=== PATIENT | male | born 1980 | race African-American/Black ===

== ENCOUNTER 2019-10-22 00:57 | Emergency (ER) | payer MEDICAID, OTHER ==
[~2019-10-22] VITALS: Ht 185.4 cm; Wt 77.1 kg
[2019-10-22 01:30] VITALS: BP 135/78
== END 2019-10-22 02:05 | disposition home or self-care (01) ==
LOC: ER 00:57
DX: A63.0 Anogenital (venereal) warts (principal); B08.1 Molluscum contagiosum

== ENCOUNTER 2019-11-13 08:41 | Emergency (ER) | payer MEDICAID ==
[~2019-11-13] VITALS: Ht 185.4 cm; Wt 74.8 kg
[2019-11-13 09:03] VITALS: BP 162/78
== END 2019-11-13 09:43 | disposition home or self-care (01) ==
LOC: ER 08:41
DX: L03.317 Cellulitis of buttock (principal); L02.31 Cutaneous abscess of buttock

== ENCOUNTER 2019-11-14 07:21 | Emergency (ER) | payer MEDICAID ==
[~2019-11-14] VITALS: Ht 188 cm; Wt 79.4 kg
[2019-11-14 07:33] VITALS: BP 122/81
== END 2019-11-14 08:29 | disposition home or self-care (01) ==
LOC: ER 07:21
DX: L03.317 Cellulitis of buttock (principal)

== ENCOUNTER 2019-11-16 04:25 | Emergency (ER) | payer MEDICAID ==
[~2019-11-16] VITALS: Ht 185.4 cm; Wt 79.4 kg
[2019-11-16 04:37] VITALS: BP 114/71
== END 2019-11-16 07:45 | disposition home or self-care (01) ==
LOC: ER 04:25
DX: J20.9 Acute bronchitis, unspecified (principal)

== ENCOUNTER 2019-11-17 21:53 | Emergency (ER) | payer MEDICAID ==
[~2019-11-17] VITALS: Ht 185.4 cm; Wt 77.8 kg
[2019-11-18 01:45] VITALS: BP 115/72
== END 2019-11-18 02:22 | disposition home or self-care (01) ==
LOC: ER 21:55
DX: R21 Rash and other nonspecific skin eruption (principal)

== ENCOUNTER 2019-11-20 19:03 | Emergency (ER) | payer MEDICAID ==
[~2019-11-20] VITALS: Ht 154.9 cm; Wt 79.4 kg
[2019-11-20 22:17] VITALS: BP 115/80
[2019-11-20] MEDS ORDERED: IBUPROFEN 800 MG TAB PO ONE (22:30)
== END 2019-11-20 23:10 | disposition home or self-care (01) ==
LOC: ER 19:08
DX: S93.602A Unspecified sprain of left foot, initial encounter (principal); W10.8XXA Fall (on) (from) other stairs and steps, initial encounter; Y93.A3 Activity, aerobic and step exercise; Y92.89 Other specified places as the place of occurrence of the external cause; Y99.8 Other external cause status
CPT/HCPCS: 73610; 73630

== ENCOUNTER 2019-11-22 02:51 | Emergency (ER) | payer MEDICAID ==
[~2019-11-22] VITALS: Ht 185.4 cm; Wt 79.4 kg
[2019-11-22 04:31] VITALS: BP 126/82
== END 2019-11-22 04:47 | disposition home or self-care (01) ==
LOC: ER 02:51
DX: S93.402A Sprain of unspecified ligament of left ankle, initial encounter (principal); S93.602A Unspecified sprain of left foot, initial encounter; X58.XXXA Exposure to other specified factors, initial encounter; Y93.89 Activity, other specified; Y92.89 Other specified places as the place of occurrence of the external cause; Y99.8 Other external cause status
CPT/HCPCS: 73610; 73630

== ENCOUNTER 2019-11-27 01:42 | Emergency (ER) | payer MEDICAID | END 2019-11-27 02:22 | disposition left against medical advice (07) | LOC: ER 01:42 | DX: M79.89 Other specified soft tissue disorders (principal); Z53.21 Procedure and treatment not carried out due to patient leaving prior to being seen by health care provider ==

== ENCOUNTER 2020-08-20 00:35 | Emergency (ER) | payer MEDICAID, OTHER | END 2020-08-20 00:49 | disposition left against medical advice (07) | LOC: ER 00:35 | DX: R07.89 Other chest pain (principal); Z53.21 Procedure and treatment not carried out due to patient leaving prior to being seen by health care provider ==

== ENCOUNTER 2022-01-08 23:58 | Emergency (ER) | payer MEDICAID, OTHER ==
[~2022-01-08] VITALS: Ht 188 cm; Wt 70.3 kg
[2022-01-09 00:44] VITALS: BP 130/86
== END 2022-01-09 01:44 | disposition home or self-care (01) ==
LOC: ER 01-09 00:02
DX: S39.012A Strain of muscle, fascia and tendon of lower back, initial encounter (principal); M79.10 Myalgia, unspecified site; X58.XXXA Exposure to other specified factors, initial encounter; Y93.89 Activity, other specified; Y92.89 Other specified places as the place of occurrence of the external cause; Y99.8 Other external cause status

== ENCOUNTER → 2022-08-21 | Emergency (ER) | payer MEDICAID ==
[~2022-08-21] VITALS: Ht 185.4 cm; Wt 75.0 kg
[2022-08-21 04:54] VITALS: BP 130/82
== END | disposition left against medical advice (07) ==
LOC: EDUNIT# 03:44 → EDBD 03:49 → ER 04:00
DX: R05.9 Cough, unspecified (principal); R09.81 Nasal congestion; Z53.21 Procedure and treatment not carried out due to patient leaving prior to being seen by health care provider

== ENCOUNTER 2022-09-27 05:20 | Emergency (ER) | payer MEDICAID ==
[~2022-09-27] VITALS: Ht 188 cm; Wt 70.4 kg
[2022-09-27 06:05] VITALS: BP 129/92
[2022-09-28] MEDS ORDERED: ACET-1158 PO (03:50)
== END 2022-09-27 07:38 | disposition left against medical advice (07) ==
LOC: EDBD 05:20 → ER 05:23
DX: M79.10 Myalgia, unspecified site (principal); R51.9 Headache, unspecified; R20.2 Paresthesia of skin; Z53.21 Procedure and treatment not carried out due to patient leaving prior to being seen by health care provider

== ENCOUNTER 2022-09-27 19:35 | Emergency (ER) | payer MEDICAID ==
[~2022-09-27] VITALS: Ht 188 cm; Wt 70.4 kg
[2022-09-28 03:35] VITALS: BP 125/75
[2022-09-28] MEDS ORDERED: ACET-1158 PO (03:50)
== END 2022-09-28 04:16 | disposition home or self-care (01) ==
LOC: ER 19:38
DX: M62.831 Muscle spasm of calf (principal); F12.10 Cannabis abuse, uncomplicated; Z59.00 Homelessness unspecified

== ENCOUNTER 2022-10-20 02:34 | Emergency (ER) | payer MEDICAID ==
[~2022-10-20] VITALS: Ht 188 cm; Wt 70.5 kg
[~2022-10-20 02:34] MED LIST: ACET-1158 PO
[2022-10-20 02:53] VITALS: BP 139/81
[2022-10-20] MEDS ORDERED: AMOX-277 PO (02:58)
[2022-10-20] MEDS ORDERED: ACET-1158 PO (02:58)
== END 2022-10-20 03:03 | disposition home or self-care (01) ==
LOC: ER 02:34
DX: J02.9 Acute pharyngitis, unspecified (principal)

== ENCOUNTER 2022-10-22 20:00 | Inpatient (IN) | payer MEDICAID ==
[~2022-10-22] VITALS: Ht 188 cm; Wt 70.5 kg
[~2022-10-22 20:00] MED LIST changes: +AMOX-277 PO
[2022-10-22] MEDS ORDERED: MORPHINE SULFATE 4 MG/ML SYR/VIAL IV ONE (20:15)
[2022-10-22] MEDS ORDERED: SODIUM CHLORIDE 0.9% 1,000 ML IV ONE (20:15)
[2022-10-22] MEDS ORDERED: ONDANSETRON HCL 4 MG/2 ML VIAL IV ONE (20:15)
[2022-10-22 21:31] LABS: Albumin 2.1 g/dL (3.4-5.0); Calcium 8.4 mg/dL (8.5-10.1); Potassium 3.7 mmol/L (3.5-5.1)
[2022-10-22 21:34] LABS: Bilirubin, Total 0.3 mg/dL (0.2-1.0); Total Protein 10.4 g/dL (6.4-8.2)
[2022-10-22 21:41] LABS: Basophils # (auto) 0.1 10 ^3/uL (0-0.2); Eosinophils # (auto) 0 10 ^3/uL (0-0.8); Lymphocytes # (auto) 1.5 10 ^3/uL (0.4-5.4); Monocytes # (auto) 1.1 10 ^3/uL (0-1.3); Monocytes % (auto) 7.5 % (0.0-12.0)
[2022-10-22 21:42] LABS: Lactic Acid w/Reflex 2.4 mmol/L (0.4-2.0)
[2022-10-22 21:43] LABS: Basophils % (auto) 0.4 % (0.0-2.0); Eosinophils % (auto) 0.3 % (0.0-7.0); Hematocrit 32.6 % (41.0-53.0); Hemoglobin 10.9 g/dL (13.5-17.5); Lymphocytes % (auto) 10.2 % (10.0-50.0); Mean Corpuscular Hemoglobin 26.9 pg (28.0-32.0); Mean Corpuscular Hgb Conc. 33.5 g/dL (32.0-36.0); Mean Corpuscular Volume 80.4 fL (80.0-100.0); Neutrophils # (auto) 12.2 10 ^3/uL (1.6-8.6); Neutrophils % (auto) 81.6 % (37.0-80.0); Red Blood Cells 4.05 10^6/uL (4.5-5.90); White Blood Cell 14.9 10^3/uL (4.4-10.8)
[2022-10-22 21:48] LABS: Red Cell Distribution Width 20.3 % (11.8-14.3)
[2022-10-22 21:49] LABS: CRP High Sensitivity 12.1 mg/dL (< 0.3)
[2022-10-22] MEDS ORDERED: HYDROcodone-ACET 5/325MG TAB PO PRN (23:30)
[2022-10-22] MEDS ORDERED: DOCUSATE SOD 100 MG CAP PO PRN (23:30)
[2022-10-22] MEDS ORDERED: SODIUM CHLORIDE 0.9% 1,000 ML IV SCH (23:30)
[2022-10-22] MEDS ORDERED: HYDROcodone-ACET 10/325MG TAB PO ONE (23:30)
[2022-10-22] MEDS ORDERED: ACETAMINOPHEN 500 MG TAB PO PRN (23:30)
[2022-10-22] MEDS ORDERED: ONDANSETRON HCL 4 MG/2 ML VIAL IV PRN (23:30)
[2022-10-22] MEDS ORDERED: ALBUTEROL SULF HFA 90MCG INH 200DOSE IN PRN (23:30)
[2022-10-23 01:08] VITALS: BP 122/73
[2022-10-23] MEDS ORDERED: MORPHINE SULFATE INJ 2 MG/ml SYRG IV PRN (01:30)
[2022-10-23] MEDS ORDERED: NITROGLYCERIN 0.4 MG SL TAB SL PRN (01:30)
[2022-10-23] MEDS ORDERED: ALBUMIN 5% 250 ML IV ONE (04:00)
[2022-10-23 04:56] LABS: Basophils # (auto) 0 10 ^3/uL (0-0.2); Basophils % (auto) 0.3 % (0.0-2.0); Eosinophils # (auto) 0.1 10 ^3/uL (0-0.8); Neutrophils % (auto) 79.2 % (37.0-80.0)
[2022-10-23 04:58] LABS: Eosinophils % (auto) 0.6 % (0.0-7.0); Hematocrit 30.3 % (41.0-53.0); Hemoglobin 9.7 g/dL (13.5-17.5); Lymphocytes # (auto) 1.4 10 ^3/uL (0.4-5.4); Lymphocytes % (auto) 11.9 % (10.0-50.0); Mean Corpuscular Hemoglobin 25.8 pg (28.0-32.0); Mean Corpuscular Hgb Conc. 32.1 g/dL (32.0-36.0); Mean Corpuscular Volume 80.4 fL (80.0-100.0); Monocytes # (auto) 0.9 10 ^3/uL (0-1.3); Neutrophils # (auto) 9.1 10 ^3/uL (1.6-8.6); Red Blood Cells 3.77 10^6/uL (4.5-5.90); White Blood Cell 11.5 10^3/uL (4.4-10.8)
[2022-10-23 05:12] LABS: Calcium 8.5 mg/dL (8.5-10.1); Potassium 3.8 mmol/L (3.5-5.1)
[2022-10-23 05:14] LABS: Red Cell Distribution Width 20.2 % (11.8-14.3)
[2022-10-23 05:15] LABS: Albumin 1.9 g/dL (3.4-5.0); BUN/Creatinine Ratio 16.3
[2022-10-23 05:17] LABS: Bilirubin, Total 0.3 mg/dL (0.2-1.0); Total Protein 9.3 g/dL (6.4-8.2)
[2022-10-23] MEDS ORDERED: ASCORBIC ACID 1,000 MG TAB PO SCH (10:00)
[2022-10-23] MEDS ORDERED: DexAMETHasone SOD PHOS 10MG/1ML VIAL INJ IV SCH (10:00)
[2022-10-23] MEDS ORDERED: FAMOTIDINE (10MG/ML) 2ML VL IV SCH (10:00)
[2022-10-23] MEDS ORDERED: BUDESONIDE (INHALATION) 180 MCG IH IN SCH (10:00)
[2022-10-23] MEDS ORDERED: CHOLECALCIFEROL (VITD3) 2,000 UNIT CAP/TAB PO SCH (10:00)
[2022-10-23] MEDS ORDERED: ZINC SULFATE 220mg CAP or TAB PO SCH (10:00)
[2022-10-23] MEDS ORDERED: AZITHROMYCIN 500MG/ 250ML 250 ML IV SCH (10:00)
[2022-10-23] MEDS ORDERED: MULTIPLE VITAMIN TAB PO SCH (10:00)
[2022-10-23] MEDS ORDERED: ENOXAPARIN SOD 40 MG/0.4 ML SYRINGE SC SCH (10:00)
== END 2022-10-23 07:47 | disposition left against medical advice (07) | DRG 137 ==
LOC: ER 20:00 → OVERFLOW 10-23 01:25
PROVIDERS: ADMIT Nurse Practitioner Family; ATTEND Internal Medicine
DX: U07.1 COVID-19 (principal); J12.82 Pneumonia due to coronavirus disease 2019; E87.20 Acidosis, unspecified; E87.1 Hypo-osmolality and hyponatremia; E88.09 Other disorders of plasma-protein metabolism, not elsewhere classified; D64.9 Anemia, unspecified; D75.839 Thrombocytosis, unspecified; S31.819A Unspecified open wound of right buttock, initial encounter; F17.200 Nicotine dependence, unspecified, uncomplicated; R79.89 Other specified abnormal findings of blood chemistry; L03.90 Cellulitis, unspecified; Z53.29 Procedure and treatment not carried out because of patient's decision for other reasons; S31.829A Unspecified open wound of left buttock, initial encounter; Z59.00 Homelessness unspecified
CPT/HCPCS: 36415; 80053; 83605; 83735; 85025; 85379; 86141; 87426; 93005; 96361; 96374; G0378; J2405

== ENCOUNTER 2022-11-01 23:23 | Emergency (ER) | payer MEDICAID ==
[~2022-11-01] VITALS: Ht 188 cm; Wt 70.4 kg
[2022-11-02 02:52] VITALS: BP 132/82
== END 2022-11-02 03:06 | disposition home or self-care (01) ==
LOC: ER 23:23
DX: M76.62 Achilles tendinitis, left leg (principal); M76.61 Achilles tendinitis, right leg; F12.10 Cannabis abuse, uncomplicated; Z59.00 Homelessness unspecified

== ENCOUNTER 2022-11-14 18:01 | Inpatient (IN) | payer MEDICAID, OTHER ==
[~2022-11-14] VITALS: Ht 188 cm; Wt 84.0 kg
[2022-11-14 18:39] LABS: Basophils # (auto) 0 10 ^3/uL (0-0.2); Eosinophils # (auto) 0.5 10 ^3/uL (0-0.8); Hemoglobin 9.7 g/dL (13.5-17.5); White Blood Cell 14.8 10^3/uL (4.4-10.8)
[2022-11-14 18:41] LABS: Basophils % (auto) 0.3 % (0.0-2.0); Eosinophils % (auto) 3.4 % (0.0-7.0); Hematocrit 30.3 % (41.0-53.0); Lymphocytes # (auto) 1.3 10 ^3/uL (0.4-5.4); Lymphocytes % (auto) 8.6 % (10.0-50.0); Mean Corpuscular Hemoglobin 25.9 pg (28.0-32.0); Mean Corpuscular Hgb Conc. 31.9 g/dL (32.0-36.0); Mean Corpuscular Volume 81.2 fL (80.0-100.0); Neutrophils # (auto) 11.9 10 ^3/uL (1.6-8.6); Neutrophils % (auto) 80.7 % (37.0-80.0); Red Blood Cells 3.73 10^6/uL (4.5-5.90)
[2022-11-14 18:44] LABS: Red Cell Distribution Width 21.3 % (11.8-14.3)
[2022-11-14 19:04] LABS: Albumin 2.2 g/dL (3.4-5.0); BUN/Creatinine Ratio 11.3; Calcium 8.4 mg/dL (8.5-10.1); Potassium 3.7 mmol/L (3.5-5.1)
[2022-11-14 19:07] LABS: Bilirubin, Total 0.3 mg/dL (0.2-1.0); Total Protein 9.8 g/dL (6.4-8.2)
[2022-11-14] MEDS ORDERED: CEFEPIME 1GM/ 50ML 50 ML IV ONE (20:30)
[2022-11-14] MEDS ORDERED: MORPHINE SULFATE 4 MG/ML SYR/VIAL IV ONE (20:30)
[2022-11-14] MEDS ORDERED: SODIUM CHLORIDE 0.9% 1,000 ML IV ONE (20:45)
[2022-11-14] MEDS ORDERED: DOCUSATE SOD 100 MG CAP PO PRN (23:15)
[2022-11-14] MEDS ORDERED: ONDANSETRON HCL 4 MG/2 ML VIAL IV PRN (23:15)
[2022-11-14] MEDS ORDERED: MORPHINE SULFATE INJ 2 MG/ml SYRG IV PRN (23:15)
[2022-11-14] MEDS ORDERED: ACETAMINOPHEN 325 MG TAB PO PRN (23:15)
[2022-11-14] MEDS ORDERED: HYDROcodone-ACET 5/325MG TAB PO PRN (23:15)
[2022-11-14] MEDS ORDERED: NITROGLYCERIN 0.4 MG SL TAB SL PRN (23:15)
[2022-11-14] MEDS ORDERED: ALBUMIN 25% 50 ML IV ONE (23:30)
[2022-11-14] MEDS ORDERED: IOHEXOL 300 MG/ML 100ML BOTTLE IJ ONE (23:58)
[2022-11-15] MEDS: MORPHINE SULFATE INJ 2 MG/ml SYRG IV PRN ×3 (01:05→21:35)
[2022-11-15] MEDS: SODIUM CHLOR 0.9% PF (SALINE LOCK) 10ML VIAL/SYR IV SCH ×3 (05:32→21:35)
[2022-11-15 05:37] LABS: Hemoglobin 9.4 g/dL (13.5-17.5); White Blood Cell 12.1 10^3/uL (4.4-10.8)
[2022-11-15 05:40] LABS: Basophils # (auto) 0.1 10 ^3/uL (0-0.2); Basophils % (auto) 0.4 % (0.0-2.0); Eosinophils # (auto) 0.6 10 ^3/uL (0-0.8); Eosinophils % (auto) 4.6 % (0.0-7.0); Hematocrit 29.5 % (41.0-53.0); Lymphocytes # (auto) 1.3 10 ^3/uL (0.4-5.4); Lymphocytes % (auto) 10.5 % (10.0-50.0); Mean Corpuscular Volume 81.4 fL (80.0-100.0); Monocytes % (auto) 8.2 % (0.0-12.0); Neutrophils # (auto) 9.2 10 ^3/uL (1.6-8.6); Neutrophils % (auto) 76.3 % (37.0-80.0); Nucleated Red Blood Cells % 0.1 %; Red Blood Cells 3.62 10^6/uL (4.5-5.90)
[2022-11-15 05:45] LABS: Red Cell Distribution Width 21.1 % (11.8-14.3)
[2022-11-15 05:54] LABS: Calcium 7.8 mg/dL (8.5-10.1); Potassium 3.4 mmol/L (3.5-5.1)
[2022-11-15 06:00] LABS: Albumin 2.1 g/dL (3.4-5.0); BUN/Creatinine Ratio 9.4; Bilirubin, Total 0.4 mg/dL (0.2-1.0); Total Protein 8.3 g/dL (6.4-8.2)
[2022-11-15] MEDS ORDERED: CEFEPIME 1GM/ 50ML 50 ML IV SCH (10:00)
[2022-11-15] MEDS: ZINC SULFATE 220mg CAP or TAB PO SCH (10:55)
[2022-11-15] MEDS: ENOXAPARIN SOD 40 MG/0.4 ML SYRINGE SC SCH (10:55)
[2022-11-15] MEDS: ASCORBIC ACID 500 MG TAB PO SCH ×2 (10:56→21:32)
[2022-11-15] MEDS: MULTIPLE VITAMIN TAB PO SCH (10:56)
[2022-11-15] MEDS: CLINDAMYCIN HCL 150 MG CAP PO SCH (21:32)
[2022-11-15] MEDS: rifAMPin 300 MG CAP PO SCH (22:25)
[2022-11-15 22:46] VITALS: BP 115/79
[2022-11-16 04:59] VITALS: BP 112/73
[2022-11-16] MEDS: SODIUM CHLOR 0.9% PF (SALINE LOCK) 10ML VIAL/SYR IV SCH ×3 (05:28→21:19)
[2022-11-16 06:50] LABS: % Iron Saturation 8.9 % (20-55)
[2022-11-16 08:30] VITALS: BP 127/87
[2022-11-16 09:00] VITALS: BP 120/64
[2022-11-16] MEDS: ENOXAPARIN SOD 40 MG/0.4 ML SYRINGE SC SCH (10:00)
[2022-11-16] MEDS: ASCORBIC ACID 500 MG TAB PO SCH ×2 (10:33→21:15)
[2022-11-16] MEDS: CLINDAMYCIN HCL 150 MG CAP PO SCH ×2 (10:33→21:15)
[2022-11-16] MEDS: MULTIPLE VITAMIN TAB PO SCH (10:33)
[2022-11-16] MEDS: ZINC SULFATE 220mg CAP or TAB PO SCH (10:33)
[2022-11-16] MEDS: MORPHINE SULFATE INJ 2 MG/ml SYRG IV PRN ×2 (11:00→21:18)
[2022-11-16] MEDS: rifAMPin 300 MG CAP PO SCH ×2 (11:40→21:19)
[2022-11-16 13:00] VITALS: BP 127/87
[2022-11-16 17:00] VITALS: BP 119/74
[2022-11-16 22:00] VITALS: BP 128/73
[2022-11-17] MEDS: MORPHINE SULFATE INJ 2 MG/ml SYRG IV PRN ×2 (04:28→10:43)
[2022-11-17 05:00] VITALS: BP 128/70
[2022-11-17] MEDS: SODIUM CHLOR 0.9% PF (SALINE LOCK) 10ML VIAL/SYR IV SCH ×3 (05:00→21:07)
[2022-11-17 09:00] VITALS: BP 108/74
[2022-11-17] MEDS: ENOXAPARIN SOD 40 MG/0.4 ML SYRINGE SC SCH (10:00)
[2022-11-17] MEDS ORDERED: FERROUS SULFATE 325mg EC TAB PO SCH (10:00)
[2022-11-17] MEDS: CLINDAMYCIN HCL 150 MG CAP PO SCH ×2 (10:39→21:05)
[2022-11-17] MEDS: ZINC SULFATE 220mg CAP or TAB PO SCH (10:40)
[2022-11-17] MEDS: ASCORBIC ACID 500 MG TAB PO SCH ×2 (10:40→21:06)
[2022-11-17] MEDS: MULTIPLE VITAMIN TAB PO SCH (10:40)
[2022-11-17] MEDS: rifAMPin 300 MG CAP PO SCH ×2 (10:53→21:07)
[2022-11-17] MEDS ORDERED: predniSONE 20 MG TAB PO SCH (11:00)
[2022-11-17 13:00] VITALS: BP_SYST 109; BP_SYST 161; BP_DIAS 70; BP_DIAS 71
[2022-11-17] MEDS ORDERED: HYDROmorphone HCL 2 MG TAB PO PRN (13:45)
[2022-11-17] MEDS ORDERED: SENNA 8.6 MG TAB PO PRN (14:00)
[2022-11-17] MEDS ORDERED: POLYETHYLENE GLYCOL 17 GM PWDR PO PRN (14:00)
[2022-11-17] MEDS: ACETAMINOPHEN 500 MG TAB PO SCH ×2 (16:57→21:06)
[2022-11-17 17:00] VITALS: BP 110/70
[2022-11-17 21:30] VITALS: BP 136/81
[2022-11-17] MEDS ORDERED: SENNA 8.6 MG TAB PO SCH (22:00)
[2022-11-18 05:00] VITALS: BP 122/68
[2022-11-18] MEDS: ACETAMINOPHEN 500 MG TAB PO SCH (05:05)
[2022-11-18] MEDS: SODIUM CHLOR 0.9% PF (SALINE LOCK) 10ML VIAL/SYR IV SCH (05:05)
[2022-11-18 08:00] VITALS: BP 127/76
== END 2022-11-18 10:30 | disposition left against medical advice (07) | DRG 385 ==
LOC: ER 18:05 → OVERFLOW 23:15 → WEST WING 11-15 21:05
PROVIDERS: ADMIT Nurse Practitioner Family; ATTEND Student in an Organized Health Care Education/Training Program
DX: L73.2 Hidradenitis suppurativa (principal); R65.10 Systemic inflammatory response syndrome (SIRS) of non-infectious origin without acute organ dysfunction; E87.1 Hypo-osmolality and hyponatremia; E88.09 Other disorders of plasma-protein metabolism, not elsewhere classified; L03.317 Cellulitis of buttock; D64.9 Anemia, unspecified; D75.839 Thrombocytosis, unspecified; F17.200 Nicotine dependence, unspecified, uncomplicated; Z53.29 Procedure and treatment not carried out because of patient's decision for other reasons; R00.0 Tachycardia, unspecified; Z20.822 Contact with and (suspected) exposure to COVID-19; D72.829 Elevated white blood cell count, unspecified; Z59.00 Homelessness unspecified
CPT/HCPCS: 36415; 74177; 80053; 82607; 82728; 83036; 83540; 83550; 85025; 87081; 87205; 87426; G0378

== ENCOUNTER 2022-11-19 23:17 | Inpatient (IN) | payer MEDICAID, OTHER ==
[~2022-11-19] VITALS: Ht 188 cm; Wt 65.2 kg
[2022-11-20] MEDS ORDERED: KETOROLAC TROMETH 30 MG/ML 1ML VIAL IV ONE
[2022-11-20 00:14] VITALS: BP 125/82
[2022-11-20 00:34] LABS: Basophils # (auto) 0.1 10 ^3/uL (0-0.2); Basophils % (auto) 0.4 % (0.0-2.0); Eosinophils # (auto) 0.4 10 ^3/uL (0-0.8); Eosinophils % (auto) 2.5 % (0.0-7.0); Hematocrit 30.1 % (41.0-53.0); Hemoglobin 9.8 g/dL (13.5-17.5); Lymphocytes # (auto) 1.4 10 ^3/uL (0.4-5.4); Lymphocytes % (auto) 9.1 % (10.0-50.0); Mean Corpuscular Hemoglobin 26.1 pg (28.0-32.0); Mean Corpuscular Hgb Conc. 32.5 g/dL (32.0-36.0); Mean Corpuscular Volume 80.4 fL (80.0-100.0); Monocytes # (auto) 1.1 10 ^3/uL (0-1.3); Monocytes % (auto) 6.8 % (0.0-12.0); Neutrophils # (auto) 12.8 10 ^3/uL (1.6-8.6); Neutrophils % (auto) 81.2 % (37.0-80.0); Red Blood Cells 3.74 10^6/uL (4.5-5.90); White Blood Cell 15.8 10^3/uL (4.4-10.8)
[2022-11-20 00:52] LABS: Albumin 2.2 g/dL (3.4-5.0); BUN/Creatinine Ratio 16.7; Calcium 8.4 mg/dL (8.5-10.1); Magnesium 2.2 mg/dL (1.6-2.6); Potassium 3.5 mmol/L (3.5-5.1)
[2022-11-20 00:55] LABS: Bilirubin, Total 0.2 mg/dL (0.2-1.0); Total Protein 10.4 g/dL (6.4-8.2)
[2022-11-20] MEDS ORDERED: ALBUMIN 25% 100 ML IV ONE (02:15)
[2022-11-20] MEDS ORDERED: ONDANSETRON HCL 4 MG/2 ML VIAL IV PRN (02:15)
[2022-11-20] MEDS ORDERED: SODIUM CHLORIDE 0.9% 1,000 ML IV SCH (02:15)
[2022-11-20] MEDS ORDERED: DOCUSATE SOD 100 MG CAP PO PRN (02:15)
[2022-11-20] MEDS ORDERED: HYDROcodone-ACET 5/325MG TAB PO PRN (02:15)
[2022-11-20] MEDS ORDERED: ACETAMINOPHEN 325 MG TAB PO PRN (02:15)
[2022-11-20] MEDS ORDERED: MORPHINE SULFATE INJ 2 MG/ml SYRG IV PRN ×2 (02:15→04:15)
[2022-11-20] MEDS ORDERED: NITROGLYCERIN 0.4 MG SL TAB SL PRN (04:15)
[2022-11-20 04:52] LABS: Basophils # (auto) 0.1 10 ^3/uL (0-0.2); Basophils % (auto) 0.5 % (0.0-2.0); Eosinophils # (auto) 0.4 10 ^3/uL (0-0.8); Hemoglobin 9.7 g/dL (13.5-17.5); White Blood Cell 15.3 10^3/uL (4.4-10.8)
[2022-11-20 04:54] LABS: Eosinophils % (auto) 2.7 % (0.0-7.0); Hematocrit 30.3 % (41.0-53.0); Lymphocytes # (auto) 1.9 10 ^3/uL (0.4-5.4); Lymphocytes % (auto) 12.7 % (10.0-50.0); Mean Corpuscular Hemoglobin 25.7 pg (28.0-32.0); Mean Corpuscular Volume 80.4 fL (80.0-100.0); Monocytes # (auto) 1.3 10 ^3/uL (0-1.3); Monocytes % (auto) 8.7 % (0.0-12.0); Neutrophils # (auto) 11.6 10 ^3/uL (1.6-8.6); Neutrophils % (auto) 75.4 % (37.0-80.0); Nucleated Red Blood Cells % 0.1 %; Red Blood Cells 3.76 10^6/uL (4.5-5.90)
[2022-11-20 04:57] LABS: Red Cell Distribution Width 20.8 % (11.8-14.3)
[2022-11-20 05:13] LABS: Albumin 2.3 g/dL (3.4-5.0); Calcium 8.4 mg/dL (8.5-10.1)
[2022-11-20 05:16] LABS: BUN/Creatinine Ratio 17.4; Bilirubin, Total 0.2 mg/dL (0.2-1.0); Total Protein 10.5 g/dL (6.4-8.2)
[2022-11-20] MEDS ORDERED: PIPERACILLIN-TAZOB 3.375GM 100 ML IV SCH (06:00)
[2022-11-20] MEDS ORDERED: FAMOTIDINE (10MG/ML) 2ML VL IV SCH (10:00)
[2022-11-20] MEDS ORDERED: ASCORBIC ACID 500 MG TAB PO SCH (10:00)
[2022-11-20] MEDS ORDERED: ZINC SULFATE 220mg CAP or TAB PO SCH (10:00)
[2022-11-20] MEDS ORDERED: ENOXAPARIN SOD 40 MG/0.4 ML SYRINGE SC SCH (10:00)
[2022-11-20] MEDS ORDERED: MULTIPLE VITAMIN TAB PO SCH (10:00)
== END 2022-11-20 06:10 | disposition left against medical advice (07) | DRG 383 ==
LOC: ER 23:17 → OVERFLOW 11-20 04:22
PROVIDERS: ADMIT Nurse Practitioner Family; ATTEND Internal Medicine Geriatric Medicine
DX: L03.315 Cellulitis of perineum (principal); D64.9 Anemia, unspecified; L03.314 Cellulitis of groin; Z53.29 Procedure and treatment not carried out because of patient's decision for other reasons; F17.200 Nicotine dependence, unspecified, uncomplicated; D75.839 Thrombocytosis, unspecified; Z59.00 Homelessness unspecified
CPT/HCPCS: 36415; 80053; 83605; 83735; 85025; 86850; 86900; 86901; G0378

== ENCOUNTER 2022-12-16 22:19 | Inpatient (IN) | payer MEDICAID ==
[~2022-12-16] VITALS: Ht 193 cm; Wt 70.0 kg
[2022-12-16 23:11] LABS: Basophils # (auto) 0 10 ^3/uL (0-0.2); Basophils % (auto) 0.1 % (0.0-2.0); Eosinophils # (auto) 0.5 10 ^3/uL (0-0.8); Neutrophils % (auto) 83.8 % (37.0-80.0)
[2022-12-16 23:13] LABS: Hemoglobin 8.9 g/dL (13.5-17.5); Lymphocytes # (auto) 1.1 10 ^3/uL (0.4-5.4); Lymphocytes % (auto) 6.8 % (10.0-50.0); Mean Corpuscular Hemoglobin 26.5 pg (28.0-32.0); Mean Corpuscular Hgb Conc. 33.1 g/dL (32.0-36.0); Monocytes % (auto) 6.3 % (0.0-12.0); Neutrophils # (auto) 13.9 10 ^3/uL (1.6-8.6); Nucleated Red Blood Cells % 0.1 %; Red Blood Cells 3.38 10^6/uL (4.5-5.90); Red Cell Distribution Width 19.3 % (11.8-14.3); White Blood Cell 16.6 10^3/uL (4.4-10.8)
[2022-12-16 23:30] LABS: Albumin 1.9 g/dL (3.4-5.0); BUN/Creatinine Ratio 11.7; Calcium 8.3 mg/dL (8.5-10.1); Potassium 3.7 mmol/L (3.5-5.1)
[2022-12-16 23:33] LABS: Bilirubin, Total 0.2 mg/dL (0.2-1.0); Total Protein 9.7 g/dL (6.4-8.2)
[2022-12-17] MEDS ORDERED: cefTRIAXone 1GM/50ML D5W 50 ML IV ONE (05:15)
[2022-12-17] MEDS ORDERED: KETOROLAC TROMETH 30 MG/ML 1ML VIAL IV ONE (08:30)
[2022-12-17] MEDS ORDERED: KETOROLAC TROMETH 30 MG/ML 1ML VIAL IV PRN (08:45)
[2022-12-17] MEDS ORDERED: methylPREDNISolone SOD SUCC 125 MG/2 ML VL IV ONE (08:45)
[2022-12-17] MEDS ORDERED: DOXYCYCLINE 100MG/250ML 250 ML IV ONE (08:45)
[2022-12-17] MEDS ORDERED: CHLORHEXIDINE 4% TOPICAL soln 118ml TOP ONE (08:45)
[2022-12-17] MEDS ORDERED: ACETAMINOPHEN 325 MG TAB PO PRN (08:45)
[2022-12-17] MEDS: ZINC SULFATE 220mg CAP or TAB PO SCH (09:27)
[2022-12-17] MEDS: HYDROcodone-ACET 5/325MG TAB PO PRN ×2 (09:27→18:03)
[2022-12-17] MEDS: SODIUM CHLORIDE 0.9% 1,000 ML IV SCH ×2 (09:28→15:12)
[2022-12-17] MEDS: MULTIPLE VITAMIN TAB PO SCH (09:29)
[2022-12-17] MEDS: ASCORBIC ACID 500 MG TAB PO SCH ×2 (09:30→22:27)
[2022-12-17] MEDS ORDERED: IOHEXOL 300 MG/ML 100ML BOTTLE IJ ONE (09:43)
[2022-12-17] MEDS ORDERED: BETAMETHASONE DIPROP0.05% TOPICAL CREAM 15GM TOP ONE (09:45)
[2022-12-17] MEDS ORDERED: ENOXAPARIN SOD 40 MG/0.4 ML SYRINGE SC SCH (10:00)
[2022-12-17] MEDS: MORPHINE SULFATE INJ 2 MG/ml SYRG IV PRN ×2 (13:05→20:32)
[2022-12-17 13:25] VITALS: BP 110/64
[2022-12-17] MEDS: CLINDAMYCIN 600MG IV 50 ML IV SCH ×2 (15:08→22:29)
[2022-12-17] MEDS: CHLORHEXIDINE 4% TOPICAL soln 118ml TOP SCH ×2 (16:19→22:00)
[2022-12-17] MEDS: BETAMETHASONE DIPROP0.05% TOPICAL CREAM 15GM TOP SCH ×2 (16:19→22:00)
[2022-12-17] MEDS ORDERED: DOXYCYCLINE 100MG/250ML 250 ML IV SCH (21:00)
[2022-12-17 22:00] VITALS: BP 136/83
[2022-12-17] MEDS ORDERED: methylPREDNISolone SOD SUCC 125 MG/2 ML VL IV SCH (22:00)
[2022-12-18] MEDS: SODIUM CHLORIDE 0.9% 1,000 ML IV SCH ×3 (05:05→07:03)
[2022-12-18 05:13] VITALS: BP 124/70
[2022-12-18] MEDS: CLINDAMYCIN 600MG IV 50 ML IV SCH (05:19)
[2022-12-18] MEDS: MORPHINE SULFATE INJ 2 MG/ml SYRG IV PRN ×2 (05:31→11:56)
[2022-12-18 06:16] LABS: Eosinophils # (auto) 0 10 ^3/uL (0-0.8); Hemoglobin 8.1 g/dL (13.5-17.5); Red Blood Cells 3.18 10^6/uL (4.5-5.90)
[2022-12-18 06:19] LABS: Basophils # (auto) 0.1 10 ^3/uL (0-0.2); Basophils % (auto) 0.6 % (0.0-2.0); Hematocrit 25.7 % (41.0-53.0); Lymphocytes # (auto) 1.4 10 ^3/uL (0.4-5.4); Lymphocytes % (auto) 6.8 % (10.0-50.0); Mean Corpuscular Hemoglobin 25.6 pg (28.0-32.0); Mean Corpuscular Hgb Conc. 31.7 g/dL (32.0-36.0); Mean Corpuscular Volume 80.9 fL (80.0-100.0); Monocytes # (auto) 1.2 10 ^3/uL (0-1.3); Monocytes % (auto) 5.9 % (0.0-12.0); Neutrophils # (auto) 18.2 10 ^3/uL (1.6-8.6); Neutrophils % (auto) 86.7 % (37.0-80.0); Red Cell Distribution Width 19.1 % (11.8-14.3)
[2022-12-18 06:35] LABS: Albumin 1.4 g/dL (3.4-5.0); Calcium 8.1 mg/dL (8.5-10.1)
[2022-12-18 06:37] LABS: BUN/Creatinine Ratio 12.5
[2022-12-18 06:40] LABS: Bilirubin, Total 0.1 mg/dL (0.2-1.0); Total Protein 8.1 g/dL (6.4-8.2)
[2022-12-18 07:01] LABS: Urine Bacteria FEW /hpf (None Seen); Urine Blood Negative /uL (Negative); Urine Specific Gravity 1.011 (1.001-1.035); Urine WBC <1 /hpf (0 - 3)
[2022-12-18 09:00] VITALS: BP 117/57
[2022-12-18] MEDS ORDERED: cefTRIAXone 1GM/50ML D5W 50 ML IV SCH (09:00)
[2022-12-18] MEDS: ZINC SULFATE 220mg CAP or TAB PO SCH (09:51)
[2022-12-18] MEDS: ASCORBIC ACID 500 MG TAB PO SCH (09:51)
[2022-12-18] MEDS: HYDROcodone-ACET 5/325MG TAB PO PRN (09:51)
[2022-12-18] MEDS: MULTIPLE VITAMIN TAB PO SCH (09:51)
[2022-12-18] MEDS: CHLORHEXIDINE 4% TOPICAL soln 118ml TOP SCH (09:52)
[2022-12-18] MEDS: BETAMETHASONE DIPROP0.05% TOPICAL CREAM 15GM TOP SCH (09:52)
[2022-12-18 13:00] VITALS: BP 123/69
[2022-12-18 13:27] VITALS: BP 123/69
[2022-12-18] MEDS ORDERED: VANCOMYCIN PER PHARMACY 0 MG IV SCH (14:30)
[2022-12-18] MEDS ORDERED: VANCOMYCIN 1GM/250ML 250 ML IV ONE (14:30)
== END 2022-12-18 14:40 | disposition left against medical advice (07) | DRG 383 ==
LOC: ER 22:19 → OVERFLOW 12-17 08:44 → TELE-E-ADS 12-17 12:20 → EAST 12-17 13:07 → CENTRAL 12-17 17:20
PROVIDERS: ADMIT Nurse Practitioner Family; ATTEND Internal Medicine
DX: L03.115 Cellulitis of right lower limb (principal); E83.51 Hypocalcemia; D64.9 Anemia, unspecified; D72.829 Elevated white blood cell count, unspecified; L73.2 Hidradenitis suppurativa; Z53.29 Procedure and treatment not carried out because of patient's decision for other reasons; Z20.822 Contact with and (suspected) exposure to COVID-19; Z72.0 Tobacco use; Z59.00 Homelessness unspecified
CPT/HCPCS: 36415; 74177; 80053; 81001; 83880; 85025; 85379; 85652; 86141; 87040; 87205; 87426; 93970; 96365; 96367; 96375; G0378; J0696; J1885; J3490

== ENCOUNTER 2023-01-09 03:40 | Emergency (ER) | payer MEDICAID ==
[2023-01-10] MEDS ORDERED: INDO50CA82 PO (11:14)
== END 2023-01-09 05:26 | disposition left against medical advice (07) ==
LOC: ER 03:40
DX: R21 Rash and other nonspecific skin eruption (principal); Z53.21 Procedure and treatment not carried out due to patient leaving prior to being seen by health care provider

== ENCOUNTER 2023-01-09 22:26 | Emergency (ER) | payer MEDICAID, OTHER ==
[~2023-01-09] VITALS: Ht 185.4 cm; Wt 73.0 kg
[2023-01-10 10:30] VITALS: BP 106/78
[2023-01-10] MEDS ORDERED: INDO50CA82 PO (11:14)
[2023-01-10] MEDS ORDERED: KETOROLAC TROMETH 60MG/2ML VIAL IM ONE (11:15)
== END 2023-01-10 11:35 | disposition home or self-care (01) ==
LOC: EDBD 22:26 → ER 22:26
DX: S86.912A Strain of unspecified muscle(s) and tendon(s) at lower leg level, left leg, initial encounter (principal); S93.402A Sprain of unspecified ligament of left ankle, initial encounter; F17.210 Nicotine dependence, cigarettes, uncomplicated; Z59.00 Homelessness unspecified; Z79.2 Long term (current) use of antibiotics; Z79.899 Other long term (current) drug therapy; X58.XXXA Exposure to other specified factors, initial encounter; Y93.89 Activity, other specified; Y92.89 Other specified places as the place of occurrence of the external cause; Y99.8 Other external cause status
CPT/HCPCS: 93971; 96372; 99285; J1885

== ENCOUNTER 2023-07-13 19:58 | Emergency (ER) | payer MEDICAID ==
[~2023-07-13] VITALS: Ht 190.5 cm; Wt 70.0 kg
[~2023-07-13 19:58] MED LIST changes: -ACET-1158 PO; +ACET500T58 PO; -AMOX-277 PO; +AMOX875T4 PO; +INDO50CA82 PO
[2023-07-13 20:27] VITALS: BP 128/85; PULSE 118; RESP 16; TEMP 98.5
[2023-07-13 22:23] VITALS: O2SAT 98
[2023-07-13] MEDS ORDERED: IBUP-1456 PO (22:28)
[2023-07-13] MEDS ORDERED: KETOROLAC TROMETH 60MG/2ML VIAL IM ONE (22:30)
[2023-07-13] MEDS ORDERED: ACETAMINOPHEN 325 MG TAB PO ONE (23:00)
== END 2023-07-13 23:29 | disposition home or self-care (01) ==
LOC: ER 20:00
DX: S50.02XA Contusion of left elbow, initial encounter (principal); Z88.6 Allergy status to analgesic agent; W22.8XXA Striking against or struck by other objects, initial encounter; Y93.89 Activity, other specified; Y92.89 Other specified places as the place of occurrence of the external cause; Y99.8 Other external cause status
CPT/HCPCS: 73080; J1885

== ENCOUNTER 2023-07-15 03:52 | Emergency (ER) | payer MEDICAID ==
[~2023-07-15] VITALS: Ht 172.7 cm; Wt 70.0 kg
[~2023-07-15 03:52] MED LIST changes: +IBUP-1456 PO
[2023-07-15 04:00] VITALS: BP 153/97; PULSE 90; RESP 18; O2SAT 98
== END 2023-07-15 06:21 | disposition home or self-care (01) ==
LOC: EDBD 03:52 → ER 03:52
DX: M79.605 Pain in left leg (principal); M79.604 Pain in right leg; M79.642 Pain in left hand; M79.641 Pain in right hand; Z59.00 Homelessness unspecified

== ENCOUNTER 2023-08-14 16:49 | Inpatient (IN) | payer MEDICAID ==
[~2023-08-14] VITALS: Ht 188 cm; Wt 69.2 kg
[~2023-08-14 16:49] MED LIST changes: +CLIN300C70 PO; +CLOT1CRE7 EX; +DOXY-447 PO; +HYDR-4902 PO; +IBUP-1454 PO; +MUPI2OIN2 EX; +SULF400T11 PO
[2023-08-14 18:00] LABS: Basophils # (auto) 0.2 10 ^3/uL (0-0.2); Eosinophils # (auto) 0.3 10 ^3/uL (0-0.8); Eosinophils % (auto) 1.5 % (0.0-7.0); Hematocrit 32.8 % (41.0-53.0); Hemoglobin 10.1 g/dL (13.5-17.5); Lymphocytes % (auto) 16.6 % (10.0-50.0); Mean Corpuscular Hemoglobin 23.2 pg (28.0-32.0); Mean Corpuscular Hgb Conc. 30.8 g/dL (32.0-36.0); Mean Corpuscular Volume 75.2 fL (80.0-100.0); Monocytes # (auto) 1.3 10 ^3/uL (0-1.3); Monocytes % (auto) 7.4 % (0.0-12.0); Neutrophils # (auto) 13.1 10 ^3/uL (1.6-8.6); Neutrophils % (auto) 73.5 % (37.0-80.0); Nucleated Red Blood Cells % 0.1 %; Red Blood Cells 4.36 10^6/uL (4.5-5.90); White Blood Cell 17.9 10^3/uL (4.4-10.8)
[2023-08-14 18:01] LABS: Red Cell Distribution Width 21.7 % (11.8-14.3)
[2023-08-14 18:16] LABS: Alanine Aminotransferase 61 U/L (7-40); Albumin 3.8 g/dL (3.2-4.8); Alkaline Phosphatase 118 U/L (46-116); Anion Gap 10 (5-15); Aspartate Aminotransferase 37 U/L (13-40); BUN/Creatinine Ratio 12.2 (10.0-20.0); Blood Urea Nitrogen 9 mg/dL (9-23); Calcium 9.1 mg/dL (8.7-10.4); Carbon Dioxide 23 mmol/L (20-30); Chloride 103 mmol/L (98-107); Glucose 79 mg/dL (74-106); Potassium 3.8 mmol/L (3.5-5.1); Sodium 136 mmol/L (136-145)
[2023-08-14 18:17] LABS: Bilirubin, Total 0.3 mg/dL (0.2-1.0); Total Protein 9.2 g/dL (5.7-8.2)
[2023-08-14 18:37] VITALS: PULSE 100; RESP 13; O2SAT 96
[2023-08-14 20:00] VITALS: PULSE 101; RESP 18; O2SAT 97
[2023-08-14] MEDS ORDERED: fentaNYL CITRATE 100 MCG/2 ML VL IV ONE (21:15)
[2023-08-15 01:10] LABS: Urine Bacteria NONE SEEN /hpf (None Seen); Urine Blood Negative /uL (Negative); Urine Clarity Clear (Clear); Urine Color Yellow (Yellow); Urine Protein, UAD Negative (Negative); Urine Specific Gravity 1.016 (1.001-1.035); Urine Urobilinogen Normal (Negative); Urine WBC 8 /hpf (0 - 3)
[2023-08-15] MEDS ORDERED: ONDANSETRON HCL 4 MG/2 ML VIAL IV ONE (01:15)
[2023-08-15] MEDS ORDERED: MORPHINE SULFATE 4 MG/ML SYR/VIAL IV ONE (01:15)
[2023-08-15] MEDS ORDERED: metroNIDAZOLE 500MG/100ML 100 ML IV ONE (01:30)
[2023-08-15] MEDS ORDERED: PIPERACILLIN-TAZOB 3.375GM 100 ML IV ONE (01:30)
[2023-08-15] MEDS ORDERED: LACTATED RINGER'S 1,000 ML IV ONE (01:30)
[2023-08-15] MEDS ORDERED: ONDANSETRON HCL 4 MG/2 ML VIAL IV PRN (02:15)
[2023-08-15] MEDS ORDERED: IBUPROFEN 600 MG TAB PO PRN (02:15)
[2023-08-15] MEDS ORDERED: DOCUSATE SOD 100 MG CAP PO PRN (02:15)
[2023-08-15] MEDS ORDERED: HYDROcodone-ACET 5/325MG TAB PO PRN (02:15)
[2023-08-15 02:26] LABS: Hemoglobin 9.2 g/dL (13.5-17.5); Lymphocytes # (auto) 1.5 10 ^3/uL (0.4-5.4); Neutrophils % (auto) 78.4 % (37.0-80.0)
[2023-08-15 02:28] LABS: Basophils # (auto) 0.1 10 ^3/uL (0-0.2); Basophils % (auto) 0.6 % (0.0-2.0); Eosinophils # (auto) 0.3 10 ^3/uL (0-0.8); Eosinophils % (auto) 2.4 % (0.0-7.0); Hematocrit 29.8 % (41.0-53.0); Lymphocytes % (auto) 11.3 % (10.0-50.0); Mean Corpuscular Hemoglobin 23.4 pg (28.0-32.0); Mean Corpuscular Volume 75.4 fL (80.0-100.0); Monocytes % (auto) 7.3 % (0.0-12.0); Neutrophils # (auto) 10.6 10 ^3/uL (1.6-8.6); Red Blood Cells 3.95 10^6/uL (4.5-5.90); White Blood Cell 13.5 10^3/uL (4.4-10.8)
[2023-08-15 02:39] LABS: Alanine Aminotransferase 48 U/L (7-40); Albumin 3.4 g/dL (3.2-4.8); Alkaline Phosphatase 108 U/L (46-116); Anion Gap 7 (5-15); Aspartate Aminotransferase 25 U/L (13-40); BUN/Creatinine Ratio 9.6 (10.0-20.0); Bilirubin, Total 0.3 mg/dL (0.2-1.0); Blood Urea Nitrogen 7 mg/dL (9-23); Calcium 8.6 mg/dL (8.7-10.4); Carbon Dioxide 26 mmol/L (20-30); Chloride 103 mmol/L (98-107); Glucose 128 mg/dL (74-106); Potassium 3.5 mmol/L (3.5-5.1); Sodium 136 mmol/L (136-145); Total Protein 8.3 g/dL (5.7-8.2)
[2023-08-15 02:41] LABS: Red Cell Distribution Width 21.8 % (11.8-14.3)
[2023-08-15] MEDS: SODIUM CHLORIDE 0.9% 1,000 ML IV SCH ×2 (03:35→18:54)
[2023-08-15] MEDS: MORPHINE SULFATE INJ 2 MG/ml SYRG IV PRN ×3 (05:56→21:14)
[2023-08-15] MEDS ORDERED: MORPHINE SULFATE INJ 2 MG/ml SYRG IV PRN (06:00)
[2023-08-15] MEDS ORDERED: NITROGLYCERIN 0.4 MG SL TAB SL PRN (06:00)
[2023-08-15] MEDS: metroNIDAZOLE 500MG/100ML 100 ML IV SCH ×3 (06:09→21:14)
[2023-08-15] MEDS ORDERED: FLEET ENEMA(ADULT) 135 ML PR ONE (07:00)
[2023-08-15] MEDS: ENOXAPARIN SOD 40 MG/0.4 ML SYRINGE SC SCH ×2 (10:00→10:26)
[2023-08-15] MEDS: DOCUSATE SOD 100 MG CAP PO SCH ×2 (10:26→21:14)
[2023-08-15] MEDS: cefTRIAXone 1GM/50ML D5W 50 ML IV SCH (10:26)
[2023-08-15 17:42] VITALS: BP 94/57; PULSE 92; RESP 20; TEMP 98; O2SAT 98
[2023-08-15 20:00] VITALS: PULSE 93
[2023-08-15 22:00] VITALS: BP 96/57; PULSE 80; RESP 18; TEMP 98.2; O2SAT 96
[2023-08-16] VITALS (8 sets, daily range): BP systolic 94–106; BP diastolic 59–63; PULSE 81–93; RESP 14–19; TEMP 97.9–98.3; O2SAT 96–100
[2023-08-16] MEDS: MORPHINE SULFATE INJ 2 MG/ml SYRG IV PRN ×5 (01:06→19:34)
[2023-08-16] MEDS: metroNIDAZOLE 500MG/100ML 100 ML IV SCH (05:46)
[2023-08-16 06:47] LABS: Basophils # (auto) 0.1 10 ^3/uL (0-0.2); Basophils % (auto) 0.5 % (0.0-2.0); Lymphocytes # (auto) 1.4 10 ^3/uL (0.4-5.4); Monocytes # (auto) 0.9 10 ^3/uL (0-1.3); Nucleated Red Blood Cells % 0.1 %
[2023-08-16 06:50] LABS: Eosinophils # (auto) 0.6 10 ^3/uL (0-0.8); Eosinophils % (auto) 4.5 % (0.0-7.0); Hematocrit 30.4 % (41.0-53.0); Hemoglobin 9.5 g/dL (13.5-17.5); Lymphocytes % (auto) 10.8 % (10.0-50.0); Mean Corpuscular Hemoglobin 23.6 pg (28.0-32.0); Mean Corpuscular Hgb Conc. 31.4 g/dL (32.0-36.0); Mean Corpuscular Volume 75.2 fL (80.0-100.0); Monocytes % (auto) 7.3 % (0.0-12.0); Neutrophils % (auto) 76.9 % (37.0-80.0); Red Blood Cells 4.04 10^6/uL (4.5-5.90)
[2023-08-16 06:59] LABS: Red Cell Distribution Width 21.3 % (11.8-14.3)
[2023-08-16 07:09] LABS: Alanine Aminotransferase 38 U/L (7-40); Albumin 3.5 g/dL (3.2-4.8); Alkaline Phosphatase 112 U/L (46-116); Anion Gap 6 (5-15); Aspartate Aminotransferase 22 U/L (13-40); BUN/Creatinine Ratio 11.3 (10.0-20.0); Blood Urea Nitrogen 8 mg/dL (9-23); Calcium 8.8 mg/dL (8.7-10.4); Carbon Dioxide 25 mmol/L (20-30); Chloride 102 mmol/L (98-107); Glucose 85 mg/dL (74-106); Potassium 4.4 mmol/L (3.5-5.1); Sodium 133 mmol/L (136-145); Total Protein 8.6 g/dL (5.7-8.2)
[2023-08-16 07:23] LABS: Bilirubin, Total 0.2 mg/dL (0.2-1.0)
[2023-08-16] MEDS: ENOXAPARIN SOD 40 MG/0.4 ML SYRINGE SC SCH ×2 (08:52→08:59)
[2023-08-16] MEDS: cefTRIAXone 1GM/50ML D5W 50 ML IV SCH (08:52)
[2023-08-16] MEDS: DOCUSATE SOD 100 MG CAP PO SCH ×2 (08:52→21:41)
[2023-08-16] MEDS: SODIUM CHLORIDE 0.9% 1,000 ML IV SCH (08:53)
[2023-08-16] MEDS ORDERED: VANCOMYCIN PER PHARMACY 0 MG IV SCH (14:30)
[2023-08-16] MEDS ORDERED: PIPERACILLIN-TAZOB 3.375GM 100 ML IV ONE (15:00)
[2023-08-16] MEDS ORDERED: VANCOMYCIN 1GM/250ML 250 ML IV ONE (16:00)
[2023-08-16] MEDS: PIPERACILLIN-TAZOB 3.375GM 100 ML IV SCH (21:00)
[2023-08-17] MEDS: VANCOMYCIN 1GM/250ML 250 ML IV SCH ×3 (01:00→16:42)
[2023-08-17] MEDS: PIPERACILLIN-TAZOB 3.375GM 100 ML IV SCH ×3 (03:00→21:08)
[2023-08-17] MEDS: SODIUM CHLORIDE 0.9% 1,000 ML IV SCH ×2 (04:15→17:45)
[2023-08-17] MEDS: MORPHINE SULFATE INJ 2 MG/ml SYRG IV PRN ×3 (04:31→16:43)
[2023-08-17 05:21] VITALS: BP 100/61; PULSE 91; RESP 18; TEMP 98.7; O2SAT 95
[2023-08-17 08:00] VITALS: PULSE 96; PULSE 98; RESP 18; O2SAT 98
[2023-08-17 08:30] VITALS: BP 96/66; PULSE 86; RESP 19; TEMP 98.3; O2SAT 93
[2023-08-17] MEDS: DOCUSATE SOD 100 MG CAP PO SCH ×2 (09:40→21:09)
[2023-08-17] MEDS: ENOXAPARIN SOD 40 MG/0.4 ML SYRINGE SC SCH (09:40)
[2023-08-17 17:00] VITALS: BP 117/72; PULSE 86; RESP 19; TEMP 97.8; O2SAT 97
[2023-08-17] MEDS: LACTULOSE 20Gm/30ML SOLN PO SCH ×2 (18:00→21:12)
[2023-08-17 20:00] VITALS: RESP 17; O2SAT 97
[2023-08-17] MEDS: METOCLOPRAMIDE HCL 5MG/ml INJ 2ml VIAL IV SCH (21:08)
[2023-08-17] MEDS: CLINDAMYCIN 300MG IV 50 ML IV SCH (21:08)
[2023-08-17 22:00] VITALS: BP 142/75; PULSE 84; RESP 16; TEMP 98.2; O2SAT 95
[2023-08-18] MEDS: LACTULOSE 20Gm/30ML SOLN PO SCH ×4 (02:39→22:00)
[2023-08-18] MEDS ORDERED: VANCOMYCIN 1GM/250ML 250 ML IV SCH (03:00)
[2023-08-18] MEDS: SODIUM CHLORIDE 0.9% 1,000 ML IV SCH ×3 (03:17→23:45)
[2023-08-18 05:00] VITALS: BP 115/53; PULSE 74; RESP 16; TEMP 98; O2SAT 94
[2023-08-18] MEDS: PIPERACILLIN-TAZOB 3.375GM 100 ML IV SCH ×3 (05:00→22:11)
[2023-08-18] MEDS: CLINDAMYCIN 300MG IV 50 ML IV SCH ×3 (05:30→20:47)
[2023-08-18] MEDS: METOCLOPRAMIDE HCL 5MG/ml INJ 2ml VIAL IV SCH ×3 (05:30→22:00)
[2023-08-18 07:19] LABS: Basophils # (auto) 0.1 10 ^3/uL (0-0.2); Eosinophils # (auto) 0.5 10 ^3/uL (0-0.8); Eosinophils % (auto) 3.4 % (0.0-7.0); Monocytes # (auto) 1.2 10 ^3/uL (0-1.3); Nucleated Red Blood Cells % 0.1 %
[2023-08-18 07:21] LABS: Basophils % (auto) 0.5 % (0.0-2.0); Hematocrit 32.4 % (41.0-53.0); Lymphocytes # (auto) 1.8 10 ^3/uL (0.4-5.4); Lymphocytes % (auto) 11.7 % (10.0-50.0); Mean Corpuscular Hemoglobin 23.3 pg (28.0-32.0); Mean Corpuscular Hgb Conc. 30.9 g/dL (32.0-36.0); Mean Corpuscular Volume 75.2 fL (80.0-100.0); Neutrophils # (auto) 11.8 10 ^3/uL (1.6-8.6); Neutrophils % (auto) 76.4 % (37.0-80.0); Red Blood Cells 4.31 10^6/uL (4.5-5.90); White Blood Cell 15.5 10^3/uL (4.4-10.8)
[2023-08-18 07:24] LABS: Anion Gap 6 (5-15); Carbon Dioxide 24 mmol/L (20-30); Chloride 103 mmol/L (98-107); Potassium 4.3 mmol/L (3.5-5.1); Sodium 133 mmol/L (136-145)
[2023-08-18 07:25] LABS: Calcium 8.9 mg/dL (8.5-10.1)
[2023-08-18 07:30] LABS: BUN/Creatinine Ratio 12.5 (10.0-20.0); Blood Urea Nitrogen 9 mg/dL (9-23); Glucose 91 mg/dL (74-106)
[2023-08-18 07:41] LABS: Red Cell Distribution Width 21.5 % (11.8-14.3)
[2023-08-18 08:00] VITALS: RESP 17; O2SAT 94
[2023-08-18 09:00] VITALS: BP 101/66; PULSE 87; RESP 18; TEMP 98.3; O2SAT 98
[2023-08-18] MEDS: ENOXAPARIN SOD 40 MG/0.4 ML SYRINGE SC SCH (10:00)
[2023-08-18] MEDS: DOCUSATE SOD 100 MG CAP PO SCH ×2 (10:39→17:45)
[2023-08-18 12:35] VITALS: BP 106/68; PULSE 87; RESP 19; TEMP 97.4; O2SAT 99
[2023-08-18] MEDS ORDERED: FLEET ENEMA(ADULT) 135 ML PR ONE (16:30)
[2023-08-18] MEDS ORDERED: BISACODYL 10 MG RECT SUPP PR ONE (16:30)
[2023-08-18] MEDS ORDERED: BISACODYL 10 MG RECT SUPP PR PRN (16:30)
[2023-08-18 16:44] VITALS: BP 112/71; PULSE 111; RESP 19; TEMP 97.2; O2SAT 97
[2023-08-18] MEDS: MORPHINE SULFATE INJ 2 MG/ml SYRG IV PRN (17:38)
[2023-08-18 21:54] VITALS: BP 107/67; PULSE 96; RESP 21; TEMP 97.9; O2SAT 100
[2023-08-19] MEDS: LACTULOSE 20Gm/30ML SOLN PO SCH ×4 (01:49→14:00)
[2023-08-19] MEDS: MORPHINE SULFATE INJ 2 MG/ml SYRG IV PRN ×2 (01:53→08:31)
[2023-08-19] MEDS: CLINDAMYCIN 300MG IV 50 ML IV SCH ×2 (04:26→13:00)
[2023-08-19 05:00] VITALS: BP 118/79; PULSE 87; RESP 19; TEMP 98.2; O2SAT 100
[2023-08-19] MEDS: METOCLOPRAMIDE HCL 5MG/ml INJ 2ml VIAL IV SCH ×2 (05:05→14:00)
[2023-08-19] MEDS: PIPERACILLIN-TAZOB 3.375GM 100 ML IV SCH ×2 (06:21→14:00)
[2023-08-19 07:45] LABS: Anion Gap 5 (5-15); Calcium 8.7 mg/dL (8.5-10.1); Carbon Dioxide 23 mmol/L (20-30); Chloride 105 mmol/L (98-107); Potassium 4.3 mmol/L (3.5-5.1); Sodium 133 mmol/L (136-145)
[2023-08-19 07:50] LABS: BUN/Creatinine Ratio 14.5 (10.0-20.0); Blood Urea Nitrogen 10 mg/dL (9-23); Glucose 81 mg/dL (74-106)
[2023-08-19 07:52] LABS: Basophils # (auto) 0.1 10 ^3/uL (0-0.2); Basophils % (auto) 0.8 % (0.0-2.0)
[2023-08-19 07:55] LABS: Eosinophils # (auto) 0.5 10 ^3/uL (0-0.8); Eosinophils % (auto) 3.2 % (0.0-7.0); Hematocrit 32.4 % (41.0-53.0); Hemoglobin 9.9 g/dL (13.5-17.5); Lymphocytes # (auto) 1.6 10 ^3/uL (0.4-5.4); Lymphocytes % (auto) 10.8 % (10.0-50.0); Mean Corpuscular Hemoglobin 23.6 pg (28.0-32.0); Mean Corpuscular Hgb Conc. 30.6 g/dL (32.0-36.0); Mean Corpuscular Volume 77.1 fL (80.0-100.0); Monocytes # (auto) 1.2 10 ^3/uL (0-1.3); Monocytes % (auto) 8.4 % (0.0-12.0); Neutrophils # (auto) 11.1 10 ^3/uL (1.6-8.6); Neutrophils % (auto) 76.8 % (37.0-80.0); Nucleated Red Blood Cells % 0.1 %; White Blood Cell 14.5 10^3/uL (4.4-10.8)
[2023-08-19 08:01] LABS: Red Cell Distribution Width 21.2 % (11.8-14.3)
[2023-08-19] MEDS: ENOXAPARIN SOD 40 MG/0.4 ML SYRINGE SC SCH (08:31)
[2023-08-19] MEDS: DOCUSATE SOD 100 MG CAP PO SCH (08:32)
[2023-08-19 09:00] VITALS: BP 100/65; PULSE 80; RESP 18; TEMP 98.4; O2SAT 98
[2023-08-19] MEDS: SODIUM CHLORIDE 0.9% 1,000 ML IV SCH (09:45)
[2023-08-19] MEDS ORDERED: METR-344 PO (12:40)
[2023-08-19] MEDS ORDERED: HYDR-4902 PO (12:40)
[2023-08-19] MEDS ORDERED: CLIN1LOT TOP (12:40)
[2023-08-19 13:00] VITALS: BP 104/67; PULSE 84; RESP 20; TEMP 98.8; O2SAT 96
== END 2023-08-19 15:20 | disposition home or self-care (01) | DRG 245 ==
LOC: EDBD 16:49 → ER 16:49 → TELE 08-15 06:02 → TELE-WESTW 08-15 15:20
PROVIDERS: ADMIT Nurse Practitioner Family; ATTEND Nurse Practitioner Acute Care
DX: K51.30 Ulcerative (chronic) rectosigmoiditis without complications (principal); D72.829 Elevated white blood cell count, unspecified; D75.839 Thrombocytosis, unspecified; L03.90 Cellulitis, unspecified; L73.2 Hidradenitis suppurativa; F11.20 Opioid dependence, uncomplicated; F17.210 Nicotine dependence, cigarettes, uncomplicated; K59.00 Constipation, unspecified; Z59.00 Homelessness unspecified; Z76.5 Malingerer [conscious simulation]
CPT/HCPCS: 36415; 74176; 80048; 80053; 80202; 81001; 82565; 83605; 85025; 86850; 86900; 86901; 87040; 87081; 96365; 96375; G0378; J0696; J2405; J2543; J3490

== ENCOUNTER 2023-08-21 19:32 | Emergency (ER) | payer MEDICAID ==
[~2023-08-21] VITALS: Ht 188 cm; Wt 70.5 kg
[~2023-08-21 19:32] MED LIST changes: +CLIN1LOT TOP; +METR-344 PO
[2023-08-21 20:05] VITALS: BP 143/96; PULSE 115; RESP 18; O2SAT 96
[2023-08-21] MEDS ORDERED: CLOT1CRE7 EX (22:46)
== END 2023-08-22 00:55 | disposition home or self-care (01) ==
LOC: ER 19:32
DX: B35.1 Tinea unguium (principal); F17.210 Nicotine dependence, cigarettes, uncomplicated; F12.10 Cannabis abuse, uncomplicated; Z59.00 Homelessness unspecified

== ENCOUNTER 2023-09-03 21:06 | Emergency (ER) | payer MEDICAID ==
[~2023-09-03] VITALS: Ht 188 cm; Wt 68.0 kg
[2023-09-04 00:11] VITALS: BP 124/90; PULSE 110; RESP 18; TEMP 97.7; O2SAT 98
[2023-09-04] MEDS ORDERED: CLIN1LOT TOP (01:09)
== END 2023-09-04 01:19 | disposition home or self-care (01) ==
LOC: ER 21:06
DX: L73.2 Hidradenitis suppurativa (principal); F17.210 Nicotine dependence, cigarettes, uncomplicated; F15.90 Other stimulant use, unspecified, uncomplicated; Z88.8 Allergy status to other drugs, medicaments and biological substances; Z79.899 Other long term (current) drug therapy
CPT/HCPCS: 93005

== ENCOUNTER 2023-09-10 16:59 | Emergency (ER) | payer MEDICAID ==
[~2023-09-10] VITALS: Ht 190.5 cm; Wt 70.4 kg
[2023-09-10 17:09] VITALS: BP 125/84; PULSE 106; RESP 16; O2SAT 94
[2023-09-10] MEDS ORDERED: PROCHLORPERAZINE EDISYLATE 5 MG/ML 2ML VIAL IV ONE (17:45)
[2023-09-10] MEDS ORDERED: SODIUM CHLORIDE 0.9% 1,000 ML IVB ONE (17:45)
[2023-09-10] MEDS ORDERED: PANTOPRAZOLE 40 MG/10 ML VIAL INJ IV ONE (17:45)
[2023-09-10 18:12] LABS: Alanine Aminotransferase 43 U/L (7-40); Alkaline Phosphatase 107 U/L (46-116); Anion Gap 8 (5-15); Aspartate Aminotransferase 33 U/L (13-40); BUN/Creatinine Ratio 10.8 (10.0-20.0); Blood Urea Nitrogen 8 mg/dL (9-23); Calcium 8.5 mg/dL (8.7-10.4); Carbon Dioxide 21 mmol/L (20-30); Chloride 108 mmol/L (98-107); Glucose 93 mg/dL (74-106); Potassium 3.5 mmol/L (3.5-5.1); Sodium 137 mmol/L (136-145)
[2023-09-10 18:13] LABS: Albumin 3.7 g/dL (3.2-4.8); Bilirubin, Total 0.2 mg/dL (0.2-1.0); Total Protein 8.9 g/dL (5.7-8.2)
[2023-09-10 18:17] LABS: Basophils # (auto) 0.1 10 ^3/uL (0-0.2); Eosinophils # (auto) 0.1 10 ^3/uL (0-0.8); Hemoglobin 9.7 g/dL (13.5-17.5); Monocytes # (auto) 1.2 10 ^3/uL (0-1.3); Red Cell Distribution Width 19.8 % (11.8-14.3)
[2023-09-10 18:18] LABS: Basophils % (auto) 0.8 % (0.0-2.0); Eosinophils % (auto) 0.4 % (0.0-7.0); Hematocrit 31.4 % (41.0-53.0); Lymphocytes # (auto) 1.3 10 ^3/uL (0.4-5.4); Lymphocytes % (auto) 7.2 % (10.0-50.0); Mean Corpuscular Hemoglobin 23.5 pg (28.0-32.0); Mean Corpuscular Hgb Conc. 30.8 g/dL (32.0-36.0); Mean Corpuscular Volume 76.1 fL (80.0-100.0); Monocytes % (auto) 6.3 % (0.0-12.0); Neutrophils # (auto) 15.6 10 ^3/uL (1.6-8.6); Neutrophils % (auto) 85.3 % (37.0-80.0); Red Blood Cells 4.12 10^6/uL (4.5-5.90); White Blood Cell 18.2 10^3/uL (4.4-10.8)
[2023-09-10] MEDS ORDERED: VANCOMYCIN 1GM/250ML 250 ML IV ONE (19:30)
[2023-09-10] MEDS ORDERED: ONDANSETRON HCL 4 MG/2 ML VIAL IV PRN (22:15)
[2023-09-10] MEDS ORDERED: ACETAMINOPHEN 500 MG TAB PO PRN (22:15)
[2023-09-10] MEDS ORDERED: VANCOMYCIN PER PHARMACY 0 MG IV SCH (22:15)
[2023-09-10] MEDS ORDERED: HYDROcodone-ACET 5/325MG TAB PO PRN (22:15)
[2023-09-10] MEDS ORDERED: SODIUM CHLORIDE 0.9% 1,000 ML IV SCH (22:15)
[2023-09-10] MEDS ORDERED: VANCOMYCIN 1GM/250ML 250 ML IV NR (22:45)
[2023-09-11] MEDS ORDERED: PANTOPRAZOLE 40 MG/10 ML VIAL INJ IV SCH (10:00)
[2023-09-11] MEDS ORDERED: VANCOMYCIN 1GM/250ML 250 ML IV ONE (11:00)
== END 2023-09-10 22:27 | disposition left against medical advice (07) ==
LOC: ER 16:59 → EDBD 16:59 → ER 22:27
DX: L03.317 Cellulitis of buttock (principal); R10.84 Generalized abdominal pain; R11.2 Nausea with vomiting, unspecified; F12.10 Cannabis abuse, uncomplicated; F17.210 Nicotine dependence, cigarettes, uncomplicated; Z59.00 Homelessness unspecified
CPT/HCPCS: 36415; 74176; 80053; 83690; 85025

== ENCOUNTER 2023-09-18 19:34 | Emergency (ER) | payer MEDICAID ==
[~2023-09-18] VITALS: Ht 188 cm; Wt 65.5 kg
[~2023-09-18 19:34] MED LIST changes: -AMOX875T4 PO; -CLIN300C70 PO; +DOXY-346 PO; -DOXY-447 PO; -IBUP-1454 PO; -MUPI2OIN2 EX; -SULF400T11 PO; +TRAM50TA2 PO
[2023-09-18] MEDS ORDERED: DAKI0.25 EX (20:23)
[2023-09-18] MEDS ORDERED: TRAM50TA2 PO (20:23)
[2023-09-18] MEDS ORDERED: CLIN300C70 PO (20:23)
[2023-09-18 20:45] VITALS: BP 143/91; PULSE 110; RESP 14; TEMP 98.2; O2SAT 96
== END 2023-09-18 21:04 | disposition home or self-care (01) ==
LOC: ER 19:34
DX: L73.2 Hidradenitis suppurativa (principal); F17.210 Nicotine dependence, cigarettes, uncomplicated; F12.10 Cannabis abuse, uncomplicated; Z59.00 Homelessness unspecified

== ENCOUNTER 2023-11-01 02:32 | Emergency (ER) | payer MEDICAID ==
[~2023-11-01] VITALS: Ht 188 cm; Wt 70.3 kg
[~2023-11-01 02:32] MED LIST changes: +CLIN300C70 PO; +DAKI0.25 EX
[2023-11-01 02:36] VITALS: BP 125/78; PULSE 100; RESP 16; TEMP 97.6
[2023-11-01 03:48] LABS: Basophils # (auto) 0.1 10 ^3/uL (0-0.2); Monocytes # (auto) 1.1 10 ^3/uL (0-1.3); Neutrophils # (auto) 7.9 10 ^3/uL (1.6-8.6); Neutrophils % (auto) 73.2 % (37.0-80.0); White Blood Cell 10.8 10^3/uL (4.4-10.8)
[2023-11-01 03:53] LABS: Basophils % (auto) 0.5 % (0.0-2.0); Eosinophils # (auto) 0.4 10 ^3/uL (0-0.8); Eosinophils % (auto) 4.2 % (0.0-7.0); Hematocrit 28.4 % (41.0-53.0); Hemoglobin 9.1 g/dL (13.5-17.5); Lymphocytes # (auto) 1.2 10 ^3/uL (0.4-5.4); Lymphocytes % (auto) 11.4 % (10.0-50.0); Mean Corpuscular Hemoglobin 23.8 pg (28.0-32.0); Mean Corpuscular Hgb Conc. 32.1 g/dL (32.0-36.0); Mean Corpuscular Volume 74.2 fL (80.0-100.0); Monocytes % (auto) 10.7 % (0.0-12.0); Red Blood Cells 3.83 10^6/uL (4.5-5.90); Red Cell Distribution Width 19.9 % (11.8-14.3)
[2023-11-01 04:00] VITALS: O2SAT 100
[2023-11-01 04:02] LABS: Alanine Aminotransferase 20 U/L (7-40); Albumin 3.5 g/dL (3.2-4.8); Alkaline Phosphatase 105 U/L (46-116); Anion Gap 8 (5-15); Aspartate Aminotransferase 21 U/L (13-40); BUN/Creatinine Ratio 10.1 (10.0-20.0); Bilirubin, Total 0.3 mg/dL (0.2-1.0); Blood Urea Nitrogen 7 mg/dL (9-23); Calcium 8.3 mg/dL (8.7-10.4); Carbon Dioxide 20 mmol/L (20-30); Chloride 104 mmol/L (98-107); Glucose 94 mg/dL (74-106); Potassium 3.3 mmol/L (3.5-5.1); Sodium 132 mmol/L (136-145)
[2023-11-01] MEDS ORDERED: SODIUM CHLORIDE 0.9% 1,000 ML IV ONE (04:15)
[2023-11-01] MEDS ORDERED: PIPERACILLIN-TAZO 4.5GM 100 ML IV ONE (04:15)
== END 2023-11-01 04:24 | disposition left against medical advice (07) ==
LOC: EDBD 02:32 → ER 02:32
DX: L73.2 Hidradenitis suppurativa (principal); L03.315 Cellulitis of perineum; N49.2 Inflammatory disorders of scrotum; F17.210 Nicotine dependence, cigarettes, uncomplicated; F12.10 Cannabis abuse, uncomplicated; Z59.00 Homelessness unspecified
CPT/HCPCS: 36415; 80053; 85025

== ENCOUNTER 2023-11-06 17:48 | Inpatient (IN) | payer MEDICAID ==
[~2023-11-06] VITALS: Ht 188 cm; Wt 71.2 kg
[2023-11-06] MEDS ORDERED: CLINDAMYCIN 600MG IV 50 ML IV ONE (19:15)
[2023-11-06] MEDS ORDERED: cefTRIAXone 1GM/50ML D5W 50 ML IV ONE (19:15)
[2023-11-06] MEDS ORDERED: SODIUM CHLORIDE 0.9% 1,000 ML IV ONE ×2 (19:15)
[2023-11-06 19:49] LABS: Basophils # (auto) 0.1 10 ^3/uL (0-0.2); Mean Corpuscular Hemoglobin 23.2 pg (28.0-32.0); Mean Corpuscular Volume 72.8 fL (80.0-100.0); Red Cell Distribution Width 19.8 % (11.8-14.3)
[2023-11-06 19:51] LABS: Basophils % (auto) 0.3 % (0.0-2.0); Eosinophils # (auto) 0.3 10 ^3/uL (0-0.8); Eosinophils % (auto) 2.2 % (0.0-7.0); Hemoglobin 9.6 g/dL (13.5-17.5); Lymphocytes # (auto) 0.8 10 ^3/uL (0.4-5.4); Lymphocytes % (auto) 5.1 % (10.0-50.0); Mean Corpuscular Hgb Conc. 31.8 g/dL (32.0-36.0); Monocytes % (auto) 6.4 % (0.0-12.0); Neutrophils # (auto) 13.5 10 ^3/uL (1.6-8.6); Red Blood Cells 4.13 10^6/uL (4.5-5.90); White Blood Cell 15.7 10^3/uL (4.4-10.8)
[2023-11-06 20:16] LABS: Alanine Aminotransferase 11 U/L (7-40); Albumin 3.2 g/dL (3.2-4.8); Alkaline Phosphatase 103 U/L (46-116); Anion Gap 5 (5-15); Aspartate Aminotransferase 16 U/L (13-40); BUN/Creatinine Ratio 6.7 (10.0-20.0); Bilirubin, Total 0.6 mg/dL (0.2-1.0); Blood Urea Nitrogen 5 mg/dL (9-23); Calcium 8.2 mg/dL (8.7-10.4); Carbon Dioxide 23 mmol/L (20-30); Chloride 105 mmol/L (98-107); Glucose 126 mg/dL (74-106); Potassium 3.2 mmol/L (3.5-5.1); Sodium 133 mmol/L (136-145); Total Protein 8.5 g/dL (5.7-8.2)
[2023-11-06] MEDS ORDERED: ONDANSETRON HCL 4 MG/2 ML VIAL IV PRN (22:45)
[2023-11-06] MEDS: SODIUM CHLORIDE 0.9% 1,000 ML IV SCH (22:45)
[2023-11-06] MEDS ORDERED: POTASSIUM CHL 20 Meq TABLET PO ONE (22:45)
[2023-11-06] MEDS ORDERED: DOCUSATE SOD 100 MG CAP PO PRN (22:45)
[2023-11-06] MEDS ORDERED: ACETAMINOPHEN 325 MG TAB PO PRN (22:45)
[2023-11-06] MEDS ORDERED: HYDROcodone-ACET 10/325MG TAB PO ONE (23:00)
[2023-11-06] MEDS ORDERED: NITROGLYCERIN 0.4 MG SL TAB SL PRN (23:45)
[2023-11-06] MEDS ORDERED: MORPHINE SULFATE INJ 2 MG/ml SYRG IV PRN (23:45)
[2023-11-07 04:25] VITALS: PULSE 87; RESP 20; O2SAT 96
[2023-11-07 05:10] LABS: Basophils # (auto) 0 10 ^3/uL (0-0.2); Basophils % (auto) 0.2 % (0.0-2.0); Eosinophils # (auto) 0.4 10 ^3/uL (0-0.8); Monocytes % (auto) 8.4 % (0.0-12.0); Neutrophils # (auto) 8.9 10 ^3/uL (1.6-8.6)
[2023-11-07 05:12] LABS: Eosinophils % (auto) 3.3 % (0.0-7.0); Hematocrit 25.6 % (41.0-53.0); Mean Corpuscular Hemoglobin 22.9 pg (28.0-32.0); Mean Corpuscular Hgb Conc. 31.3 g/dL (32.0-36.0); Monocytes # (auto) 0.9 10 ^3/uL (0-1.3); Neutrophils % (auto) 79.1 % (37.0-80.0); Red Cell Distribution Width 20.3 % (11.8-14.3); White Blood Cell 11.3 10^3/uL (4.4-10.8)
[2023-11-07 05:22] LABS: Alanine Aminotransferase 10 U/L (7-40); Albumin 2.7 g/dL (3.2-4.8); Alkaline Phosphatase 85 U/L (46-116); Anion Gap 5 (5-15); Aspartate Aminotransferase 14 U/L (13-40); BUN/Creatinine Ratio 10.3 (10.0-20.0); Blood Urea Nitrogen 8 mg/dL (9-23); Calcium 7.5 mg/dL (8.7-10.4); Carbon Dioxide 23 mmol/L (20-30); Chloride 109 mmol/L (98-107); Glucose 116 mg/dL (74-106); Potassium 3.3 mmol/L (3.5-5.1); Sodium 137 mmol/L (136-145)
[2023-11-07 05:23] LABS: Bilirubin, Total 0.3 mg/dL (0.2-1.0); Total Protein 7.2 g/dL (5.7-8.2)
[2023-11-07] MEDS: CLINDAMYCIN 600MG IV 50 ML IV SCH ×3 (06:26→23:21)
[2023-11-07] MEDS: ZINC SULFATE 220mg CAP or TAB PO SCH (12:58)
[2023-11-07] MEDS: ASCORBIC ACID 500 MG TAB PO SCH ×2 (12:58→23:21)
[2023-11-07] MEDS: ENOXAPARIN SOD 40 MG/0.4 ML SYRINGE SC SCH (12:59)
[2023-11-07] MEDS: SODIUM CHLORIDE 0.9% 1,000 ML IV SCH (15:25)
[2023-11-07] MEDS: MORPHINE SULFATE INJ 2 MG/ml SYRG IV PRN ×2 (17:10→23:36)
[2023-11-07] MEDS ORDERED: POTASSIUM CHL 20 Meq TABLET PO ONE (18:45)
[2023-11-07] MEDS: HYDROcodone-ACET 5/325MG TAB PO PRN (21:01)
[2023-11-07] MEDS: cefTRIAXone 1GM/50ML D5W 50 ML IV SCH (21:01)
[2023-11-08 00:43] VITALS: BP 124/75; PULSE 103; RESP 19; TEMP 97.5; O2SAT 97
[2023-11-08] MEDS: CLINDAMYCIN 600MG IV 50 ML IV SCH ×3 (05:20→21:34)
[2023-11-08 08:05] VITALS: BP 106/63; PULSE 92; RESP 17; TEMP 98.5; O2SAT 99
[2023-11-08] MEDS: ZINC SULFATE 220mg CAP or TAB PO SCH (10:59)
[2023-11-08] MEDS: ENOXAPARIN SOD 40 MG/0.4 ML SYRINGE SC SCH ×2 (10:59→11:03)
[2023-11-08] MEDS: ASCORBIC ACID 500 MG TAB PO SCH ×2 (10:59→21:34)
[2023-11-08] MEDS: MORPHINE SULFATE INJ 2 MG/ml SYRG IV PRN ×3 (11:17→22:33)
[2023-11-08] MEDS: SODIUM CHLORIDE 0.9% 1,000 ML IV SCH (11:20)
[2023-11-08 12:15] VITALS: BP 119/68; PULSE 61; RESP 19; TEMP 97.6; O2SAT 95
[2023-11-08 16:50] VITALS: BP 101/61; PULSE 89; RESP 18; TEMP 98.5; O2SAT 98
[2023-11-08 20:00] VITALS: PULSE 93; RESP 18; O2SAT 96
[2023-11-08] MEDS: cefTRIAXone 1GM/50ML D5W 50 ML IV SCH (21:24)
[2023-11-08 22:00] VITALS: BP 101/59; PULSE 93; RESP 18; TEMP 98.6; O2SAT 96
[2023-11-09] VITALS (7 sets, daily range): BP systolic 99–112; BP diastolic 52–77; PULSE 88–98; RESP 16–20; TEMP 97.6–98.1; O2SAT 94–97
[2023-11-09] MEDS: MORPHINE SULFATE INJ 2 MG/ml SYRG IV PRN ×4 (03:40→23:48)
[2023-11-09] MEDS: SODIUM CHLORIDE 0.9% 1,000 ML IV SCH (05:02)
[2023-11-09] MEDS: CLINDAMYCIN 600MG IV 50 ML IV SCH ×3 (05:40→22:34)
[2023-11-09 06:17] LABS: Basophils # (auto) 0.1 10 ^3/uL (0-0.2); Basophils % (auto) 0.8 % (0.0-2.0); Hematocrit 28.3 % (41.0-53.0); Hemoglobin 8.7 g/dL (13.5-17.5); Lymphocytes # (auto) 1.4 10 ^3/uL (0.4-5.4); Nucleated Red Blood Cells % 0.1 %; White Blood Cell 12.3 10^3/uL (4.4-10.8)
[2023-11-09 06:21] LABS: Eosinophils # (auto) 0.5 10 ^3/uL (0-0.8); Eosinophils % (auto) 4.3 % (0.0-7.0); Lymphocytes % (auto) 11.4 % (10.0-50.0); Mean Corpuscular Hgb Conc. 30.7 g/dL (32.0-36.0); Mean Corpuscular Volume 74.9 fL (80.0-100.0); Monocytes % (auto) 8.1 % (0.0-12.0); Neutrophils # (auto) 9.3 10 ^3/uL (1.6-8.6); Neutrophils % (auto) 75.4 % (37.0-80.0); Red Blood Cells 3.78 10^6/uL (4.5-5.90); Red Cell Distribution Width 19.8 % (11.8-14.3)
[2023-11-09 06:32] LABS: Anion Gap 7 (5-15); Carbon Dioxide 23 mmol/L (20-30); Chloride 107 mmol/L (98-107); Potassium 3.2 mmol/L (3.5-5.1); Sodium 137 mmol/L (136-145)
[2023-11-09 06:33] LABS: Calcium 8.4 mg/dL (8.5-10.1)
[2023-11-09 06:38] LABS: BUN/Creatinine Ratio 9.3 (10.0-20.0); Blood Urea Nitrogen 7 mg/dL (9-23); Glucose 120 mg/dL (74-106)
[2023-11-09] MEDS: ZINC SULFATE 220mg CAP or TAB PO SCH (09:56)
[2023-11-09] MEDS: ASCORBIC ACID 500 MG TAB PO SCH ×2 (09:56→22:35)
[2023-11-09] MEDS: ENOXAPARIN SOD 40 MG/0.4 ML SYRINGE SC SCH (09:59)
[2023-11-09] MEDS: POTASSIUM CHLORIDE 40 MEQ in SOD CHL 0.45% 1,000 ML IV SCH (12:43)
[2023-11-09] MEDS: cefTRIAXone 1GM/50ML D5W 50 ML IV SCH (21:17)
[2023-11-09] MEDS: LACTULOSE 20Gm/30ML SOLN PO SCH (22:35)
[2023-11-10 05:25] LABS: Basophils # (auto) 0 10 ^3/uL (0-0.2); Eosinophils # (auto) 0.6 10 ^3/uL (0-0.8); Hematocrit 28.4 % (41.0-53.0); Hemoglobin 8.9 g/dL (13.5-17.5); Lymphocytes # (auto) 1.3 10 ^3/uL (0.4-5.4); Monocytes # (auto) 1.2 10 ^3/uL (0-1.3)
[2023-11-10 05:28] LABS: Basophils % (auto) 0.3 % (0.0-2.0); Eosinophils % (auto) 4.5 % (0.0-7.0); Lymphocytes % (auto) 10.5 % (10.0-50.0); Mean Corpuscular Hemoglobin 23.2 pg (28.0-32.0); Mean Corpuscular Hgb Conc. 31.4 g/dL (32.0-36.0); Mean Corpuscular Volume 73.8 fL (80.0-100.0); Monocytes % (auto) 9.4 % (0.0-12.0); Neutrophils # (auto) 9.7 10 ^3/uL (1.6-8.6); Neutrophils % (auto) 75.3 % (37.0-80.0); Red Blood Cells 3.84 10^6/uL (4.5-5.90); White Blood Cell 12.9 10^3/uL (4.4-10.8)
[2023-11-10 05:32] LABS: Red Cell Distribution Width 20.1 % (11.8-14.3)
[2023-11-10 05:35] LABS: Anion Gap 5 (5-15); Carbon Dioxide 22 mmol/L (20-30); Chloride 108 mmol/L (98-107); Potassium 3.8 mmol/L (3.5-5.1); Sodium 135 mmol/L (136-145)
[2023-11-10 05:37] LABS: Calcium 8.5 mg/dL (8.5-10.1)
[2023-11-10 05:41] LABS: Glucose 105 mg/dL (74-106)
[2023-11-10 05:42] LABS: BUN/Creatinine Ratio 10.3 (10.0-20.0); Blood Urea Nitrogen 7 mg/dL (9-23)
[2023-11-10] MEDS: CLINDAMYCIN 600MG IV 50 ML IV SCH (05:48)
[2023-11-10] MEDS: POTASSIUM CHLORIDE 40 MEQ in SOD CHL 0.45% 1,000 ML IV SCH ×2 (05:51→16:19)
[2023-11-10 05:52] VITALS: BP 94/60; PULSE 94; RESP 18; TEMP 97.8; O2SAT 98
[2023-11-10 09:00] VITALS: BP 99/66; PULSE 93; RESP 19; TEMP 98.4; O2SAT 96
[2023-11-10] MEDS ORDERED: VANCOMYCIN PER PHARMACY 0 MG IV SCH (09:00)
[2023-11-10] MEDS: ZINC SULFATE 220mg CAP or TAB PO SCH (09:59)
[2023-11-10] MEDS: ASCORBIC ACID 500 MG TAB PO SCH ×2 (09:59→22:22)
[2023-11-10] MEDS: ENOXAPARIN SOD 40 MG/0.4 ML SYRINGE SC SCH (10:00)
[2023-11-10] MEDS: LACTULOSE 20Gm/30ML SOLN PO SCH ×3 (10:00→22:22)
[2023-11-10] MEDS: MORPHINE SULFATE INJ 2 MG/ml SYRG IV PRN ×3 (10:01→23:04)
[2023-11-10] MEDS: VANCOMYCIN 1GM/200ML 200 ML IV SCH ×2 (10:11→18:42)
[2023-11-10 16:45] VITALS: BP 105/67; PULSE 89; RESP 19; TEMP 98.4; O2SAT 95
[2023-11-10] MEDS: cefTRIAXone 1GM/50ML D5W 50 ML IV SCH (21:00)
[2023-11-10 22:00] VITALS: BP 106/65; PULSE 107; RESP 20; TEMP 97.9; O2SAT 100
[2023-11-10] MEDS: HYDROcodone-ACET 5/325MG TAB PO PRN (22:27)
[2023-11-11] MEDS: VANCOMYCIN 1GM/200ML 200 ML IV SCH ×4 (02:00→20:39)
[2023-11-11] MEDS: POTASSIUM CHLORIDE 40 MEQ in SOD CHL 0.45% 1,000 ML IV SCH (04:48)
[2023-11-11 05:00] VITALS: BP 144/74; PULSE 97; RESP 20; TEMP 98; O2SAT 96
[2023-11-11 06:23] LABS: Basophils # (auto) 0.1 10 ^3/uL (0-0.2); Hemoglobin 9.2 g/dL (13.5-17.5); Monocytes # (auto) 1.4 10 ^3/uL (0-1.3)
[2023-11-11 06:26] LABS: Basophils % (auto) 0.6 % (0.0-2.0); Eosinophils # (auto) 0.5 10 ^3/uL (0-0.8); Eosinophils % (auto) 3.5 % (0.0-7.0); Hematocrit 29.6 % (41.0-53.0); Lymphocytes # (auto) 1.4 10 ^3/uL (0.4-5.4); Lymphocytes % (auto) 9.8 % (10.0-50.0); Mean Corpuscular Hemoglobin 23.1 pg (28.0-32.0); Mean Corpuscular Hgb Conc. 31.1 g/dL (32.0-36.0); Mean Corpuscular Volume 74.4 fL (80.0-100.0); Monocytes % (auto) 9.8 % (0.0-12.0); Neutrophils # (auto) 11.2 10 ^3/uL (1.6-8.6); Neutrophils % (auto) 76.3 % (37.0-80.0); Nucleated Red Blood Cells % 0.1 %; Red Blood Cells 3.98 10^6/uL (4.5-5.90); White Blood Cell 14.7 10^3/uL (4.4-10.8)
[2023-11-11 06:34] LABS: Red Cell Distribution Width 20.4 % (11.8-14.3)
[2023-11-11 06:36] LABS: Anion Gap 7 (5-15); Carbon Dioxide 22 mmol/L (20-30); Chloride 105 mmol/L (98-107); Potassium 3.9 mmol/L (3.5-5.1); Sodium 134 mmol/L (136-145)
[2023-11-11 06:37] LABS: Calcium 8.8 mg/dL (8.5-10.1)
[2023-11-11 06:41] LABS: Glucose 80 mg/dL (74-106)
[2023-11-11 06:42] LABS: BUN/Creatinine Ratio 11.1 (10.0-20.0); Blood Urea Nitrogen 7 mg/dL (9-23)
[2023-11-11 08:00] VITALS: BP 95/63; PULSE 18; PULSE 71; RESP 18; RESP 71; TEMP 97.1; O2SAT 96
[2023-11-11 09:00] VITALS: BP 95/63; PULSE 71; RESP 18; TEMP 97.1; O2SAT 96
[2023-11-11] MEDS: ASCORBIC ACID 500 MG TAB PO SCH ×2 (09:28→21:57)
[2023-11-11] MEDS: ZINC SULFATE 220mg CAP or TAB PO SCH (09:28)
[2023-11-11] MEDS: LACTULOSE 20Gm/30ML SOLN PO SCH ×2 (09:29→21:57)
[2023-11-11] MEDS: MORPHINE SULFATE INJ 2 MG/ml SYRG IV PRN (09:29)
[2023-11-11] MEDS: ENOXAPARIN SOD 40 MG/0.4 ML SYRINGE SC SCH (09:29)
[2023-11-11 13:34] VITALS: BP 114/61; PULSE 99; RESP 18; TEMP 97.7; O2SAT 97
[2023-11-11] MEDS ORDERED: METOCLOPRAMIDE HCL 5MG/ml INJ 2ml VIAL IV ONE (16:00)
[2023-11-11 20:00] VITALS: BP 115/75; PULSE 109; RESP 18; TEMP 97.7; O2SAT 99
[2023-11-11] MEDS: cefTRIAXone 1GM/50ML D5W 50 ML IV SCH (21:57)
[2023-11-12 04:00] VITALS: BP 103/78; PULSE 107; RESP 20; TEMP 97.8; O2SAT 97
[2023-11-12] MEDS: VANCOMYCIN 1GM/200ML 200 ML IV SCH (04:21)
[2023-11-12 08:00] VITALS: BP 115/77; PULSE 98; RESP 18; TEMP 98.3; O2SAT 95
== END 2023-11-12 10:24 | disposition left against medical advice (07) | DRG 720 ==
LOC: EDBD 17:48 → EDUNIT# 17:48 → ER 17:48 → WEST WING 23:43 → OVERFLOW 23:43 → WEST WING 11-07 21:35
PROVIDERS: ADMIT Nurse Practitioner Family; ATTEND Nurse Practitioner Acute Care
DX: A41.9 Sepsis, unspecified organism (principal); K61.0 Anal abscess; D64.9 Anemia, unspecified; F17.210 Nicotine dependence, cigarettes, uncomplicated; D50.9 Iron deficiency anemia, unspecified; D75.839 Thrombocytosis, unspecified; L73.2 Hidradenitis suppurativa; K62.89 Other specified diseases of anus and rectum; K59.00 Constipation, unspecified; Z59.00 Homelessness unspecified; Z88.8 Allergy status to other drugs, medicaments and biological substances; Z79.899 Other long term (current) drug therapy; Z79.1 Long term (current) use of non-steroidal anti-inflammatories (NSAID); Z79.2 Long term (current) use of antibiotics; Z79.891 Long term (current) use of opiate analgesic
CPT/HCPCS: 36415; 71045; 74176; 80048; 80053; 80202; 83605; 85025; 87040; 99291; G0378; J3490

== ENCOUNTER 2023-11-13 23:18 | Emergency (ER) | payer MEDICAID ==
[~2023-11-13] VITALS: Ht 188 cm; Wt 67.0 kg
[2023-11-13 23:45] VITALS: BP 142/78; PULSE 117; RESP 18; TEMP 98.7; O2SAT 98
[2023-11-14] MEDS ORDERED: ACETAMINOPHEN 500 MG TAB PO ONE (01:15)
[2023-11-14] MEDS ORDERED: TERB250T86 PO (01:20)
== END 2023-11-14 01:47 | disposition home or self-care (01) ==
LOC: ER 23:18
DX: B35.1 Tinea unguium (principal); M79.675 Pain in left toe(s); F17.210 Nicotine dependence, cigarettes, uncomplicated; F12.10 Cannabis abuse, uncomplicated; Z59.00 Homelessness unspecified; Z88.6 Allergy status to analgesic agent

== ENCOUNTER 2023-12-01 17:32 | Emergency (ER) | payer MEDICAID ==
[~2023-12-01] VITALS: Ht 188 cm; Wt 70.5 kg
[~2023-12-01 17:32] MED LIST changes: -ACET500T58 PO; -CLIN1LOT TOP; -CLIN300C70 PO; -CLOT1CRE7 EX; -DAKI0.25 EX; -DOXY-346 PO; -HYDR-4902 PO; -IBUP-1456 PO; -INDO50CA82 PO; -METR-344 PO; +TERB250T86 PO; -TRAM50TA2 PO
[2023-12-01] MEDS: KETOROLAC TROMETH 60MG/2ML VIAL IM ONE (20:41)
[2023-12-01] MEDS: ACETAMINOPHEN 325 MG TAB PO ONE (20:59)
[2023-12-01 21:42] LABS: Basophils # (auto) 0.1 10 ^3/uL (0-0.2); Basophils % (auto) 0.5 % (0.0-2.0); Eosinophils # (auto) 0.6 10 ^3/uL (0-0.8); Hematocrit 25.9 % (41.0-53.0); Hemoglobin 7.9 g/dL (13.5-17.5); Lymphocytes # (auto) 1.4 10 ^3/uL (0.4-5.4); Lymphocytes % (auto) 9.8 % (10.0-50.0); Mean Corpuscular Hemoglobin 22.7 pg (28.0-32.0); Mean Corpuscular Hgb Conc. 30.6 g/dL (32.0-36.0); Mean Corpuscular Volume 74.1 fL (80.0-100.0); Monocytes % (auto) 7.5 % (0.0-12.0); Neutrophils # (auto) 10.9 10 ^3/uL (1.6-8.6); Neutrophils % (auto) 78.2 % (37.0-80.0); Red Blood Cells 3.49 10^6/uL (4.5-5.90)
[2023-12-01 21:43] LABS: Red Cell Distribution Width 20.6 % (11.8-14.3)
[2023-12-01 21:46] LABS: Chloride 106 mmol/L (98-107); Potassium 3.2 mmol/L (3.5-5.1); Sodium 137 mmol/L (136-145)
[2023-12-01 21:47] LABS: Anion Gap 8 (5-15); Carbon Dioxide 23 mmol/L (20-30)
[2023-12-01 21:52] LABS: BUN/Creatinine Ratio 12.3 (10.0-20.0); Blood Urea Nitrogen 8 mg/dL (9-23); Glucose 110 mg/dL (74-106)
[2023-12-02] MEDS ORDERED: CLIN1AER EX (00:54)
[2023-12-02] MEDS ORDERED: CEPH500C PO (00:54)
[2023-12-02] MEDS ORDERED: IBUP-1455 PO (00:54)
[2023-12-02] MEDS: POTASSIUM CHL 20 Meq TABLET PO ONE (01:00)
[2023-12-02] MEDS ORDERED: FERR-7 PO (01:01)
[2023-12-02] MEDS: cefTRIAXone SOD 1,000 MG VL IM ONE (01:38)
[2023-12-02 01:55] VITALS: BP 98/57; PULSE 82; RESP 16; TEMP 98.2; O2SAT 97
== END 2023-12-02 02:51 | disposition home or self-care (01) ==
LOC: EDBD 17:32 → ER 17:32
DX: L73.2 Hidradenitis suppurativa (principal); L03.315 Cellulitis of perineum; F17.210 Nicotine dependence, cigarettes, uncomplicated; F12.10 Cannabis abuse, uncomplicated; Z59.00 Homelessness unspecified; Z88.0 Allergy status to penicillin
CPT/HCPCS: 36415; 80048; 83605; 85025; 96372; 99283; J0696; J1885

== ENCOUNTER 2023-12-09 05:00 | Emergency (ER) | payer MEDICAID ==
[~2023-12-09] VITALS: Ht 188 cm; Wt 67.7 kg
[~2023-12-09 05:00] MED LIST changes: +CEPH500C PO; +CLIN1AER EX; +FERR-7 PO; +IBUP-1455 PO
[2023-12-09 05:36] VITALS: BP 126/75; PULSE 116; RESP 18; TEMP 97.9
[2023-12-09] MEDS ORDERED: CEPH500C PO (06:31)
[2023-12-09 06:34] VITALS: O2SAT 100
== END 2023-12-09 06:45 | disposition home or self-care (01) ==
LOC: ER 05:00
DX: B35.1 Tinea unguium (principal); F17.210 Nicotine dependence, cigarettes, uncomplicated; F12.10 Cannabis abuse, uncomplicated; Z59.00 Homelessness unspecified; Z88.0 Allergy status to penicillin; Z88.6 Allergy status to analgesic agent

== ENCOUNTER 2023-12-14 12:52 | Emergency (ER) | payer MEDICAID ==
[~2023-12-14] VITALS: Ht 188 cm; Wt 70.5 kg
[2023-12-14 14:10] LABS: Basophils # (auto) 0.1 10 ^3/uL (0-0.2); Eosinophils # (auto) 0.3 10 ^3/uL (0-0.8); Eosinophils % (auto) 2.1 % (0.0-7.0); Hemoglobin 9.9 g/dL (13.5-17.5); Monocytes # (auto) 0.8 10 ^3/uL (0-1.3); Monocytes % (auto) 6.4 % (0.0-12.0)
[2023-12-14 14:11] LABS: Basophils % (auto) 0.5 % (0.0-2.0); Hematocrit 32.6 % (41.0-53.0); Lymphocytes % (auto) 8.2 % (10.0-50.0); Mean Corpuscular Hemoglobin 22.6 pg (28.0-32.0); Mean Corpuscular Hgb Conc. 30.4 g/dL (32.0-36.0); Mean Corpuscular Volume 74.5 fL (80.0-100.0); Neutrophils # (auto) 10.5 10 ^3/uL (1.6-8.6); Neutrophils % (auto) 82.8 % (37.0-80.0); Red Blood Cells 4.37 10^6/uL (4.5-5.90); White Blood Cell 12.6 10^3/uL (4.4-10.8)
[2023-12-14 14:17] LABS: Alanine Aminotransferase 12 U/L (7-40); Albumin 3.3 g/dL (3.2-4.8); Alkaline Phosphatase 119 U/L (46-116); Anion Gap 5 (5-15); Aspartate Aminotransferase 15 U/L (13-40); BUN/Creatinine Ratio 11.4 (10.0-20.0); Blood Urea Nitrogen 8 mg/dL (9-23); Calcium 8.8 mg/dL (8.7-10.4); Carbon Dioxide 23 mmol/L (20-30); Chloride 108 mmol/L (98-107); Glucose 93 mg/dL (74-106); Magnesium 1.8 mg/dL (1.6-2.6); Potassium 4.1 mmol/L (3.5-5.1); Sodium 136 mmol/L (136-145)
[2023-12-14 14:18] LABS: Bilirubin, Total 0.3 mg/dL (0.2-1.0); Total Protein 8.9 g/dL (5.7-8.2)
[2023-12-14] MEDS: SODIUM CHLORIDE 0.9% 1,000 ML IV ONE (17:54)
[2023-12-14 23:56] VITALS: BP 151/94; PULSE 110; RESP 18; TEMP 97.7; O2SAT 100
[2023-12-15] MEDS: CLINDAMYCIN 900MG IV 50 ML IV ONE (00:01)
== END 2023-12-14 23:38 | disposition home or self-care (01) ==
LOC: ER 12:52 → EDBD 12:52 → ER 23:38
DX: R53.1 Weakness (principal); R42 Dizziness and giddiness; F17.210 Nicotine dependence, cigarettes, uncomplicated; R07.89 Other chest pain; Z87.2 Personal history of diseases of the skin and subcutaneous tissue; Z59.00 Homelessness unspecified; Z79.2 Long term (current) use of antibiotics; Z79.1 Long term (current) use of non-steroidal anti-inflammatories (NSAID); Z79.899 Other long term (current) drug therapy; Z88.0 Allergy status to penicillin; Z88.8 Allergy status to other drugs, medicaments and biological substances
CPT/HCPCS: 36415; 71045; 80053; 82962; 83605; 83735; 84484; 85025; 87040; 93005; 96360; 99285; J7030

== ENCOUNTER 2023-12-19 03:27 | Emergency (ER) | payer MEDICAID ==
[~2023-12-19] VITALS: Ht 182.9 cm; Wt 70.0 kg
[2023-12-19 05:24] VITALS: TEMP 98; O2SAT 100
[2023-12-19 05:40] VITALS: BP 115/68; PULSE 94; RESP 20
[2023-12-19] MEDS: MORPHINE SULFATE 4 MG/ML SYR/VIAL IM ONE (05:40)
== END 2023-12-19 05:49 | disposition home or self-care (01) ==
LOC: ER 03:27 → EDBD 03:27 → ER 05:49
DX: L73.2 Hidradenitis suppurativa (principal); R53.1 Weakness; F17.210 Nicotine dependence, cigarettes, uncomplicated; F15.90 Other stimulant use, unspecified, uncomplicated; Z88.8 Allergy status to other drugs, medicaments and biological substances; Z88.0 Allergy status to penicillin; Z79.899 Other long term (current) drug therapy
CPT/HCPCS: 96372; 99283; J2270

== ENCOUNTER 2023-12-21 21:34 | Emergency (ER) | payer MEDICAID ==
[~2023-12-21] VITALS: Ht 188 cm; Wt 69.2 kg
[2023-12-22 00:50] LABS: Basophils # (auto) 0.1 10 ^3/uL (0-0.2); Basophils % (auto) 0.6 % (0.0-2.0); Lymphocytes # (auto) 1.4 10 ^3/uL (0.4-5.4); Monocytes # (auto) 0.9 10 ^3/uL (0-1.3)
[2023-12-22 00:52] LABS: Eosinophils # (auto) 0.7 10 ^3/uL (0-0.8); Eosinophils % (auto) 4.7 % (0.0-7.0); Hematocrit 30.4 % (41.0-53.0); Hemoglobin 9.4 g/dL (13.5-17.5); Lymphocytes % (auto) 10.3 % (10.0-50.0); Mean Corpuscular Hemoglobin 22.8 pg (28.0-32.0); Mean Corpuscular Hgb Conc. 30.9 g/dL (32.0-36.0); Mean Corpuscular Volume 73.8 fL (80.0-100.0); Monocytes % (auto) 6.2 % (0.0-12.0); Neutrophils % (auto) 78.2 % (37.0-80.0); Red Blood Cells 4.12 10^6/uL (4.5-5.90); Red Cell Distribution Width 21.7 % (11.8-14.3); White Blood Cell 14.1 10^3/uL (4.4-10.8)
[2023-12-22 01:06] LABS: INR 1.14 (0.9-1.15); Prothrombin Time 11.9 sec (9.3-11.8)
[2023-12-22 01:08] LABS: Alanine Aminotransferase < 9 U/L (7-40); Albumin 3.4 g/dL (3.2-4.8); Alkaline Phosphatase 105 U/L (46-116); Anion Gap 6 (5-15); Aspartate Aminotransferase 18 U/L (13-40); BUN/Creatinine Ratio 7.4 (10.0-20.0); Bilirubin, Total 0.2 mg/dL (0.2-1.0); Blood Urea Nitrogen 5 mg/dL (9-23); Calcium 8.7 mg/dL (8.7-10.4); Carbon Dioxide 25 mmol/L (20-30); Chloride 105 mmol/L (98-107); Glucose 83 mg/dL (74-106); Lipase 29 U/L (12-53); Potassium 3.6 mmol/L (3.5-5.1); Sodium 136 mmol/L (136-145)
[2023-12-22] MEDS ORDERED: DOCU-94 PO (03:58)
[2023-12-22] MEDS ORDERED: PHENSUP38 PR (03:58)
[2023-12-22] MEDS ORDERED: DOXY100C4 PO (03:58)
[2023-12-22] MEDS ORDERED: LACT10SO3 PO (04:17)
[2023-12-22] MEDS ORDERED: DOXY-286 PO (04:17)
[2023-12-22 04:31] VITALS: BP 138/91; PULSE 113; RESP 14; TEMP 97.2; O2SAT 99
[2023-12-22] MEDS: ACETAMINOPHEN 500 MG TAB PO ONE (04:32)
[2023-12-22] MEDS ORDERED: IOHEXOL 350 MG/ML 100ML IJ ONE (04:49)
== END 2023-12-22 04:34 | disposition home or self-care (01) ==
LOC: ER 21:34
DX: K59.00 Constipation, unspecified (principal); F17.210 Nicotine dependence, cigarettes, uncomplicated; Z59.00 Homelessness unspecified; Z79.2 Long term (current) use of antibiotics; Z79.899 Other long term (current) drug therapy; Z88.0 Allergy status to penicillin; Z88.8 Allergy status to other drugs, medicaments and biological substances
CPT/HCPCS: 36415; 74177; 80053; 83690; 84484; 85025; 85610; 85730; 99285; Q9967

== ENCOUNTER 2024-03-23 17:06 | Inpatient (IN) | payer MEDICAID, OTHER ==
[~2024-03-23] VITALS: Ht 188 cm; Wt 69.2 kg
[~2024-03-23 17:06] MED LIST changes: +DOCU-94 PO; +DOXY-286 PO; +DOXY100C4 PO; +LACT10SO3 PO; +PHENSUP38 PR
[2024-03-23 20:10] LABS: Basophils # (auto) 0.1 10 ^3/uL (0-0.2); Basophils % (auto) 0.9 % (0.0-2.0); Eosinophils # (auto) 0.5 10 ^3/uL (0-0.8); Eosinophils % (auto) 5.8 % (0.0-7.0); Hematocrit 27.8 % (41.0-53.0); Lymphocytes # (auto) 1.5 10 ^3/uL (0.4-5.4); Lymphocytes % (auto) 17.4 % (10.0-50.0); Mean Corpuscular Hemoglobin 25.6 pg (28.0-32.0); Mean Corpuscular Hgb Conc. 32.4 g/dL (32.0-36.0); Mean Corpuscular Volume 78.9 fL (80.0-100.0); Monocytes # (auto) 0.8 10 ^3/uL (0-1.3); Neutrophils # (auto) 5.7 10 ^3/uL (1.6-8.6); Neutrophils % (auto) 66.9 % (37.0-80.0); Red Blood Cells 3.52 10^6/uL (4.5-5.90); White Blood Cell 8.6 10^3/uL (4.4-10.8)
[2024-03-23 20:27] LABS: Alanine Aminotransferase 37 U/L (7-40); Albumin 3.4 g/dL (3.2-4.8); Alkaline Phosphatase 135 U/L (46-116); Anion Gap 6 (5-15); Aspartate Aminotransferase 27 U/L (13-40); BUN/Creatinine Ratio 14.5 (10.0-20.0); Bilirubin, Total 0.4 mg/dL (0.2-1.0); Blood Urea Nitrogen 9 mg/dL (9-23); Calcium 8.7 mg/dL (8.5-10.1); Carbon Dioxide 23 mmol/L (20-30); Chloride 108 mmol/L (98-107); Glucose 72 mg/dL (74-106); Potassium 3.5 mmol/L (3.5-5.1); Sodium 137 mmol/L (136-145); Total Protein 8.4 g/dL (5.7-8.2)
[2024-03-23] MEDS ORDERED: DOCUSATE SOD 100 MG CAP PO PRN (21:30)
[2024-03-23] MEDS ORDERED: ONDANSETRON HCL 4 MG/2 ML VIAL IV PRN (21:30)
[2024-03-23] MEDS ORDERED: IBUPROFEN 600 MG TAB PO PRN (21:30)
[2024-03-23] MEDS: SODIUM CHLOR 0.9% PF (SALINE LOCK) 10ML VIAL/SYR IV SCH (22:00)
[2024-03-23] MEDS: ASCORBIC ACID 500 MG TAB PO SCH (22:11)
[2024-03-23] MEDS: HYDROcodone-ACET 5/325MG TAB PO PRN (22:17)
[2024-03-23] MEDS ORDERED: MORPHINE SULFATE INJ 2 MG/ml SYRG IV PRN (23:45)
[2024-03-23] MEDS ORDERED: VANCOMYCIN PER PHARMACY 0 MG IV SCH (23:45)
[2024-03-23] MEDS ORDERED: NITROGLYCERIN 0.4 MG SL TAB SL PRN (23:45)
[2024-03-24] MEDS: VANCOMYCIN 1GM/200ML 200 ML IV ONE (00:11)
[2024-03-24] MEDS: MORPHINE SULFATE INJ 2 MG/ml SYRG IV PRN (02:18)
[2024-03-24 05:06] LABS: Basophils # (auto) 0.1 10 ^3/uL (0-0.2); Lymphocytes # (auto) 1.6 10 ^3/uL (0.4-5.4); Monocytes # (auto) 0.7 10 ^3/uL (0-1.3)
[2024-03-24 05:07] LABS: Eosinophils # (auto) 0.8 10 ^3/uL (0-0.8); Eosinophils % (auto) 8.5 % (0.0-7.0); Hematocrit 29.5 % (41.0-53.0); Hemoglobin 9.4 g/dL (13.5-17.5); Lymphocytes % (auto) 17.6 % (10.0-50.0); Mean Corpuscular Hemoglobin 25.6 pg (28.0-32.0); Mean Corpuscular Volume 80.1 fL (80.0-100.0); Monocytes % (auto) 7.6 % (0.0-12.0); Neutrophils % (auto) 65.3 % (37.0-80.0); Red Blood Cells 3.68 10^6/uL (4.5-5.90); White Blood Cell 9.1 10^3/uL (4.4-10.8)
[2024-03-24 05:09] LABS: Red Cell Distribution Width 20.8 % (11.8-14.3)
[2024-03-24 05:20] LABS: Alanine Aminotransferase 37 U/L (7-40); Albumin 3.3 g/dL (3.2-4.8); Alkaline Phosphatase 135 U/L (46-116); Anion Gap 6 (5-15); Aspartate Aminotransferase 27 U/L (13-40); BUN/Creatinine Ratio 10.4 (10.0-20.0); Blood Urea Nitrogen 7 mg/dL (9-23); Calcium 8.7 mg/dL (8.5-10.1); Carbon Dioxide 22 mmol/L (20-30); Chloride 108 mmol/L (98-107); Glucose 106 mg/dL (74-106); Potassium 3.5 mmol/L (3.5-5.1); Sodium 136 mmol/L (136-145)
[2024-03-24 05:21] LABS: Bilirubin, Total 0.3 mg/dL (0.2-1.0); Total Protein 8.3 g/dL (5.7-8.2)
[2024-03-24 08:20] VITALS: TEMP 98.1
[2024-03-24 09:00] VITALS: BP 118/74; PULSE 70; RESP 16; TEMP 97.5; O2SAT 100
[2024-03-24] MEDS: VANCOMYCIN 1GM/200ML 200 ML IV SCH (09:31)
[2024-03-24] MEDS: ZINC SULFATE 220mg CAP or TAB PO SCH (10:37)
[2024-03-24] MEDS: MULTIPLE VITAMIN TAB PO SCH (10:38)
[2024-03-24 12:03] LABS: % Iron Saturation 10.3 % (20-55)
[2024-03-24] MEDS: DOXYCYCLINE 100MG/250ML 250 ML IV SCH (12:37)
[2024-03-24 13:00] VITALS: BP 122/71; PULSE 66; RESP 16; TEMP 97.6; O2SAT 100
[2024-03-24 17:00] VITALS: BP 149/85; PULSE 94; RESP 16; TEMP 97.6; O2SAT 98
[2024-03-24] MEDS: FERROUS SULFATE 325mg EC TAB PO SCH (17:50)
[2024-03-24 19:05] LABS: COVID19 ANTIGEN SOFIA FIA NEGATIVE (NEGATIVE)
[2024-03-24 20:00] VITALS: PULSE 113; RESP 18; O2SAT 99
[2024-03-24 21:00] VITALS: BP 116/63; PULSE 113; RESP 18; TEMP 99.5; O2SAT 99
[2024-03-25 01:00] VITALS: BP 111/71; PULSE 102; RESP 19; TEMP 98.5; O2SAT 97
[2024-03-25 05:00] VITALS: BP 110/77; PULSE 88; RESP 17; TEMP 97.4; O2SAT 98
[2024-03-25 07:15] LABS: Basophils # (auto) 0.1 10 ^3/uL (0-0.2); Eosinophils # (auto) 0.7 10 ^3/uL (0-0.8); Eosinophils % (auto) 8.3 % (0.0-7.0); Hemoglobin 9.4 g/dL (13.5-17.5); Mean Corpuscular Volume 79.5 fL (80.0-100.0)
[2024-03-25 07:18] LABS: Basophils % (auto) 0.9 % (0.0-2.0); Hematocrit 28.8 % (41.0-53.0); Lymphocytes # (auto) 1.3 10 ^3/uL (0.4-5.4); Lymphocytes % (auto) 16.3 % (10.0-50.0); Mean Corpuscular Hemoglobin 25.9 pg (28.0-32.0); Mean Corpuscular Hgb Conc. 32.6 g/dL (32.0-36.0); Monocytes # (auto) 0.7 10 ^3/uL (0-1.3); Monocytes % (auto) 8.3 % (0.0-12.0); Neutrophils # (auto) 5.4 10 ^3/uL (1.6-8.6); Neutrophils % (auto) 66.2 % (37.0-80.0); Red Blood Cells 3.62 10^6/uL (4.5-5.90); Red Cell Distribution Width 20.5 % (11.8-14.3); White Blood Cell 8.2 10^3/uL (4.4-10.8)
[2024-03-25 07:22] LABS: Anion Gap 4 (5-15); Calcium 8.7 mg/dL (8.5-10.1); Carbon Dioxide 24 mmol/L (20-30); Chloride 110 mmol/L (98-107); Potassium 3.9 mmol/L (3.5-5.1); Sodium 138 mmol/L (136-145)
[2024-03-25 07:28] LABS: BUN/Creatinine Ratio 11.8 (10.0-20.0); Blood Urea Nitrogen 8 mg/dL (9-23); Glucose 112 mg/dL (74-106)
[2024-03-25 09:00] VITALS: BP 103/62; PULSE 82; RESP 15; TEMP 98.8; O2SAT 98
[2024-03-25 12:46] VITALS: BP 110/67; PULSE 92; RESP 15; TEMP 97.7; O2SAT 99
[2024-03-25 20:00] VITALS: PULSE 114; RESP 16
[2024-03-25 21:00] VITALS: BP 116/76; PULSE 114; RESP 16; TEMP 98.2; O2SAT 96
[2024-03-26 01:00] VITALS: BP 118/77; PULSE 96; RESP 18; TEMP 98.2; O2SAT 96
[2024-03-26 05:00] VITALS: BP 102/74; PULSE 97; RESP 19; TEMP 97.7; O2SAT 99
[2024-03-26 05:06] VITALS: BP 102/75; PULSE 97; RESP 20
[2024-03-26 05:58] LABS: Basophils # (auto) 0.1 10 ^3/uL (0-0.2); Eosinophils # (auto) 0.7 10 ^3/uL (0-0.8)
[2024-03-26 06:03] LABS: Basophils % (auto) 1.2 % (0.0-2.0); Eosinophils % (auto) 6.7 % (0.0-7.0); Hematocrit 29.1 % (41.0-53.0); Hemoglobin 9.6 g/dL (13.5-17.5); Lymphocytes % (auto) 19.6 % (10.0-50.0); Mean Corpuscular Hemoglobin 26.1 pg (28.0-32.0); Mean Corpuscular Hgb Conc. 32.9 g/dL (32.0-36.0); Mean Corpuscular Volume 79.2 fL (80.0-100.0); Monocytes # (auto) 0.9 10 ^3/uL (0-1.3); Monocytes % (auto) 9.1 % (0.0-12.0); Neutrophils # (auto) 6.5 10 ^3/uL (1.6-8.6); Neutrophils % (auto) 63.4 % (37.0-80.0); Red Blood Cells 3.67 10^6/uL (4.5-5.90); Red Cell Distribution Width 20.7 % (11.8-14.3); White Blood Cell 10.3 10^3/uL (4.4-10.8)
[2024-03-26 06:20] LABS: Alanine Aminotransferase 28 U/L (7-40); Alkaline Phosphatase 126 U/L (46-116); Anion Gap 5 (5-15); Carbon Dioxide 24 mmol/L (20-30); Chloride 107 mmol/L (98-107); Potassium 3.8 mmol/L (3.5-5.1); Sodium 136 mmol/L (136-145)
[2024-03-26 06:21] LABS: Aspartate Aminotransferase 21 U/L (13-40); BUN/Creatinine Ratio 12.1 (10.0-20.0); Blood Urea Nitrogen 8 mg/dL (9-23); Glucose 91 mg/dL (74-106)
[2024-03-26 06:23] LABS: Albumin 3.2 g/dL (3.2-4.8); Bilirubin, Total < 0.2 mg/dL (0.2-1.0); Total Protein 7.9 g/dL (5.7-8.2)
[2024-03-27 09:09] LABS: Hepatitis B Surface Antigen Negative (Negative)
[2024-03-27 09:30] LABS: Hepatitis A Ab IgM Negative; Hepatitis B Core IgM Negative
[2024-03-27 09:31] LABS: Hepatitis C Antibody Negative (Negative)
== END 2024-03-26 09:05 | disposition left against medical advice (07) | DRG 380 ==
LOC: ER 17:06 → OVERFLOW 23:41 → CENTRAL 03-24 08:12
PROVIDERS: ADMIT Internal Medicine; ATTEND Internal Medicine
DX: L89.153 Pressure ulcer of sacral region, stage 3 (principal); E44.1 Mild protein-calorie malnutrition; D50.9 Iron deficiency anemia, unspecified; D75.838 Other thrombocytosis; F17.210 Nicotine dependence, cigarettes, uncomplicated; F15.90 Other stimulant use, unspecified, uncomplicated; F19.10 Other psychoactive substance abuse, uncomplicated; Z20.822 Contact with and (suspected) exposure to COVID-19; Z59.00 Homelessness unspecified; Z88.0 Allergy status to penicillin; Z88.8 Allergy status to other drugs, medicaments and biological substances; Z68.1 Body mass index [BMI] 19.9 or less, adult
CPT/HCPCS: 36415; 74176; 80048; 80053; 80074; 80202; 83540; 83550; 83605; 84439; 84443; 85025; 86703; 86850; 86900; 86901; 87040; 87081; 87205; 87426; G0378; J3490

== ENCOUNTER 2024-07-03 02:21 | Emergency (ER) | payer MEDICAID ==
[~2024-07-03] VITALS: Ht 188 cm; Wt 68.6 kg
[2024-07-03 02:42] VITALS: BP 125/79; PULSE 100; RESP 16; O2SAT 99
[2024-07-03 03:11] LABS: Basophils # (auto) 0.1 10 ^3/uL (0-0.2); Basophils % (auto) 0.5 % (0.0-2.0); Eosinophils # (auto) 0.6 10 ^3/uL (0-0.8); Mean Corpuscular Volume 76.9 fL (80.0-100.0); Red Blood Cells 3.94 10^6/uL (4.5-5.90)
[2024-07-03 03:12] LABS: Hematocrit 30.3 % (41.0-53.0); Hemoglobin 9.7 g/dL (13.5-17.5); Lymphocytes # (auto) 1.5 10 ^3/uL (0.4-5.4); Lymphocytes % (auto) 13.2 % (10.0-50.0); Mean Corpuscular Hemoglobin 24.7 pg (28.0-32.0); Mean Corpuscular Hgb Conc. 32.1 g/dL (32.0-36.0); Monocytes % (auto) 8.3 % (0.0-12.0); Neutrophils # (auto) 8.5 10 ^3/uL (1.6-8.6); Platelet Count (auto) 500 10^3/uL (140-450); White Blood Cell 11.7 10^3/uL (4.4-10.8)
[2024-07-03 03:18] LABS: Red Cell Distribution Width 20.6 % (11.8-14.3)
[2024-07-03 03:25] LABS: Alanine Aminotransferase 13 U/L (7-40); Albumin 3.5 g/dL (3.2-4.8); Alkaline Phosphatase 117 U/L (46-116); Anion Gap 1 (5-15); Aspartate Aminotransferase 18 U/L (13-40); BUN/Creatinine Ratio 12.2 (10.0-20.0); Blood Urea Nitrogen 10 mg/dL (9-23); Calcium 8.9 mg/dL (8.7-10.4); Carbon Dioxide 28 mmol/L (20-30); Chloride 107 mmol/L (98-107); Glucose 98 mg/dL (74-106); Potassium 3.9 mmol/L (3.5-5.1); Sodium 136 mmol/L (136-145)
[2024-07-03 03:26] LABS: Bilirubin, Total 0.3 mg/dL (0.2-1.0); Total Protein 9.3 g/dL (5.7-8.2)
== END 2024-07-03 05:15 | disposition home or self-care (01) ==
LOC: ER 02:21
DX: Z43.3 Encounter for attention to colostomy (principal); R10.32 Left lower quadrant pain; F12.90 Cannabis use, unspecified, uncomplicated; F17.210 Nicotine dependence, cigarettes, uncomplicated; Z98.890 Other specified postprocedural states; Z88.0 Allergy status to penicillin; Z88.8 Allergy status to other drugs, medicaments and biological substances
CPT/HCPCS: 36415; 80053; 85025

== ENCOUNTER 2024-07-07 18:29 | Emergency (ER) | payer MEDICAID ==
[~2024-07-07] VITALS: Ht 188 cm; Wt 69.7 kg
[2024-07-07 19:20] VITALS: PULSE 98; RESP 18; O2SAT 95
[2024-07-07 20:00] VITALS: BP 126/73; PULSE 98; RESP 18; TEMP 98.3; O2SAT 95
== END 2024-07-07 20:56 | disposition left against medical advice (07) ==
LOC: ER 18:29
DX: R10.32 Left lower quadrant pain (principal); F17.210 Nicotine dependence, cigarettes, uncomplicated; F12.10 Cannabis abuse, uncomplicated; F15.10 Other stimulant abuse, uncomplicated; Z43.3 Encounter for attention to colostomy; Z59.00 Homelessness unspecified; Z88.0 Allergy status to penicillin; Z88.6 Allergy status to analgesic agent

== ENCOUNTER 2024-07-13 22:50 | Emergency (ER) | payer MEDICAID ==
[~2024-07-13] VITALS: Ht 188 cm; Wt 70.4 kg
[2024-07-13 23:00] VITALS: BP 156/104; PULSE 111; RESP 18; O2SAT 96
[2024-07-13 23:48] LABS: Basophils # (auto) 0.1 10 ^3/uL (0-0.2); Eosinophils # (auto) 0.6 10 ^3/uL (0-0.8); Red Blood Cells 3.78 10^6/uL (4.5-5.90)
[2024-07-13 23:49] LABS: Basophils % (auto) 0.9 % (0.0-2.0); Eosinophils % (auto) 5.3 % (0.0-7.0); Hematocrit 28.8 % (41.0-53.0); Hemoglobin 9.3 g/dL (13.5-17.5); Lymphocytes # (auto) 1.4 10 ^3/uL (0.4-5.4); Mean Corpuscular Hemoglobin 24.7 pg (28.0-32.0); Mean Corpuscular Hgb Conc. 32.4 g/dL (32.0-36.0); Mean Corpuscular Volume 76.1 fL (80.0-100.0); Monocytes % (auto) 8.8 % (0.0-12.0); Neutrophils # (auto) 8.5 10 ^3/uL (1.6-8.6); Platelet Count (auto) 460 10^3/uL (140-450); Red Cell Distribution Width 20.5 % (11.8-14.3); White Blood Cell 11.6 10^3/uL (4.4-10.8)
[2024-07-14 00:08] LABS: Alanine Aminotransferase 12 U/L (7-40); Albumin 3.5 g/dL (3.2-4.8); Alkaline Phosphatase 112 U/L (46-116); Anion Gap 8 (5-15); Aspartate Aminotransferase 20 U/L (13-40); BUN/Creatinine Ratio 12.2 (10.0-20.0); Bilirubin, Total 0.6 mg/dL (0.2-1.0); Blood Urea Nitrogen 9 mg/dL (9-23); Calcium 8.8 mg/dL (8.7-10.4); Carbon Dioxide 21 mmol/L (20-31); Chloride 108 mmol/L (98-107); Glucose 78 mg/dL (74-106); Lipase 25 U/L (12-53); Potassium 3.1 mmol/L (3.5-5.1); Sodium 137 mmol/L (136-145); Total Protein 9.3 g/dL (5.7-8.2)
[2024-07-14] MEDS ORDERED: LABETALOL HCL 200 MG TAB PO ONE (02:15)
[2024-07-14] MEDS ORDERED: POTASSIUM CHL 20 Meq TABLET PO ONE (02:15)
[2024-07-14] MEDS ORDERED: CIPR-173 PO (02:17)
[2024-07-14] MEDS ORDERED: METR-344 PO (02:17)
[2024-07-14] MEDS ORDERED: DOCU-94 PO (02:17)
== END 2024-07-14 03:14 | disposition left against medical advice (07) ==
LOC: ER 22:50
DX: K59.00 Constipation, unspecified (principal); I10 Essential (primary) hypertension; K62.89 Other specified diseases of anus and rectum; E87.6 Hypokalemia; F17.210 Nicotine dependence, cigarettes, uncomplicated; F15.90 Other stimulant use, unspecified, uncomplicated; Z98.890 Other specified postprocedural states; Z59.00 Homelessness unspecified; Z88.0 Allergy status to penicillin; Z88.1 Allergy status to other antibiotic agents; Z88.6 Allergy status to analgesic agent; Z79.899 Other long term (current) drug therapy
CPT/HCPCS: 36415; 74176; 80053; 83690; 85025

== ENCOUNTER 2024-07-19 16:07 | Inpatient (IN) | payer MEDICAID ==
[~2024-07-19] VITALS: Ht 188 cm; Wt 67.8 kg
[~2024-07-19 16:07] MED LIST changes: -CEPH500C PO; +CIPR-173 PO; -CLIN1AER EX; -DOXY-286 PO; -DOXY100C4 PO; -FERR-7 PO; -IBUP-1455 PO; -LACT10SO3 PO; +METR-344 PO; -PHENSUP38 PR; -TERB250T86 PO
[2024-07-19] MEDS: SODIUM CHLORIDE 0.9% 1,000 ML IV ONE (17:58)
[2024-07-19 18:34] LABS: Basophils # (auto) 0.1 10 ^3/uL (0-0.2); Basophils % (auto) 0.5 % (0.0-2.0); Eosinophils # (auto) 0.3 10 ^3/uL (0-0.8); Eosinophils % (auto) 2.1 % (0.0-7.0); Hematocrit 36.2 % (41.0-53.0); Hemoglobin 11.5 g/dL (13.5-17.5); Lymphocytes % (auto) 11.9 % (10.0-50.0); Mean Corpuscular Hemoglobin 24.8 pg (28.0-32.0); Mean Corpuscular Hgb Conc. 31.8 g/dL (32.0-36.0); Monocytes # (auto) 1.4 10 ^3/uL (0-1.3); Monocytes % (auto) 8.6 % (0.0-12.0); Neutrophils # (auto) 12.6 10 ^3/uL (1.6-8.6); Neutrophils % (auto) 76.9 % (37.0-80.0); Platelet Count (auto) 592 10^3/uL (140-450); Red Blood Cells 4.64 10^6/uL (4.5-5.90); White Blood Cell 16.4 10^3/uL (4.4-10.8)
[2024-07-19 18:35] LABS: Red Cell Distribution Width 21.8 % (11.8-14.3)
[2024-07-19 18:55] LABS: Alanine Aminotransferase 25 U/L (7-40); Albumin 3.9 g/dL (3.2-4.8); Alkaline Phosphatase 125 U/L (46-116); Anion Gap 8 (5-15); Aspartate Aminotransferase 28 U/L (13-40); BUN/Creatinine Ratio 16.5 (10.0-20.0); Blood Urea Nitrogen 13 mg/dL (9-23); Calcium 9.6 mg/dL (8.7-10.4); Carbon Dioxide 24 mmol/L (20-31); Chloride 102 mmol/L (98-107); Glucose 84 mg/dL (74-106); Lipase 27 U/L (12-53); Magnesium 1.9 mg/dL (1.6-2.6); Potassium 3.8 mmol/L (3.5-5.1); Sodium 134 mmol/L (136-145)
[2024-07-19 18:56] LABS: Bilirubin, Total 0.3 mg/dL (0.2-1.0); Total Protein 10.5 g/dL (5.7-8.2)
[2024-07-19] MEDS: metroNIDAZOLE 500MG/100ML 100 ML IV ONE (19:54)
[2024-07-19] MEDS: levoFLOXacin 250 MG TAB PO ONE (19:54)
[2024-07-19] MEDS: HYDROcodone-ACET 5/325MG TAB PO ONE (20:22)
[2024-07-19 22:10] VITALS: PULSE 86; RESP 17; TEMP 97.5; O2SAT 98
[2024-07-19] MEDS ORDERED: ACETAMINOPHEN 500 MG TAB PO PRN (23:30)
[2024-07-19 23:45] VITALS: BP 112/66
[2024-07-19] MEDS: fentaNYL CITRATE 100 MCG/2 ML VL IV ONE (23:45)
[2024-07-20] MEDS ORDERED: KETOROLAC TROMETH 30 MG/ML 1ML VIAL IV PRN (01:00)
[2024-07-20 02:09] LABS: INR 1.15 (0.9-1.15); Partial Thromboplastin Time 25.7 SEC (24.5-34.5); Prothrombin Time 12.1 sec (9.3-11.8)
[2024-07-20] MEDS: DOXYCYCLINE 100MG/250ML 250 ML IV SCH (02:21)
[2024-07-20] MEDS ORDERED: HYDROcodone-ACET 5/325MG TAB PO PRN (03:15)
[2024-07-20 04:14] LABS: COVID19 ANTIGEN SOFIA FIA NEGATIVE (NEGATIVE)
[2024-07-20 05:46] LABS: Anion Gap 6 (5-15); Carbon Dioxide 23 mmol/L (20-31); Chloride 107 mmol/L (98-107); Potassium 3.8 mmol/L (3.5-5.1); Sodium 136 mmol/L (136-145)
[2024-07-20 05:52] LABS: BUN/Creatinine Ratio 18.2 (10.0-20.0); Blood Urea Nitrogen 12 mg/dL (9-23); Glucose 93 mg/dL (74-106); Triglycerides 46 mg/dL (< 150)
[2024-07-20 05:53] LABS: LDL Cholesterol 55 mg/dL (< 100)
[2024-07-20 05:54] LABS: Cholesterol 94 mg/dL (< 200); HDL Cholesterol 33 mg/dL (40-59)
[2024-07-20 06:07] LABS: Basophils # (auto) 0 10 ^3/uL (0-0.2); Basophils % (auto) 0.4 % (0.0-2.0); Eosinophils # (auto) 0.4 10 ^3/uL (0-0.8); Eosinophils % (auto) 3.8 % (0.0-7.0); Hematocrit 31.9 % (41.0-53.0); Hemoglobin 10.5 g/dL (13.5-17.5); Lymphocytes # (auto) 1.2 10 ^3/uL (0.4-5.4); Lymphocytes % (auto) 11.5 % (10.0-50.0); Mean Corpuscular Hemoglobin 25.6 pg (28.0-32.0); Mean Corpuscular Hgb Conc. 32.9 g/dL (32.0-36.0); Mean Corpuscular Volume 77.9 fL (80.0-100.0); Monocytes # (auto) 1.1 10 ^3/uL (0-1.3); Monocytes % (auto) 10.2 % (0.0-12.0); Neutrophils # (auto) 7.7 10 ^3/uL (1.6-8.6); Neutrophils % (auto) 74.1 % (37.0-80.0); Nucleated Red Blood Cells % 0.2 %; Platelet Count (auto) 420 10^3/uL (140-450); White Blood Cell 10.4 10^3/uL (4.4-10.8)
[2024-07-20 06:15] LABS: Red Cell Distribution Width 21.5 % (11.8-14.3)
[2024-07-20] MEDS ORDERED: ERGOCALCIFEROL 50,000 UNIT(1.25MG) CAP PO SCH (10:00)
[2024-07-20] MEDS ORDERED: ceFAZolin 1GM VL ONE (12:37)
== END 2024-07-20 05:20 | disposition left against medical advice (07) | DRG 720 ==
LOC: ER 16:09 → OVERFLOW 23:23
PROVIDERS: ADMIT Internal Medicine; ATTEND Student in an Organized Health Care Education/Training Program
DX: A41.9 Sepsis, unspecified organism (principal); K94.00 Colostomy complication, unspecified; D50.9 Iron deficiency anemia, unspecified; D72.829 Elevated white blood cell count, unspecified; D75.838 Other thrombocytosis; F12.10 Cannabis abuse, uncomplicated; R19.7 Diarrhea, unspecified; Y83.8 Other surgical procedures as the cause of abnormal reaction of the patient, or of later complication, without mention of misadventure at the time of the procedure; L73.2 Hidradenitis suppurativa; F15.10 Other stimulant abuse, uncomplicated; Z20.822 Contact with and (suspected) exposure to COVID-19; E55.9 Vitamin D deficiency, unspecified; Z53.29 Procedure and treatment not carried out because of patient's decision for other reasons; Y82.8 Other medical devices associated with adverse incidents; Z59.00 Homelessness unspecified; Y92.89 Other specified places as the place of occurrence of the external cause
CPT/HCPCS: 36415; 71045; 74176; 80048; 80053; 80061; 82306; 82607; 82746; 83036; 83605; 83690; 83735; 84443; 85025; 85610; 85730; 86141; 87426; 93005; G0378; J0690; J3490

== ENCOUNTER 2024-07-27 06:23 | Inpatient (IN) | payer MEDICAID ==
[~2024-07-27] VITALS: Ht 193 cm; Wt 72.0 kg
[2024-07-27 07:14] LABS: Chloride 108 mmol/L (98-107); Potassium 2.9 mmol/L (3.5-5.1); Sodium 138 mmol/L (136-145)
[2024-07-27 07:15] LABS: Anion Gap 6 (5-15); Carbon Dioxide 24 mmol/L (20-31)
[2024-07-27 07:16] LABS: Calcium 8.9 mg/dL (8.7-10.4)
[2024-07-27 07:20] LABS: Glucose 75 mg/dL (74-106)
[2024-07-27 07:21] LABS: BUN/Creatinine Ratio 8.6 (10.0-20.0); Blood Urea Nitrogen 6 mg/dL (9-23)
[2024-07-27 07:30] LABS: Basophils # (auto) 0.1 10 ^3/uL (0-0.2); Basophils % (auto) 0.6 % (0.0-2.0); Eosinophils # (auto) 0.4 10 ^3/uL (0-0.8); Eosinophils % (auto) 3.9 % (0.0-7.0); Hematocrit 32.4 % (41.0-53.0); Hemoglobin 10.3 g/dL (13.5-17.5); Lymphocytes # (auto) 1.1 10 ^3/uL (0.4-5.4); Lymphocytes % (auto) 10.1 % (10.0-50.0); Mean Corpuscular Hemoglobin 25.8 pg (28.0-32.0); Mean Corpuscular Hgb Conc. 31.9 g/dL (32.0-36.0); Mean Corpuscular Volume 80.8 fL (80.0-100.0); Monocytes # (auto) 0.6 10 ^3/uL (0-1.3); Monocytes % (auto) 5.6 % (0.0-12.0); Neutrophils # (auto) 8.7 10 ^3/uL (1.6-8.6); Neutrophils % (auto) 79.8 % (37.0-80.0); Platelet Count (auto) 429 10^3/uL (140-450); Red Blood Cells 4.01 10^6/uL (4.5-5.90); Red Cell Distribution Width 22.7 % (11.8-14.3); White Blood Cell 10.9 10^3/uL (4.4-10.8)
[2024-07-27 08:11] VITALS: PULSE 79; RESP 18; O2SAT 96
[2024-07-27] MEDS ORDERED: HYDROcodone-ACET 5/325MG TAB PO PRN (13:30)
[2024-07-27] MEDS ORDERED: ACETAMINOPHEN 325 MG TAB PO PRN (13:30)
[2024-07-27 14:45] VITALS: BP 123/81; PULSE 85; RESP 16; TEMP 97.8; O2SAT 98
[2024-07-27 14:50] VITALS: BP 123/81; PULSE 85; RESP 16; TEMP 97.8; O2SAT 98
[2024-07-27] MEDS: MORPHINE SULFATE INJ 2 MG/ml SYRG IV PRN (15:53)
[2024-07-27 17:07] VITALS: BP 104/64; PULSE 77; RESP 17; TEMP 98.9; O2SAT 97
[2024-07-27 20:00] VITALS: O2SAT 95
[2024-07-27 21:00] VITALS: BP 117/72; PULSE 76; RESP 19; TEMP 97.6; O2SAT 97
[2024-07-27] MEDS: POTASSIUM CHL 20 Meq TABLET PO ONE (21:38)
[2024-07-28 05:00] VITALS: BP 117/74; PULSE 76; RESP 18; TEMP 97.9; O2SAT 95
[2024-07-28 07:30] LABS: Basophils # (auto) 0 10 ^3/uL (0-0.2); Basophils % (auto) 0.4 % (0.0-2.0); Eosinophils # (auto) 0.6 10 ^3/uL (0-0.8); Hemoglobin 9.7 g/dL (13.5-17.5)
[2024-07-28 07:33] LABS: Eosinophils % (auto) 5.2 % (0.0-7.0); Hematocrit 30.2 % (41.0-53.0); Lymphocytes # (auto) 1.1 10 ^3/uL (0.4-5.4); Lymphocytes % (auto) 9.9 % (10.0-50.0); Mean Corpuscular Hemoglobin 25.5 pg (28.0-32.0); Mean Corpuscular Volume 79.6 fL (80.0-100.0); Monocytes # (auto) 0.6 10 ^3/uL (0-1.3); Monocytes % (auto) 5.7 % (0.0-12.0); Neutrophils # (auto) 8.7 10 ^3/uL (1.6-8.6); Neutrophils % (auto) 78.8 % (37.0-80.0); Platelet Count (auto) 465 10^3/uL (140-450); Red Cell Distribution Width 22.2 % (11.8-14.3)
[2024-07-28 07:40] LABS: Chloride 110 mmol/L (98-107); Potassium 3.1 mmol/L (3.5-5.1); Sodium 139 mmol/L (136-145)
[2024-07-28 07:41] LABS: Anion Gap 5 (5-15); Calcium 8.1 mg/dL (8.7-10.4); Carbon Dioxide 24 mmol/L (20-31)
[2024-07-28 07:46] LABS: Glucose 82 mg/dL (74-106)
[2024-07-28 07:47] LABS: BUN/Creatinine Ratio 8.2 (10.0-20.0); Blood Urea Nitrogen < 5 mg/dL (9-23)
[2024-07-28 07:53] LABS: INR 1.17 (0.9-1.15); Partial Thromboplastin Time 28.5 SEC (24.5-34.5); Prothrombin Time 12.3 sec (9.3-11.8)
[2024-07-28 09:00] VITALS: BP 114/73; PULSE 79; RESP 16; TEMP 98; O2SAT 95
[2024-07-28 13:00] VITALS: BP_SYST 114; BP_SYST 119; BP_DIAS 73; BP_DIAS 75; PULSE 79; PULSE 87; RESP 15; RESP 16; TEMP 97.8; TEMP 98; O2SAT 95; O2SAT 96
[2024-07-28 16:40] VITALS: BP 113/85; PULSE 102
[2024-07-28 17:00] VITALS: BP 102/62; PULSE 84; RESP 18; TEMP 97.7; O2SAT 96
[2024-07-28 20:43] VITALS: BP 117/78; PULSE 91; RESP 14; TEMP 98.2; O2SAT 97
[2024-07-31 08:39] LABS: Hepatitis B Surface Antigen Negative (Negative)
[2024-07-31 09:02] LABS: Hepatitis C Antibody Negative (Negative)
== END 2024-07-28 21:00 | disposition home or self-care (01) | DRG 252 ==
LOC: ER 06:23 → EDBD 06:23 → OVERFLOW 13:42 → WEST WING 14:26
PROVIDERS: ADMIT Student in an Organized Health Care Education/Training Program; ATTEND Student in an Organized Health Care Education/Training Program
DX: K94.09 Other complications of colostomy (principal); E87.6 Hypokalemia; K43.5 Parastomal hernia without obstruction or gangrene; F17.210 Nicotine dependence, cigarettes, uncomplicated; Z53.20 Procedure and treatment not carried out because of patient's decision for unspecified reasons; L73.2 Hidradenitis suppurativa; Z88.0 Allergy status to penicillin; Z88.1 Allergy status to other antibiotic agents; Z59.00 Homelessness unspecified
CPT/HCPCS: 36415; 80048; 85025; 85610; 85730; 86803; 86850; 86900; 86901; 87340; 99291; G0378

== ENCOUNTER 2024-07-30 03:21 | Emergency (ER) | payer MEDICAID ==
[~2024-07-30] VITALS: Ht 190.5 cm; Wt 70.5 kg
[2024-07-30 04:05] VITALS: BP 143/95; PULSE 96; RESP 18; TEMP 97.5; O2SAT 99
== END 2024-07-30 05:29 | disposition home or self-care (01) ==
LOC: ER 03:21
DX: K94.09 Other complications of colostomy (principal); F17.210 Nicotine dependence, cigarettes, uncomplicated; F12.10 Cannabis abuse, uncomplicated; Z59.00 Homelessness unspecified; Z88.0 Allergy status to penicillin; Z88.1 Allergy status to other antibiotic agents; Z98.890 Other specified postprocedural states

== ENCOUNTER 2024-08-02 10:42 | Emergency (ER) | payer MEDICAID ==
[~2024-08-02] VITALS: Ht 188 cm; Wt 72.0 kg
[2024-08-02 12:05] LABS: Basophils # (auto) 0.1 10 ^3/uL (0-0.2); Hemoglobin 9.3 g/dL (13.5-17.5); Monocytes # (auto) 1.1 10 ^3/uL (0-1.3)
[2024-08-02 12:07] LABS: Basophils % (auto) 0.7 % (0.0-2.0); Eosinophils # (auto) 0.5 10 ^3/uL (0-0.8); Eosinophils % (auto) 4.9 % (0.0-7.0); Hematocrit 29.1 % (41.0-53.0); Lymphocytes # (auto) 1.4 10 ^3/uL (0.4-5.4); Lymphocytes % (auto) 12.9 % (10.0-50.0); Mean Corpuscular Hemoglobin 25.5 pg (28.0-32.0); Mean Corpuscular Hgb Conc. 31.9 g/dL (32.0-36.0); Monocytes % (auto) 10.8 % (0.0-12.0); Neutrophils # (auto) 7.5 10 ^3/uL (1.6-8.6); Neutrophils % (auto) 70.7 % (37.0-80.0); Nucleated Red Blood Cells % 0.1 %; Platelet Count (auto) 458 10^3/uL (140-450); Red Blood Cells 3.64 10^6/uL (4.5-5.90); Red Cell Distribution Width 22.6 % (11.8-14.3); White Blood Cell 10.5 10^3/uL (4.4-10.8)
[2024-08-02 12:22] LABS: Chloride 113 mmol/L (98-107); Potassium 3.3 mmol/L (3.5-5.1); Sodium 140 mmol/L (136-145)
[2024-08-02 12:23] LABS: Anion Gap 3 (5-15); Calcium 8.6 mg/dL (8.7-10.4); Carbon Dioxide 24 mmol/L (20-31)
[2024-08-02 12:28] LABS: BUN/Creatinine Ratio 14.7 (10.0-20.0); Blood Urea Nitrogen 10 mg/dL (9-23); Glucose 84 mg/dL (74-106); Lipase 25 U/L (12-53)
[2024-08-02] MEDS: HYDROcodone-ACET 10/325MG TAB PO ONE (13:26)
[2024-08-02 13:34] VITALS: BP 129/77; PULSE 74; RESP 15; TEMP 98; O2SAT 100
== END 2024-08-02 13:50 | disposition home or self-care (01) ==
LOC: ER 10:42
DX: K46.9 Unspecified abdominal hernia without obstruction or gangrene (principal); F17.210 Nicotine dependence, cigarettes, uncomplicated; F12.10 Cannabis abuse, uncomplicated; Z93.3 Colostomy status; Z59.00 Homelessness unspecified; Z88.0 Allergy status to penicillin; Z88.1 Allergy status to other antibiotic agents; Z98.890 Other specified postprocedural states
CPT/HCPCS: 36415; 80048; 83690; 85025

== ENCOUNTER 2024-08-07 03:33 | Emergency (ER) | payer MEDICAID ==
[~2024-08-07] VITALS: Ht 188 cm; Wt 73.3 kg
[2024-08-07] MEDS: BACITRACIN TOP OINT 1 UD PKG TOP ONE (04:29)
[2024-08-07 04:30] VITALS: BP 139/86; PULSE 100; RESP 16; TEMP 98.6; O2SAT 100
== END 2024-08-07 04:34 | disposition home or self-care (01) ==
LOC: ER 03:33
DX: Z93.3 Colostomy status (principal); F17.210 Nicotine dependence, cigarettes, uncomplicated; F12.90 Cannabis use, unspecified, uncomplicated; Z88.0 Allergy status to penicillin; Z88.1 Allergy status to other antibiotic agents; Z59.00 Homelessness unspecified

== ENCOUNTER 2024-08-09 07:00 | Emergency (ER) | payer MEDICAID, OTHER ==
[~2024-08-09] VITALS: Ht 188 cm; Wt 72.2 kg
[2024-08-09 07:31] VITALS: BP 135/91; PULSE 89; RESP 16; O2SAT 99
== END 2024-08-09 08:36 | disposition home or self-care (01) ==
LOC: ER 07:00
DX: T85.9XXD Unspecified complication of internal prosthetic device, implant and graft, subsequent encounter (principal); F17.210 Nicotine dependence, cigarettes, uncomplicated; F12.90 Cannabis use, unspecified, uncomplicated; Z88.0 Allergy status to penicillin; Z88.1 Allergy status to other antibiotic agents; Z59.00 Homelessness unspecified

== ENCOUNTER 2024-08-13 09:32 | Emergency (ER) | payer MEDICAID, OTHER ==
[~2024-08-13] VITALS: Ht 188 cm; Wt 71.5 kg
--- NOTE | 2024-08-13 10:17 | ED.PDOC ---
GI ASSESSMENT HPI Comments 44Y M presents to ED for chief complaint abd pain at colostomy site. Pt states he is having complications at colostomy site and says it is "protruding out". Pt has been seen 10+ times at [facility] for same issue and has been notified that he needs to f/u with [facility]. For unknown reasons, pt has not gone to appt at [facility]. No worsening complaints. Pt denies n/v/d. Chief Complaint: Abdominal Pain Time Seen by MD: 09:49 Primary Care Provider: NONE Reviewed Notes: Medications, Allergies Allergies: Coded Allergies: Ketorolac Tromethamine (Verified Allergy, Unknown, 09/03/23) Penicillins (Verified Allergy, Unknown, 12/01/23) Vancomycin (Verified Allergy, Unknown, 07/07/24) Information Source: Patient Mode of Arrival: Ambulatory Timing: Months Duration: Since onset Quality: Sharp Vomitus: None Stool: Brown Severity: Mild Recent: Other Recent Hx of: Other Pain Location: Diffuse Modifying Factors: Nothing Associated sign and symptoms: Abdominal Pain Past Medical History PAST MEDICAL HISTORY: Denies Surgical History: Hernia Repair Family History Family History: Reviewed,noncontributory to illness Social History Smoker: Cigarettes Alcohol: Occasionally Drugs: Marijuana Lives In: Homeless Constitutional: denies: chills, diaphoresis, fatigue, fever, malaise, sweats, weakness, others EENTM: denies: blurred vision, double vision, ear bleeding, ear discharge, ear drainage, ear pain, ear ringing, eye pain, eye redness, hearing loss, mouth pain, mouth swelling, nasal discharge, nose bleeding, nose congestion, nose pain, photophobia, tearing, throat pain, throat swelling, voice changes, others Respiratory: denies: cough, hemoptysis, orthopnea, SOB at rest, shortness of breath, SOB with excertion, stridor, wheezing, others Cardiovascular: denies: chest pain, dizzy spells, diaphoresis, Dyspnea on exertion, edema, irregular heart beat, left arm pain, lightheadedness, palpitations, PND, syncope, others Gastrointestinal: reports: abdominal pain, others (colostomy); denies: abdomen distended, blood streaked bowels, constipated, diarrhea, dysphagia, difficulty swallowing, hematemesis, melena, nausea, poor appetite, poor fluid intake, rectal bleeding, rectal pain, vomiting Genitourinary: denies: burning, dysuria, flank pain, frequency, hematuria, incontinence, penile discharge, penile sore, pain, testicle pain, testicle swelling, urgency, others Neurological: denies: dizziness, fainting, headache, left sided numbness, left sided weakness, numbness, paresthesia, pre-existing deficit, right sided numbness, right sided weakness, seizure, speech problems, tingling, tremors, weakness, others Musculoskeletal: denies: back pain, gout, joint pain, joint swelling, muscle pain, muscle stiffness, neck pain, others Integumetry: denies: bruises, change in color, change in hair/nails, dryness, laceration, lesions, lumps, rash, wounds, others Allergic/Immunocompromised: denies: Difficulty Healing, Frequent Infections, Hives, Itching, others Hematologic/Lymphatic: denies: anemia, blood clots, easy bleeding, easy bruising, swollen glands, others Endocrine: denies: excessive hunger, excessive sweating, excessive thirst, excessive urination, flushing, intolerance to cold, intolerance to heat, unexplained weight gain, unexplained weight loss, others Psychiatric: denies: anxiety, bipolar disorder, depression, hopeless, panic disorder, schizophrenia, sleepless, suicidal, others All Other Systems: Reviewed and Negative Physical Exam General Appearance: No Apparent Distress, Normal HEENT: Normal ENT Inspection, Pharynx Normal, TMs Normal Neck: Full Range of Motion, Non-Tender, Normal, Normal Inspection Respiratory: Chest Non-Tender, Lungs Clear, No Accessory Muscle Use, No Respiratory Distress, Normal Breath Sounds Cardiovascular: No Edema, No JVD, No Murmur, No Gallop, Normal Peripheral Pulses, Regular Rate/Rhythm Breast Exam: Deferred Gastrointestinal: Other (parastomal hernia, colostomy has feces and gas) Genitalia: Deferred Pelvic: Deferred Rectal: Deferred Extremities: No calf tenderness, Normal capillary refill, Normal inspection, Normal range of motion, Non-tender, No pedal edema Musculoskeletal : Apperance: Normal Neurologic: Alert, binder caser II-XII nml as Tested, No Motor Deficits, Normal Affect, Normal Mood, No Sensory Deficits Cerebellar Function: Normal Reflexes: Normal Skin: Dry, Normal Color, Warm Lymphatic: No Adenopathy Was a procedure done? Was a procedure done?: No GI differential Dx Differential Diagnosis: Bowel Obstruction, Gastroenteritis, Hernia, Inflammatory BD, Ischemic Bowel, Pancreatitis, Food Poisoning, Bacterial, Parasitic, Viral, Ischemic Bowel, Mass, Other (chronic pain syndrome) X-Ray, Labs, Meds, VS Vital Signs Date Time Temp Pulse Resp B/P (MAP) Pulse Ox O2 Delivery O2 Flow Rate FiO2 08/13/24 12:00 71 18 126/88 (101) 99 08/13/24 12:00 86 08/13/24 10:52 77 18 133/89 (104) 100 08/13/24 10:52 77 18 100 Room Air* 0 21 08/13/24 10:26 98.3 90 16 135/99 (111) 99 98.3 08/13/24 10:26 90 16 99 Room Air* 0 21 08/13/24 09:43 98.1 89 18 135/94 (108) 99 Time of 1ST Reevaluation: 10:19 Reevaluation 1ST: Unchanged Patient Education/Counseling: Diagnosis, Treatment Family Education/Counseling: No Family Present Additional Information pt has chronic pain, chronic unchanged parastomal hernia, without incarceration or strangulation. the hernia still appears pink and healthy. he has follow ups at [facility], and was offered surgical correction at [facility],but declined both Departure 1 Departure Time of Disposition: 13:04 Impression: Primary Impression: Parastomal hernia Qualified Codes: K43.5 - Parastomal hernia without obstruction or gangrene Additional Impression: Chronic pain Qualified Codes: G89.4 - Chronic pain syndrome Disposition: 01 HOME / SELF CARE / HOMELESS Condition: Good Critical Care Note Critical Care Time?: No Stability Stability form required: No I personally scribed for LILLY MYRICK MD ([email or web address]) on 08/13/24 at 10:17. Electronically submitted by Courtney Terrazas ([email or web address]). LILLY MYRICK MD Aug 13, 2024 10:17
[2024-08-13 10:26] VITALS: PULSE 90; RESP 16; TEMP 98.3; O2SAT 99
[2024-08-13 10:52] VITALS: PULSE 77; RESP 18; O2SAT 100
[2024-08-13 12:00] VITALS: BP 126/88; PULSE 86; RESP 18; O2SAT 99
== END 2024-08-13 16:28 | disposition home or self-care (01) ==
LOC: ER 09:32
DX: K43.5 Parastomal hernia without obstruction or gangrene (principal); F17.210 Nicotine dependence, cigarettes, uncomplicated; Z88.0 Allergy status to penicillin; Z88.1 Allergy status to other antibiotic agents; Z59.00 Homelessness unspecified; Z88.8 Allergy status to other drugs, medicaments and biological substances

== ENCOUNTER 2024-08-13 17:52 | Emergency (ER) | payer MEDICAID ==
[~2024-08-13] VITALS: Ht 182.9 cm; Wt 81.8 kg
--- NOTE | 2024-08-13 18:55 | ED.PDOC ---
History of Present Illness HPI Comments 44 y/o M, with a Hx of colostomy bag placement , homelessness, and polysubstance abuse, is BIBA for c/o ALOC w/ decrease responsiveness s/p polysubstance use, today. Per EMS report, patient was found in altered state by bystander after "smoking" fentanyl and methamphetamine approximately 30x minutes prior to arrival. Patient is a poor historian and attest to "feeling emotional" in addition to admitting on overdosing in thee past with illicit substance by "accident." Patient also reports on concerns of "gangs" after him and feeling unsafe in his current living situation. Per [facility] medical record, patient was seen and discharged from ED after, initially, being seen for abdominal pain around aforementioned colostomy site that he is pending a reversal for at [facility] but is unable to attend, due to transportation restrictions relating towards his socioeconomic status. Patient denies any suicidal/homicidal ideations, auditory/visual hallucinations, weakness, nausea, vomiting, or other associated symptoms or modifiers at this time. Chief Complaint: Mental Health Time Seen by MD: 18:30 Primary Care Provider: NONE Reviewed Notes: Nurses Notes, Otr Flatbed Driver Notes, Medications, Allergies Allergies: Coded Allergies: Ketorolac Tromethamine (Verified Allergy, Unknown, 09/03/23) Penicillins (Verified Allergy, Unknown, 12/01/23) Vancomycin (Verified Allergy, Unknown, 07/07/24) Information Source: Patient, Emergency Med Personnel Mode of Arrival: EMS Severity: Moderate Timing: Hours Duration: Since onset Prehospital treatment: None Past Medical History PAST MEDICAL HISTORY: Denies Surgical History: Hernia Repair Surgical History (Other): colostomy bag placement Family History Family History: Reviewed,noncontributory to illness Social History Smoker: Cigarettes Alcohol: Occasionally Drugs: Marijuana, Methamphetamine, Other (fentanyl ) Lives In: Homeless Constitutional: denies: chills, diaphoresis, fatigue, fever, malaise, sweats, weakness, others EENTM: denies: blurred vision, double vision, ear bleeding, ear discharge, ear drainage, ear pain, ear ringing, eye pain, eye redness, hearing loss, mouth pain, mouth swelling, nasal discharge, nose bleeding, nose congestion, nose pain , photophobia, tearing, throat pain, throat swelling, voice changes, others Respiratory: denies: cough, hemoptysis, orthopnea, SOB at rest, shortness of breath, SOB with excertion, stridor, wheezing, others Cardiovascular: denies: chest pain, dizzy spells, diaphoresis, Dyspnea on exertion, edema, irregular heart beat, left arm pain, lightheadedness, palpitations, PND, syncope, others Gastrointestinal: denies: abdomen distended, abdominal pain, blood streaked bowels, constipated, diarrhea, dysphagia, difficulty swallowing, hematemesis, melena, nausea, poor appetite, poor fluid intake, rectal bleeding, rectal pain, vomiting, others Genitourinary: denies: burning, dysuria, flank pain, frequency, hematuria, incontinence, penile discharge, penile sore, pain, testicle pain, testicle swelling, urgency, others Neurological: reports: others (ALCO); denies: dizziness, fainting, headache, le ft sided numbness, left sided weakness, numbness, paresthesia, pre-existing deficit, right sided numbness, right sided weakness, seizure, speech problems, tingling, tremors, weakness Musculoskeletal: denies: back pain, gout, joint pain, joint swelling, muscle pain, muscle stiffness, neck pain, others Integumetry: denies: bruises, change in color, change in hair/nails, dryness, laceration, lesions, lumps, rash, wounds, others Allergic/Immunocompromised: denies: Difficulty Healing, Frequent Infections, Hives, Itching, others Hematologic/Lymphatic: denies: anemia, blood clots, easy bleeding, easy bruising, swollen glands, others Endocrine: denies: excessive hunger, excessive sweating, excessive thirst, excessive urination, flushing, intolerance to cold, intolerance to heat, unex plained weight gain, unexplained weight loss, others Psychiatric: denies: anxiety, bipolar disorder, depression, hopeless, panic disorder, schizophrenia, sleepless, suicidal, others All Other Systems: Reviewed and Negative Physical Exam General Appearance: Mild Distress HEENT: Normal ENT Inspection, Pharynx Normal, TMs Normal Neck: Full Range of Motion, Non-Tender, Normal, Normal Inspection Respiratory: Chest Non-Tender, Lungs Clear, No Accessory Muscle Use, No Respiratory Distress, Normal Breath Sounds Cardiovascular: No Edema, No JVD, No Murmur, No Gallop, Normal Peripheral Pulses, Regular Rate/Rhythm Breast Exam: Deferred Gastrointestinal: No Organomegaly, Non Tender, No Pulsatile Mass, Normal Bowel Sounds, Soft, Other (Colostomy) Genitalia: Deferred Pelvic: Deferred Rectal: Deferred Extremities: No calf tenderness, Normal capillary refill, Normal inspection, Normal range of motion, Non-tender, No pedal edema Musculoskeletal : Apperance: Normal Neurologic: Alert, emergency management system director II-XII nml as Tested, No Motor Deficits, Normal Affect, Normal Mood, No Sensory Deficits Cerebellar Function: NOT DONE Reflexes: NOT DONE Skin: Dry, Normal Color, Warm Peripheral Pulses: 3+ Radial (R), 3+ Radial (L) Lymphatic: No Adenopathy Was a procedure done? Was a procedure done?: No Differential Dx Considerations may include: polysubstance abuse, encephalopathy, electrolyte imbalance, anxiety, depression X-Ray, Labs, Meds, VS Vital Signs Date Time Temp Pulse Resp B/P (MAP) Pulse Ox O2 Delivery O2 Flow Rate FiO2 08/13/24 19:30 Room Air* 0 21 08/13/24 19:08 75 16 100 Room Air* 0 21 08/13/24 19:07 75 18 133/85 (101) 96 08/13/24 17:57 98.2 92 14 146/90 (108) 100 Patient alert. History of drug use. Denies suicidal or homicidal ideation. Vitals stable. Answering all questions. Reviewed his previous visit. Comes here frequently. Counseled patient on effects of drugs for 15 minutes. Counseled patient on effects of alcohol for 15 minutes. Saturation pristine on room air. No leg swelling. Explained to the patient. Was told to follow up with his primary care physician. Was told to come back if there is any problem. Time of 1ST Reevaluation: 19:00 Reevaluation 1ST: Improved Patient Education/Counseling: Diagnosis, Treatment Family Education/Counseling: No Family Present Departure 1 Departure Time of Disposition: 05:39 Impression: Primary Impression: Drug use Additional Impression: Colostomy care Disposition: HOME / SELF CARE / HOMELESS Condition: Good Discharged With: Self Critical Care Note Critical Care Time?: No Stability Stability form required: No Heart Score Heart Score: Heart Score Response (Comments) Value History N/A 0 EKG N/A 0 Age N/A 0 Risk Factors N/A 0 Troponin N/A 0 Total 0 I personally scribed for YANDY TAPIA MD ([email or web address]) on 08/13/24 at 18:55. Electronically submitted by Elkin Dimas ([email or web address]). YANDY TAPIA MD Aug 13, 2024 18:55
[2024-08-13 19:07] VITALS: BP 133/85
[2024-08-13 19:08] VITALS: PULSE 75; RESP 16; O2SAT 100
--- NOTE | 2024-08-15 12:28 | ECG ---
[facility] Test Date: 2024-08-13 Test Time: 17:58:07 Pat Name: WILMER JAMA Department: ED Room: Gender: M Operator Vacuum: MR FELDMANB: 1980 Requested By: YANDY TAPIA Order Number: [id number] Reading MD: Madi Gaxiola Measurements Intervals [place] Rate: 89 P: 57 WI: 130 QRS: -47 QRSD: 96 T: 18 QT: 385 QTc: 469 Interpretive Statements Sinus rhythm Left anterior fascicular block RSR' in V1 or V2, probably normal variant Electronically Signed On 08-17-2024 11:15:04 PST by Madi Gaxiola Please click the below link to view image of tracing.
== END 2024-08-13 19:54 | disposition home or self-care (01) ==
LOC: EDBD 17:52 → ER 17:52
DX: F11.90 Opioid use, unspecified, uncomplicated (principal); F12.90 Cannabis use, unspecified, uncomplicated; Z88.0 Allergy status to penicillin; Z88.8 Allergy status to other drugs, medicaments and biological substances; Z59.00 Homelessness unspecified
CPT/HCPCS: 93005

== ENCOUNTER 2024-08-16 07:47 | Emergency (ER) | payer MEDICAID ==
[~2024-08-16] VITALS: Ht 188 cm; Wt 71.6 kg
[2024-08-16 08:00] VITALS: BP 138/86; TEMP 97.8
--- NOTE | 2024-08-16 08:02 | ED.PDOC ---
GI ASSESSMENT HPI Comments 44 year old male presents to the ED with chief complaint of abdominal pain. Patient reports that he has been experiencing LLQ abdominal pain for the past few days, noting that the pain is to the site of his colostomy bag. Patient relays that he has noticed his intestines will sometimes protrude into his colostomy for the last month, being seen on 08/13/24 for the same complaint. Patient denies any fever, chills, N/V/D, dizziness, or headache. Chief Complaint: Abdominal Pain Time Seen by MD: 08:01 Primary Care Provider: NONE Reviewed Notes: Nurses Notes, Medications, Allergies Allergies: Coded Allergies: Ketorolac Tromethamine (Verified Allergy, Unknown, 09/03/23) Penicillins (Verified Allergy, Unknown, 12/01/23) Vancomycin (Verified Allergy, Unknown, 07/07/24) Information Source: Patient Mode of Arrival: Ambulatory Duration: Since onset Prehospital treatment: None Quality: Aching Vomitus: None Stool: Other (Colostomy) Severity: Moderate Recent: None Recent Hx of: None Pain Location: LLQ Modifying Factors: Nothing Associated sign and symptoms: Abdominal Pain Past Medical History PAST MEDICAL HISTORY: Denies Surgical History: Hernia Repair Surgical History (Other): Colostomy Family History Family History: Reviewed,noncontributory to illness Social History Smoker: Cigarettes Alcohol: Occasionally Drugs: Marijuana, Methamphetamine, Other Lives In: Homeless Constitutional: denies: chills, diaphoresis, fatigue, fever, malaise, sweats, weakness, others EENTM: denies: blurred vision, double vision, ear bleeding, ear discharge, ear drainage, ear pain, ear ringing, eye pain, eye redness, hearing loss, mouth pain, mouth swelling, nasal discharge, nose bleeding, nose congestion, nose pain, photophobia, tearing, throat pain, throat swelling, voice changes, others Respiratory: denies: cough, hemoptysis, orthopnea, SOB at rest, shortness of breath, SOB with excertion, stridor, wheezing, others Cardiovascular: denies: chest pain, dizzy spells, diaphoresis, Dyspnea on exertion, edema, irregular heart beat, left arm pain, lightheadedness, pa lpitations, PND, syncope, others Gastrointestinal: reports: abdominal pain; denies: abdomen distended, blood streaked bowels, constipated, diarrhea, dysphagia, difficulty swallowing, hematemesis, melena, nausea, poor appetite, poor fluid intake, rectal bleeding, rectal pain, vomiting, others Genitourinary: denies: burning, dysuria, flank pain, frequency, hematuria, incontinence, penile discharge, penile sore, pain, testicle pain, testicle swel ling, urgency, others Neurological: denies: dizziness, fainting, headache, left sided numbness, left sided weakness, numbness, paresthesia, pre-existing deficit, right sided numbness, right sided weakness, seizure, speech problems, tingling, tremors, weakness, others Musculoskeletal: denies: back pain, gout, joint pain, joint swelling, muscle pain, muscle stiffness, neck pain, others Integumetry: denies: bruises, change in color, change in hair/nails, dryness, laceration, lesions, lumps, rash, wounds, others Allergic/Immunocompromised: denies: Difficulty Healing, Frequent Infections, Hives, Itching, others Hematologic/Lymphatic: denies: anemia, blood clots, easy bleeding, easy bruising, swollen glands, others Endocrine: denies: excessive hunger, excessive sweating, excessive thirst, excessive urination, flushing, intolerance to cold, intolerance to heat, unexplained weight gain, unexplained weight loss, others Psychiatric: denies: anxiety, bipolar disorder, depression, hopeless, panic disorder, schizophrenia, sleepless, suicidal, others All Other Systems: Reviewed and Negative Physical Exam General Appearance: No Apparent Distress, Normal HEENT: Normal ENT Inspection, PERRL/EOMI Neck: Full Range of Motion, Non-Tender, Normal, Normal Inspection Respiratory: Chest Non-Tender, Lungs Clear, No Accessory Muscle Use, No Respiratory Distress, Normal Breath Sounds Cardiovascular: No Edema, No JVD, No Murmur, No Gallop, Normal Peripheral Pulses, Regular Rate/Rhythm Breast Exam: Deferred Gastrointestinal: No Organomegaly, No Pulsatile Mass, Normal Bowel Sounds, Soft, Other (Colostomy bag in place.) Genitalia: Deferred Pelvic: Deferred Rectal: Deferred Extremities: No calf tenderness, Normal capillary refill, Normal inspection, Normal range of motion, Non-tender, No pedal edema Musculoskeletal : Apperance: Normal Neurologic: Alert, glazing machine operator II-XII 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 Was a procedure done?: No GI differential Dx Differential Diagnosis: Constipation, Diverticular disease, Esophagitis, Gastritis/PUD, Gastroenteritis X-Ray, Labs, Meds, VS Vital Signs Date Time Temp Pulse Resp B/P (MAP) Pulse Ox O2 Delivery O2 Flow Rate FiO2 08/16/24 08:30 80 13 100 Room Air* 0 21 08/16/24 08:00 97.8 84 13 138/86 (103) 100 97.8 08/16/24 07:57 97.9 81 18 154/68 (96) 99 Patient alert. Has a colostomy in place. Has been seen here many times for the same reason. Vitals stable. On examination of the colostomy site is clean. No sign of any infection. Skin around the colostomy is not infected. No inflammation. Reviewed his previous visit. Explained to the patient about the treatment plan. Counseled patient on caring for colostomy. Was told to follow up with his primary care physician. Was told to come back if there is any problem. Time of 1ST Reevaluation: 09:01 Reevaluation 1ST: Improved Patient Education/Counseling: Diagnosis, Treatment Family Education/Counseling: No Family Present Departure 1 Departure Time of Disposition: 08:40 Impression: Primary Impression: Colostomy care Additional Impression: Anxiety Disposition: 01 HOME / SELF CARE / HOMELESS Condition: Good Discharged With: Self Critical Care Note Critical Care Time?: No Stability Stability form required: No Heart Score Heart Score: Heart Score Response (Comments) Value History N/A 0 EKG N/A 0 Age N/A 0 Risk Factors N/A 0 Troponin N/A 0 Total 0 I personally scribed for YADNY TAPIA MD ([email or web address]) on 08/16/24 at 08:02. Electronically submitted by Ang Mcpherson ([email or web address]). I personally scribed for YANDY TAPIA MD ([email or web address]) on 08/16/24 at 08:06. Electronically submitted by Ang Mcpherson ([email or web address]). YANDY TAPIA MD Aug 16, 2024 08:02
[2024-08-16 08:30] VITALS: PULSE 80; RESP 13; O2SAT 100
== END 2024-08-16 10:23 | disposition left against medical advice (07) ==
LOC: ER 07:47
DX: F41.9 Anxiety disorder, unspecified (principal); F17.210 Nicotine dependence, cigarettes, uncomplicated; Z93.3 Colostomy status; Z59.00 Homelessness unspecified; Z88.0 Allergy status to penicillin; Z88.1 Allergy status to other antibiotic agents; Z98.890 Other specified postprocedural states

== ENCOUNTER 2024-08-17 23:38 | Emergency (ER) | payer MEDICAID ==
[~2024-08-17] VITALS: Ht 188 cm; Wt 75.0 kg
--- NOTE | 2024-08-18 01:51 | ED.PDOC ---
History of Present Illness(SKN HPI Comments This is a 44-year-old male presents to the ED chief complaint of out of colostomy supplies. Patient notes was discharged several weeks ago without colostomy bag supplies however he has arrived in the ER several times for supplies and was told to follow up with his PCP and GI surgery. Patient states he has not followed up. States he is currently homeless. Denies fevers, chills, abdominal pain, chest pain, or shortness of breath. Chief Complaint: Wound Check Time Seen by MD: 23:59 Primary Care Provider: NONE History of Present Illness: Nurses Notes, Medications, Allergies Allergies: Coded Allergies: Ketorolac Tromethamine (Verified Allergy, Unknown, 09/03/23) Penicillins (Verified Allergy, Unknown, 12/01/23) Vancomycin (Verified Allergy, Unknown, 07/07/24) Information Source: Patient Mode of Arrival: Ambulatory Past Medical History PAST MEDICAL HISTORY: Denies Surgical History: Hernia Repair Surgical History (Other): Colostomy Family History Family History: Reviewed,noncontributory to illness Social History Smoker: Cigarettes Alcohol: Occasionally Drugs: Marijuana, Methamphetamine, Other Lives In: Homeless Constitutional: denies: chills, diaphoresis, fatigue, fever, malaise, sweats, weakness, others EENTM: denies: blurred vision, double vision, ear bleeding, ear discharge, ear drainage, ear pain, ear ringing, eye pain, eye redness, hearing loss, mouth pain, mouth swelling, nasal discharge, nose bleeding, nose congestion, nose pain, photophobia, tearing, throat pain, throat swelling, voice changes, others Respiratory: denies: cough, hemoptysis, orthopnea, SOB at rest, shortness of breath, SOB with excertion, stridor, wheezing, others Cardiovascular: denies: chest pain, dizzy spells, diaphoresis, Dyspnea on exertion, edema, irregular heart beat, left arm pain, lightheadedness, palpitations, PND, syncope, others Gastrointestinal: denies: abdomen distended, abdominal pain, blood streaked bowels, constipated, diarrhea, dysphagia, difficulty swallowing, hematemesis, melena, nausea, poor appetite, poor fluid intake, rectal bleeding, rectal pain, vomiting, others Genitourinary: denies: burning, dysuria, flank pain, frequency, hematuria, incontinence, penile discharge, penile sore, pain, testicle pain, testicle swelling, urgency, others Neurological: denies: dizziness, fainting, headache, left sided numbness, left sided weakness, numbness, paresthesia, pre-existing deficit, right sided numbness, right sided weakness, seizure, speech problems, tingling, tremors, weakness, others Musculoskeletal: denies: back pain, gout, joint pain, joint swelling, muscle pain, muscle stiffness, neck pain, others Integumetry: denies: bruises, change in color, change in hair/nails, dryness, laceration, lesions, lumps, rash, wounds, others Allergic/Immunocompromised: denies: Difficulty Healing, Frequent Infections, Hives, Itching, others Hematologic/Lymphatic: denies: anemia, blood clots, easy bleeding, easy bruising, swollen glands, others Endocrine: denies: excessive hunger, excessive sweating, excessive thirst, excessive urination, flushing, intolerance to cold, intolerance to heat, unexplained weight gain, unexplained weight loss, others Psychiatric: denies: anxiety, bipolar disorder, depression, hopeless, panic disorder, schizophrenia, sleepless, suicidal, others Physical Exam General Appearance: No Apparent Distress, Normal HEENT: Pharynx Normal Neck: Full Range of Motion, Non-Tender Respiratory: Lungs Clear, No Respiratory Distress, Normal Breath Sounds Cardiovascular: No Murmur, Normal Peripheral Pulses, Regular Rate/Rhythm Breast Exam: Deferred Gastrointestinal: No Organomegaly, Non Tender, No Pulsatile Mass, Normal Bowel Sounds, Soft, Other (Colostomy bag intact no signs and symptoms of infection no drainage, or erythema.) Genitalia: Deferred Pelvic: Deferred Rectal: Deferred Extremities: No calf tenderness, Normal capillary refill, Normal inspection, Normal range of motion, Non-tender, No pedal edema Musculoskeletal : Apperance: Normal Neurologic: Alert, 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 Was a procedure done?: No Differential Diagnosis (INTG) Differential Diagnosis: N/A Differential Diagnosis: N/A Differential Diagnosis: N/A Abscess: N/A Differential Diagnosis: N/A X-Ray, Labs, Meds, VS Vital Signs Date Time Temp Pulse Resp B/P (MAP) Pulse Ox O2 Delivery O2 Flow Rate FiO2 08/17/24 23:41 97.6 77 16 159/88 (111) 95 X-Ray, Labs, Meds, VS Comment Patient given 2 days' worth of colostomy supplies. Advised to follow up with his PCP for continued supplies. Follow up with GI surgery as recommended in previous visits. Advised to return to the ER for fevers chills, abdominal pain, chest pain, shortness breath, difficulty breathing or concerns. Patient agrees with discharge plan of care Time of 1ST Reevaluation: 01:53 Reevaluation 1ST: Improved Patient Education/Counseling: Diagnosis, Treatment, Prognosis, Need For Follow Up Family Education/Counseling: No Family Present Departure 1 Departure Time of Disposition: 01:50 Impression: Primary Impression: Colostomy care Disposition: 01 HOME / SELF CARE / HOMELESS Condition: Stable Discharged With: Self Critical Care Note Critical Care Time?: No Stability Stability form required: RONNY Almanza Aug 18, 2024 01:51
[2024-08-18 02:20] VITALS: BP 154/82; PULSE 71; RESP 12; TEMP 97.4; O2SAT 96
== END 2024-08-18 02:39 | disposition home or self-care (01) ==
LOC: ER 23:38
DX: F17.210 Nicotine dependence, cigarettes, uncomplicated (principal); F15.90 Other stimulant use, unspecified, uncomplicated; Z43.3 Encounter for attention to colostomy; Z98.890 Other specified postprocedural states; Z59.00 Homelessness unspecified; Z88.0 Allergy status to penicillin; Z88.1 Allergy status to other antibiotic agents; Z88.6 Allergy status to analgesic agent

== ENCOUNTER 2024-08-20 23:40 | Emergency (ER) | payer MEDICAID ==
[~2024-08-20] VITALS: Ht 188 cm; Wt 74.2 kg
--- NOTE | 2024-08-21 00:41 | ED.PDOC ---
History of Present Illness HPI Comments 44-year-old male presents with a chief complaint of bowel herniation through his colostomy and request for colostomy bag replacement. Patient is homeless and reports that his bowel herniating and he has been attempting to reduce it, but has been unsuccessful due to being homeless and not having supplies or a place to lie down to attempt reduction. Patient denies any active pain at this time. Patient states colostomy bag will not stay on due to pressure from herniation through stoma. Denies fever, nausea/vomiting. No other symptoms or modifying factors present at this time. Chief Complaint: Tube Replacement Time Seen by MD: 00:28 Primary Care Provider: NONE Reviewed Notes: Medications, Allergies Allergies: Coded Allergies: Ketorolac Tromethamine (Verified Allergy, Unknown, 09/03/23) Penicillins (Verified Allergy, Unknown, 12/01/23) Vancomycin (Verified Allergy, Unknown, 07/07/24) Information Source: Patient Mode of Arrival: Ambulatory Severity: Moderate Timing: Days Duration: Since onset Prehospital treatment: None Past Medical History Past Medical History (Other): hiradenitis suppuritiva Surgical History (Other): skin grafts, colostomy Family History Family History: Reviewed,noncontributory to illness Social History Smoker: Cigarettes Alcohol: Occasionally Drugs: Marijuana, Methamphetamine, Other Lives In: Homeless Constitutional: denies: chills, diaphoresis, fatigue, fever, malaise, sweats, weakness, others EENTM: denies: blurred vision, double vision, ear bleeding, ear discharge, ear drainage, ear pain, ear ringing, eye pain, eye redness, hearing loss, mouth pain, mouth swelling, nasal discharge, nose bleeding, nose congestion, nose pain, photophobia, tearing, throat pain, throat swelling, voice changes, others Respiratory: denies: cough, hemoptysis, orthopnea, SOB at rest, shortness of breath, SOB with excertion, stridor, wheezing, others Cardiovascular: denies: chest pain, dizzy spells, diaphoresis, Dyspnea on exertion, edema, irregular heart beat, left arm pain, lightheadedness, palpitations, PND, syncope, others Gastrointestinal: reports: others (STOMA HERNIATED); denies: abdomen distended, abdominal pain, blood streaked bowels, constipated, diarrhea, dysphagia, difficulty swallowing, hematemesis, melena, nausea, poor appetite, poor fluid intake, rectal bleeding, rectal pain, vomiting Genitourinary: denies: burning, dysuria, flank pain, frequency, hematuria, incontinence, penile discharge, penile sore, pain, testicle pain, testicle swelling, urgency, others Neurological: denies: dizziness, fainting, headache, left sided numbness, left sided weakness, numbness, paresthesia, pre-existing deficit, right sided numbness, right sided weakness, seizure, speech problems, tingling, tremors, weakness, others Musculoskeletal: denies: back pain, gout, joint pain, joint swelling, muscle pain, muscle stiffness, neck pain, others Integumetry: denies: bruises, change in color, change in hair/nails, dryness, laceration, lesions, lumps, rash, wounds, others Allergic/Immunocompromised: denies: Difficulty Healing, Frequent Infections, Hives, Itching, others Hematologic/Lymphatic: denies: anemia, blood clots, easy bleeding, easy brui sing, swollen glands, others Endocrine: denies: excessive hunger, excessive sweating, excessive thirst, ex cessive urination, flushing, intolerance to cold, intolerance to heat, unexplained weight gain, unexplained weight loss, others Psychiatric: denies: anxiety, bipolar disorder, depression, hopeless, panic disorder, schizophrenia, sleepless, suicidal, others All Other Systems: Reviewed and Negative Physical Exam General Appearance: No Apparent Distress, Normal HEENT: Normal ENT Inspection, TMs Normal Neck: Full Range of Motion, Normal Inspection Respiratory: Lungs Clear, No Accessory Muscle Use, No Respiratory Distress, Normal Breath Sounds Cardiovascular: No Edema, No JVD, Regular Rate/Rhythm Breast Exam: Deferred Gastrointestinal: Non Tender, No Pulsatile Mass, Soft, Other (2 large loops of bowel protruding through left abdominal ostomy.) Genitalia: Deferred Pelvic: Deferred Rectal: Deferred Extremities: Normal range of motion, Non-tender, No pedal edema Musculoskeletal : Apperance: Normal Neurologic: Alert, No Motor Deficits, Normal Affect, Normal Mood, No Sensory Deficits Cerebellar Function: NOT DONE Reflexes: NOT DONE Skin: Dry, Normal Color, Warm Lymphatic: NOT DONE Was a procedure done? Was a procedure done?: No Differential Dx Considerations may include: Uncomplicated bowel herniation through stoma, bowel obstruction, infection, among others X-Ray, Labs, Meds, VS Vital Signs Date Time Temp Pulse Resp B/P (MAP) Pulse Ox O2 Delivery O2 Flow Rate FiO2 08/21/24 01:00 97.9 85 14 142/90 (107) 98 97.9 08/21/24 01:00 Room Air* 0 21 08/20/24 23:51 97.5 91 17 142/99 (113) 100 X-Ray, Labs, Meds, VS Comment 44-year-old male with a history of her adenitis suppurativa, skin graft and colostomy presenting complaining of inability to secure colostomy bag due to herniation of bowel through his stoma. Vitals remarkable for temperature 97.5, BP 142/99 Exam remarkable for 2 large loops of bowel protruding through left abdominal ostomy. Patient treated with the following in the ED: Skin around stoma area cleansed. Patient attempted to reduce bowel herniation but was unsuccessful. I attempted to reduce prolapse bowel by applying gentle but firm pressure. Patient developed nausea and discomfort, so I was also unsuccessful. Plan is to admit the patient for surgical evaluation. Possibly bowel prolapse can be reduced under sedation. CBC and basic metabolic panel ordered. CT abdomen and pelvis ordered. Results pending. Time of 1ST Reevaluation: 00:58 Reevaluation 1ST: Unchanged Time of 2ND Reevaluation: 02:04 Reevaluation 2ND: Improved Patient Education/Counseling: Diagnosis, Treatment, Prognosis Family Education/Counseling: No Family Present Departure 1 Departure Time of Disposition: 02:04 Impression: Primary Impression: Intestinal stoma prolapse Disposition: 09 ADMITTED INPATIENT Admit to: Med Surg Condition: Stable Critical Care Note Critical Care Time?: No Stability Stability form required: No Heart Score Heart Score: Heart Score Response (Comments) Value History N/A 0 EKG N/A 0 Age N/A 0 Risk Factors N/A 0 Troponin N/A 0 Total 0 I personally scribed for HEATHER GAFFNEY MD ([email or web address]) on 08/21/24 at 00:41. Electronically submitted by Luigi Rudolph ([email or web address]). HEATHER GAFFNEY MD Aug 21, 2024 00:41
[2024-08-21 01:00] VITALS: BP 142/90; PULSE 85; RESP 14; TEMP 97.9; O2SAT 98
--- NOTE | 2024-08-21 04:54 | DVH ---
Exam: CT CT AB PEL WO CON-NO ORAL OR IV History: bowel herniation through colostomy Comparison Study: CT CT AB PEL WO CON-NO ORAL OR IV on DOS: 07/19/24, CT CT AB PEL WO CON-NO ORAL OR IV on DOS: 07/13/24, CT CT AB PEL WO CON-NO ORAL OR IV on DOS: 03/24/24 Technique: Multidetector spiral CT of the abdomen was performed from lung bases to pubic symphysis. Imaging was performed without IV contrast. Axial, coronal and sagittal multiplanar reformats were ob tained from the axial data set by the technologist. Radiation Dose : 1. Abdomen/Pelvis: CTDIvol 5.6 mGy, DLP 303.89 mGy*cm. Findings: Evaluation of solid organs is limited due to lack of intravenous contrast use. Lung Bases: Dependent atelectasis. Liver: The liver is normal in size. No focal lesions. Gallbladder and Biliary Tree: Unremarkable Spleen: Unremarkable Pancreas: The pancreas is grossly normal in appearance. Adrenal Glands: Unremarkable Kidneys: Kidneys are grossly normal without calculi or hydronephrosis. Few right renal cysts measurin g up to 2.1 cm. Bladder: Grossly unremarkable for degree of distention. Bowel: The stomach is grossly normal in appearance. Large volume colonic stool. The appendix is not visualized; however, no secondary findings of acute appendicitis identified. Ascites: Absent Lymphadenopathy: No mesenteric, retroperitoneal or periportal lymphadenopathy. Abdominal Wall and Mesentery: Left lower quadrant ostomy. Vasculature: The visualized abdominal aorta is normal in size and caliber. Evaluation of abdominal a nd pelvic vessels is limited due to lack of intravenous contrast. Pelvic Organs: Unremarkable Musculoskeletal: No aggressive focal bony lesions, acute fractures or dislocation. IMPRESSION: Left lower quadrant ostomy appears similar to CTs dated 07/19/2024 and 07/13/2024. Loops of bowel ent ering and exiting bowel within the abdominal wall ostomy site marked narrowed ; nonspecific. Clinica l correlation advised. Large volume colonic stool. Radiation optimization: All CT scans at this facility use at least one of these dose optimization alex hniques: automated exposure control mA and/or kV adjustment per patient size (includes targeted exam s where dose is matched to clinical indication) or iterative reconstruction.
== END 2024-08-21 04:45 | disposition left against medical advice (07) ==
LOC: EDBD → ER 23:40
DX: K31.89 Other diseases of stomach and duodenum (principal); F17.210 Nicotine dependence, cigarettes, uncomplicated; F12.10 Cannabis abuse, uncomplicated; F15.10 Other stimulant abuse, uncomplicated; Z59.00 Homelessness unspecified; Z88.0 Allergy status to penicillin; Z88.1 Allergy status to other antibiotic agents; Z93.3 Colostomy status
CPT/HCPCS: 74176

== ENCOUNTER 2024-08-23 21:12 | Emergency (ER) | payer MEDICAID ==
[~2024-08-23] VITALS: Ht 188 cm; Wt 72.0 kg
[2024-08-23 21:25] VITALS: BP 133/99; PULSE 116; RESP 16; O2SAT 98
--- NOTE | 2024-08-24 06:39 | ED.PDOC ---
History of Present Illness HPI Comments 36 y.o male with PMH of hidradenitis suppurativa, presents to the ED for a colostomy replacement. Patient reports frequently changing colostomy bag as needed but needs some supplies to keep it together. Patient is currently homeless, has been seen at this hospital multiple times for same complaint, was admitted last week but ended up leaving against medical advice. At this time, patient is asymptomatic. Chief Complaint: Tube Replacement Time Seen by MD: 06:19 Primary Care Provider: NONE Reviewed Notes: Nurses Notes, Medications, Allergies Allergies: Coded Allergies: Ketorolac Tromethamine (Verified Allergy, Unknown, 09/03/23) Penicillins (Verified Allergy, Unknown, 12/01/23) Vancomycin (Verified Allergy, Unknown, 07/07/24) Information Source: Patient Mode of Arrival: Ambulatory Timing: Came on: Gradually Duration: Since onset Past Medical History Past Medical History (Other): hiradenitis suppuritiva Surgical History (Other): colostomy and skin graft Family History Family History: Reviewed,noncontributory to illness Social History Smoker: Cigarettes Alcohol: Occasionally Drugs: Marijuana, Methamphetamine, Other Lives In: Homeless Constitutional: denies: chills, diaphoresis, fatigue, fever, malaise, sweats, weakness, others EENTM: denies: blurred vision, double vision, ear bleeding, ear discharge, ear drainage, ear pain, ear ringing, eye pain, eye redness, hearing loss, mouth pain, mouth swelling, nasal discharge, nose bleeding, nose congestion, nose pain, photophobia, tearing, throat pain, throat swelling, voice changes, others Respiratory: denies: cough, hemoptysis, orthopnea, SOB at rest, shortness of breath, SOB with excertion, stridor, wheezing, others Cardiovascular: denies: chest pain, dizzy spells, diaphoresis, Dyspnea on exertion, edema, irregular heart beat, left arm pain, lightheadedness, palpitations, PND, syncope, others Gastrointestinal: denies: abdomen distended, abdominal pain, blood streaked bowels, constipated, diarrhea, dysphagia, difficulty swallowing, hematemesis, melena, nausea, poor appetite, poor fluid intake, rectal bleeding, rectal pain, vomiting, others Genitourinary: denies: burning, dysuria, flank pain, frequency, hematuria, incontinence, penile discharge, penile sore, pain, testicle pain, testicle swelling, urgency, others Neurological: denies: dizziness, fainting, headache, left sided numbness, left sided weakness, numbness, paresthesia, pre-existing deficit, right sided numbness, right sided weakness, seizure, speech problems, tingling, tremors, weakness, others Musculoskeletal: denies: back pain, gout, joint pain, joint swelling, muscle pain, muscle stiffness, neck pain, others Integumetry: reports: others (colostomy leak); denies: bruises, change in color, change in hair/nails, dryness, laceration, lesions, lumps, rash, wounds Allergic/Immunocompromised: denies: Difficulty Healing, Frequent Infections, Hives, Itching, others Hematologic/Lymphatic: denies: anemia, blood clots, easy bleeding, easy bruising, swollen glands, others Endocrine: denies: excessive hunger, excessive sweating, excessive thirst, excessive urination, flushing, intolerance to cold, intolerance to heat, unexplained weight gain, unexplained weight loss, others Psychiatric: denies: anxiety, bipolar disorder, depression, hopeless, panic disorder, schizophrenia, sleepless, suicidal, others All Other Systems: Reviewed and Negative Physical Exam General Appearance: Moderate Distress HEENT: Normal ENT Inspection, Pharynx Normal, TMs Normal Neck: Full Range of Motion, Non-Tender, Normal, Normal Inspection Respiratory: Chest Non-Tender, Lungs Clear, No Accessory Muscle Use, No Respiratory Distress, Normal Breath Sounds Cardiovascular: No Edema, No JVD, No Murmur, No Gallop, Normal Peripheral Pulses, Regular Rate/Rhythm Breast Exam: Deferred Gastrointestinal: No Organomegaly, Non Tender, No Pulsatile Mass, Normal Bowel Sounds, Soft, Other (Colostomy bag in place) Genitalia: Deferred Pelvic: Deferred Rectal: Deferred Extremities: No calf tenderness, Normal capillary refill, Normal inspection, Normal range of motion, Non-tender, No pedal edema Musculoskeletal : Apperance: Normal Neurologic: Alert, 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 Was a procedure done?: No Differential Dx Considerations may include: Colostomy replacement Colostomy care X-Ray, Labs, Meds, VS Vital Signs Date Time Temp Pulse Resp B/P (MAP) Pulse Ox O2 Delivery O2 Flow Rate FiO2 08/23/24 21:25 97.4 116 16 133/99 (110) 98 Patient alert. Came in for colostomy bag. Vitals stable. Answering all questions. Explained to the patient that he will need to follow up at [facility] for revision. No sign of any infection. Saturation pristine on room air. Respiratory rate within normal limits. No leg swelling. Gave him supplies for his colostomy. Reviewed his previous visit. Explained to the patient. Was told to follow up with his primary care physician. Was told to come back if there is any problem. Time of 1ST Reevaluation: 06:35 Reevaluation 1ST: Improved Patient Education/Counseling: Diagnosis, Treatment, Prognosis Family Education/Counseling: No Family Present Departure 1 Departure Time of Disposition: 07:01 Impression: Primary Impression: Colostomy care Disposition: 01 HOME / SELF CARE / HOMELESS Condition: Good Discharged With: Self Critical Care Note Critical Care Time?: No Stability Stability form required: No I personally scribed for YANDY TAPIA MD ([email or web address]) on 08/24/24 at 06:39. Electronically submitted by Leola Graf ([facility]). YANDY TAPIA MD Aug 24, 2024 06:39
== END 2024-08-24 07:39 | disposition home or self-care (01) ==
LOC: EDBD → ER 21:12
DX: Z43.3 Encounter for attention to colostomy (principal); F17.210 Nicotine dependence, cigarettes, uncomplicated; Z88.0 Allergy status to penicillin; Z88.1 Allergy status to other antibiotic agents; Z98.890 Other specified postprocedural states

== ENCOUNTER 2024-08-25 01:03 | Emergency (ER) | payer MEDICAID | END 2024-08-25 01:14 | disposition left against medical advice (07) | LOC: ER 01:03 → EDBD 01:03 → ER 01:14 | DX: K94.09 Other complications of colostomy (principal); Z53.21 Procedure and treatment not carried out due to patient leaving prior to being seen by health care provider ==

== ENCOUNTER 2024-09-08 22:45 | Emergency (ER) | payer MEDICAID ==
[~2024-09-08] VITALS: Ht 190.5 cm; Wt 72.9 kg
--- NOTE | 2024-09-09 00:59 | DVH ---
CLINICAL INDICATION: 4th finger pain TECHNIQUE: 4 views of the right hand. XY R HAND 3 VIEW XRAY Comparison: XY L ELBOW 3 VIEW XRAY on DOS: 07/13/23 FINDINGS/IMPRESSION: There is no evidence of acute fracture or dislocation. Soft tissues are unremarkable.
[2024-09-09 01:52] VITALS: BP 147/91; PULSE 104; RESP 16; TEMP 98.9; O2SAT 98
[2024-09-09] MEDS ORDERED: CEPH500C PO (02:05)
--- NOTE | 2024-09-09 02:07 | ED.PDOC ---
History of Present Illness(SKN HPI Comments This is a 44-year-old male presents to the ED chief complaint right 4th finger pain. Patient states started 2 weeks ago distal part of his finger he notes some swelling and ecchymosis. Denies any known injury Chief Complaint: Wound Check Time Seen by MD: 22:47 Primary Care Provider: NONE History of Present Illness: Nurses Notes, Medications, Allergies Allergies: Coded Allergies: Ketorolac Tromethamine (Verified Allergy, Unknown, 09/03/23) Penicillins (Verified Allergy, Unknown, 12/01/23) Vancomycin (Verified Allergy, Unknown, 07/07/24) Mode of Arrival: Ambulatory Past Medical History PAST MEDICAL HISTORY: Denies Surgical History: Denies all surgeries Family History Family History: Reviewed,noncontributory to illness Social History Smoker: Cigarettes Alcohol: Occasionally Drugs: Marijuana, Methamphetamine, Other Lives In: Homeless Constitutional: denies: chills, diaphoresis, fatigue, fever, malaise, sweats, weakness, others EENTM: denies: blurred vision, double vision, ear bleeding, ear discharge, ear drainage, ear pain, ear ringing, eye pain, eye redness, hearing loss, mouth pain, mouth swelling, nasal discharge, nose bleeding, nose congestion, nose pain, photophobia, tearing, throat pain, throat swelling, voice changes, others Respiratory: denies: cough, hemoptysis, orthopnea, SOB at rest, shortness of breath, SOB with excertion, stridor, wheezing, others Cardiovascular: denies: chest pain, dizzy spells, diaphoresis, Dyspnea on exertion, edema, irregular heart beat, left arm pain, lightheadedness, palpitations, PND, syncope, others Gastrointestinal: denies: abdomen distended, abdominal pain, blood streaked bowels, constipated, diarrhea, dysphagia, difficulty swallowing, hematemesis, melena, nausea, poor appetite, poor fluid intake, rectal bleeding, rectal pain, vomiting, others Genitourinary: denies: burning, dysuria, flank pain, frequency, hematuria, incontinence, penile discharge, penile sore, pain, testicle pain, testicle swelling, urgency, others Neurological: denies: dizziness, fainting, headache, left sided numbness, left sided weakness, numbness, paresthesia, pre-existing deficit, right sided numbness, right sided weakness, seizure, speech problems, tingling, tremors, weakness, others Musculoskeletal: denies: back pain, gout, joint pain, joint swelling, muscle pain, muscle stiffness, neck pain, others Integumetry: reports: rash (Right distal 4th finger); denies: bruises, change in color, change in hair/nails, dryness, laceration, lesions, lumps, wounds, others Allergic/Immunocompromised: denies: Difficulty Healing, Frequent Infections, Hives, Itching, others Hematologic/Lymphatic: denies: anemia, blood clots, easy bleeding, easy bruising, swollen glands, others Endocrine: denies: excessive hunger, excessive sweating, excessive thirst, excessive urination, flushing, intolerance to cold, intolerance to heat, unexplained weight gain, unexplained weight loss, others Psychiatric: denies: anxiety, bipolar disorder, depression, hopeless, panic disorder, schizophrenia, sleepless, suicidal, others Physical Exam General Appearance: No Apparent Distress, Normal HEENT: Pharynx Normal Neck: Full Range of Motion, Non-Tender Respiratory: Lungs Clear, No Respiratory Distress, Normal Breath Sounds Cardiovascular: No Edema, No JVD, No Murmur, No Gallop, Normal Peripheral Pulses, Regular Rate/Rhythm Breast Exam: Deferred Gastrointestinal: No Organomegaly, Non Tender, No Pulsatile Mass, Normal Bowel Sounds, Soft, Other (Colostomy bag intact no signs of erythema streaking.) Genitalia: Deferred Pelvic: Deferred Rectal: Deferred Extremities: Normal capillary refill, Normal inspection, Normal range of motion, Non-tender, No pedal edema Musculoskeletal : Apperance: Normal Neurologic: Alert, education professor II-XII nml as Tested, No Motor Deficits, Normal Affect, Normal Mood, No Sensory Deficits Cerebellar Function: Normal Reflexes: Normal Skin: Dry, Normal Color, Rash (Distal right 4th finger nail bed around cuticle trace edema and erythema no noted drainage. No noted streaking or lesions.), Warm Lymphatic: No Adenopathy Was a procedure done? Was a procedure done?: No Differential Diagnosis (INTG) Differential Diagnosis: Cellulitis X-Ray, Labs, Meds, VS Vital Signs Date Time Temp Pulse Resp B/P (MAP) Pulse Ox O2 Delivery O2 Flow Rate FiO2 09/09/24 01:52 98.9 104 16 147/91 (109) 98 98.9 09/09/24 01:52 104 16 98 Room Air 09/08/24 23:18 98.9 111 16 138/91 (107) 97 X-Ray, Labs, Meds, VS Comment Advised to do warm Epsom salt soaks 3-4 times daily. Advised not to start the antibiotics for at least 2-3 days if increasing redness and swelling then start antibiotics. Make sure he takes a probiotic and yogurt due to his history with a colostomy to avoid C diff. ER return precautions given. Patient agrees with discharge plan of care. Time of 1ST Reevaluation: 02:03 Reevaluation 1ST: Unchanged Patient Education/Counseling: Diagnosis, Treatment, Prognosis, Need For Follow Up Family Education/Counseling: No Family Present Departure 1 Departure Time of Disposition: 02:03 Impression: Primary Impression: Paronychia of finger of right hand Disposition: 01 HOME / SELF CARE / HOMELESS Condition: Stable e-Prescriptions Cephalexin Monohydrate (Cephalexin) 500 Mg Cap 1 CAP PO BID for 5 Days, #10 CAP Prov: RONNY SEYMOUR 09/09/24 Discharged With: Self Critical Care Note Critical Care Time?: No Stability Stability form required: RONNY Almanza Sep 09, 2024 02:06
== END 2024-09-09 03:28 | disposition home or self-care (01) ==
LOC: ER 22:45
DX: L03.011 Cellulitis of right finger (principal); F17.210 Nicotine dependence, cigarettes, uncomplicated; F12.90 Cannabis use, unspecified, uncomplicated; F15.90 Other stimulant use, unspecified, uncomplicated; Z88.0 Allergy status to penicillin; Z88.1 Allergy status to other antibiotic agents; Z88.6 Allergy status to analgesic agent; Z59.00 Homelessness unspecified
CPT/HCPCS: 73130

== ENCOUNTER 2024-09-10 09:11 | Emergency (ER) | payer MEDICAID, OTHER ==
[~2024-09-10] VITALS: Ht 188 cm; Wt 71.3 kg
[~2024-09-10 09:11] MED LIST changes: +CEPH500C PO; -CIPR-173 PO; -DOCU-94 PO; -METR-344 PO
[2024-09-10 09:56] VITALS: BP 133/98; PULSE 82; RESP 16; TEMP 98.6; O2SAT 99
--- NOTE | 2024-09-10 10:22 | ED.PDOC ---
History of Present Illness HPI Comments This is a 44-year-old gentleman who is homeless. He is primarily coming in for a colostomy bag change. He is unable to do it while he is on the street because he can not lay down anywhere. Currently waiting for surgery to reverse the colostomy bag. That is a process that is occurring now and then he will be placed in a longterm facility for recovery after. He is also requesting some clean clothes.. Denies any other symptoms Chief Complaint: Tube Replacement Time Seen by MD: 09:33 Primary Care Provider: NONE Reviewed Notes: Nurses Notes, Medications Allergies: Coded Allergies: Ketorolac Tromethamine (Verified Allergy, Severe, 09/10/24) Vancomycin (Verified Allergy, Severe, 09/10/24) Information Source: Patient Mode of Arrival: Ambulatory Past Medical History PAST MEDICAL HISTORY: Denies Surgical History: Denies all surgeries Surgical History (Other): Colostomy Family History Family History: Reviewed,noncontributory to illness Social History Smoker: Cigarettes Alcohol: Occasionally Drugs: Marijuana, Methamphetamine, Other Lives In: Homeless Gastrointestinal: reports: others (Colostomy) Physical Exam General Appearance: No Apparent Distress, Normal HEENT: Normal ENT Inspection, PERRL/EOMI, Pharynx Normal, TMs Normal Neck: Full Range of Motion, Non-Tender Respiratory: Lungs Clear, No Respiratory Distress, Normal Breath Sounds Cardiovascular: Regular Rate/Rhythm Breast Exam: Deferred Gastrointestinal: Non Tender, Normal Bowel Sounds, Other (Colostomy intact with no skin excoriation noted) Genitalia: Deferred Pelvic: Deferred Rectal: Deferred Extremities: Normal capillary refill, Normal inspection, Normal range of motion, Non-tender Neurologic: Alert, No Motor Deficits, Normal Mood Cerebellar Function: NOT DONE Reflexes: NOT DONE Skin: Dry, Warm Lymphatic: No Adenopathy Was a procedure done? Was a procedure done?: No Differential Dx Considerations may include: cellulitis X-Ray, Labs, Meds, VS Vital Signs Date Time Temp Pulse Resp B/P (MAP) Pulse Ox O2 Delivery O2 Flow Rate FiO2 09/10/24 09:56 98.6 82 16 133/98 (110) 99 98.6 09/10/24 09:56 82 16 99 Room Air 09/10/24 09:27 98.6 82 16 133/98 (110) 99 X-Ray, Labs, Meds, VS Comment Patient seen and examined by me. Patient is homeless. He is here primarily because he wants to change his colostomy bag. He is lined up for a reversal surgery and placement in a longterm after that occurs but is still in the works. Patient has asked for a binder which we do not have to offered to him. But we will help him change his colostomy bag and gives him some supplies. No labs or x-rays indicated for the visit. Time of 1ST Reevaluation: 10:22 Reevaluation 1ST: Improved Patient Education/Counseling: Diagnosis, Treatment, Prognosis, Need For Follow Up Family Education/Counseling: No Family Present Departure 1 Departure Time of Disposition: 10:20 Impression: Primary Impression: Colostomy care Disposition: 01 HOME / SELF CARE / HOMELESS Condition: Good Additional Instructions: Please continue to do your colostomy care as scheduled to prevent skin excoriation Follow-up with your provider regarding your upcoming surgery Drink lots of fluids to keep your colostomy working Discharged With: Self Critical Care Note Critical Care Time?: No Stability Stability form required: ARMIDA Escamilla Sep 10, 2024 10:22
== END 2024-09-10 10:23 | disposition home or self-care (01) ==
LOC: ER 09:11 → MERGE 09:11 → ER 10:23
DX: F12.10 Cannabis abuse, uncomplicated (principal); F15.10 Other stimulant abuse, uncomplicated; F17.210 Nicotine dependence, cigarettes, uncomplicated; Z93.3 Colostomy status; Z88.1 Allergy status to other antibiotic agents; Z59.00 Homelessness unspecified

== ENCOUNTER 2024-09-12 02:04 | Emergency (ER) | payer MEDICAID ==
[~2024-09-12] VITALS: Ht 188 cm; Wt 73.0 kg
--- NOTE | 2024-09-12 02:18 | ED.PDOC ---
History of Present Illness HPI Comments 44M well known to the ER with a colostomy that is enlarged who presents usually at 2am asking for a place to lay down and supplies for his ostomy. He has been admitted multiple times and was referred multiple times back to [place] where he had his ostomy placed for revision surgery. He denies any changes today. Chief Complaint: Ostomy supplies Time Seen by MD: 02:10 Primary Care Provider: NONE Allergies: Coded Allergies: Ketorolac Tromethamine (Verified Allergy, Unknown, 09/03/23) Penicillins (Verified Allergy, Unknown, 12/01/23) Vancomycin (Verified Allergy, Unknown, 07/07/24) Home Meds Active Scripts Cephalexin Monohydrate (Cephalexin) 500 Mg Cap, 1 CAP PO BID for 5 Days, #10 CAP Prov:DAWNREMIK EARLENE 09/09/24 Information Source: Patient Mode of Arrival: Ambulatory Past Medical History PAST MEDICAL HISTORY: Denies Surgical History: Denies all surgeries Family History Family History: Reviewed,noncontributory to illness Social History Smoker: Cigarettes Alcohol: Occasionally Drugs: Marijuana, Methamphetamine, Other Lives In: Homeless Physical Exam General Appearance: No Apparent Distress, Normal HEENT: NOT DONE Neck: NOT DONE Respiratory: Chest Non-Tender, Lungs Clear, No Accessory Muscle Use, No Respiratory Distress, Normal Breath Sounds Cardiovascular: No Edema, No JVD, No Murmur, No Gallop, Normal Peripheral Pulses, Regular Rate/Rhythm Breast Exam: Deferred Gastrointestinal: Other (enlarged ostomy) Genitalia: Deferred Pelvic: Deferred Rectal: Deferred Extremities: No calf tenderness, Normal capillary refill, Normal inspection, Normal range of motion, Non-tender, No pedal edema Neurologic: Alert, operations boardman II-XII nml as Tested, No Motor Deficits, Normal Affect, Normal Mood, No Sensory Deficits Cerebellar Function: NOT DONE Reflexes: NOT DONE Skin: Dry, Normal Color, Warm Lymphatic: No Adenopathy Was a procedure done? Was a procedure done?: No Differential Dx Considerations may include: ostomy supply request Time of 1ST Reevaluation: 02:16 Reevaluation 1ST: Unchanged Patient Education/Counseling: Diagnosis, Treatment Family Education/Counseling: No Family Present Departure 1 Departure Time of Disposition: 02:17 (Patient frequently presents for ostomy supplies) Impression: Primary Impression: Encounter for ostomy care education Disposition: 01 HOME / SELF CARE / HOMELESS Condition: Stable Additional Instructions: You were given ostomy supplies tonight. Please follow up with your regular doctors staci. Discharged With: Self Critical Care Note Critical Care Time?: No Stability Stability form required: No Heart Score Heart Score: Heart Score Response (Comments) Value History N/A 0 EKG N/A 0 Age N/A 0 Risk Factors N/A 0 Troponin N/A 0 Total 0 OSVALDO LAUGHLIN MD Sep 12, 2024 02:18
[2024-09-12 02:28] VITALS: BP 144/93; PULSE 100; RESP 18; TEMP 97.7; O2SAT 97
== END 2024-09-12 02:34 | disposition home or self-care (01) ==
LOC: ER 02:04
DX: F12.10 Cannabis abuse, uncomplicated (principal); F15.10 Other stimulant abuse, uncomplicated; F17.210 Nicotine dependence, cigarettes, uncomplicated; Z93.3 Colostomy status; Z59.00 Homelessness unspecified; Z88.0 Allergy status to penicillin; Z88.1 Allergy status to other antibiotic agents

== ENCOUNTER 2024-09-13 07:25 | Emergency (ER) | payer MEDICAID ==
[~2024-09-13] VITALS: Ht 188 cm; Wt 76.0 kg
[2024-09-13 08:46] VITALS: BP 161/91; PULSE 107; RESP 18; TEMP 98.3; O2SAT 98
--- NOTE | 2024-09-13 09:30 | ED.PDOC ---
GI ASSESSMENT HPI Comments 44 Y M, with a past SHX skin graft presents to the ED with CC of ABD pain. Patient states that he received a skin graft two months ago at [facility], for a infected sweat gland due to Hydradenitis. Patient states due to the skin graft on genitals he was unable to use the bathroom regularly as per [place] they "did not want him to cause skin lesions that may led to infection" so a colostomy was performed. Patient relays that after skin graft was said to heal the colostomy was supposed to be reversed however, upon returning to [place] on 09/04 they stated that "it may not be irreversible". Now patient presents with colon protruding into colostomy bag which appears inflamed and red, patient states that he changes bag himself whenever supplies are available to him. Patient has been seen at [facility] for both Hydradenitis and ostomy care since February 2024. Patient smokes, consume ETOH, and uses methamphetamine. Per patient he is allergic to Toradol and Vancomycin. Chief Complaint: Abdominal Pain Time Seen by MD: 08:20 Primary Care Provider: NONE Reviewed Notes: Nurses Notes, Medications, Allergies Allergies: Coded Allergies: Ketorolac Tromethamine (Verified Allergy, Unknown, 09/03/23) Penicillins (Verified Allergy, Unknown, 12/01/23) Vancomycin (Verified Allergy, Unknown, 07/07/24) Home Meds Active Scripts Cephalexin Monohydrate (Cephalexin) 500 Mg Cap, 1 CAP PO BID for 5 Days, #10 CAP Prov:RONNY SEYMOUR [facility] 09/09/24 Information Source: Patient Mode of Arrival: Ambulatory Timing: Months Duration: Since onset Prehospital treatment: None Severity: Moderate Recent Hx of: None Pain Location: None Modifying Factors: Nothing Associated sign and symptoms: Abdominal Pain Past Medical History PAST MEDICAL HISTORY: Denies Surgical History: Denies all surgeries Family History Family History: Reviewed,noncontributory to illness Social History Smoker: Cigarettes Alcohol: Occasionally Drugs: Marijuana, Methamphetamine, Other Lives In: Homeless Constitutional: denies: chills, diaphoresis, fatigue, fever, malaise, sweats, weakness, others EENTM: denies: blurred vision, double vision, ear bleeding, ear discharge, ear drainage, ear pain, ear ringing, eye pain, eye redness, hearing loss, mouth pain, mouth swelling, nasal discharge, nose bleeding, nose congestion, nose pain , photophobia, tearing, throat pain, throat swelling, voice changes, others Respiratory: denies: cough, hemoptysis, orthopnea, SOB at rest, shortness of breath, SOB with excertion, stridor, wheezing, others Cardiovascular: denies: chest pain, dizzy spells, diaphoresis, Dyspnea on exertion, edema, irregular heart beat, left arm pain, lightheadedness, palpitations, PND, syncope, others Gastrointestinal: reports: others (colon protruding ); denies: abdomen distended, abdominal pain, blood streaked bowels, constipated, diarrhea, dysphagia, difficulty swallowing, hematemesis, melena, nausea, poor appetite, poor fluid intake, rectal bleeding, rectal pain, vomiting Genitourinary: denies: burning, dysuria, flank pain, frequency, hematuria, incontinence, penile discharge, penile sore, pain, testicle pain, testicle swelling, urgency, others Neurological: denies: dizziness, fainting, headache, left sided numbness, left sided weakness, numbness, paresthesia, pre-existing deficit, right sided numbness, right sided weakness, seizure, speech problems, tingling, tremors, weakness, others Musculoskeletal: denies: back pain, gout, joint pain, joint swelling, muscle pain, muscle stiffness, neck pain, others Integumetry: denies: bruises, change in color, change in hair/nails, dryness, laceration, lesions, lumps, rash, wounds, others Allergic/Immunocompromised: denies: Difficulty Healing, Frequent Infections, Hives, Itching, others Hematologic/Lymphatic: denies: anemia, blood clots, easy bleeding, easy bruising, swollen glands, others Endocrine: denies: excessive hunger, excessive sweating, excessive thirst, excessive urination, flushing, intolerance to cold, intolerance to heat, unexplained weight gain, unexplained weight loss, others Psychiatric: denies: anxiety, bipolar disorder, depression, hopeless, panic disorder, schizophrenia, sleepless, suicidal, others All Other Systems: Reviewed and Negative Physical Exam General Appearance: No Apparent Distress, Normal HEENT: Normal ENT Inspection, PERRL/EOMI, Pharynx Normal, TMs Normal Neck: Full Range of Motion, Non-Tender, Normal, Normal Inspection Respiratory: Chest Non-Tender, Lungs Clear, No Accessory Muscle Use, No Respiratory Distress, Normal Breath Sounds Cardiovascular: No Edema, No JVD, No Murmur, No Gallop, Normal Peripheral Pulses, Regular Rate/Rhythm Breast Exam: Deferred Gastrointestinal: No Organomegaly, Non Tender, No Pulsatile Mass, Normal Bowel Sounds, Soft, Other (Patient has a call colostomy with invagination of part of the colon patient just need a bag and some supplies until he sees the [place] for further care) Genitalia: Deferred Pelvic: Deferred Rectal: Deferred Extremities: No calf tenderness, Normal capillary refill, Normal inspection, Normal range of motion, Non-tender, No pedal edema Musculoskeletal : Apperance: Normal Neurologic: Alert, color buffer II-XII nml as Tested, No Motor Deficits, Normal Affect, Normal Mood, No Sensory Deficits Cerebellar Function: Normal Reflexes: Normal Skin: Dry, Normal Color, Warm Peripheral Pulses: 1+ carotid (R), 1+ carotid (L) Lymphatic: No Adenopathy Was a procedure done? Was a procedure done?: No GI differential Dx Differential Diagnosis: Other (Patient with a a vegetation of part of the colon into the colostomy bag it is chronic patient come have been came in for the same reasons needs to go to [place]) X-Ray, Labs, Meds, VS Vital Signs Date Time Temp Pulse Resp B/P (MAP) Pulse Ox O2 Delivery O2 Flow Rate FiO2 09/13/24 08:46 98.3 107 18 161/91 (114) 98 98.3 09/13/24 08:46 107 18 98 Room Air 09/13/24 07:51 98.5 115 20 128/85 (99) 100 09/13/24 07:51 98.5 115 20 128/85 (99) 100 98.5 X-Ray, Labs, Meds, VS Comment This is a 44-year-old male presented to the emergency department needing supply for his colostomy with a protrusion of part of his colon Patient has been here several times for the same says he is going to see the doctor for that never does Patient will have a colostomy supplies for change today that he had knee in two follow up with the [place] for further care Time of 1ST Reevaluation: 09:20 Reevaluation 1ST: Unchanged Time of 2ND Reevaluation: 12:28 Reevaluation 2ND: Improved Consultation: PCP, Surgery (And will need to go to [place] to fixes colostomy a vegetation), Other Patient Education/Counseling: Diagnosis, Treatment, Prognosis, Need For Follow Up Family Education/Counseling: Diagnosis, Treatment, Prognosis, Need For Follow Up, No Family Present Departure 1 Departure Time of Disposition: 12:30 Impression: Primary Impression: Abdominal pain Qualified Codes: R10.32 - Left lower quadrant pain Additional Impressions: Colostomy care Intestinal stoma prolapse Disposition: HOME / SELF CARE / HOMELESS Condition: Fair Discharged With: Self Critical Care Note Critical Care Time?: No Stability Stability form required: No Heart Score Heart Score: Heart Score Response (Comments) Value History N/A 0 EKG N/A 0 Age <45 0 Risk Factors 1 or 2 risk factors 1 Troponin N/A 0 Total 1 I personally scribed for SONNY MILLER MD ([email or web address]) on 09/13/24 at 09:30. Electronically submitted by Ang Mcpherson ([email or web address]). I personally scribed for SONYN MILLER MD ([email or web address]) on 09/13/24 at 09:36. Electronically submitted by Ang Mcpherson ([email or web address]). I personally scribed for SONNY MILLER MD ([email or web address]) on 09/13/24 at 09:41. Electronically submitted by Ang Mcpherson ([email or web address]). SONNY MILLER MD Sep 13, 2024 09:30
== END 2024-09-13 13:06 | disposition home or self-care (01) ==
LOC: ER 07:25
DX: R10.32 Left lower quadrant pain (principal); F17.210 Nicotine dependence, cigarettes, uncomplicated; F12.10 Cannabis abuse, uncomplicated; F15.10 Other stimulant abuse, uncomplicated; Z93.3 Colostomy status; Z59.00 Homelessness unspecified; Z88.0 Allergy status to penicillin; Z88.1 Allergy status to other antibiotic agents

== ENCOUNTER 2024-09-19 21:46 | Emergency (ER) | payer MEDICAID ==
[~2024-09-19] VITALS: Ht 188 cm; Wt 71.0 kg
[2024-09-19 22:45] VITALS: BP 140/90; PULSE 106; RESP 99; TEMP 97.9
--- NOTE | 2024-09-19 22:57 | ED.PDOC ---
GI ASSESSMENT HPI Comments 44 year old male presents to ER today for colostomy bag replacement. Patient with PMH significant for a colostomy presents to ER today requesting "colostomy supplies" to change his colostomy bag himself. Patient last changed his colostomy bag 6 days ago at this ER and is homeless/well known to checking into ER here for similar complaint. Denies any pain and again states his only reason for his current ER visit is "for colostomy supplies" to change his colostomy bag himself, denying any current symptoms. Denies fever, body aches, chills, n/v, abdominal pain, drainage from colostomy bag or any further symptoms/complaints Chief Complaint: Wound Check Time Seen by MD: 22:51 Primary Care Provider: [facility] Notes: Nurses Notes, Medications, Allergies Allergies: Coded Allergies: Ketorolac Tromethamine (Verified Allergy, Unknown, 09/03/23) Penicillins (Verified Allergy, Unknown, 12/01/23) Vancomycin (Verified Allergy, Unknown, 07/07/24) Home Meds Discontinued Scripts Cephalexin Monohydrate (Cephalexin) 500 Mg Cap, 1 CAP PO BID for 5 Days, #10 CAP Prov:RONNY SEYMOUR [employer] 09/09/24 Information Source: Patient Mode of Arrival: Ambulatory Past Medical History Past Medical History (Other): Hidradenitis suppurativa Surgical History (Other): colostomy Skin grafts Family History Family History: Unknown Social History Smoker: Cigarettes Alcohol: Occasionally Drugs: Marijuana, Methamphetamine Lives In: Homeless Constitutional: denies: chills, diaphoresis, fatigue, fever, malaise, sweats, weakness, others EENTM: denies: blurred vision, double vision, ear bleeding, ear discharge, ear drainage, ear pain, ear ringing, eye pain, eye redness, hearing loss, mouth pain, mouth swelling, nasal discharge, nose bleeding, nose congestion, nose pain, photophobia, tearing, throat pain, throat swelling, voice changes, others Respiratory: denies: cough, hemoptysis, orthopnea, SOB at rest, shortness of breath, SOB with excertion, stridor, wheezing, others Cardiovascular: denies: chest pain, dizzy spells, diaphoresis, Dyspnea on exertion, edema, irregular heart beat, left arm pain, lightheadedness, palpitations, PND, syncope, others Gastrointestinal: reports: others (As stated in HPI) Genitourinary: denies: burning, dysuria, flank pain, frequency, hematuria, incontinence, penile discharge, penile sore, pain, testicle pain, testicle swelling, urgency, others Neurological: denies: dizziness, fainting, headache, left sided numbness, left sided weakness, numbness, paresthesia, pre-existing deficit, right sided numbness, right sided weakness, seizure, speech problems, tingling, tremors, weakness, others Musculoskeletal: denies: back pain, gout, joint pain, joint swelling, muscle pain, muscle stiffness, neck pain, others Integumetry: denies: bruises, change in color, change in hair/nails, dryness, laceration, lesions, lumps, rash, wounds, others Allergic/Immunocompromised: denies: Difficulty Healing, Frequent Infections, Hives, Itching, others Hematologic/Lymphatic: denies: anemia, blood clots, easy bleeding, easy bruising, swollen glands, others Endocrine: denies: excessive hunger, excessive sweating, excessive thirst, excessive urination, flushing, intolerance to cold, intolerance to heat, unexplained weight gain, unexplained weight loss, others Psychiatric: denies: anxiety, bipolar disorder, depression, hopeless, panic disorder, schizophrenia, sleepless, suicidal, others Physical Exam General Appearance: No Apparent Distress HEENT: PERRL/EOMI Neck: Full Range of Motion, Non-Tender, Normal Respiratory: Chest Non-Tender, Lungs Clear, No Accessory Muscle Use, No Respira tory Distress, Normal Breath Sounds Cardiovascular: No Murmur, No Gallop, Regular Rate/Rhythm Breast Exam: Deferred Gastrointestinal: Non Tender, No Pulsatile Mass, Soft, Other (Colostomy bag noted, no leakage from colostomy bag appreciated) Genitalia: Deferred Pelvic: Deferred Rectal: Deferred Extremities: Normal capillary refill, Normal range of motion Neurologic: Alert, No Motor Deficits, Normal Affect, Normal Mood, No Sensory Deficits Cerebellar Function: Normal Reflexes: Normal Skin: Dry, Normal Color, Warm Lymphatic: No Adenopathy Was a procedure done? Was a procedure done?: No Sedation Sedation?: No GI differential Dx Differential Diagnosis: GI hemorrhage, Ischemic Bowel, Trauma intraabdominal X-Ray, Labs, Meds, VS Vital Signs Date Time Temp Pulse Resp B/P (MAP) Pulse Ox O2 Delivery O2 Flow Rate FiO2 09/19/24 22:45 97.9 106 18 140/90 (107) 99 Patient provided colostomy supplies in ER and denied any symptoms during ER visit/prior to discharge Methamphetamine, cannabis and smoking cessation discussed and advised Advised to follow up with PCP and general surgeon/colorectal surgeon in 1-2 days Patient verbalized understanding and agreeable with current plan of care Advised to return to ER immediately if symptoms worsen Time of 1ST Reevaluation: 22:24 Reevaluation 1ST: N/A Patient Education/Counseling: Diagnosis, Treatment, Prognosis, Need For Follow Up Family Education/Counseling: No Family Present Departure 1 Departure Time of Disposition: 22:52 Impression: Primary Impression: Colostomy care Disposition: 01 HOME / SELF CARE / HOMELESS Condition: Stable Discharged With: Self Critical Care Note Critical Care Time?: No Stability Stability form required: No Heart Score Heart Score: Heart Score Response (Comments) Value History N/A 0 EKG N/A 0 Age N/A 0 Risk Factors N/A 0 Troponin N/A 0 Total 0 ROCKY PADILLA Sep 19, 2024 22:57
[2024-09-20 00:21] VITALS: O2SAT 99
== END 2024-09-20 00:32 | disposition home or self-care (01) ==
LOC: ER 21:46
DX: F12.10 Cannabis abuse, uncomplicated (principal); F15.10 Other stimulant abuse, uncomplicated; F17.210 Nicotine dependence, cigarettes, uncomplicated; Z93.3 Colostomy status; Z59.00 Homelessness unspecified; Z88.0 Allergy status to penicillin; Z88.1 Allergy status to other antibiotic agents

== ENCOUNTER 2024-09-22 01:08 | Emergency (ER) | payer MEDICAID | END 2024-09-22 02:01 | disposition left against medical advice (07) | LOC: ER 01:08 | DX: Z46.89 Encounter for fitting and adjustment of other specified devices (principal); Z53.21 Procedure and treatment not carried out due to patient leaving prior to being seen by health care provider ==

== ENCOUNTER 2024-09-24 15:27 | Inpatient (IN) | payer MEDICAID ==
[~2024-09-24] VITALS: Ht 188 cm; Wt 72.4 kg
--- NOTE | 2024-09-24 16:23 | ED.PDOC ---
History of Present Illness HPI Comments 44M presents to the ER w/ prior Hx of a colostomy and a skin graft which may all be associated to the c/c of ABD pain. Pt reports on having a body ache "like I got the flu" as well as ABD pain that has been "on/off all day". Pt notes the pain to be diffuse on the ABD. pain type of a 10/10. Social Hx of Tobacco use, rare alcohol use, and marijuana and methamphetamine use. Denies chills, fever, N/V/D, SOB, CP or other associated symptom's, modifiers, or recent injuries or sick contact at this time. Time Seen by MD: 16:20 Primary Care Provider: [facility] Reviewed Notes: Nurses Notes, Medications, Allergies Allergies: Coded Allergies: Ketorolac Tromethamine (Verified Allergy, Unknown, 09/03/23) Penicillins (Verified Allergy, Unknown, 12/01/23) Vancomycin (Verified Allergy, Unknown, 07/07/24) Information Source: Patient Mode of Arrival: Ambulatory Severity: Moderate Timing: Hours Duration: Since onset, Hours Prehospital treatment: None Past Medical History PAST MEDICAL HISTORY: Denies Surgical History (Other): Skin Graft and Colostomy Family History Family History: Reviewed,noncontributory to illness, Unknown Social History Smoker: Cigarettes Alcohol: Rarely Drugs: Marijuana, Methamphetamine Lives In: Homeless Constitutional: denies: chills, diaphoresis, fatigue, fever, malaise, sweats, weakness, others EENTM: denies: blurred vision, double vision, ear bleeding, ear discharge, ear drainage, ear pain, ear ringing, eye pain, eye redness, hearing loss, mouth pain, mouth swelling, nasal discharge, nose bleeding, nose congestion, nose pain, photophobia, tearing, throat pain, throat swelling, voice changes, others Respiratory: denies: cough, hemoptysis, orthopnea, SOB at rest, shortness of breath, SOB with excertion, stridor, wheezing, others Cardiovascular: denies: chest pain, dizzy spells, diaphoresis, Dyspnea on exertion, edema, irregular heart beat, left arm pain, lightheadedness, palpitations, PND, syncope, others Gastrointestinal: reports: abdominal pain; denies: abdomen distended, blood streaked bowels, constipated, diarrhea, dysphagia, difficulty swallowing, hematemesis, melena, nausea, poor appetite, poor fluid intake, rectal bleeding, rectal pain, vomiting, others Genitourinary: denies: burning, dysuria, flank pain, frequency, hematuria, incontinence, penile discharge, penile sore, pain, testicle pain, testicle swelling, urgency, others Neurological: denies: dizziness, fainting, headache, left sided numbness, left sided weakness, numbness, paresthesia, pre-existing deficit, right sided numbness, right sided weakness, seizure, speech problems, tingling, tremors, weakness, others Musculoskeletal: denies: back pain, gout, joint pain, joint swelling, muscle pain, muscle stiffness, neck pain, others Integumetry: denies: bruises, change in color, change in hair/nails, dryness, laceration, lesions, lumps, rash, wounds, others Allergic/Immunocompromised: denies: Difficulty Healing, Frequent Infections, Hives, Itching, others Hematologic/Lymphatic: denies: anemia, blood clots, easy bleeding, easy bruis ing, swollen glands, others Endocrine: denies: excessive hunger, excessive sweating, excessive thirst, exc essive urination, flushing, intolerance to cold, intolerance to heat, unexplained weight gain, unexplained weight loss, others Psychiatric: denies: anxiety, bipolar disorder, depression, hopeless, panic disorder, schizophrenia, sleepless, suicidal, others All Other Systems: Reviewed and Negative Physical Exam General Appearance: Moderate Distress HEENT: Normal ENT Inspection, Pharynx Normal, TMs Normal Neck: Full Range of Motion, Non-Tender, Normal, Normal Inspection Respiratory: Chest Non-Tender, Lungs Clear, No Accessory Muscle Use, No Respiratory Distress, Normal Breath Sounds Cardiovascular: No Edema, No JVD, No Murmur, No Gallop, Normal Peripheral Pulses, Regular Rate/Rhythm Breast Exam: Deferred Gastrointestinal: No Organomegaly, No Pulsatile Mass, Normal Bowel Sounds, Soft, Other (Colostomy bag in place) Genitalia: Deferred Pelvic: Deferred Rectal: Deferred Extremities: No calf tenderness, Normal capillary refill, Normal inspection, Normal range of motion, Non-tender, No pedal edema Musculoskeletal : Apperance: Normal Neurologic: Alert, stars coordinator II-XII nml as Tested, Motor Weakness, Normal Affect, Normal Mood, No Sensory Deficits Cerebellar Function: Normal Reflexes: Normal Skin: Dry, Normal Color, Warm Lymphatic: No Adenopathy Was a procedure done? Was a procedure done?: No Differential Dx Considerations may include: Intractable abdominal pain, colostomy, generalized weakness, sepsis X-Ray, Labs, Meds, VS Vital Signs Date Time Temp Pulse Resp B/P (MAP) Pulse Ox O2 Delivery O2 Flow Rate FiO2 09/24/24 17:10 121 19 98 Room Air 09/24/24 17:10 98.9 121 19 149/80 (103) 98 98.9 09/24/24 16:34 98.7 125 19 135/90 (105) 98 Lab Test 09/24/24 16:39 Range/Units White Blood Count 8.5 4.4-10.8 10^3/uL Red Blood Count 4.10 L 4.5-5.90 10^6/uL Hemoglobin 10.8 L 13.5-17.5 g/dL Hematocrit 33.6 L 41.0-53.0 % Mean Corpuscular Volume 81.9 80.0-100.0 fL Mean Corpuscular Hemoglobin 26.2 L 28.0-32.0 pg Mean Corpuscular Hemoglobin Concent 32.0 32.0-36.0 g/dL Red Cell Distribution Width 20.1 H 11.8-14.3 % Platelet Count 464 H 140-450 10^3/uL Mean Platelet Volume 6.6 L 6.9-10.8 fL Neutrophils (%) (Auto) 70.2 37.0-80.0 % Lymphocytes (%) (Auto) 11.6 10.0-50.0 % Monocytes (%) (Auto) 11.7 0.0-12.0 % Eosinophils (%) (Auto) 5.9 0.0-7.0 % Basophils (%) (Auto) 0.6 0.0-2.0 % Neutrophils # (Auto) 5.9 1.6-8.6 10 ^3/uL Lymphocytes # (Auto) 1.0 0.4-5.4 10 ^3/uL Monocytes # (Auto) 1.0 0-1.3 10 ^3/uL Eosinophils # (Auto) 0.5 0-0.8 10 ^3/uL Basophils # (Auto) 0.1 0-0.2 10 ^3/uL Nucleated Red Blood Cells 0.2 % Sodium Level 137 136-145 mmol/L Potassium Level 3.3 L 3.5-5.1 mmol/L Chloride Level 107 98-107 mmol/L Carbon Dioxide Level 22 20-31 mmol/L Anion Gap 8 5-15 Blood Urea Nitrogen 7 L 9-23 mg/dL Creatinine 0.78 0.700-1.30 mg/dL Glomerular Filtration Rate Calc 113 >90 mL/min BUN/Creatinine Ratio 9.0 L 10.0-20.0 Serum Glucose 129 H 74-106 mg/dL Calcium Level 8.7 8.7-10.4 mg/dL Total Bilirubin 0.2 0.2-1.0 mg/dL Aspartate Amino Transferase (AST) 27 13-40 U/L Alanine Aminotransferase (ALT) 12 7-40 U/L Alkaline Phosphatase 109 46-116 U/L Total Protein 8.8 H 5.7-8.2 g/dL Albumin 3.3 3.2-4.8 g/dL Lipase 24 12-53 U/L Current Medications Medications (Trade) Dose Ordered Sig/Wallace Route Start Time Stop Time Status Last Admin Acetaminophen/ Hydrocodone Bitart ([place] 10/325MG Tab) 1 tab ONCE ONCE PO 09/24/24 16:30 09/24/24 16:31 DC 09/24/24 16:48 IV Hep-Lock was established. The patient was given [place] here in the emergency department's for the pain The CT scan of the abdomen and pelvis shows: IMPRESSION: 1. Colostomy anterior left abdominal wall with questionable peristomal herniation of small bowel unchanged from prior studies. Correlate clinically. 2. No findings of bowel obstruction in the peritoneum. The patient's CBC shows anemia with a hemoglobin of 10.8 hematocrit 33.6 The chemistry panel shows hypokalemia at 3.3 At this time, the patient was being admitted to the hospitalist The patient was still having some persistent pain. Images Reviewed?: Images reviewed and evaluated by me Time of 1ST Reevaluation: 16:50 Reevaluation 1ST: Unchanged Patient Education/Counseling: Diagnosis, Treatment, Prognosis Family Education/Counseling: No Family Present Departure 1 Departure Time of Disposition: 18:15 Impression: Primary Impression: Intractable abdominal pain Additional Impression: Colostomy complication Disposition: 09 ADMITTED INPATIENT Admit to: Med Surg Condition: Fair Critical Care Note Critical Care Time?: No Stability Stability form required: Yes Unstable for transfer: ED Physician Assesment (Clinical assesment) Heart Score Heart Score: Heart Score Response (Comments) Value History N/A 0 EKG N/A 0 Age N/A 0 Risk Factors N/A 0 Troponin N/A 0 Total 0 I personally scribed for AMAURI JOHNSON MD ([email or web address]) on 09/24/24 at 16:23. Electronically submitted by Nadeem Glasgow (Slacker). I personally scribed for AMAURI JOHNSON MD ([email or web address]) on 09/24/24 at 16:25. Electronically submitted by Nadeem Glasgow (Slacker). AMAURI JOHNSON MD Sep 24, 2024 16:23
[2024-09-24] MEDS: HYDROcodone-ACET 10/325MG TAB PO ONE (16:48)
[2024-09-24 16:58] LABS: Eosinophils # (auto) 0.5 10 ^3/uL (0-0.8); Nucleated Red Blood Cells % 0.2 %
[2024-09-24 17:00] LABS: Basophils # (auto) 0.1 10 ^3/uL (0-0.2); Basophils % (auto) 0.6 % (0.0-2.0); Eosinophils % (auto) 5.9 % (0.0-7.0); Hematocrit 33.6 % (41.0-53.0); Hemoglobin 10.8 g/dL (13.5-17.5); Lymphocytes % (auto) 11.6 % (10.0-50.0); Mean Corpuscular Hemoglobin 26.2 pg (28.0-32.0); Mean Corpuscular Volume 81.9 fL (80.0-100.0); Monocytes % (auto) 11.7 % (0.0-12.0); Neutrophils # (auto) 5.9 10 ^3/uL (1.6-8.6); Neutrophils % (auto) 70.2 % (37.0-80.0); Platelet Count (auto) 464 10^3/uL (140-450); Red Cell Distribution Width 20.1 % (11.8-14.3); White Blood Cell 8.5 10^3/uL (4.4-10.8)
[2024-09-24 17:15] VITALS: PULSE 110; RESP 14; O2SAT 93
[2024-09-24 17:25] LABS: Alanine Aminotransferase 12 U/L (7-40); Albumin 3.3 g/dL (3.2-4.8); Alkaline Phosphatase 109 U/L (46-116); Anion Gap 8 (5-15); Aspartate Aminotransferase 27 U/L (13-40); Calcium 8.7 mg/dL (8.7-10.4); Carbon Dioxide 22 mmol/L (20-31); Chloride 107 mmol/L (98-107); Sodium 137 mmol/L (136-145)
[2024-09-24 17:29] LABS: Bilirubin, Total 0.2 mg/dL (0.2-1.0); Blood Urea Nitrogen 7 mg/dL (9-23); Glucose 129 mg/dL (74-106); Potassium 3.3 mmol/L (3.5-5.1); Total Protein 8.8 g/dL (5.7-8.2)
[2024-09-24 17:40] LABS: Lipase 24 U/L (12-53)
--- NOTE | 2024-09-24 17:43 | DVH ---
Exam: CT CT AB PEL WO CON-NO ORAL OR IV History: pain Comparison Study: 08/21/2024, 07/19/2024: 07/13/2024 TECHNIQUE: Multidetector CT of the abdomen was performed from lung bases to pubic symphysis. Imaging was performed without IV contrast. Axial, coronal and sagittal multiplanar reformats were obtained fr om the axial data set by the technologist. Radiation Dose Information: CT Dose: CTDI volume is 5.56 mGy. Dose-length product is 321.85 mGy*cm FINDINGS: Evaluation of solid organs is limited due to lack of intravenous contrast use. Findings: Lung Bases: No acute or significant lung base finding. Normal heart size. No pleural or pericardial effusion. Liver: The liver is normal in size. No focal lesions. Gallbladder and Biliary Tree: Unremarkable Spleen: Unremarkable Pancreas: The pancreas is grossly normal in appearance. Adrenal Glands: Unremarkable Kidneys: Kidneys are grossly normal without calculi or hydronephrosis. Stable 2 cm cyst right kidney. Bladder: Grossly unremarkable for degree of distention. Bowel: The stomach is grossly normal in appearance. Small bowel and colon are normal in caliber and d istribution. Colostomy in the lower left anterior abdominal wall. No change in the appearance of the colon or small bowel when compared to previous studies of 08/21/2024, 07/19/2024, 07/13/2024. Herniat ion of small bowel in the peristomal tissues is raised correlate clinically. The appendix is not visu alized; however, no secondary findings of acute appendicitis identified. Ascites: Absent Lymphadenopathy: No mesenteric, retroperitoneal or periportal lymphadenopathy. Abdominal Wall and Mesentery: Unremarkable. Vasculature: The visualized abdominal aorta is normal in size and caliber. Evaluation of abdominal a nd pelvic vessels is limited due to lack of intravenous contrast. Pelvic Organs: Unremarkable Musculoskeletal: No aggressive focal bony lesions, acute fractures or dislocation. Soft tissues: Unremarkable IMPRESSION: 1. Colostomy anterior left abdominal wall with questionable peristomal herniation of small bowel unch anged from prior studies. Correlate clinically. 2. No findings of bowel obstruction in the peritoneum. Radiation optimization: All CT scans at this facility use at least one of these dose optimization te chniques: automated exposure control mA and/or kV adjustment per patient size (includes targeted exa ms where dose is matched to clinical indication) or iterative reconstruction.
--- NOTE | 2024-09-24 19:38 | DVHHP2 ---
History of Present Illness Reason for Visit: Abdominal pain History of Present Illness 44-year-old male presents for evaluation of abdominal pain. Patient reports diffuse abdominal pain throughout the day today. Denies fever or chills. Denies diarrhea. No cardiac or respiratory symptoms. Past Medical History Denies Past Surgical History Colostomy Family History Noncontributory Smoke: <1 pack per day ALCOHOL: occassional Drugs: Marijuana, Other (Methamphetamine) Review of Systems Review of Systems Review of systems are currently negative otherwise addressed in HPI. Allergies: Coded Allergies: Ketorolac Tromethamine (Verified Allergy, Unknown, 09/03/23) Penicillins (Verified Allergy, Unknown, 12/01/23) Vancomycin (Verified Allergy, Unknown, 07/07/24) Exam Vital Signs Vital Signs Date Time Temp Pulse Resp B/P (MAP) Pulse Ox O2 Delivery O2 Flow Rate FiO2 09/24/24 18:00 111 15 128/75 (92) 95 09/24/24 17:15 Room Air* 0 21 09/24/24 17:10 98.9 98.9 Exam Gen: 44-year-old male in mild distress Skin: Warm, dry, normal color and texture, no rash. HEENT: Normocephalic atraumatic, mucous membranes moist and pink. Neck: Cervical and supraclavicular nodes normal without enlargement, trachea is midline, thyroid gland is normal without masses. Pulmonary: Clear to auscultation and percussion bilaterally. Cardiac: Regular rate and rhythm. No murmur Abdomen: Soft, nontender, nondistended, bowel sounds present all 4 quadrants, no guarding, no rigidity, prolapsed colostomy Extremities: No cyanosis, clubbing, no edema Neuro: Cranial nerves II through XII grossly intact, normal affect and speech, no focal motor deficits. Labs/Xrays ORDERING PHYSICIAN: AMAURI JOHNSON MD PROCEDURE(s): ABPL - CT AB PEL WO CON-NO ORAL OR IV REASON: pain ORDER NUMBER(s): [id number], ACCESSION NUMBER(s): [id number] Exam: CT CT AB PEL WO CON-NO ORAL OR IV History: pain Comparison Study: 08/21/2024, 07/19/2024: 07/13/2024 TECHNIQUE: Multidetector CT of the abdomen was performed from lung bases to pubic symphysis. Imaging was performed without IV contrast. Axial, coronal and sagittal multiplanar reformats were obtained from the axial data set by the technologist. Radiation Dose Information: CT Dose: CTDI volume is 5.56 mGy. Dose-length product is 321.85 mGy*cm FINDINGS: Evaluation of solid organs is limited due to lack of intravenous contrast use. Findings: Lung Bases: No acute or significant lung base finding. Normal heart size. No pleural or pericardial effusion. Liver: The liver is normal in size. No focal lesions. Gallbladder and Biliary Tree: Unremarkable Spleen: Unremarkable Pancreas: The pancreas is grossly normal in appearance. Adrenal Glands: Unremarkable Kidneys: Kidneys are grossly normal without calculi or hydronephrosis. Stable 2 cm cyst right kidney. Bladder: Grossly unremarkable for degree of distention. Bowel: The stomach is grossly normal in appearance. Small bowel and colon are normal in caliber and distribution. Colostomy in the lower left anterior ab dominal wall. No change in the appearance of the colon or small bowel when compared to previous studies of 08/21/2024, 07/19/2024, 07/13/2024. Herniation of small bowel in the peristomal tissues is raised correlate clinically. The appendix is not visualized; however, no secondary findings of acute appendicitis identified. Ascites: Absent Lymphadenopathy: No mesenteric, retroperitoneal or periportal lymphadenopathy. Abdominal Wall and Mesentery: Unremarkable. Vasculature: The visualized abdominal aorta is normal in size and caliber. Evaluation of abdominal and pelvic vessels is limited due to lack of intravenous contrast. Pelvic Organs: Unremarkable Musculoskeletal: No aggressive focal bony lesions, acute fractures or dislocation. Soft tissues: Unremarkable IMPRESSION: 1. Colostomy anterior left abdominal wall with questionable peristomal herniation of small bowel unchanged from prior studies. Correlate clinically. 2. No findings of bowel obstruction in the peritoneum. Radiation optimization: All CT scans at this facility use at least one of these dose optimization techniques: automated exposure control mA and/or kV adjustment per patient size (includes targeted exams where dose is matched to clinical indication) or iterative reconstruction. Labs Test 09/24/24 16:39 Range/Units White Blood Count 8.5 4.4-10.8 10^3/uL Red Blood Count 4.10 L 4.5-5.90 10^6/uL Hemoglobin 10.8 L 13.5-17.5 g/dL Hematocrit 33.6 L 41.0-53.0 % Mean Corpuscular Volume 81.9 80.0-100.0 fL Mean Corpuscular Hemoglobin 26.2 L 28.0-32.0 pg Mean Corpuscular Hemoglobin Concent 32.0 32.0-36.0 g/dL Red Cell Distribution Width 20.1 H 11.8-14.3 % Platelet Count 464 H 140-450 10^3/uL Mean Platelet Volume 6.6 L 6.9-10.8 fL Neutrophils (%) (Auto) 70.2 37.0-80.0 % Lymphocytes (%) (Auto) 11.6 10.0-50.0 % Monocytes (%) (Auto) 11.7 0.0-12.0 % Eosinophils (%) (Auto) 5.9 0.0-7.0 % Basophils (%) (Auto) 0.6 0.0-2.0 % Neutrophils # (Auto) 5.9 1.6-8.6 10 ^3/uL Lymphocytes # (Auto) 1.0 0.4-5.4 10 ^3/uL Monocytes # (Auto) 1.0 0-1.3 10 ^3/uL Eosinophils # (Auto) 0.5 0-0.8 10 ^3/uL Basophils # (Auto) 0.1 0-0.2 10 ^3/uL Nucleated Red Blood Cells 0.2 % Sodium Level 137 136-145 mmol/L Potassium Level 3.3 L 3.5-5.1 mmol/L Chloride Level 107 98-107 mmol/L Carbon Dioxide Level 22 20-31 mmol/L Anion Gap 8 5-15 Blood Urea Nitrogen 7 L 9-23 mg/dL Creatinine 0.78 0.700-1.30 mg/dL Glomerular Filtration Rate Calc 113 >90 mL/min BUN/Creatinine Ratio 9.0 L 10.0-20.0 Serum Glucose 129 H 74-106 mg/dL Calcium Level 8.7 8.7-10.4 mg/dL Total Bilirubin 0.2 0.2-1.0 mg/dL Aspartate Amino Transferase (AST) 27 13-40 U/L Alanine Aminotransferase (ALT) 12 7-40 U/L Alkaline Phosphatase 109 46-116 U/L Total Protein 8.8 H 5.7-8.2 g/dL Albumin 3.3 3.2-4.8 g/dL Lipase 24 12-53 U/L Assessment/Plan Assessment/Plan Assessment Acute abdominal pain Colostomy prolapse Noncompliant Plan Admit the patient to [facility] to the hospitalist Surgical consult NPO Maintenance IV fluids Pain management Continue treatment per orders. Plan discussed with: Patient My Orders Orders - YOEL ENRIQUE Procedure Category Date Status Time * Surgical Consult CONS 09/24/24 Transmitted NS PHA 09/24/24 Transmitted 19:30 Basic Metabolic Panel LAB 09/25/24 Verified 04:00 Admit ADMIT 09/24/24 Transmitted 19:30 Ondansetron Hcl PHA 09/24/24 Transmitted (Zofran) 19:30 Complete Blood Count LAB 09/25/24 Verified 04:00 Npo (Nothing By DIET 09/25/24 Transmitted Mouth) Diet Breakfast Condition: Stable [facility] 09/24/24 Transmitted 19:30 Bedrest With Bathroom TRENT 09/24/24 Transmitted Privileg 19:30 Morphine Sulfate PHA 09/24/24 Transmitted Injection 19:30 Date of Service: Sep 24, 2024 Billing Provider: YOEL ENRIQUE Common Visit Codes: [id number] INP/OBS CARE (MOD) YOEL ENRIQUE Sep 24, 2024 19:38
[2024-09-24 19:44] VITALS: PULSE 105; RESP 13; O2SAT 96
[2024-09-24] MEDS: SODIUM CHLORIDE 0.9% 1,000 ML IV ONE (19:58)
[2024-09-24] MEDS: MORPHINE SULFATE INJ 2 MG/ml SYRG IV PRN (19:59)
[2024-09-25] MEDS: diphenhdrAMINE HCL 25 MG CAP PO ONE (00:23)
[2024-09-25 03:51] LABS: Eosinophils # (auto) 0.6 10 ^3/uL (0-0.8); Mean Corpuscular Hemoglobin 26.4 pg (28.0-32.0); Monocytes # (auto) 0.9 10 ^3/uL (0-1.3); Nucleated Red Blood Cells % 0.1 %; Red Cell Distribution Width 19.6 % (11.8-14.3)
[2024-09-25 03:54] LABS: Basophils # (auto) 0 10 ^3/uL (0-0.2); Basophils % (auto) 0.6 % (0.0-2.0); Eosinophils % (auto) 8.7 % (0.0-7.0); Hematocrit 30.4 % (41.0-53.0); Lymphocytes # (auto) 1.2 10 ^3/uL (0.4-5.4); Lymphocytes % (auto) 16.8 % (10.0-50.0); Mean Corpuscular Hgb Conc. 32.8 g/dL (32.0-36.0); Mean Corpuscular Volume 80.5 fL (80.0-100.0); Monocytes % (auto) 12.5 % (0.0-12.0); Neutrophils # (auto) 4.2 10 ^3/uL (1.6-8.6); Neutrophils % (auto) 61.4 % (37.0-80.0); Platelet Count (auto) 401 10^3/uL (140-450); Red Blood Cells 3.78 10^6/uL (4.5-5.90); White Blood Cell 6.9 10^3/uL (4.4-10.8)
[2024-09-25 04:04] LABS: Anion Gap 6 (5-15); Carbon Dioxide 24 mmol/L (20-31); Sodium 139 mmol/L (136-145)
[2024-09-25 04:10] LABS: Blood Urea Nitrogen 7 mg/dL (9-23); Calcium 8.5 mg/dL (8.7-10.4); Chloride 109 mmol/L (98-107); Glucose 80 mg/dL (74-106); Potassium 3.3 mmol/L (3.5-5.1)
[2024-09-25 08:09] VITALS: BP 132/86; PULSE 94; RESP 24; TEMP 97.7; O2SAT 97
[2024-09-25 08:13] LABS: Urine Bacteria None Seen /hpf (None Seen)
[2024-09-25 08:22] VITALS: PULSE 96; RESP 16; O2SAT 97
[2024-09-25 08:26] LABS: Urine Blood Negative /uL (Negative); Urine Clarity Clear (Clear); Urine Color Yellow (Yellow); Urine Protein, UAD TRACE (Negative); Urine Specific Gravity 1.021 (1.001-1.035); Urine Urobilinogen 3 mg/dL (Negative); Urine WBC 1 /hpf (0 - 3); Urine pH 6.5 (5.0-9.0)
--- NOTE | 2024-09-25 11:00 | DVHINCON2 ---
Date of service: Sep 25, 2024 History of Present Illness 44-year-old male with a history of severe hidradenitis suppurativa involving his gluteal region status post diverting colostomy performed at [facility] this year complaining of abdominal pain that began yesterday. Patient denies any fevers, chills, nausea or vomiting. Patient reports good output from the colostomy. Past Medical History Hidradenitis suppurativa Past Surgical History Diverting colostomy as mentioned in HPI Family History: Patient reports no known family medical history. Family History Noncontributory Social History Smokes marijuana. Occasional alcohol. Uses methamphetamines Allergies: Coded Allergies: Ketorolac Tromethamine (Verified Allergy, Unknown, 09/03/23) Penicillins (Verified Allergy, Unknown, 12/01/23) Vancomycin (Verified Allergy, Unknown, 07/07/24) Home Meds No Active Prescriptions or Reported Meds Current Medications Current Medications Medications (Trade) Dose Ordered Sig/Wallace Route PRN Reason Start Time Stop Time Status Last Admin Ondansetron HCl (Zofran) 4 mg Q4HP PRN IV NAUSEA / VOMITING 09/24/24 19:30 Morphine Sulfate 2 mg Q4HPRN PRN IV SEVERE PAIN (7-10 PAIN SCALE) 09/24/24 19:30 09/25/24 00:03 Vital Signs Vital Signs Date Time Temp Pulse Resp B/P (MAP) Pulse Ox O2 Delivery O2 Flow Rate FiO2 09/25/24 10:00 97.5 92 12 124/77 (93) 97 97.5 09/25/24 08:22 Room Air* 0 21 Physical Exam GEN: Age-appropriate male in no acute distress. Alert. HEENT: Normocephalic atraumatic. Moist mucous membranes. Anicteric sclerae. CV: RRR Respiratory: CTAB ABD: There is a left lower quadrant colostomy with prolapse with stool output. Abdomen is otherwise soft. Nontender nondistended. CT of the abdomen and pelvis: Small bowel and colon are normal in caliber and distribution. Colostomy in the left lower anterior abdominal wall without any changes in the appearance of the colon or small bowel compared to previous studies in August and July of this year. Labs/Diagnostic Data Labs Test 09/25/24 07:08 09/25/24 03:33 09/24/24 16:39 Range/Units Urine Color Yellow Yellow Urine Clarity Clear Clear Urine pH 6.5 5.0-9.0 Urine Specific [place] 1.021 1.001-1.035 Urine Protein Trace H Negative Urine Ketones Negative Negative Urine Blood Negative Negative /uL Urine Nitrite Negative Negative Urine Bilirubin Negative Negative Urine Urobilinogen 3 H Negative mg/dL Urine Leukocyte Esterase Negative Negative /uL Urine RBC 3 0 - 3 /hpf Urine WBC 1 0 - 3 /hpf Urine Squamous Epithelial Cells None seen <5 /hpf Urine Bacteria None seen None Seen /hpf Urine Glucose Normal Normal mg/dL White Blood Count 6.9 4.4-10.8 10^3/uL Red Blood Count 3.78 L 4.5-5.90 10^6/uL Hemoglobin 10.0 L 13.5-17.5 g/dL Hematocrit 30.4 L 41.0-53.0 % Mean Corpuscular Volume 80.5 80.0-100.0 fL Mean Corpuscular Hemoglobin 26.4 L 28.0-32.0 pg Mean Corpuscular Hemoglobin Concent 32.8 32.0-36.0 g/dL Red Cell Distribution Width 19.6 H 11.8-14.3 % Platelet Count 401 140-450 10^3/uL Mean Platelet Volume 6.5 L 6.9-10.8 fL Neutrophils (%) (Auto) 61.4 37.0-80.0 % Lymphocytes (%) (Auto) 16.8 10.0-50.0 % Monocytes (%) (Auto) 12.5 H 0.0-12.0 % Eosinophils (%) (Auto) 8.7 H 0.0-7.0 % Basophils (%) (Auto) 0.6 0.0-2.0 % Neutrophils # (Auto) 4.2 1.6-8.6 10 ^3/uL Lymphocytes # (Auto) 1.2 0.4-5.4 10 ^3/uL Monocytes # (Auto) 0.9 0-1.3 10 ^3/uL Eosinophils # (Auto) 0.6 0-0.8 10 ^3/uL Basophils # (Auto) 0 0-0.2 10 ^3/uL Nucleated Red Blood Cells 0.1 % Sodium Level 139 136-145 mmol/L Potassium Level 3.3 L 3.5-5.1 mmol/L Chloride Level 109 H 98-107 mmol/L Carbon Dioxide Level 24 20-31 mmol/L Anion Gap 6 5-15 Blood Urea Nitrogen 7 L 9-23 mg/dL Creatinine 0.70 0.700-1.30 mg/dL Glomerular Filtration Rate Calc 117 >90 mL/min BUN/Creatinine Ratio 10.0 10.0-20.0 Serum Glucose 80 74-106 mg/dL Calcium Level 8.5 L 8.7-10.4 mg/dL Total Bilirubin 0.2 0.2-1.0 mg/dL Aspartate Amino Transferase (AST) 27 13-40 U/L Alanine Aminotransferase (ALT) 12 7-40 U/L Alkaline Phosphatase 109 46-116 U/L Total Protein 8.8 H 5.7-8.2 g/dL Albumin 3.3 3.2-4.8 g/dL Lipase 24 12-53 U/L Assessment 1. Colostomy prolapse without obstruction. Plan/Recommendation 1. Recommend elective colostomy reversal once it was hidradenitis is completely healed. No acute indication for surgical intervention at this time. Plan discussed with: Patient VARUN TANNER MD Sep 25, 2024 11:00
[2024-09-25 14:35] VITALS: BP 126/80; PULSE 97; RESP 24; TEMP 97.8; O2SAT 99
[2024-09-25] MEDS: ONDANSETRON HCL 4 MG/2 ML VIAL IV PRN (14:41)
[2024-09-25 17:59] VITALS: BP 119/76; PULSE 92; RESP 24; TEMP 98.5; O2SAT 93
--- NOTE | 2024-09-25 18:40 | DVHPN2 ---
Subjective still having some abdominal pain Changes from previous H/P or p: No Changes Objective Vitals Vital Signs Date Time Temp Pulse Resp B/P (MAP) Pulse Ox O2 Delivery O2 Flow Rate FiO2 09/25/24 17:59 98.5 92 24 119/76 (90) 93 98.5 09/25/24 08:22 Room Air* 0 21 Intake/Output Intake and Output 09/25/24 05:00 Intake Total 675 ml Balance 675 ml Intake IV Total 675 ml General Appearance: Alert, Oriented X3 Cardiovascular: Regular rate, Normal S1 Abdomen: Normal bowel sounds, Soft, No tenderness Medications Current Medications Medications Dose Ordered Sig/Wallace Route Start Time Stop Time Status Last Admin Dose Admin Ondansetron HCl 4 mg Q4HP PRN IV 09/24/24 19:30 09/25/24 14:41 4 MG Morphine Sulfate 2 mg Q4HPRN PRN IV 09/24/24 19:30 09/25/24 14:42 2 MG Laboratory Results Laboratory Tests 09/25/24 03:33 Chemistry Test 09/25/24 03:33 Calcium Level 8.5 mg/dL (8.7-10.4) L Urinalysis Test 09/25/24 07:08 Urine Color Yellow (Yellow) Urine Clarity Clear (Clear) Urine pH 6.5 (5.0-9.0) Urine Specific [place] 1.021 (1.001-1.035) Urine Protein Trace (Negative) H Urine Ketones Negative (Negative) Urine Blood Negative /uL (Negative) Urine Nitrite Negative (Negative) Urine Bilirubin Negative (Negative) Urine Urobilinogen 3 mg/dL (Negative) H Urine Leukocyte Esterase Negative /uL (Negative) Urine RBC 3 /hpf (0 - 3) Urine WBC 1 /hpf (0 - 3) Urine Squamous Epithelial Cells None seen /hpf (<5) Urine Bacteria None seen /hpf (None Seen) Urine Glucose Normal mg/dL (Normal) Assessment/Plan Assessment/Plan Acute abdominal pain Colostomy prolapse Noncompliant Plan Clear diet surgery consult pain medications possible discharge tomorrow if pain controlled Plan discussed with: Patient Date of Service: Sep 25, 2024 Billing Provider: NAA KAUFMAN MD Common Visit Codes: [id number] INP/OBS CARE(HIGH) NAA KAUFMAN MD Sep 25, 2024 18:40
[2024-09-25 21:30] VITALS: BP 138/90; PULSE 102; RESP 15; TEMP 98; O2SAT 97
[2024-09-25 23:00] VITALS: PULSE 98; RESP 17; O2SAT 97
[2024-09-26] VITALS (8 sets, daily range): BP systolic 116–131; BP diastolic 65–88; PULSE 68–107; RESP 14–18; TEMP 97.4–98.8; O2SAT 95–98
--- NOTE | 2024-09-26 17:16 | DVHPN2 ---
Subjective Seen and examined at bedside, patient wishes for diet to be advanced to regular diet. I suggested going to [employer] but patient wants regular food. Surgical note reviewed and explained in detail to the patient, will DC tomorrow. Changes from previous H/P or p: No Changes Objective Vitals Vital Signs Date Time Temp Pulse Resp B/P (MAP) Pulse Ox O2 Delivery O2 Flow Rate FiO2 09/26/24 17:00 97.4 80 14 116/65 (82) 96 97.4 09/26/24 07:30 Room Air* 0 21 Intake/Output Intake and Output 09/26/24 07:00 Intake Total 75 ml Balance 75 ml IV Total 75 ml General Appearance: Alert, Oriented X3 Cardiovascular: Regular rate, Normal S1 Abdomen: Normal bowel sounds, Soft, No tenderness, Other (Colostomy with good output. Hidrarentis) Medications Current Medications Medications Dose Ordered Sig/Wallace Route Start Time Stop Time Status Last Admin Dose Admin Ondansetron HCl 4 mg Q4HP PRN IV 09/24/24 19:30 09/25/24 19:05 4 MG Morphine Sulfate 2 mg Q4HPRN PRN IV 09/24/24 19:30 09/26/24 12:21 2 MG Laboratory Results Laboratory Tests 09/25/24 03:33 Urinalysis Test 09/25/24 07:08 Urine Color Yellow (Yellow) Urine Clarity Clear (Clear) Urine pH 6.5 (5.0-9.0) Urine Specific [place] 1.021 (1.001-1.035) Urine Protein Trace (Negative) H Urine Ketones Negative (Negative) Urine Blood Negative /uL (Negative) Urine Nitrite Negative (Negative) Urine Bilirubin Negative (Negative) Urine Urobilinogen 3 mg/dL (Negative) H Urine Leukocyte Esterase Negative /uL (Negative) Urine RBC 3 /hpf (0 - 3) Urine WBC 1 /hpf (0 - 3) Urine Squamous Epithelial Cells None seen /hpf (<5) Urine Bacteria None seen /hpf (None Seen) Urine Glucose Normal mg/dL (Normal) Assessment/Plan Assessment/Plan Acute abdominal pain - Advance diet Colostomy with Good output- Outpatient reversal Hidrarentis- Outpatient Dermatology Plan discussed with: Patient My Orders Orders - CARIDAD OLVERA MD Procedure Category Date Status Time * Vp Clinical Research CONS 09/26/24 Transmitted Consult Regular Diet DIET 09/26/24 Transmitted Dinner Potassium Er Tablet PHA 09/26/24 Logged (Klor-Con Tablet) 17:15 Basic Metabolic Panel LAB 09/27/24 Verified 04:00 Magnesium LAB 09/27/24 Verified 04:00 Complete Blood Count LAB 09/27/24 Verified 04:00 Date of Service: Sep 26, 2024 Billing Provider: CARIDAD OLVERA MD Common Visit Codes: [id number] INP/OBS CARE(HIGH) CARIDAD OLVERA MD Sep 26, 2024 17:16
[2024-09-26] MEDS: POTASSIUM CHL 20 Meq TABLET PO ONE (18:22)
[2024-09-27] VITALS (7 sets, daily range): BP systolic 88–132; BP diastolic 51–89; PULSE 74–109; RESP 16–20; TEMP 97.5–99.1; O2SAT 86–98
[2024-09-27 06:58] LABS: Anion Gap 9 (5-15); Carbon Dioxide 23 mmol/L (20-31); Chloride 103 mmol/L (98-107); Potassium 4.5 mmol/L (3.5-5.1)
[2024-09-27 06:59] LABS: Calcium 9.4 mg/dL (8.7-10.4)
[2024-09-27 07:00] LABS: Sodium 135 mmol/L (136-145)
[2024-09-27 07:04] LABS: Basophils # (auto) 0.1 10 ^3/uL (0-0.2); Eosinophils # (auto) 0.7 10 ^3/uL (0-0.8); Eosinophils % (auto) 6.3 % (0.0-7.0); Glucose 78 mg/dL (74-106); Hemoglobin 11.1 g/dL (13.5-17.5); Mean Corpuscular Hemoglobin 26.7 pg (28.0-32.0); Red Blood Cells 4.15 10^6/uL (4.5-5.90); Red Cell Distribution Width 19.5 % (11.8-14.3)
[2024-09-27 07:05] LABS: Magnesium 1.9 mg/dL (1.6-2.6)
[2024-09-27 07:06] LABS: Basophils % (auto) 1.3 % (0.0-2.0); Lymphocytes # (auto) 1.2 10 ^3/uL (0.4-5.4); Lymphocytes % (auto) 11.3 % (10.0-50.0); Mean Corpuscular Hgb Conc. 32.6 g/dL (32.0-36.0); Monocytes # (auto) 1.1 10 ^3/uL (0-1.3); Neutrophils # (auto) 7.7 10 ^3/uL (1.6-8.6); Neutrophils % (auto) 71.1 % (37.0-80.0); Nucleated Red Blood Cells % 0.1 %; Platelet Count (auto) 431 10^3/uL (140-450); White Blood Cell 10.8 10^3/uL (4.4-10.8)
[2024-09-27 07:32] LABS: BUN/Creatinine Ratio 11.6 (10.0-20.0)
[2024-09-27 07:45] LABS: Blood Urea Nitrogen 8 mg/dL (9-23)
--- NOTE | 2024-09-27 13:28 | DVHDS2 ---
Discharge Summary Date of Admission Sep 24, 2024 at 19:30 Date of Discharge: Sep 27, 2024 Labs/Diagnostic Data: Laboratory Results Test 09/27/24 05:15 09/25/24 07:08 09/24/24 16:39 White Blood Count 10.8 10^3/uL (4.4-10.8) Red Blood Count 4.15 10^6/uL (4.5-5.90) Hemoglobin 11.1 g/dL (13.5-17.5) Hematocrit 34.0 % (41.0-53.0) Mean Corpuscular Volume 82.0 fL (80.0-100.0) Mean Corpuscular Hemoglobin 26.7 pg (28.0-32.0) Mean Corpuscular Hemoglobin Concent 32.6 g/dL (32.0-36.0) Red Cell Distribution Width 19.5 % (11.8-14.3) Platelet Count 431 10^3/uL (140-450) Mean Platelet Volume 6.7 fL (6.9-10.8) Neutrophils (%) (Auto) 71.1 % (37.0-80.0) Lymphocytes (%) (Auto) 11.3 % (10.0-50.0) Monocytes (%) (Auto) 10.0 % (0.0-12.0) Eosinophils (%) (Auto) 6.3 % (0.0-7.0) Basophils (%) (Auto) 1.3 % (0.0-2.0) Neutrophils # (Auto) 7.7 10 ^3/uL (1.6-8.6) Lymphocytes # (Auto) 1.2 10 ^3/uL (0.4-5.4) Monocytes # (Auto) 1.1 10 ^3/uL (0-1.3) Eosinophils # (Auto) 0.7 10 ^3/uL (0-0.8) Basophils # (Auto) 0.1 10 ^3/uL (0-0.2) Nucleated Red Blood Cells 0.1 % Sodium Level 135 mmol/L (136-145) Potassium Level 4.5 mmol/L (3.5-5.1) Chloride Level 103 mmol/L (98-107) Carbon Dioxide Level 23 mmol/L (20-31) Anion Gap 9 (5-15) Blood Urea Nitrogen 8 mg/dL (9-23) Creatinine 0.69 mg/dL (0.700-1.30) Glomerular Filtration Rate Calc 118 mL/min (>90) BUN/Creatinine Ratio 11.6 (10.0-20.0) Serum Glucose 78 mg/dL (74-106) Calcium Level 9.4 mg/dL (8.7-10.4) Magnesium Level 1.9 mg/dL (1.6-2.6) Urine Color Yellow (Yellow) Urine Clarity Clear (Clear) Urine pH 6.5 (5.0-9.0) Urine Specific [place] 1.021 (1.001-1.035) Urine Protein Trace (Negative) Urine Ketones Negative (Negative) Urine Blood Negative /uL (Negative) Urine Nitrite Negative (Negative) Urine Bilirubin Negative (Negative) Urine Urobilinogen 3 mg/dL (Negative) Urine Leukocyte Esterase Negative /uL (Negative) Urine RBC 3 /hpf (0 - 3) Urine WBC 1 /hpf (0 - 3) Urine Squamous Epithelial Cells None seen /hpf (<5) Urine Bacteria None seen /hpf (None Seen) Urine Glucose Normal mg/dL (Normal) Total Bilirubin 0.2 mg/dL (0.2-1.0) Aspartate Amino Transferase (AST) 27 U/L (13-40) Alanine Aminotransferase (ALT) 12 U/L (7-40) Alkaline Phosphatase 109 U/L (46-116) Total Protein 8.8 g/dL (5.7-8.2) Albumin 3.3 g/dL (3.2-4.8) Lipase 24 U/L (12-53) Other Laboratory Tests 09/27/24 05:15 Brief Hx & Hospital Course: 44-year-old male with a history of severe hidradenitis suppurativa involving his gluteal region status post diverting colostomy performed at [facility] this year complaining of abdominal pain that began yesterday. Patient denies any fevers, chills, nausea or vomiting. Patient reports good output from the colostomy. Patients diet was advanced, tolerated well. Patient needs outpatient followup with Colorectal surgery at [facility] as outpatient. Patient was given colostomy supplies. Condition at Discharge: Stable Final Diagnosis/Problems List Acute abdominal pain - Advance diet Colostomy with Good output- Outpatient reversal Hidrarentis- Outpatient Dermatology Discharge Disposition: Home Discharge Instruct/Medications Diet: Regular Activity: Light activity Follow Up/Referral: [facility] Colorectal Surgery Department Discharge Statement: "Patient was advised to return to the ER or call 911 if any headaches, dizziness, shortness of breath, chest pain, abdominal pain, bleeding, fevers, or worsening of medical condition. Patient was counseled about treatment plan, medications, possible side effects, patientverbalized understanding. All questions were answered to the best of my ability. This discharge took greater then 30 minutes in planning, reviewing documentation, counseling the patient, and discussing with other team members." ASSESSMENT ASSESSMENT Assessment Date of Service: Sep 27, 2024 Billing Provider: CARIDAD OLVERA MD Common Visit Codes: [id number] INP/OBS CARE(HIGH) CARIDAD OLVERA MD Sep 27, 2024 13:28
== END 2024-09-27 19:00 | disposition home or self-care (01) | DRG 252 ==
LOC: ER 15:27 → OVERFLOW 19:30 → WEST WING 09-25 21:31
PROVIDERS: ADMIT Nurse Practitioner; ATTEND Internal Medicine
DX: K94.09 Other complications of colostomy (principal); F17.210 Nicotine dependence, cigarettes, uncomplicated; Y83.8 Other surgical procedures as the cause of abnormal reaction of the patient, or of later complication, without mention of misadventure at the time of the procedure; Y82.8 Other medical devices associated with adverse incidents; Z88.0 Allergy status to penicillin; Z88.1 Allergy status to other antibiotic agents; Z59.00 Homelessness unspecified; Z91.199 Patient's noncompliance with other medical treatment and regimen due to unspecified reason
CPT/HCPCS: 36415; 74176; 80048; 80053; 81001; 83690; 83735; 85025; 87081; 96360; G0378; J2405

== ENCOUNTER 2024-10-04 02:32 | Emergency (ER) | payer MEDICAID | END 2024-10-04 03:42 | disposition left against medical advice (07) | LOC: ER 02:32 | DX: Z93.3 Colostomy status (principal); Z53.21 Procedure and treatment not carried out due to patient leaving prior to being seen by health care provider ==

== ENCOUNTER 2024-10-05 06:36 | Emergency (ER) | payer MEDICAID ==
[~2024-10-05] VITALS: Ht 188 cm; Wt 71.0 kg
--- NOTE | 2024-10-05 07:10 | ED.PDOC ---
GI ASSESSMENT HPI Comments 44 y.o male presents to the ED for an evaluation of a wound check. Patient had a colostomy bag placed 6 months ago at [facility] due to Hidradenitis Suppurativa and skin graft procedure near [facility], states he has not followed up for a reversal and now presents with surgical site exposed. Patient took colostomy bag off due to sizing issues, had intestine protruding in the cold for 2-3 days due to experiencing homelessness and now presents with a regular shopping bag wrapped around surgical site. Patient complains of abdominal pain with nausea and has swelling to wound site. Chief Complaint: Abdominal Pain Time Seen by MD: 06:50 Primary Care Provider: [facility] Reviewed Notes: Nurses Notes, Medications, Allergies Allergies: Coded Allergies: Ketorolac Tromethamine (Verified Allergy, Unknown, 09/03/23) Penicillins (Verified Allergy, Unknown, 12/01/23) Vancomycin (Verified Allergy, Unknown, 07/07/24) Home Meds No Active Prescriptions or Reported Meds Information Source: Patient Mode of Arrival: Ambulatory Timing: Days Duration: Since onset Quality: Aching Vomitus: None Stool: Normal Severity: Moderate Recent: None Recent Hx of: Abdominal Surgery Pain Location: Diffuse Modifying Factors: Nothing Associated sign and symptoms: Vomiting, Abdominal Pain Past Medical History Past Medical History (Other): Hidradenitis Suppurativa Surgical History (Other): colostomy bag and skin graft Family History Family History: Reviewed,noncontributory to illness, Unknown Social History Smoker: Cigarettes Alcohol: Rarely Drugs: Marijuana, Methamphetamine Lives In: Homeless Constitutional: denies: chills, diaphoresis, fatigue, fever, malaise, sweats, weakness, others EENTM: denies: blurred vision, double vision, ear bleeding, ear discharge, ear drainage, ear pain, ear ringing, eye pain, eye redness, hearing loss, mouth pain, mouth swelling, nasal discharge, nose bleeding, nose congestion, nose pain, photophobia, tearing, throat pain, throat swelling, voice changes, others Respiratory: denies: cough, hemoptysis, orthopnea, SOB at rest, shortness of breath, SOB with excertion, stridor, wheezing, others Cardiovascular: denies: chest pain, dizzy spells, diaphoresis, Dyspnea on exertion, edema, irregular heart beat, left arm pain, lightheadedness, palpitations, PND, syncope, others Gastrointestinal: reports: abdominal pain, nausea; denies: abdomen distended, blood streaked bowels, constipated, diarrhea, dysphagia, difficulty swallowing, hematemesis, melena, poor appetite, poor fluid intake, rectal bleeding, rectal pain, vomiting, others Genitourinary: denies: burning, dysuria, flank pain, frequency, hematuria, incontinence, penile discharge, penile sore, pain, testicle pain, testicle swelling, urgency, others Neurological: denies: dizziness, fainting, headache, left sided numbness, left sided weakness, numbness, paresthesia, pre-existing deficit, right sided numbness, right sided weakness, seizure, speech problems, tingling, tremors, weakness, others Musculoskeletal: denies: back pain, gout, joint pain, joint swelling, muscle p ain, muscle stiffness, neck pain, others Integumetry: reports: wounds; denies: bruises, change in color, change in hair/nails, dryness, laceration, lesions, lumps, rash, others Allergic/Immunocompromised: denies: Difficulty Healing, Frequent Infections, Hives, Itching, others Hematologic/Lymphatic: denies: anemia, blood clots, easy bleeding, easy bruising, swollen glands, others Endocrine: denies: excessive hunger, excessive sweating, excessive thirst, excessive urination, flushing, intolerance to cold, intolerance to heat, u nexplained weight gain, unexplained weight loss, others Psychiatric: denies: anxiety, bipolar disorder, depression, hopeless, panic disorder, schizophrenia, sleepless, suicidal, others All Other Systems: Reviewed and Negative Physical Exam General Appearance: Normal HEENT: Head, PERRL/EOMI Neck: Normal, Supple Respiratory: Lungs Clear, Normal Breath Sounds Cardiovascular: No Edema, Other (Regular rate rhythm. No murmurs or rubs noted.) Breast Exam: Deferred Gastrointestinal: Other (Soft, nontender with rebound or guarding. Patient has a parastomal hernia with intestine protruding from his stoma.) Genitalia: Deferred Pelvic: Deferred Rectal: Deferred Extremities: Normal range of motion, No pedal edema Neurologic: medical reviewer II-XII nml as Tested, Normal Affect, Normal Mood Cerebellar Function: NOT DONE Reflexes: NOT DONE Skin: Normal Color, Warm Lymphatic: NOT DONE Was a procedure done? Was a procedure done?: No GI differential Dx Differential Diagnosis: Trauma intraabdominal Other Differential Diagnosis stoma obstruction, parastomal hernia, stoma prolapse, infection, scar tissue irritation, nerve damage, appliance leaks, granulomas X-Ray, Labs, Meds, VS Vital Signs Date Time Temp Pulse Resp B/P (MAP) Pulse Ox O2 Delivery O2 Flow Rate FiO2 10/05/24 10:20 93 17 130/88 (102) 96 10/05/24 08:00 89 18 99 Room Air* 0 21 10/05/24 08:00 97.4 89 18 132/89 (103) 99 97.4 10/05/24 06:53 98.3 106 22 146/96 (113) 98 Lab Test 10/05/24 08:20 Range/Units White Blood Count 11.2 H 4.4-10.8 10^3/uL Red Blood Count 4.01 L 4.5-5.90 10^6/uL Hemoglobin 10.7 L 13.5-17.5 g/dL Hematocrit 33.0 L 41.0-53.0 % Mean Corpuscular Volume 82.3 80.0-100.0 fL Mean Corpuscular Hemoglobin 26.7 L 28.0-32.0 pg Mean Corpuscular Hemoglobin Concent 32.5 32.0-36.0 g/dL Red Cell Distribution Width 18.4 H 11.8-14.3 % Platelet Count 512 H 140-450 10^3/uL Mean Platelet Volume 7.1 6.9-10.8 fL Neutrophils (%) (Auto) 81.1 H 37.0-80.0 % Lymphocytes (%) (Auto) 7.8 L 10.0-50.0 % Monocytes (%) (Auto) 6.1 0.0-12.0 % Eosinophils (%) (Auto) 4.7 0.0-7.0 % Basophils (%) (Auto) 0.3 0.0-2.0 % Neutrophils # (Auto) 9.1 H 1.6-8.6 10 ^3/uL Lymphocytes # (Auto) 0.9 0.4-5.4 10 ^3/uL Monocytes # (Auto) 0.7 0-1.3 10 ^3/uL Eosinophils # (Auto) 0.5 0-0.8 10 ^3/uL Basophils # (Auto) 0 0-0.2 10 ^3/uL Nucleated Red Blood Cells 0.0 % Sodium Level 138 136-145 mmol/L Potassium Level 3.4 L 3.5-5.1 mmol/L Chloride Level 106 98-107 mmol/L Carbon Dioxide Level 26 20-31 mmol/L Anion Gap 6 5-15 Blood Urea Nitrogen < 5 L 9-23 mg/dL Creatinine 0.70 0.700-1.30 mg/dL Glomerular Filtration Rate Calc 117 >90 mL/min BUN/Creatinine Ratio 7.1 L 10.0-20.0 Serum Glucose 81 74-106 mg/dL Lactic Acid Level 0.8 0.4-2.0 mmol/L Calcium Level 8.8 8.7-10.4 mg/dL Total Bilirubin 0.2 0.2-1.0 mg/dL Aspartate Amino Transferase (AST) 19 13-40 U/L Alanine Aminotransferase (ALT) 17 7-40 U/L Alkaline Phosphatase 101 46-116 U/L Total Protein 8.4 H 5.7-8.2 g/dL Albumin 3.1 L 3.2-4.8 g/dL Lipase Pending X-Ray, Labs, Meds, VS Comment This 44-year-old male presents secondary to a parastomal hernia. States he has had it for several months. He is followed up at multiple facilities including the facility who did the initial operation, [facility]. They have declined to reverse the stoma. Here, the patient noted to have virtually intestine. I discussed with the patient about an attempt to reduce and then reach out to the surgeon on-call. Unfortunately, the patient was uncooperative and insulting. The patient continued to insult me personally and demands food. He was informed that providing food prior to attempted reduction would be counterproductive as it may increase the caliber of the intestine making reduction or difficulty. The patient continued to be insulting and used profanity. As there has not been any acute change in the size of his hernia, any new symptoms such as pain or difficulty eating, or other change, he will be discharged. He is asked to follow up with [facility] for further workup management of his hernia. If he develops any new/worse has worsening symptoms asked to return to the ER. I am unable to force the patient to undergo care including a dressing complaints he presented with. Time of 1ST Reevaluation: 07:03 Reevaluation 1ST: Unchanged Patient Education/Counseling: Diagnosis, Treatment, Prognosis Family Education/Counseling: No Family Present Additional Information I reviewed the following notes from patient's past medical encounters: LAB, CT ABD/PELV The following tests were ordered, and results were reviewed by me: LAB including UA, blood cultures, lipase I reviewed and agreed with the following test results read by other providers: CT I discussed treatment and results with medical personnel and patient [place] [id number] Ph: [phone] DIAGNOSTIC IMAGING Diagnostic Imaging Report : [id number] Signed PATIENT: WILMER JAMA ACCT: [id number] UNIT: [id number] : 1980 LOC: ER ROOM / BED: / AGE / SEX: 44 / M ADM STATUS: REG ER SERVICE [id number] ORDERING PHYSICIAN: DIEUDONNE CARPENTER MD PROCEDURE(s): ABPL - CT AB PEL WO CON-NO ORAL OR IV REASON: stoma hernia ORDER NUMBER(s): [id number], ACCESSION NUMBER(s): [id number] CLINICAL INFORMATION: 44 years old, Male; parastomal hernia. TECHNIQUE: Axial CT images of the abdomen and pelvis were obtained without IV contrast. Coronal and sagittal reformatted images were obtained, reviewed, and stored. Evaluation of the parenchymal organs is limited without IV contrast. Evaluation of the bowel and mesentery is limited without oral contrast. All CT scans at this medical facility are performed using dose modulation techniques as appropriate to a performed exam including the following: Automated exposure control was utilized; adjustment of the MA and/or KV according to patient size; and use of iterative reconstruction technique. CTDIvol = 5.4 mGy DLP = 347.86 mGy-cm COMPARISON: CT CT AB PEL WO CON-NO ORAL OR IV on DOS: 09/24/24, CT CT AB PEL WO CON-NO ORAL OR IV on DOS: 08/21/24, CT CT AB PEL WO CON-NO ORAL OR IV on DOS: 07/19/24 FINDINGS: Lung bases: Dependent atelectasis in the lower lobes. Liver: Grossly unremarkable in its noncontrast enhanced appearance. No abnormal density or focal lesion identified. Biliary: No calcified gallstones or biliary ductal dilatation. Spleen: Unremarkable. Pancreas: Grossly unremarkable in its noncontrast enhanced appearance. Adrenal glands: Unremarkable. No mass. Kidneys: No hydronephrosis. No renal or ureteral calculi. Fluid density lesions in both kidneys, likely cysts. Aorta/Vascular: No aneurysm or significant calcification. Retroperitoneum: No mass or lymphadenopathy. Bowel/mesentery: No small bowel obstruction. Appendix is not visualized. There is a left lower quadrant colostomy, appears to be a diverting colostomy, with parastomal hernia containing fat. There is some stranding and edema within the hernia skin thickening. Moderate to large amount of stool in the colon. Pelvic organs: Grossly unremarkable. Bladder: Moderate circumferential thickening of the bladder wall. Abdominal wall: Left lower quadrant colostomy as described above. There is skin thickening in the perineal and perianal soft tissues with adjacent soft tissue stranding. Mildly prominent bilateral inguinal lymph nodes measuring up to 1.1 cm in short axis, may be reactive, unchanged. Bones: No acute fracture or suspicious intraosseous lesion. IMPRESSION: 1. Left lower quadrant diverting colostomy with fat containing parastomal hernia. Somewhat edematous appearance of the fat within the parastomal hernia and associated skin thickening. Strangulation of fat or infectious/inflammatory etiology not excluded. Correlate with clinical findings. 2. There is also skin thickening and mild adjacent stranding in the perineal and perianal soft tissues. Possible cellulitis in the appropriate clinical setting. 3. Moderate to large amount of stool in the colon. 4. No small bowel obstruction. 5. Circumferential thickening of the bladder wall is nonspecific. Correlate clinically to exclude cystitis. 6. Mildly prominent bilateral inguinal lymph nodes, similar to the prior exam. May be reactive. 7. Additional findings as detailed above ATED BY: FRANCISCO NIEVES DO DICTATED DATE/TIME: 10/05/24756 SIGNED BY: FRANCISCO NIEVES DO SIGNED DATE/TIME: 10/05/24756 CC: Departure 1 Departure Time of Disposition: 12:13 Impression: Primary Impression: Parastomal hernia Disposition: 01 HOME / SELF CARE / HOMELESS Condition: Stable e-Prescriptions No Active Prescriptions or Reported Meds Discharged With: Self Critical Care Note Critical Care Time?: No Stability Stability form required: No I personally scribed for DIEUDONNE CARPENTER MD ([email or web address]) on 10/05/24 at 07:10. Electronically submitted by Leola Graf ([facility]). I personally scribed for DIEUDONNE CARPENTER MD ([email or web address]) on 10/05/24 at 10:12. Electronically submitted by Leola Graf ([facility]). DIEUDONNE CARPENTER MD Oct 05, 2024 07:10
[2024-10-05 08:00] VITALS: PULSE 89; RESP 18; TEMP 97.4; O2SAT 99
--- NOTE | 2024-10-05 08:00 | DVH ---
CLINICAL INFORMATION: 44 years old, Male; parastomal hernia. TECHNIQUE: Axial CT images of the abdomen and pelvis were obtained without IV contrast. Coronal and sagittal reformatted images were obtained, reviewed, and stored. Evaluation of the parenchymal organs is limited without IV contrast. Evaluation of the bowel and mesentery is limited without oral contra st. All CT scans at this medical facility are performed using dose modulation techniques as appropria te to a performed exam including the following: Automated exposure control was utilized; adjustment o f the MA and/or KV according to patient size; and use of iterative reconstruction technique. CTDIvol = 5.4 mGy DLP = 347.86 mGy-cm COMPARISON: CT CT AB PEL WO CON-NO ORAL OR IV on DOS: 09/24/24, CT CT AB PEL WO CON-NO ORAL OR IV on DOS: 08/21/24, CT CT AB PEL WO CON-NO ORAL OR IV on DOS: 07/19/24 FINDINGS: Lung bases: Dependent atelectasis in the lower lobes. Liver: Grossly unremarkable in its noncontrast enhanced appearance. No abnormal density or focal les ion identified. Biliary: No calcified gallstones or biliary ductal dilatation. Spleen: Unremarkable. Pancreas: Grossly unremarkable in its noncontrast enhanced appearance. Adrenal glands: Unremarkable. No mass. Kidneys: No hydronephrosis. No renal or ureteral calculi. Fluid density lesions in both kidneys, like ly cysts. Aorta/Vascular: No aneurysm or significant calcification. Retroperitoneum: No mass or lymphadenopathy. Bowel/mesentery: No small bowel obstruction. Appendix is not visualized. There is a left lower quadra nt colostomy, appears to be a diverting colostomy, with parastomal hernia containing fat. There is s ome stranding and edema within the hernia skin thickening. Moderate to large amount of stool in the c olon. Pelvic organs: Grossly unremarkable. Bladder: Moderate circumferential thickening of the bladder wall. Abdominal wall: Left lower quadrant colostomy as described above. There is skin thickening in the per ineal and perianal soft tissues with adjacent soft tissue stranding. Mildly prominent bilateral ingui nal lymph nodes measuring up to 1.1 cm in short axis, may be reactive, unchanged. Bones: No acute fracture or suspicious intraosseous lesion. IMPRESSION: 1. Left lower quadrant diverting colostomy with fat containing parastomal hernia. Somewhat edematous appearance of the fat within the parastomal hernia and associated skin thickening. Strangulation of f at or infectious/inflammatory etiology not excluded. Correlate with clinical findings. 2. There is also skin thickening and mild adjacent stranding in the perineal and perianal soft tissue s. Possible cellulitis in the appropriate clinical setting. 3. Moderate to large amount of stool in the colon. 4. No small bowel obstruction. 5. Circumferential thickening of the bladder wall is nonspecific. Correlate clinically to exclude cy stitis. 6. Mildly prominent bilateral inguinal lymph nodes, similar to the prior exam. May be reactive. 7. Additional findings as detailed above
[2024-10-05 09:02] LABS: Basophils # (auto) 0 10 ^3/uL (0-0.2); Basophils % (auto) 0.3 % (0.0-2.0); Eosinophils # (auto) 0.5 10 ^3/uL (0-0.8); Lymphocytes # (auto) 0.9 10 ^3/uL (0.4-5.4); Lymphocytes % (auto) 7.8 % (10.0-50.0); Neutrophils # (auto) 9.1 10 ^3/uL (1.6-8.6)
[2024-10-05 09:07] LABS: Eosinophils % (auto) 4.7 % (0.0-7.0); Hemoglobin 10.7 g/dL (13.5-17.5); Mean Corpuscular Hemoglobin 26.7 pg (28.0-32.0); Mean Corpuscular Hgb Conc. 32.5 g/dL (32.0-36.0); Mean Corpuscular Volume 82.3 fL (80.0-100.0); Monocytes # (auto) 0.7 10 ^3/uL (0-1.3); Monocytes % (auto) 6.1 % (0.0-12.0); Neutrophils % (auto) 81.1 % (37.0-80.0); Platelet Count (auto) 512 10^3/uL (140-450); Red Blood Cells 4.01 10^6/uL (4.5-5.90); Red Cell Distribution Width 18.4 % (11.8-14.3); White Blood Cell 11.2 10^3/uL (4.4-10.8)
[2024-10-05 09:15] LABS: Alkaline Phosphatase 101 U/L (46-116); Anion Gap 6 (5-15); Aspartate Aminotransferase 19 U/L (13-40); Calcium 8.8 mg/dL (8.7-10.4); Carbon Dioxide 26 mmol/L (20-31); Chloride 106 mmol/L (98-107); Glucose 81 mg/dL (74-106); Sodium 138 mmol/L (136-145)
[2024-10-05 09:20] LABS: Albumin 3.1 g/dL (3.2-4.8)
[2024-10-05 09:21] LABS: Alanine Aminotransferase 17 U/L (7-40); BUN/Creatinine Ratio 7.1 (10.0-20.0); Bilirubin, Total 0.2 mg/dL (0.2-1.0); Blood Urea Nitrogen < 5 mg/dL (9-23); Potassium 3.4 mmol/L (3.5-5.1); Total Protein 8.4 g/dL (5.7-8.2)
[2024-10-05 12:00] VITALS: BP 123/70; PULSE 81; RESP 14; O2SAT 98
[2024-10-05 12:35] LABS: Lipase 24 U/L (12-53)
--- NOTE | 2024-10-05 14:02 | DVHPN2 ---
Progress Note Date Seen: Oct 05, 2024 Medical Necessity Reason Pt with a Central, PICC or Fol: No Objective vital signs Vital Sign Date Time Temp Pulse Resp B/P (MAP) Pulse Ox O2 Delivery O2 Flow Rate FiO2 10/05/24 12:00 81 14 123/70 (87) 98 10/05/24 08:00 Room Air* 0 21 10/05/24 08:00 97.4 97.4 laboratory and microbiology Laboratory Tests 10/05/24 08:20 Test 10/05/24 08:20 Range/Units Serum Glucose 81 74-106 mg/dL Problem List/Assessment/Plan Problem List/Assessment/Plan 10/05/24 - unable to examine patient he was dressed in his street clothes and stated he was leaving because he is not going to get anything done here and will make an appointment with [facility] and get it taken care of. Dr Marlon Mcrae was notified patient was leaving Plan discussed with: Patient, Other (Dr. Mcrae ) JUANI JACKSON INTELLIGENCE AGENT Oct 05, 2024 14:02
== END 2024-10-05 16:33 | disposition home or self-care (01) ==
LOC: ER 06:36
DX: K43.5 Parastomal hernia without obstruction or gangrene (principal); F17.210 Nicotine dependence, cigarettes, uncomplicated; F12.10 Cannabis abuse, uncomplicated; F15.10 Other stimulant abuse, uncomplicated; Z59.00 Homelessness unspecified; Z88.0 Allergy status to penicillin; Z88.1 Allergy status to other antibiotic agents; Z93.3 Colostomy status
CPT/HCPCS: 36415; 74176; 80053; 83605; 83690; 85025; 87040

== ENCOUNTER 2024-10-08 13:00 | Emergency (ER) | payer MEDICAID ==
[~2024-10-08] VITALS: Ht 188 cm; Wt 73.9 kg
[2024-10-08 13:09] VITALS: BP 149/88; PULSE 112; RESP 16; O2SAT 98
--- NOTE | 2024-10-08 14:53 | ED.PDOC ---
GI ASSESSMENT HPI Comments 44Y M presents to ED for chief complaint colostomy bag change. Pt states he tried to f/u with [facility] but they are not accepting new patients. Chief Complaint: Tube Replacement Time Seen by MD: 14:05 Primary Care Provider: [facility] Notes: Nurses Notes, Medications, Allergies Allergies: Coded Allergies: Ketorolac Tromethamine (Verified Allergy, Unknown, 09/03/23) Penicillins (Verified Allergy, Unknown, 12/01/23) Vancomycin (Verified Allergy, Unknown, 07/07/24) Home Meds No Active Prescriptions or Reported Meds Information Source: Patient Mode of Arrival: Ambulatory Timing: Weeks Duration: Since onset Quality: None Vomitus: None Stool: Normal Severity: None Recent: None Recent Hx of: None Pain Location: None Modifying Factors: Nothing Associated sign and symptoms: None Past Medical History PAST MEDICAL HISTORY: Denies Surgical History: Denies all surgeries Family History Family History: Reviewed,noncontributory to illness, Unknown Social History Smoker: Cigarettes Alcohol: Rarely Drugs: Marijuana, Methamphetamine Lives In: Homeless Constitutional: denies: chills, diaphoresis, fatigue, fever, malaise, sweats, weakness, others EENTM: denies: blurred vision, double vision, ear bleeding, ear discharge, ear drainage, ear pain, ear ringing, eye pain, eye redness, hearing loss, mouth pain, mouth swelling, nasal discharge, nose bleeding, nose congestion, nose pain, photophobia, tearing, throat pain, throat swelling, voice changes, others Respiratory: denies: cough, hemoptysis, orthopnea, SOB at rest, shortness of breath, SOB with excertion, stridor, wheezing, others Cardiovascular: denies: chest pain, dizzy spells, diaphoresis, Dyspnea on exertion, edema, irregular heart beat, left arm pain, lightheadedness, palpitations, PND, syncope, others Gastrointestinal: denies: abdomen distended, abdominal pain, blood streaked bowels, constipated, diarrhea, dysphagia, difficulty swallowing, hematemesis, melena, nausea, poor appetite, poor fluid intake, rectal bleeding, rectal pain, vomiting, others Genitourinary: denies: burning, dysuria, flank pain, frequency, hematuria, incontinence, penile discharge, penile sore, pain, testicle pain, testicle swelling, urgency, others Neurological: denies: dizziness, fainting, headache, left sided numbness, left sided weakness, numbness, paresthesia, pre-existing deficit, right sided numbn ess, right sided weakness, seizure, speech problems, tingling, tremors, weakness, others Musculoskeletal: denies: back pain, gout, joint pain, joint swelling, muscle pain, muscle stiffness, neck pain, others Integumetry: denies: bruises, change in color, change in hair/nails, dryness, laceration, lesions, lumps, rash, wounds, others Allergic/Immunocompromised: denies: Difficulty Healing, Frequent Infections, Hives, Itching, others Hematologic/Lymphatic: denies: anemia, blood clots, easy bleeding, easy bruising, swollen glands, others Endocrine: denies: excessive hunger, excessive sweating, excessive thirst, excessive urination, flushing, intolerance to cold, intolerance to heat, unexplained weight gain, unexplained weight loss, others Psychiatric: denies: anxiety, bipolar disorder, depression, hopeless, panic disorder, schizophrenia, sleepless, suicidal, others All Other Systems: Reviewed and Negative Physical Exam General Appearance: No Apparent Distress, Normal HEENT: Normal ENT Inspection, Pharynx Normal, TMs Normal Neck: Full Range of Motion, Non-Tender, Normal, Normal Inspection Respiratory: Chest Non-Tender, Lungs Clear, No Accessory Muscle Use, No Respiratory Distress, Normal Breath Sounds Cardiovascular: No Edema, No JVD, No Murmur, No Gallop, Normal Peripheral Pulses, Regular Rate/Rhythm Breast Exam: Deferred Gastrointestinal: Non Tender, Other (colostomy bag) Genitalia: Deferred Pelvic: Deferred Rectal: Deferred Extremities: No calf tenderness, Normal capillary refill, Normal inspection, Normal range of motion, Non-tender, No pedal edema Musculoskeletal : Apperance: Normal Neurologic: Alert, canal structure operator II-XII nml as Tested, No Motor Deficits, Normal Affect, Normal Mood, No Sensory Deficits Cerebellar Function: NOT DONE Reflexes: NOT DONE Skin: Dry, Normal Color, Warm Lymphatic: No Adenopathy Was a procedure done? Was a procedure done?: No GI differential Dx Differential Diagnosis: N/A X-Ray, Labs, Meds, VS Vital Signs Date Time Temp Pulse Resp B/P (MAP) Pulse Ox O2 Delivery O2 Flow Rate FiO2 10/08/24 13:09 99.0 112 16 149/88 (108) 98 Time of 1ST Reevaluation: 14:35 Reevaluation 1ST: Unchanged Patient Education/Counseling: Diagnosis, Treatment Family Education/Counseling: No Family Present Departure 1 Departure Time of Disposition: 16:57 (Patient well known to me and this er. is here for ostomy supplies. Will supply and discharge. ) Impression: Primary Impression: Encounter for ostomy care education Disposition: HOME / SELF CARE / HOMELESS Condition: Stable e-Prescriptions No Active Prescriptions or Reported Meds Critical Care Note Critical Care Time?: No Stability Stability form required: No Heart Score Heart Score: Heart Score Response (Comments) Value History N/A 0 EKG N/A 0 Age N/A 0 Risk Factors N/A 0 Troponin N/A 0 Total 0 I personally scribed for OSVALDO LAUGHLIN MD ([email or web address]) on 10/08/24 at 14:53. Electronically submitted by Courtney Terrazas ([email or web address]). OSVALDO LAUGHLIN MD Oct 08, 2024 14:53
== END 2024-10-08 16:58 | disposition home or self-care (01) ==
LOC: ER 13:00
DX: Z43.3 Encounter for attention to colostomy (principal); F17.210 Nicotine dependence, cigarettes, uncomplicated; Z59.00 Homelessness unspecified; Z88.0 Allergy status to penicillin; Z88.1 Allergy status to other antibiotic agents

== ENCOUNTER 2024-10-12 01:45 | Emergency (ER) | payer MEDICAID ==
[~2024-10-12] VITALS: Ht 188 cm; Wt 72.2 kg
[2024-10-12 04:05] VITALS: BP 136/76; PULSE 91; RESP 18; TEMP 98; O2SAT 98
[2024-10-12] MEDS ORDERED: IBUP-1456 PO (04:30)
[2024-10-12] MEDS ORDERED: CEPH500C PO (04:30)
--- NOTE | 2024-10-12 04:31 | ED.PDOC ---
Back pain HPI Chief Complaint: Upper Extremity Time Seen by MD: 02:16 Primary Care Provider: [facility] Reviewed Notes: Nurses Notes, Medications, Allergies Allergies: Coded Allergies: Ketorolac Tromethamine (Verified Allergy, Unknown, 09/03/23) Penicillins (Verified Allergy, Unknown, 12/01/23) Vancomycin (Verified Allergy, Unknown, 07/07/24) Home Meds Active Scripts Ibuprofen (Ibuprofen) 800 Mg Tab, 1 TAB PO TID PRN for 5 Days, #15 TAB Prov:REMI SEYMOURK HUMAN FACTORS SPECIALIST 10/12/24 Cephalexin Monohydrate (Cephalexin) 500 Mg Cap, 500 MG PO BID for 5 Days, #10 CAP Prov:DAWNRONNY Faith HUMAN FACTORS SPECIALIST 10/12/24 Information Source: Patient Mode of Arrival: Ambulatory Past Medical History PAST MEDICAL HISTORY: Denies Surgical History: Denies all surgeries Family History Family History: Reviewed,noncontributory to illness, Unknown Social History Smoker: Cigarettes Alcohol: Rarely Drugs: Marijuana, Methamphetamine Lives In: Homeless Physical Exam General Appearance: No Apparent Distress, Normal HEENT: Pharynx Normal Neck: Full Range of Motion, Non-Tender Respiratory: Lungs Clear, No Respiratory Distress, Normal Breath Sounds Cardiovascular: No Murmur, Normal Peripheral Pulses, Regular Rate/Rhythm Breast Exam: Deferred Gastrointestinal: Non Tender, Soft Genitalia: Deferred Pelvic: Deferred Rectal: Deferred Extremities: Normal capillary refill, Normal inspection, Normal range of motion, Non-tender, No pedal edema Musculoskeletal : Apperance: Normal Neurologic: Alert, finish mill operator II-XII nml as Tested, No Motor Deficits, Normal Affect, Normal Mood, No Sensory Deficits Cerebellar Function: Normal Reflexes: Normal Skin: Dry, Normal Color, Rash (left lowe), Warm Lymphatic: No Adenopathy Was a procedure done? Was a procedure done?: No Back Pain Differential Dx Differential Diagnosis: Fracture, Musculoskeletal Pain X-Ray, Labs, Meds, VS Vital Signs Date Time Temp Pulse Resp B/P (MAP) Pulse Ox O2 Delivery O2 Flow Rate FiO2 10/12/24 04:05 91 18 98 Room Air 10/12/24 04:05 98.0 91 18 136/76 (96) 98 98.0 10/12/24 02:05 97.5 102 18 139/92 (108) 97 Current Medications Medications (Trade) Dose Ordered Sig/Wallace Route Start Time Stop Time Status Last Admin Acetaminophen/ Hydrocodone Bitart ([place] 5/325MG Tab) 1 tab ONCE ONCE PO 10/12/24 04:30 10/12/24 04:31 DC 10/12/24 04:41 X-Ray, Labs, Meds, VS Comment Patient given [place] for the pain reports improvement requesting discharge at this time. Script antibiotics for infected bug bite. Ibuprofen as needed for the pain. Advised to follow up with his PCP in 2-3 days as necessary. ER return precautions given patient agrees with discharge plan of care. Time of 1ST Reevaluation: 04: Reevaluation 1ST: Improved Patient Education/Counseling: Diagnosis, Treatment, Prognosis, Need For Follow Up Family Education/Counseling: No Family Present Departure 1 Departure Time of Disposition: 04: Impression: Primary Impression: Cellulitis Qualified Codes: L03.116 - Cellulitis of left lower limb Additional Impression: Shoulder strain Qualified Codes: S46.911A - Strain of unspecified muscle, fascia and tendon at shoulder and upper arm level, right arm, initial encounter Disposition: HOME / SELF CARE / HOMELESS Condition: Stable e-Prescriptions Ibuprofen (Ibuprofen) 800 Mg Tab 1 TAB PO TID PRN for 5 Days, #15 TAB Prov: RONNY SEYMOUR 10/12/24 Cephalexin Monohydrate (Cephalexin) 500 Mg Cap 500 MG PO BID for 5 Days, #10 CAP Prov: RONNY SEYMOUR 10/12/24 Discharged With: Self Critical Care Note Critical Care Time?: No Stability Stability form required: No RONNY SEYMOUR Oct 12, 2024 04:31
[2024-10-12] MEDS: HYDROcodone-ACET 5/325MG TAB PO ONE (04:41)
== END 2024-10-12 04:58 | disposition home or self-care (01) ==
LOC: ER 01:45
DX: S46.811A Strain of other muscles, fascia and tendons at shoulder and upper arm level, right arm, initial encounter (principal); L03.116 Cellulitis of left lower limb; F17.210 Nicotine dependence, cigarettes, uncomplicated; F15.90 Other stimulant use, unspecified, uncomplicated; Z59.00 Homelessness unspecified; Z88.0 Allergy status to penicillin; Z88.1 Allergy status to other antibiotic agents; Z88.8 Allergy status to other drugs, medicaments and biological substances; Z79.899 Other long term (current) drug therapy; X58.XXXA Exposure to other specified factors, initial encounter; Y93.89 Activity, other specified; Y92.89 Other specified places as the place of occurrence of the external cause; Y99.8 Other external cause status

== ENCOUNTER 2024-11-08 23:57 | Emergency (ER) | payer MEDICAID | END 2024-11-09 01:15 | disposition left against medical advice (07) | LOC: ER 11-09 00:03 | DX: Z43.3 Encounter for attention to colostomy (principal); Z53.21 Procedure and treatment not carried out due to patient leaving prior to being seen by health care provider ==

== ENCOUNTER 2024-11-09 02:11 | Emergency (ER) | payer MEDICAID ==
[~2024-11-09] VITALS: Ht 177.8 cm; Wt 70.0 kg
--- NOTE | 2024-11-09 02:30 | ED.PDOC ---
History of Present Illness HPI Comments 44 year old male presents to the ED with a chief complaint of colostomy bag change onset today. Patient has a PMHx of colostomy and a skin graft, has not been able to follow up with [facility]. Patient states he is currently homeless, does not have supplies to change colostomy bag. Denies nausea, vomiting, chest pain, shortness of breath, dizziness, changes in vision. No other symptoms or modifying factors present at this time. Time Seen by MD: 02:23 Primary Care Provider: [facility] Reviewed Notes: Medications, Allergies Allergies: Coded Allergies: Ketorolac Tromethamine (Verified Allergy, Unknown, 09/03/23) Penicillins (Verified Allergy, Unknown, 12/01/23) Vancomycin (Verified Allergy, Unknown, 07/07/24) Information Source: Patient, Emergency Med Personnel Mode of Arrival: EMS Severity: Moderate Timing: Hours Duration: Since onset Prehospital treatment: None Past Medical History PAST MEDICAL HISTORY: Denies Surgical History: Denies all surgeries Family History Family History: Reviewed,noncontributory to illness, Unknown Social History Smoker: Cigarettes Alcohol: Rarely Drugs: Marijuana, Methamphetamine Lives In: Homeless Constitutional: denies: chills, diaphoresis, fatigue, fever, malaise, sweats, weakness, others EENTM: denies: blurred vision, double vision, ear bleeding, ear discharge, ear drainage, ear pain, ear ringing, eye pain, eye redness, hearing loss, mouth pain, mouth swelling, nasal discharge, nose bleeding, nose congestion, nose pain, photophobia, tearing, throat pain, throat swelling, voice changes, others Respiratory: denies: cough, hemoptysis, orthopnea, SOB at rest, shortness of breath, SOB with excertion, stridor, wheezing, others Cardiovascular: denies: chest pain, dizzy spells, diaphoresis, Dyspnea on exertion, edema, irregular heart beat, left arm pain, lightheadedness, palpitations, PND, syncope, others Gastrointestinal: reports: others (colostomy bag); denies: abdomen distended, abdominal pain, blood streaked bowels, constipated, diarrhea, dysphagia, difficulty swallowing, hematemesis, melena, nausea, poor appetite, poor fluid intake, rectal bleeding, rectal pain, vomiting Genitourinary: denies: burning, dysuria, flank pain, frequency, hematuria, incontinence, penile discharge, penile sore, pain, testicle pain, testicle swelling, urgency, others Neurological: denies: dizziness, fainting, headache, left sided numbness, left sided weakness, numbness, paresthesia, pre-existing deficit, right sided numbness, right sided weakness, seizure, speech problems, tingling, tremors, weakness, others Musculoskeletal: denies: back pain, gout, joint pain, joint swelling, muscle pain, muscle stiffness, neck pain, others Integumetry: denies: bruises, change in color, change in hair/nails, dryness, laceration, lesions, lumps, rash, wounds, others Allergic/Immunocompromised: denies: Difficulty Healing, Frequent Infections, Hives, Itching, others Hematologic/Lymphatic: denies: anemia, blood clots, easy bleeding, easy bruising, swollen glands, others Endocrine: denies: excessive hunger, excessive sweating, excessive thirst, excessive urination, flushing, intolerance to cold, intolerance to heat, unexplained weight gain, unexplained weight loss, others Psychiatric: denies: anxiety, bipolar disorder, depression, hopeless, panic disorder, schizophrenia, sleepless, suicidal, others All Other Systems: Reviewed and Negative Physical Exam General Appearance: No Apparent Distress, Normal HEENT: Normal ENT Inspection, Pharynx Normal, TMs Normal Neck: Full Range of Motion, Non-Tender, Normal, Normal Inspection Respiratory: Chest Non-Tender, Lungs Clear, No Accessory Muscle Use, No Respiratory Distress, Normal Breath Sounds Cardiovascular: No Edema, No JVD, No Murmur, No Gallop, Normal Peripheral Pulses, Regular Rate/Rhythm Breast Exam: Deferred Gastrointestinal: No Organomegaly, Non Tender, No Pulsatile Mass, Normal Bowel Sounds, Soft, Other (colostomy bag noted ) Genitalia: Deferred Pelvic: Deferred Rectal: Deferred Extremities: No calf tenderness, Normal capillary refill, Normal inspection, Normal range of motion, Non-tender, No pedal edema Musculoskeletal : Apperance: Normal Neurologic: Alert, media traffic 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 Was a procedure done?: No Differential Dx Considerations may include: Ostomy care and homelessness X-Ray, Labs, Meds, VS Vital Signs Date Time Temp Pulse Resp B/P (MAP) Pulse Ox O2 Delivery O2 Flow Rate FiO2 11/09/24 02:30 97.9 105 20 133/98 (110) 98 Time of 1ST Reevaluation: 03:03 Reevaluation 1ST: Unchanged Patient Education/Counseling: Diagnosis, Treatment, Prognosis Family Education/Counseling: No Family Present Departure 1 Departure Time of Disposition: 02:38 (Patient presents homeless and without ostomy supplies. Patient with no acute complaints.) Impression: Primary Impression: Encounter for ostomy care education Additional Impression: Homeless Disposition: 01 HOME / SELF CARE / HOMELESS Condition: Stable Critical Care Note Critical Care Time?: No Stability Stability form required: No I personally scribed for OSVALDO LAUGHLIN MD ([email or web address]) on 11/09/24 at 02:30. Electronically submitted by Stephanie Chiang ([email or web address]). OSVALDO LAUGHLIN MD Nov 09, 2024 02:30
[2024-11-09 04:10] VITALS: BP 129/96; PULSE 113; RESP 16; TEMP 97.3; O2SAT 97
== END 2024-11-09 04:10 | disposition home or self-care (01) ==
LOC: EDBD 02:11 → ER 02:11
DX: Z43.3 Encounter for attention to colostomy (principal); F17.210 Nicotine dependence, cigarettes, uncomplicated; Z59.00 Homelessness unspecified; Z88.0 Allergy status to penicillin; Z88.1 Allergy status to other antibiotic agents

== ENCOUNTER 2024-11-23 00:23 | Emergency (ER) | payer MEDICAID ==
[~2024-11-23] VITALS: Ht 188 cm; Wt 68.6 kg
--- NOTE | 2024-11-23 01:12 | ED.PDOC ---
GI ASSESSMENT HPI Comments 44 year old male presents to ER today for colostomy bag replacement. Patient with PMH significant for a colostomy presents to ER today requesting "colostomy supplies" to change his colostomy bag himself. Patient last changed his colostomy bag 2 days ago and is homeless/well known to checking into ER here for similar complaint. Denies any pain and again states his only reason for his current ER visit is "for colostomy supplies" to change his colostomy bag himself, denying any current symptoms. Denies fever, body aches, chills, n/v, abdominal pain, drainage from colostomy bag or any further symptoms/complaints Chief Complaint: Tube Replacement Time Seen by MD: 00:31 Primary Care Provider: [facility] Notes: Nurses Notes, Medications, Allergies Allergies: Coded Allergies: Ketorolac Tromethamine (Verified Allergy, Unknown, 09/03/23) Penicillins (Verified Allergy, Unknown, 12/01/23) Vancomycin (Verified Allergy, Unknown, 07/07/24) Information Source: Patient Mode of Arrival: Ambulatory Past Medical History Past Medical History (Other): HIDRADENITIS SUPPURATIVA Surgical History: Denies all surgeries Surgical History (Other): colostomy Skin grafts Family History Family History: Unknown Social History Smoker: Cigarettes Alcohol: Rarely Drugs: Marijuana, Methamphetamine Lives In: Homeless Constitutional: denies: chills, diaphoresis, fatigue, fever, malaise, sweats, weakness, others EENTM: denies: blurred vision, double vision, ear bleeding, ear discharge, ear drainage, ear pain, ear ringing, eye pain, eye redness, hearing loss, mouth pain, mouth swelling, nasal discharge, nose bleeding, nose congestion, nose pain, photophobia, tearing, throat pain, throat swelling, voice changes, others Respiratory: denies: cough, hemoptysis, orthopnea, SOB at rest, shortness of breath, SOB with excertion, stridor, wheezing, others Cardiovascular: denies: chest pain, dizzy spells, diaphoresis, Dyspnea on exertion, edema, irregular heart beat, left arm pain, lightheadedness, palpitations, PND, syncope, others Gastrointestinal: reports: others ( STATED IN HPI) Genitourinary: denies: burning, dysuria, flank pain, frequency, hematuria, incontinence, penile discharge, penile sore, pain, testicle pain, testicle swelling, urgency, others Neurological: denies: dizziness, fainting, headache, left sided numbness, left sided weakness, numbness, paresthesia, pre-existing deficit, right sided numbness, right sided weakness, seizure, speech problems, tingling, tremors, weakness, others Musculoskeletal: denies: back pain, gout, joint pain, joint swelling, muscle pain, muscle stiffness, neck pain, others Integumetry: denies: bruises, change in color, change in hair/nails, dryness, laceration, lesions, lumps, rash, wounds, others Allergic/Immunocompromised: denies: Difficulty Healing, Frequent Infections, Hives, Itching, others Hematologic/Lymphatic: denies: anemia, blood clots, easy bleeding, easy bruising, swollen glands, others Endocrine: denies: excessive hunger, excessive sweating, excessive thirst, excessive urination, flushing, intolerance to cold, intolerance to heat, unexplained weight gain, unexplained weight loss, others Psychiatric: denies: anxiety, bipolar disorder, depression, hopeless, panic disorder, schizophrenia, sleepless, suicidal, others Physical Exam General Appearance: No Apparent Distress HEENT: PERRL/EOMI Neck: Full Range of Motion, Non-Tender, Normal Respiratory: Chest Non-Tender, Lungs Clear, No Accessory Muscle Use, No Respiratory Distress, Normal Breath Sounds Cardiovascular: No Murmur, No Gallop, Regular Rate/Rhythm Breast Exam: Deferred Gastrointestinal: Non Tender, No Pulsatile Mass, Soft, Other (Colostomy bag noted, no leakage from colostomy bag appreciated)) Genitalia: Deferred Pelvic: Deferred Rectal: Deferred Extremities: Normal capillary refill, Normal range of motion Neurologic: Alert, production machine operator II-XII nml as Tested, No Motor Deficits, Normal Affect, Normal Mood, No Sensory Deficits Cerebellar Function: Normal Reflexes: Normal Skin: Dry, Normal Color, Warm Lymphatic: No Adenopathy Was a procedure done? Was a procedure done?: No Sedation Sedation?: No GI differential Dx Differential Diagnosis: Bowel Obstruction, GI hemorrhage, Ischemic Bowel, Trauma intraabdominal X-Ray, Labs, Meds, VS Vital Signs Date Time Temp Pulse Resp B/P (MAP) Pulse Ox O2 Delivery O2 Flow Rate FiO2 2/13/25 00:33 98.5 113 18 147/104 (838) 98 Patient provided colostomy supplies in ER and denied any symptoms during ER visit/prior to discharge Previous chart visits reviewed Methamphetamine, cannabis and smoking cessation discussed and advised Advised to follow up with PCP and general surgeon/colorectal surgeon in 1-2 days Patient verbalized understanding and agreeable with current plan of care Advised to return to ER immediately if symptoms worsen Time of 1ST Reevaluation: 00:54 Reevaluation 1ST: N/A Patient Education/Counseling: Diagnosis, Treatment, Prognosis, Need For Follow Up Family Education/Counseling: No Family Present Departure 1 Departure Time of Disposition: 01:12 Impression: Primary Impression: Colostomy care Additional Impression: Polysubstance abuse Disposition: 01 HOME / SELF CARE / HOMELESS Condition: Stable Discharged With: Self Critical Care Note Critical Care Time?: No Stability Stability form required: No Heart Score Heart Score: Heart Score Response (Comments) Value History N/A 0 EKG N/A 0 Age N/A 0 Risk Factors N/A 0 Troponin N/A 0 Total 0 ROCKY PADILLA Nov 23, 2024 01:12
[2024-11-23 01:24] VITALS: BP 147/104; PULSE 113; RESP 18; TEMP 98.5; O2SAT 98
== END 2024-11-23 01:26 | disposition home or self-care (01) ==
LOC: ER 00:23
DX: Z43.3 Encounter for attention to colostomy (principal); F19.10 Other psychoactive substance abuse, uncomplicated; F17.210 Nicotine dependence, cigarettes, uncomplicated; Z59.00 Homelessness unspecified; Z88.0 Allergy status to penicillin; Z88.1 Allergy status to other antibiotic agents

== ENCOUNTER 2024-12-01 00:27 | Emergency (ER) | payer MEDICAID | END 2024-12-01 01:18 | disposition left against medical advice (07) | LOC: ER 00:27 | DX: Z43.3 Encounter for attention to colostomy (principal); Z53.21 Procedure and treatment not carried out due to patient leaving prior to being seen by health care provider ==

== ENCOUNTER 2024-12-01 02:08 | Emergency (ER) | payer MEDICAID ==
[~2024-12-01] VITALS: Ht 188 cm; Wt 70.8 kg
[2024-12-01 03:26] VITALS: BP 135/97; PULSE 99; RESP 16; TEMP 97.6; O2SAT 99
--- NOTE | 2024-12-01 04:17 | ED.PDOC ---
GI ASSESSMENT HPI Comments PT PRESENTED TO ED FOR BODY PAIN D/T INTENSTINES PERTRUDING THROUGH STOMA. PT STATED HE IS HERE BECAUSE "I NEED COLOSTOMY SUPPLIES AND GREEN THROW UP BAGS". DENIES FEVER, CHILLS, DIARRHEA, NAUSEA OR VOMITING. Chief Complaint: Body Pain Time Seen by MD: 02:47 Primary Care Provider: [facility] Reviewed Notes: Nurses Notes, Medications, Allergies Allergies: Coded Allergies: Ketorolac Tromethamine (Verified Allergy, Unknown, 09/03/23) Penicillins (Verified Allergy, Unknown, 12/01/23) Vancomycin (Verified Allergy, Unknown, 07/07/24) Mode of Arrival: Ambulatory Past Medical History PAST MEDICAL HISTORY: Denies Surgical History (Other): COLOSTOMY Family History Family History: Reviewed,noncontributory to illness, Unknown Social History Smoker: Cigarettes Alcohol: Rarely Drugs: Marijuana, Methamphetamine Lives In: Homeless Constitutional: denies: chills, diaphoresis, fatigue, fever, malaise, sweats, weakness, others EENTM: denies: blurred vision, double vision, ear bleeding, ear discharge, ear drainage, ear pain, ear ringing, eye pain, eye redness, hearing loss, mouth pain, mouth swelling, nasal discharge, nose bleeding, nose congestion, nose pain, photophobia, tearing, throat pain, throat swelling, voice changes, others Respiratory: denies: cough, hemoptysis, orthopnea, SOB at rest, shortness of breath, SOB with excertion, stridor, wheezing, others Cardiovascular: denies: chest pain, dizzy spells, diaphoresis, Dyspnea on exertion, edema, irregular heart beat, left arm pain, lightheadedness, palpitations, PND, syncope, others Gastrointestinal: reports: others (COLOSTOMY SUPPLIES AND CHANGE); denies: abdo men distended, abdominal pain, blood streaked bowels, constipated, diarrhea, dysphagia, difficulty swallowing, hematemesis, melena, nausea, poor appetite, poor fluid intake, rectal bleeding, rectal pain, vomiting Genitourinary: denies: burning, dysuria, flank pain, frequency, hematuria, incontinence, penile discharge, penile sore, pain, testicle pain, testicle swelling, urgency, others Neurological: denies: dizziness, fainting, headache, left sided numbness, left sided weakness, numbness, paresthesia, pre-existing deficit, right sided numbness, right sided weakness, seizure, speech problems, tingling, tremors, weakness, others Musculoskeletal: denies: back pain, gout, joint pain, joint swelling, muscle pain, muscle stiffness, neck pain, others Integumetry: denies: bruises, change in color, change in hair/nails, dryness, laceration, lesions, lumps, rash, wounds, others Allergic/Immunocompromised: denies: Difficulty Healing, Frequent Infections, Hives, Itching, others Hematologic/Lymphatic: denies: anemia, blood clots, easy bleeding, easy bruising, swollen glands, others Endocrine: denies: excessive hunger, excessive sweating, excessive thirst, excessive urination, flushing, intolerance to cold, intolerance to heat, unexplained weight gain, unexplained weight loss, others Psychiatric: denies: anxiety, bipolar disorder, depression, hopeless, panic disorder, schizophrenia, sleepless, suicidal, others Physical Exam General Appearance: No Apparent Distress, Normal HEENT: Pharynx Normal Neck: Full Range of Motion, Non-Tender Respiratory: Lungs Clear, No Respiratory Distress, Normal Breath Sounds Cardiovascular: No Murmur, Normal Peripheral Pulses, Regular Rate/Rhythm Breast Exam: Deferred Gastrointestinal: No Organomegaly, Non Tender, No Pulsatile Mass, Normal Bowel Sounds, Soft, Other (COLOSTOMY BAG INTACT NO SURROUNDING SKIN ERYTHEMA NO DRAINAGE OR LEAKAGE.) Genitalia: Deferred Pelvic: Deferred Rectal: Deferred Extremities: No calf tenderness, Normal capillary refill, Normal inspection, Normal range of motion, Non-tender, No pedal edema Musculoskeletal : Apperance: Normal Neurologic: Alert, car rental agency 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 Was a procedure done?: No GI differential Dx Differential Diagnosis: Inflammatory BD X-Ray, Labs, Meds, VS Vital Signs Date Time Temp Pulse Resp B/P (MAP) Pulse Ox O2 Delivery O2 Flow Rate FiO2 12/01/24 03:26 97.6 99 16 135/97 (110) 99 97.6 12/01/24 03:26 97.6 99 16 135/92 (106) 99 12/01/24 03:26 Room Air X-Ray, Labs, Meds, VS Comment PATIENT COLOSTOMY CHANGED BY PATIENT. SUPPLIES GIVEN. ADVISED PATIENT TO FOLLOW UP WITH SURGERY DISCUSSED PREVIOUS IN THE PAST, FOLLOW-UP WITH PCP IN 1 TO 2 DAYS. RETURN TO ED FOR ANY NEW OR WORSENING SYMPTOMS. Time of 1ST Reevaluation: 04:31 Reevaluation 1ST: Improved Patient Education/Counseling: Diagnosis, Treatment, Prognosis, Need For Follow Up Family Education/Counseling: No Family Present Departure 1 Departure Time of Disposition: 04:32 Impression: Primary Impression: Colostomy care Additional Impression: Colostomy complication Disposition: 01 HOME / SELF CARE / HOMELESS Condition: Stable Discharged With: Self Critical Care Note Critical Care Time?: No Stability Stability form required: RONNY Almanza Dec 01, 2024 04:17
== END 2024-12-01 04:27 | disposition home or self-care (01) ==
LOC: ER 02:08
DX: K94.00 Colostomy complication, unspecified (principal); F17.210 Nicotine dependence, cigarettes, uncomplicated; Z59.00 Homelessness unspecified; Z88.0 Allergy status to penicillin; Z88.1 Allergy status to other antibiotic agents; Z88.8 Allergy status to other drugs, medicaments and biological substances

== ENCOUNTER 2024-12-06 23:20 | Emergency (ER) | payer MEDICAID ==
[~2024-12-06] VITALS: Ht 188 cm; Wt 70.4 kg
--- NOTE | 2024-12-07 00:06 | ED.PDOC ---
History of Present Illness HPI Comments 44 year old male presents to the ED with a chief complaint of abdominal pain onset yesterday (12/06/24). Patient states he has a colostomy bag, has a green vomit bag over it, comes periodically to ED for supplies. Patient noticed discomfort around colostomy region. He is trying to make follow up appointment with [facility], where colostomy was done. Denies nausea, vomiting, diarrhea, chest pain, shortness of breath, dizziness. No other symptoms or modifying factors present at this time. Time Seen by MD: 23:51 Primary Care Provider: [facility] Reviewed Notes: Medications, Allergies Allergies: Coded Allergies: Ketorolac Tromethamine (Verified Allergy, Unknown, 09/03/23) Penicillins (Verified Allergy, Unknown, 12/01/23) Vancomycin (Verified Allergy, Unknown, 07/07/24) Information Source: Patient Mode of Arrival: Ambulatory Severity: Moderate Timing: Hours Duration: Since onset Prehospital treatment: None Past Medical History PAST MEDICAL HISTORY: Denies Family History Family History: Reviewed,noncontributory to illness, Unknown Social History Smoker: Cigarettes Alcohol: Rarely Drugs: Marijuana, Methamphetamine Lives In: Homeless Constitutional: denies: chills, diaphoresis, fatigue, fever, malaise, sweats, weakness, others EENTM: denies: blurred vision, double vision, ear bleeding, ear discharge, ear drainage, ear pain, ear ringing, eye pain, eye redness, hearing loss, mouth pain, mouth swelling, nasal discharge, nose bleeding, nose congestion, nose pain, photophobia, tearing, throat pain, throat swelling, voice changes, others Respiratory: denies: cough, hemoptysis, orthopnea, SOB at rest, shortness of breath, SOB with excertion, stridor, wheezing, others Cardiovascular: denies: chest pain, dizzy spells, diaphoresis, Dyspnea on exertion, edema, irregular heart beat, left arm pain, lightheadedness, palpitations, PND, syncope, others Gastrointestinal: reports: abdominal pain; denies: abdomen distended, blood streaked bowels, constipated, diarrhea, dysphagia, difficulty swallowing, hematemesis, melena, nausea, poor appetite, poor fluid intake, rectal bleeding, rectal pain, vomiting, others Genitourinary: denies: burning, dysuria, flank pain, frequency, hematuria, incontinence, penile discharge, penile sore, pain, testicle pain, testicle swelling, urgency, others Neurological: denies: dizziness, fainting, headache, left sided numbness, left sided weakness, numbness, paresthesia, pre-existing deficit, right sided numbness, right sided weakness, seizure, speech problems, tingling, tremors, weakness, others Musculoskeletal: denies: back pain, gout, joint pain, joint swelling, muscle pain, muscle stiffness, neck pain, others Integumetry: denies: bruises, change in color, change in hair/nails, dryness, laceration, lesions, lumps, rash, wounds, others Allergic/Immunocompromised: denies: Difficulty Healing, Frequent Infections, Hives, Itching, others Hematologic/Lymphatic: denies: anemia, blood clots, easy bleeding, easy bruising, swollen glands, others Endocrine: denies: excessive hunger, excessive sweating, excessive thirst, excessive urination, flushing, intolerance to cold, intolerance to heat, unexplained weight gain, unexplained weight loss, others Psychiatric: denies: anxiety, bipolar disorder, depression, hopeless, panic disorder, schizophrenia, sleepless, suicidal, others All Other Systems: Reviewed and Negative Physical Exam General Appearance: No Apparent Distress, Normal HEENT: Normal ENT Inspection, Pharynx Normal, TMs Normal Neck: Full Range of Motion, Non-Tender, Normal, Normal Inspection Respiratory: Chest Non-Tender, Lungs Clear, No Accessory Muscle Use, No Respiratory Distress, Normal Breath Sounds Cardiovascular: No Edema, No JVD, No Murmur, No Gallop, Normal Peripheral Pulses, Regular Rate/Rhythm Breast Exam: Deferred Gastrointestinal: No Organomegaly, Non Tender, No Pulsatile Mass, Normal Bowel Sounds, Soft Genitalia: Deferred Pelvic: Deferred Rectal: Deferred Extremities: No calf tenderness, Normal capillary refill, Normal inspection, Normal range of motion, Non-tender, No pedal edema Musculoskeletal : Apperance: Normal Neurologic: Alert, benefits specialist II-XII nml as Tested, No Motor Deficits, Normal Affect, Normal Mood, No Sensory Deficits Cerebellar Function: Normal Reflexes: Normal Skin: Dry, Normal Color, Warm Lymphatic: No Adenopathy Was a procedure done? Was a procedure done?: No Differential Dx Considerations may include: Differential diagnosis includes but is not limited to: appendicitis, diverticulitis, colitis, urinary tract infection, ureteral colic / stone, bowel obstruction, and others X-Ray, Labs, Meds, VS Vital Signs Date Time Temp Pulse Resp B/P (MAP) Pulse Ox O2 Delivery O2 Flow Rate FiO2 12/07/24 00:53 98.0 101 16 148/106 (120) 97 98.0 12/07/24 00:53 101 16 97 Room Air 12/07/24 00:02 98.0 101 16 148/106 (120) 97 Current Medications Medications (Trade) Dose Ordered Sig/Wallace Route Start Time Stop Time Status Last Admin Ondansetron HCl (Zofran Po) 4 mg ONCE ONCE PO 12/07/24 00:15 12/07/24 00:16 DC 12/07/24 00:44 Acetaminophen/ Hydrocodone Bitart ([place] 10/325MG Tab) 1 tab ONCE ONCE PO 12/07/24 00:15 12/07/24 00:16 DC 12/07/24 00:45 Time of 1ST Reevaluation: 00:21 Reevaluation 1ST: Unchanged Time of 2ND Reevaluation: 01:00 Reevaluation 2ND: Improved Patient Education/Counseling: Diagnosis, Treatment, Prognosis Family Education/Counseling: No Family Present Departure 1 Departure Time of Disposition: 01:00 Impression: Primary Impression: Hidradenitis suppurativa Additional Impression: Colostomy care Disposition: 01 HOME / SELF CARE / HOMELESS Condition: Stable Discharged With: Self Critical Care Note Critical Care Time?: No Stability Stability form required: No I personally scribed for DASHA SOTELO MD ([email or web address]) on 12/07/24 at 00:06. Electronically submitted by Stephanie Chiang ([email or web address]). DASHA SOTELO MD Dec 07, 2024 00:06
[2024-12-07] MEDS: ONDANSETRON ODT 4 MG TAB PO ONE (00:44)
[2024-12-07] MEDS: HYDROcodone-ACET 10/325MG TAB PO ONE (00:45)
[2024-12-07 00:53] VITALS: BP 148/106; PULSE 101; RESP 16; TEMP 98; O2SAT 97
== END 2024-12-07 00:55 | disposition home or self-care (01) ==
LOC: ER 23:20
DX: L73.2 Hidradenitis suppurativa (principal); F17.210 Nicotine dependence, cigarettes, uncomplicated; F15.90 Other stimulant use, unspecified, uncomplicated; Z93.3 Colostomy status; Z59.00 Homelessness unspecified; Z88.0 Allergy status to penicillin; Z88.1 Allergy status to other antibiotic agents
CPT/HCPCS: 99283; Q0162

== ENCOUNTER 2024-12-11 05:35 | Emergency (ER) | payer MEDICAID ==
[~2024-12-11] VITALS: Ht 188 cm; Wt 68.9 kg
[2024-12-11 05:50] VITALS: BP 128/95
[2024-12-11 06:36] VITALS: PULSE 87; RESP 18; O2SAT 98
--- NOTE | 2024-12-11 06:59 | ED.PDOC ---
Musculoskeletal HPI Comments 44 year homeless male presents for colostomy supplies. Chief Complaint: Lower Extremity Time Seen by MD: 06:20 Primary Care Provider: NONE Reviewed Notes: Nurses Notes, Medications, Allergies Allergies: Coded Allergies: Ketorolac Tromethamine (Verified Allergy, Unknown, 09/03/23) Penicillins (Verified Allergy, Unknown, 12/01/23) Vancomycin (Verified Allergy, Unknown, 07/07/24) Information Source: Patient Mode of Arrival: Ambulatory Past Medical History PAST MEDICAL HISTORY: Denies Family History Family History: Reviewed,noncontributory to illness, Unknown Social History Smoker: Cigarettes Alcohol: Rarely Drugs: Marijuana, Methamphetamine Lives In: Homeless All Other Systems: Reviewed and Negative (Per HPI) Physical Exam General Appearance: No Apparent Distress, Normal HEENT: Normal ENT Inspection, Pharynx Normal, TMs Normal Neck: Full Range of Motion, Non-Tender, Normal, Normal Inspection Respiratory: Chest Non-Tender, Lungs Clear, No Accessory Muscle Use, No Respiratory Distress, Normal Breath Sounds Cardiovascular: No Murmur, No Gallop, Regular Rate/Rhythm Breast Exam: Deferred Gastrointestinal: No Organomegaly, Non Tender, No Pulsatile Mass, Normal Bowel Sounds, Soft Genitalia: Deferred Pelvic: Deferred Rectal: Deferred Extremities: No calf tenderness, Normal capillary refill, Normal inspection, Normal range of motion, Non-tender, No pedal edema Musculoskeletal : Apperance: Normal Neurologic: Alert, No Motor Deficits, Normal Affect, Normal Mood, No Sensory Deficits Cerebellar Function: Normal Reflexes: Normal Skin: Dry, Normal Color, Warm Lymphatic: No Adenopathy Was a procedure done? Was a procedure done?: No Differential Diagnosis EXT Differential Diagnosis: Neurovascular injury, Other X-Ray, Labs, Meds, VS Vital Signs Date Time Temp Pulse Resp B/P (MAP) Pulse Ox O2 Delivery O2 Flow Rate FiO2 12/11/24 06:36 87 18 98 Room Air 12/11/24 05:50 97.6 87 18 128/95 (106) 98 X-Ray, Labs, Meds, VS Comment On reevaluation, patient had symptomatic improvement. Patient is stable for discharge at this time. Supplies were given to the patient External notes reviewed. Test results and diagnostic imaging interpreted. All diagnostic findings, discharge care, education and instructions provided Follow-up with PCP in 2 to 3 days Patient verbalized understanding and agreed to treatment plan Vital signs stable, afebrile, no acute distress noted Patient ambulatory with strong steady gait Advised to return precautions for any new or worsening symptoms, return to ER immediately for re-evaluation Patient is aware that the purpose of this visit was for an acute medical emergency requiring emergent stabilization. Chronic conditions, including malignancies have not been ruled out. Patient is instructed to follow up with PCP as directed and discharge instructions for continued care and workup. If unable to arrange follow-up, patient is to return to the emergency department for reassessment. Patient (parent or legal guardian if applicable) was given verbal and written discharge instructions and acknowledges understanding. Time of 1ST Reevaluation: 06:50 Reevaluation 1ST: Improved Patient Education/Counseling: Diagnosis, Treatment Family Education/Counseling: Diagnosis, Treatment Departure 1 Departure Time of Disposition: 06:57 Impression: Primary Impression: Visit for wound care Disposition: 01 HOME / SELF CARE / HOMELESS Condition: Fair Discharged With: Self Critical Care Note Critical Care Time?: No Stability Stability form required: No Heart Score Heart Score: Heart Score Response (Comments) Value History N/A 0 EKG N/A 0 Age N/A 0 Risk Factors N/A 0 Troponin N/A 0 Total 0 KAREEM JOSEPH NP Dec 11, 2024 06:59
== END 2024-12-11 07:08 | disposition home or self-care (01) ==
LOC: ER 05:35
DX: Z43.3 Encounter for attention to colostomy (principal); F17.210 Nicotine dependence, cigarettes, uncomplicated; F12.10 Cannabis abuse, uncomplicated; F15.10 Other stimulant abuse, uncomplicated; Z59.00 Homelessness unspecified; Z88.0 Allergy status to penicillin; Z88.1 Allergy status to other antibiotic agents

== ENCOUNTER 2024-12-15 05:20 | Emergency (ER) | payer MEDICAID ==
[~2024-12-15] VITALS: Ht 188 cm; Wt 69.5 kg
[2024-12-15 05:45] VITALS: BP 130/99; PULSE 97; RESP 16; TEMP 97.8; O2SAT 100
--- NOTE | 2024-12-15 06:43 | ED.PDOC ---
History of Present Illness HPI Comments A 44 YEAR OLD MALE PRESENTS TO THE ED WITH COMPLAINT OF COLOSTOMY BAG CARE. PATIENT STATES HE HAS A COLOSTOMY BAG IN PLACE, BUT WOULD LIKE A SPECIFIC TYPE OF TAPE APPLIED TO THE AFFECTED AREA TO HAVE IT SEALED BETTER. PATIENT DENIES FEVER, CHILLS, SHORTNESS OF BREATH, CHEST PAIN, ABDOMINAL PAIN, NAUSEA, VOMITI NG, HEADACHE, OR OTHER COMPLAINTS. NO OTHER SYMPTOMS OR MODIFYING FACTORS AT THIS TIME. PATIENT IS ALERT, ORIENTED X 4, AND HAS STEADY GAIT. Chief Complaint: Wound Check Time Seen by MD: 06:25 Primary Care Provider: NONE Reviewed Notes: Nurses Notes, Medications, Allergies Allergies: Coded Allergies: Ketorolac Tromethamine (Verified Allergy, Unknown, 09/03/23) Penicillins (Verified Allergy, Unknown, 12/01/23) Vancomycin (Verified Allergy, Unknown, 07/07/24) Information Source: Patient Mode of Arrival: Ambulatory Severity: None Timing: Days Duration: Since onset, Days Prehospital treatment: None Medication Refill: For: Other (COLOSTOMY CARE) Past Medical History PAST MEDICAL HISTORY: Denies Surgical History: Denies all surgeries Family History Family History: Reviewed,noncontributory to illness Social History Smoker: Cigarettes Alcohol: Rarely Drugs: Marijuana, Methamphetamine Lives In: Homeless Constitutional: denies: chills, diaphoresis, fatigue, fever, malaise, sweats, weakness, others EENTM: denies: blurred vision, double vision, ear bleeding, ear discharge, ear drainage, ear pain, ear ringing, eye pain, eye redness, hearing loss, mouth pain, mouth swelling, nasal discharge, nose bleeding, nose congestion, nose pain, photophobia, tearing, throat pain, throat swelling, voice changes, others Respiratory: denies: cough, hemoptysis, orthopnea, SOB at rest, shortness of breath, SOB with excertion, stridor, wheezing, others Cardiovascular: denies: chest pain, dizzy spells, diaphoresis, Dyspnea on exertion, edema, irregular heart beat, left arm pain, lightheadedness, palpitations, PND, syncope, others Gastrointestinal: denies: abdomen distended, abdominal pain, blood streaked bowels, constipated, diarrhea, dysphagia, difficulty swallowing, hematemesis, melena, nausea, poor appetite, poor fluid intake, rectal bleeding, rectal pain, vomiting, others Genitourinary: denies: burning, dysuria, flank pain, frequency, hematuria, inc ontinence, penile discharge, penile sore, pain, testicle pain, testicle swelling, urgency, others Neurological: denies: dizziness, fainting, headache, left sided numbness, left sided weakness, numbness, paresthesia, pre-existing deficit, right sided numbness, right sided weakness, seizure, speech problems, tingling, tremors, weakness, others Musculoskeletal: denies: back pain, gout, joint pain, joint swelling, muscle pain, muscle stiffness, neck pain, others Integumetry: denies: bruises, change in color, change in hair/nails, dryness, laceration, lesions, lumps, rash, wounds, others Allergic/Immunocompromised: denies: Difficulty Healing, Frequent Infections, Hives, Itching, others Hematologic/Lymphatic: denies: anemia, blood clots, easy bleeding, easy bruising, swollen glands, others Endocrine: denies: excessive hunger, excessive sweating, excessive thirst, excessive urination, flushing, intolerance to cold, intolerance to heat, unexplained weight gain, unexplained weight loss, others Psychiatric: denies: anxiety, bipolar disorder, depression, hopeless, panic disorder, schizophrenia, sleepless, suicidal, others All Other Systems: Reviewed and Negative Physical Exam General Appearance: No Apparent Distress, Normal HEENT: Normal ENT Inspection, PERRL/EOMI, Pharynx Normal, TMs Normal Neck: Full Range of Motion, Non-Tender, Normal, Normal Inspection Respiratory: Chest Non-Tender, Lungs Clear, No Accessory Muscle Use, No Respiratory Distress, Normal Breath Sounds Cardiovascular: No Edema, No JVD, No Murmur, No Gallop, Normal Peripheral Pulses, Regular Rate/Rhythm Breast Exam: Deferred Gastrointestinal: No Organomegaly, Non Tender, No Pulsatile Mass, Normal Bowel Sounds, Soft Genitalia: Deferred Pelvic: Deferred Rectal: Deferred Extremities: No calf tenderness, Normal capillary refill, Normal inspection, Normal range of motion, Non-tender, No pedal edema Musculoskeletal : Apperance: Normal Neurologic: Alert, gas distribution supervisor II-XII nml as Tested, No Motor Deficits, Normal Affect, Normal Mood, No Sensory Deficits Cerebellar Function: Normal Reflexes: Normal Skin: Dry, Normal Color, Warm, Other (COLOSTOMY BAG INTACT NOTED TO LEFT SIDE OF ABDOMINAL WALL, NO SKIN REDNESS, SWELLING AND PUS DRAINAGE. ) Peripheral Pulses: 2+ carotid (R), 2+ carotid (L) Lymphatic: No Adenopathy Was a procedure done? Was a procedure done?: No Differential Dx Considerations may include: COLOSTOMY CARE, WOUND RECHECK X-Ray, Labs, Meds, VS Vital Signs Date Time Temp Pulse Resp B/P (MAP) Pulse Ox O2 Delivery O2 Flow Rate FiO2 12/15/24 05:45 Room Air 12/15/24 05:45 97.8 97 16 130/99 (109) 100 97.8 12/15/24 05:45 97.8 97 16 130/99 (109) 100 X-Ray, Labs, Meds, VS Comment EXTERNAL MEDICAL RECORDS REVIEWED: [NONE] INDEPENDENT HISTORIANS: [NONE] SOCIAL DETERMINANTS OF HEALTH: PATIENT IS CURRENTLY HOMELESS. LABS ORDERED: NONE REVIEWED AND INTERPRETED RESULTS: NONE IMAGING ORDERED: NONE TREATMENTS ORDERED: COLOSTOMY BAG SITE CLEANED WITH NORMAL SALINE AND MATERIAL WERE THEN GIVEN TO PATIENT. FOOD AND DRINK PROVIDED. PROCEDURES PERFORMED: NONE CRITICAL CARE TIME: NONE I HAVE DISCUSSED THE PATIENT WITH THE ATTENDING PHYSICIAN DR. LAUGHLIN AND HE AGREES WITH THE PATIENT'S PLAN OF CARE AND DISPOSITION. BASED ON HISTORY OF PRESENT ILLNESS, AND PHYSICAL EXAM, PATIENT WILL BE DISCHARGED HOME. SHARED DECISION MAKING: PATIENT INSTRUCTED TO FOLLOW UP WITH PRIMARY CARE PROVIDER IN 1-2 DAYS FOR RE-EVALUATION OF SYMPTOMS. PATIENT VERBALIZES UNDERSTANDING TO RETURN TO ED FOR NEW OR WORSENING SYMPTOMS OR IF FOLLOW UP WITH PCP CANNOT BE OBTAINED. PATIENT FEELS COMFORTABLE GOING HOME AT THIS TIME. ALL QUESTIONS ADDRESSED AT TIME OF DISCHARGE. Time of 1ST Reevaluation: 07:02 Reevaluation 1ST: Improved Patient Education/Counseling: Diagnosis, Treatment, Need For Follow Up Family Education/Counseling: Diagnosis, Treatment, Need For Follow Up Medical Screening: No EMC Exist At This Time Departure 1 Departure Time of Disposition: 07:03 Impression: Primary Impression: Colostomy care Disposition: 01 HOME / SELF CARE / HOMELESS Condition: Stable Additional Instructions: FOLLOW UP WITH PCP IN 1-2 DAYS. RETURN TO ED FOR ANY NEW OR WORSENING SYMPTOMS. Discharged With: Self Critical Care Note Critical Care Time?: No Stability Stability form required: No I personally scribed for DONNA HARDEN ([email or web address]) on 12/15/24 at 06:43. Electronically submitted by Gama Pascal ([email or web address]). DONNA HARDEN Dec 15, 2024 06:43
== END 2024-12-15 07:06 | disposition home or self-care (01) ==
LOC: ER 05:20
DX: F12.10 Cannabis abuse, uncomplicated (principal); F15.10 Other stimulant abuse, uncomplicated; F17.210 Nicotine dependence, cigarettes, uncomplicated; Z93.3 Colostomy status; Z88.1 Allergy status to other antibiotic agents; Z88.0 Allergy status to penicillin; Z59.00 Homelessness unspecified

== ENCOUNTER 2024-12-15 19:56 | Inpatient (IN) | payer MEDICAID ==
[~2024-12-15] VITALS: Ht 188 cm; Wt 68.0 kg
--- NOTE | 2024-12-15 20:42 | ED.PDOC ---
GI ASSESSMENT HPI Comments 44 year old male came to ER due to abdominal pain. Patient is status post diverting colostomy performed at [facility] last April 2024 complaining of abdominal pain that began about 2 hours ago. Patient seen here multiple times usually for wound check. Patient has not been following up at [facility] regarding possible reversal of colostomy. Patient is homeless and has history of polysubstance abuse. He denies any fevers, chills, nausea or vomiting. Patient reports good output from the colostomy. Chief Complaint: Abdominal Pain Time Seen by MD: 20:40 Primary Care Provider: NONE Reviewed Notes: Nurses Notes Allergies: Coded Allergies: Ketorolac Tromethamine (Verified Allergy, Unknown, 09/03/23) Vancomycin (Verified Allergy, Unknown, 07/07/24) Home Meds Unable to Obtain Active Prescriptions or Reported Meds Information Source: Patient Mode of Arrival: Ambulatory Timing: Hours Duration: Since onset Review of Systems REVIEW OF SYSTEMS: No fever, no chills, or fatigue HEENT: No sore throat, no earache, no congestion, no neck pain. Cardiac: No chest pain. No palpitations. Lungs: No shortness of breath, no cough. GI: No nausea, no vomiting, no diarrhea, no constipation, (+) abdominal pain, (+) colostomy bag : No dysuria, frequency, or urgency. No hematuria. Musculoskeletal: No joint pain , no joint swelling, no extremity edema. Skin: No rash, no itching. Neuro: No headache, no dizziness, no weakness Vital Signs Vital Signs Date Time Temp Pulse Resp B/P (MAP) Pulse Ox O2 Delivery O2 Flow Rate FiO2 12/16/24 01:00 Room Air* 0 21 12/15/24 21:48 80 20 146/83 12/15/24 21:44 98.7 98.7 12/15/24 20:31 99 Physical Exam General: Awake, alert and oriented. No acute distress. Skin: Skin in warm, dry and intact. Appropriate color for ethnicity. Nailbeds pink with no cyanosis. HEENT: The head is normocephalic and atraumatic. Conjunctivae are clear without exudates or hemorrhage. Sclera is non-icteric. EOM are intact. No signs of nystagmus. Eyelids are normal in appearance without swelling or lesions. Oral mucosa is pink and moist Neck: The neck is supple with normal range of motion. No JVD. Cardiac: Heart rate and rhythm are normal. No murmurs, gallops, or rubs are auscultated. Respiratory: No signs of respiratory distress. Lung sounds are clear in all lobes bilaterally without rales, ronchi, or wheezes. Abdominal: Stoma the left lower quadrant, bowel is pink, well-perfused, 2 edematous ostomies noted. Tender to palpation. Surrounding skin is non erythematous. left ostomy noted to have yellowish exudate at the base. Abdomen is soft, generally tender. No peritoneal signs. Extremities: Upper and lower extremities are atraumatic in appearance without deformity or edema. Neurological: The patient is awake, alert and oriented to person, place, and time with normal speech. Speech is clear. There is no facial asymmetry. Psychiatric: Appropriate mood and affect. Good judgement and insight. No visual or auditory hallucinations. Past Medical History PAST MEDICAL HISTORY: Denies Surgical History: Denies all surgeries Surgical History (Other): status post diverting colostomy performed at [facility] last 2023 Family History Family History: Reviewed,noncontributory to illness Social History Smoker: Cigarettes Alcohol: Rarely Drugs: Marijuana, Methamphetamine Lives In: Homeless Was a procedure done? Was a procedure done?: No GI differential Dx Differential Diagnosis: Diverticular disease, Gastritis/PUD, Gastroenteritis, Other (Status post colostomy bag) X-Ray, Labs, Meds, VS Vital Signs Date Time Temp Pulse Resp B/P (MAP) Pulse Ox O2 Delivery O2 Flow Rate FiO2 12/16/24 01:00 Room Air* 0 21 12/15/24 21:48 80 20 146/83 12/15/24 21:44 98.7 106 20 146/83 (104) 98.7 12/15/24 20:31 97.6 114 16 143/98 (113) 99 Lab Test 12/15/24 20:42 Range/Units White Blood Count 11.3 H 4.4-10.8 10^3/uL Red Blood Count 3.94 L 4.5-5.90 10^6/uL Hemoglobin 10.5 L 13.5-17.5 g/dL Hematocrit 32.9 L 41.0-53.0 % Mean Corpuscular Volume 83.5 80.0-100.0 fL Mean Corpuscular Hemoglobin 26.8 L 28.0-32.0 pg Mean Corpuscular Hemoglobin Concent 32.1 32.0-36.0 g/dL Red Cell Distribution Width 19.1 H 11.8-14.3 % Platelet Count 533 H 140-450 10^3/uL Mean Platelet Volume 6.7 L 6.9-10.8 fL Neutrophils (%) (Auto) 77.6 37.0-80.0 % Lymphocytes (%) (Auto) 10.4 10.0-50.0 % Monocytes (%) (Auto) 8.0 0.0-12.0 % Eosinophils (%) (Auto) 3.6 0.0-7.0 % Basophils (%) (Auto) 0.4 0.0-2.0 % Neutrophils # (Auto) 8.7 H 1.6-8.6 10 ^3/uL Lymphocytes # (Auto) 1.2 0.4-5.4 10 ^3/uL Monocytes # (Auto) 0.9 0-1.3 10 ^3/uL Eosinophils # (Auto) 0.4 0-0.8 10 ^3/uL Basophils # (Auto) 0 0-0.2 10 ^3/uL Nucleated Red Blood Cells 0.1 % Sodium Level 139 136-145 mmol/L Potassium Level 3.0 L 3.5-5.1 mmol/L Chloride Level 107 98-107 mmol/L Carbon Dioxide Level 25 20-31 mmol/L Anion Gap 7 5-15 Blood Urea Nitrogen 8 L 9-23 mg/dL Creatinine 0.77 0.700-1.30 mg/dL Glomerular Filtration Rate Calc 114 >90 mL/min BUN/Creatinine Ratio 10.4 10.0-20.0 Serum Glucose 88 74-106 mg/dL Lactic Acid Level 1.0 0.4-2.0 mmol/L Calcium Level 8.9 8.7-10.4 mg/dL Total Bilirubin 0.3 0.2-1.0 mg/dL Aspartate Amino Transferase (AST) 16 13-40 U/L Alanine Aminotransferase (ALT) 12 7-40 U/L Alkaline Phosphatase 100 46-116 U/L Total Protein 9.1 H 5.7-8.2 g/dL Albumin 3.4 3.2-4.8 g/dL Lipase 25 12-53 U/L Current Medications Medications (Trade) Dose Ordered Sig/Wallace Route Start Time Stop Time Status Last Admin Morphine Sulfate 2 mg ONCE ONCE IV 12/15/24 20:30 12/15/24 20:31 DC 12/15/24 21:48 Ondansetron HCl (Zofran) 4 mg ONCE ONCE IV 12/15/24 20:30 12/15/24 20:31 DC 12/15/24 21:48 Metronidazole 100 ml @ 100 mls/hr ONCE ONCE IV 12/15/24 23:15 12/16/24 00:14 DC 12/16/24 02:59 Levofloxacin/ Dextrose 100 ml @ 100 mls/hr ONCE ONCE IV 12/15/24 23:15 12/16/24 00:14 DC 12/16/24 01:26 Exam: CT CT AB PEL WITH IV CON ONLY History: Abdominal pain, ostomy swelling Comparison Study: None available at time of dictation. Contrast: Type of contrast: Omnipaque 300 Contrast injected: 100 mL Contrast wasted: 0 TECHNIQUE: A digital telesales advisor image was obtained. During the uneventful, intravenous administration of contrast material, multislice data acquisition was obtained through the abdomen and pelvis. The data set was subsequently reconstructed into axial images. Images were reviewed on a work station using a combination of axial and multiplanar using a variety of window levels and settings. Radiation Dose Information: CT Dose: CTDI volume is 6.79 mGy. Dose-length product is 440.42 mGy*cm FINDINGS: Lung Bases: No acute or significant lung base finding. Normal heart size. No pleural or pericardial effusion. Liver: The liver is normal in size. No focal lesions. Normal hepatic vascular enhancement. Gallbladder and Biliary Tree: Unremarkable Spleen: Unremarkable Pancreas: The pancreas is normal in appearance without focal lesions or abnormal enhancement. Adrenal Glands: Unremarkable Kidneys: Kidneys demonstrate normal symmetric enhancement without focal lesions, calculi or hydronephrosis. Bladder: Unremarkable Bowel: The stomach is grossly normal in appearance. Small bowel and colon are normal in caliber and distribution. Mucosal thickening around the ostomy lower left anterior abdomen. There also appears to be enhancing linear densities extending through the ostomy. The appendix is not visualized; however, no secondary findings of acute appendicitis identified. Ascites: Absent Lymphadenopathy: No mesenteric, retroperitoneal or periportal lymphadenopathy. Abdominal Wall and Mesentery: Unremarkable. Vasculature: The visualized abdominal aorta is normal in size and caliber. Abdominal and pelvic vessels demonstrate normal enhancement. Pelvic Organs: Unremarkable Musculoskeletal: No aggressive focal bony lesions, acute fractures or dislocation. Soft tissues: Unremarkable. IMPRESSION: 1. Edema in the soft tissues extend through the ostomy and appear extending beyond the skin. Findings suggest herniation of possible bowel vascular structures and mesenteric fat can not exclude infection. Several bubbles of air soft tissues noted ( series 2 image 60- 63) can not exclude infection. 2. 2 cm right renal cyst small 1 cm cyst left kidney. 3. All CT scans at this medical facility are performed using dose modulation techniques as appropriate to a performed exam including the following: Automated exposure control was utilized; adjustment of the MA and/or KV according to patient size; and use of iterative reconstruction technique. Time of 1ST Reevaluation: 20:36 Reevaluation 1ST: Unchanged Patient Education/Counseling: Diagnosis, Treatment Family Education/Counseling: No Family Present Departure 1 Departure Time of Disposition: 00:38 Impression: Primary Impression: Abdominal pain Additional Impression: Complication of ostomy Disposition: ADMITTED INPATIENT Condition: Stable e-Prescriptions Unable to Obtain Active Prescriptions or Reported Meds Comments 44-year-old male who presented to the emergency department with abdominal pain. Patient has a history of loop colostomy that was placed for treatment of severe hidradenitis suppurativa. Patient noted throughout today worsening swelling and prolapse of bowel. CT abdomen and pelvis showed no acute process. Mild leukocytosis on CBCs noted. Antibiotics initiated. Plan to admit patient to hospitalist service however hospitalist team requested that general surgery be consulted 1st. Dr. Fonseca was consulted who stated he would see patient in ED. Attempt to reduce ostomy was performed in the ED by ED provider using normal saline/granulated sugar. Swelling of bowel improved however complete reduction was unsuccessful due to pain/patient requesting to terminate procedure Extensive evaluation was performed in attempt to identify or rule out: (See differential diagnosis section) The following tests were ordered, and results were reviewed by me: (See diagnostic results section) The following test were independently interpreted by me: N/A I reviewed and agreed with the following test results read by other providers: N/A I reviewed the following notes from the pt's past medical encounters: (None available at this time) Additional information was gathered from interviewing the following independent historians: N/A Discussion of management or test interpretation with external physician/other qualified health laboratory animal care veterinarian: Dr. Fonseca , general surgery @ 300 am. He will see patient in the ED. Addressed [one or more chronic illnesses with severe exacerbation, progression, or side effects of treatment: Abdominal pain, ostomy prolapse Decision regarding hospitalization or escalation of hospital level of care: Risk and benefits of admission for further treatment of patient's condition was considered. Due to patient's current clinical condition, high risk of decline and poor outcome if discharged and need for further inpatient management and m onitoring, patient will be admitted to the hospital. Drug therapy requiring intensive monitoring for toxicity: IV morphine, IV fentanyl Parenteral controlled substances: N/A Decision regarding elective major surgery with identified patient or procedure r isk factors: N/A Decision regarding emergency major surgery: N/A Decision not to resuscitate or to de-escalate care because of poor prognosis: N/A Diagnosis or treatment significantly limited by social determinants of health: N/A Critical Care Note Critical Care Time?: No Stability Stability form required: No Heart Score Heart Score: Heart Score Response (Comments) Value History N/A 0 EKG N/A 0 Age N/A 0 Risk Factors N/A 0 Troponin N/A 0 Total 0 I personally scribed for MARTIN ART MD ([email or web address]) on 12/15/24 at 20:42. Electronically submitted by Keith Valerio (Attent[employer]). I personally scribed for MARTIN ART MD ([email or web address]) on 12/16/24 at 01:11. Electronically submitted by Keith Valerio (Attent[employer]). MARTIN ART MD Dec 15, 2024 20:42
[2024-12-15 20:55] LABS: Basophils # (auto) 0 10 ^3/uL (0-0.2); Basophils % (auto) 0.4 % (0.0-2.0); Eosinophils # (auto) 0.4 10 ^3/uL (0-0.8); Lymphocytes # (auto) 1.2 10 ^3/uL (0.4-5.4); Monocytes # (auto) 0.9 10 ^3/uL (0-1.3); Nucleated Red Blood Cells % 0.1 %
[2024-12-15 20:57] LABS: Eosinophils % (auto) 3.6 % (0.0-7.0); Hematocrit 32.9 % (41.0-53.0); Hemoglobin 10.5 g/dL (13.5-17.5); Lymphocytes % (auto) 10.4 % (10.0-50.0); Mean Corpuscular Hemoglobin 26.8 pg (28.0-32.0); Mean Corpuscular Hgb Conc. 32.1 g/dL (32.0-36.0); Mean Corpuscular Volume 83.5 fL (80.0-100.0); Neutrophils # (auto) 8.7 10 ^3/uL (1.6-8.6); Neutrophils % (auto) 77.6 % (37.0-80.0); Platelet Count (auto) 533 10^3/uL (140-450); Red Blood Cells 3.94 10^6/uL (4.5-5.90); Red Cell Distribution Width 19.1 % (11.8-14.3); White Blood Cell 11.3 10^3/uL (4.4-10.8)
[2024-12-15 21:11] LABS: Alanine Aminotransferase 12 U/L (7-40); Albumin 3.4 g/dL (3.2-4.8); Alkaline Phosphatase 100 U/L (46-116); Anion Gap 7 (5-15); Aspartate Aminotransferase 16 U/L (13-40); BUN/Creatinine Ratio 10.4 (10.0-20.0); Calcium 8.9 mg/dL (8.7-10.4); Carbon Dioxide 25 mmol/L (20-31); Chloride 107 mmol/L (98-107); Glucose 88 mg/dL (74-106); Lipase 25 U/L (12-53); Sodium 139 mmol/L (136-145)
[2024-12-15 21:12] LABS: Bilirubin, Total 0.3 mg/dL (0.2-1.0)
[2024-12-15 21:15] LABS: Blood Urea Nitrogen 8 mg/dL (9-23); Total Protein 9.1 g/dL (5.7-8.2)
[2024-12-15] MEDS: ONDANSETRON HCL 4 MG/2 ML VIAL IV ONE (21:48)
[2024-12-15] MEDS: MORPHINE SULFATE INJ 2 MG/ml SYRG IV ONE (21:48)
[2024-12-15] MEDS: IOHEXOL 300 MG/ML 100ML BOTTLE IJ ONE (22:11)
--- NOTE | 2024-12-15 22:47 | DVH ---
Exam: CT CT AB PEL WITH IV CON ONLY History: Abdominal pain, ostomy swelling Comparison Study: None available at time of dictation. Contrast: Type of contrast: Omnipaque 300 Contrast injected: 100 mL Contrast wasted: 0 TECHNIQUE: A digital health assistant image was obtained. During the uneventful, intravenous administration of c ontrast material, multislice data acquisition was obtained through the abdomen and pelvis. The data s et was subsequently reconstructed into axial images. Images were reviewed on a work station using a c ombination of axial and multiplanar using a variety of window levels and settings. Radiation Dose Information: CT Dose: CTDI volume is 6.79 mGy. Dose-length product is 440.42 mGy*cm FINDINGS: Lung Bases: No acute or significant lung base finding. Normal heart size. No pleural or pericardial effusion. Liver: The liver is normal in size. No focal lesions. Normal hepatic vascular enhancement. Gallbladder and Biliary Tree: Unremarkable Spleen: Unremarkable Pancreas: The pancreas is normal in appearance without focal lesions or abnormal enhancement. Adrenal Glands: Unremarkable Kidneys: Kidneys demonstrate normal symmetric enhancement without focal lesions, calculi or hydroneph rosis. Bladder: Unremarkable Bowel: The stomach is grossly normal in appearance. Small bowel and colon are normal in caliber and d istribution. Mucosal thickening around the ostomy lower left anterior abdomen. There also appears to be enhancing linear densities extending through the ostomy. The appendix is not visualized; however, no secondary findings of acute appendicitis identified. Ascites: Absent Lymphadenopathy: No mesenteric, retroperitoneal or periportal lymphadenopathy. Abdominal Wall and Mesentery: Unremarkable. Vasculature: The visualized abdominal aorta is normal in size and caliber. Abdominal and pelvic vess els demonstrate normal enhancement. Pelvic Organs: Unremarkable Musculoskeletal: No aggressive focal bony lesions, acute fractures or dislocation. Soft tissues: Unremarkable. IMPRESSION: 1. Edema in the soft tissues extend through the ostomy and appear extending beyond the skin. Findings suggest herniation of possible bowel vascular structures and mesenteric fat can not exclude infectio n. Several bubbles of air soft tissues noted ( series 2 image 60- 63) can not exclude infection. 2. 2 cm right renal cyst small 1 cm cyst left kidney. 3. All CT scans at this medical facility are performed using dose modulation techniques as appropriat e to a performed exam including the following: Automated exposure control was utilized; adjustment of the MA and/or KV according to patient size; and use of iterative reconstruction technique.
[2024-12-16] VITALS (22 sets, daily range): BP systolic 110–158; BP diastolic 68–99; PULSE 68–108; RESP 10–20; TEMP 97.6–99.2; O2SAT 94–100
[2024-12-16] MEDS ORDERED: ONDANSETRON HCL 4 MG/2 ML VIAL IV PRN (01:15)
[2024-12-16] MEDS ORDERED: VANCOMYCIN PER PHARMACY 0 MG IV SCH (01:15)
[2024-12-16] MEDS: levoFLOXacin 500MG 100 ML IV ONE (01:26)
[2024-12-16] MEDS: POTASSIUM CHL 20MEQ/100ML 100 ML IV ONE ×3 (01:30→10:00)
--- NOTE | 2024-12-16 01:59 | DVH ---
CHEST RADIOGRAPH Indication: sob Technique: Single frontal view of the chest was obtained COMPARISON: XY CHEST XRAY 1 VIEW on DOS: 07/20/24, XY CHEST PORTABLE on DOS: 12/14/23, XY CHEST PORTABL E on DOS: 11/06/23, CXR1 on DOS: 10/22/22, CHEST XRAY 1 VIEW on DOS: 10/22/22 FINDINGS: Lines and Tubes: None Lungs: Clear Pleura: No effusion. No pneumothorax. Cardiomediastinal contours: Unremarkable Bones: Unremarkable IMPRESSION: No abnormality demonstrated.
[2024-12-16] MEDS: fentaNYL CITRATE 100 MCG/2 ML VL IV ONE ×2 (02:02→03:13)
[2024-12-16 02:08] LABS: INR 1.17 (0.9-1.15); Prothrombin Time 12.2 sec (9.3-11.8)
[2024-12-16 02:31] LABS: Magnesium 1.6 mg/dL (1.6-2.6)
[2024-12-16 02:35] LABS: Erythrocyte Sedimentation Rate 102 mm/hr (0-20)
[2024-12-16] MEDS: metroNIDAZOLE 500MG/100ML 100 ML IV ONE (02:59)
[2024-12-16 03:20] LABS: CRP High Sensitivity 6.39 mg/dL (<1.0)
[2024-12-16] MEDS: SODIUM CHLORIDE 0.9% 1,000 ML IV SCH ×2 (03:20→22:00)
[2024-12-16] MEDS: PANTOPRAZOLE 40 MG/10 ML VIAL INJ IV SCH (03:29)
[2024-12-16] MEDS: PIPERACILLIN-TAZOB 3.375GM 100 ML IV SCH (03:48)
[2024-12-16 03:55] LABS: COVID19 ANTIGEN SOFIA FIA NEGATIVE (NEGATIVE)
[2024-12-16 03:56] LABS: Rapid Influenza A Negative (Negative); Rapid Influenza B Negative (Negative)
[2024-12-16] MEDS: SODIUM CHLOR 0.9% PF (SALINE LOCK) 10ML VIAL/SYR IV SCH (05:14)
[2024-12-16] MEDS: MORPHINE SULFATE INJ 2 MG/ml SYRG IV PRN (05:15)
--- NOTE | 2024-12-16 05:30 | DVHHPRES ---
History of Present Illness Resident Creating Document: DARRIN QUESADA RESIDENT History of Present Illness WILMER JAMA is a 44-year-old male patient with a PMH of hidradenitis suppurative of perineum, colostomy presented to ED with the chief complaints of worsening of abdominal. Patient reported he has been having intermittent abd ominal pain for 1 week but today the pain has been worsening associated with nausea which brought him to visit ED. patient reported he underwent colostomy last year due nonhealing hidradenitis suppurativa patient reports currently he is not any medication admits active smoking, alcohol, methamphetamine, marijuana abuse. Patient also admits liquid output colostomy bag. On my assessment patient denies fever, vomiting, chest pain, shortness breath and other associated symptoms. PMH: Hidradenitis suppurative of perineum, colostomy PSH: Multiple skin graft for hidradenitis, colostomy Social history: Homeless. Smokes less than 1 pack per day, alcohol abuse, methamphetamine abuse, marijuana abuse Family history: Not provided Allergies: Ketorolac, penicillins, vancomycin Home medications: None Review of Systems Constitutional: Yes: Malaise Eyes: No: Pain, Vision change, Conjunctivae inflammation, Eyelid inflammation, Other, Redness ENT: No: Ear pain, Ear discharge, Nose pain, Nose discharge, Nose congestion, Mouth pain, Mouth swelling, Throat pain, Throat swelling, Other Respiratory: No: Cough, Dry, Shortness of breath, SOB with excertion, Wheezing, Hemoptysis, Pleuritic Pain, Sputum, Wheezing, Other Cardiovascular: No: Chest Pain, Palpitations, Orthopnea, Paroxysmal Noc. Dyspnea, Edema, Lt Headedness, Other Gastrointestinal: Nausea, Abdominal Pain Genitourinary: No Dysuria, No Frequency, No Incontinence, No Hematuria, No Retention, No Other Musculoskeletal: No: other, neck pain, shoulder pain, arm pain, back pain, hand pain, leg pain, foot pain Skin: No: Rash, Lesions, Jaundice, Bruising, Other Neurological: No: Weakness, Numbness, Incoordination, Change in speech, Confusion, Seizures, Other Allergies: Coded Allergies: Ketorolac Tromethamine (Verified Allergy, Unknown, 09/03/23) Vancomycin (Verified Allergy, Unknown, 07/07/24) Medications Current Medications Medications Dose Ordered Sig/Wallace Route Start Time Stop Time Status Last Admin Dose Admin Sodium Chloride 10 ml Q8HR IV 12/16/24 06:00 12/16/24 05:14 10 ML Sodium Chloride 1,000 ml @ 60 mls/hr [id number] IV 12/16/24 01:15 12/16/24 03:20 60 MLS/HR Ondansetron HCl 4 mg Q4HP PRN IV 12/16/24 01:15 Enoxaparin Sodium 40 mg DAILY SC 12/16/24 10:00 Acetaminophen 650 mg Q6HP PRN PO 12/16/24 01:15 Morphine Sulfate 2 mg Q4HPRN PRN IV 12/16/24 01:15 12/16/24 05:15 2 MG Piperacillin Sod/ Tazobactam Sod 100 ml @ 100 mls/hr Q6H IV 12/16/24 02:30 12/16/24 03:48 100 MLS/HR Linezolid 300 ml @ 150 mls/hr Q12HR IV 12/16/24 10:00 Pantoprazole Sodium 40 mg DAILY IV 12/16/24 02:30 12/16/24 03:29 40 MG Exam Vital Signs Vital Signs Date Time Temp Pulse Resp B/P (MAP) Pulse Ox O2 Delivery O2 Flow Rate FiO2 12/16/24 05:15 104 19 158/91 12/16/24 02:00 97 12/16/24 01:00 Room Air* 0 21 12/15/24 21:44 98.7 98.7 Exam Pt is lying on bed General Appearance: In severe distress but alert, Oriented X3, Cooperative HEENT: Atraumatic, Mucous membranes dry Respiratory: Clear to auscultation, Normal air movement Cardiovascular: Regular rate, Normal S1, Normal S2, No murmurs Abdominal: Rigid, tender, colostomy bowel loops having mucinous secretions, pink Extremities: No edema, Normal pulses, No tenderness/swelling Skin: Healing hidradenitis suppurative in the perineum with granulation tissue Neuro: Normal speech, sensorimotor deficits none Psych/Mental Status: Mental status NL, Mood NL Nurse was there as sharperone during examination Labs/Xrays Labs Test 12/16/24 02:26 12/16/24 01:13 12/15/24 20:42 Range/Units Influenza Type A Antigen Negative Negative Influenza Type B Antigen Negative Negative SARS-CoV-2 Antigen (Rapid) Negative NEGATIVE Erythrocyte Sedimentation Rate 102 H 0-20 mm/hr Prothrombin Time 12.2 H 9.3-11.8 sec Prothrombin Time INR 1.17 H 0.9-1.15 Activated Partial Thromboplast Time 28.0 24.5-34.5 SEC Hemoglobin A1c 5.1 <5.7 % A1C Lactic Acid Level 0.6 0.4-2.0 mmol/L Magnesium Level 1.6 1.6-2.6 mg/dL Ammonia < 10 L 11-32 umol/L C-Reactive Protein High Sensitivity 6.39 H <1.0 mg/dL B-Type Natriuretic Peptide 8.68 0-100 pg/mL White Blood Count 11.3 H 4.4-10.8 10^3/uL Red Blood Count 3.94 L 4.5-5.90 10^6/uL Hemoglobin 10.5 L 13.5-17.5 g/dL Hematocrit 32.9 L 41.0-53.0 % Mean Corpuscular Volume 83.5 80.0-100.0 fL Mean Corpuscular Hemoglobin 26.8 L 28.0-32.0 pg Mean Corpuscular Hemoglobin Concent 32.1 32.0-36.0 g/dL Red Cell Distribution Width 19.1 H 11.8-14.3 % Platelet Count 533 H 140-450 10^3/uL Mean Platelet Volume 6.7 L 6.9-10.8 fL Neutrophils (%) (Auto) 77.6 37.0-80.0 % Lymphocytes (%) (Auto) 10.4 10.0-50.0 % Monocytes (%) (Auto) 8.0 0.0-12.0 % Eosinophils (%) (Auto) 3.6 0.0-7.0 % Basophils (%) (Auto) 0.4 0.0-2.0 % Neutrophils # (Auto) 8.7 H 1.6-8.6 10 ^3/uL Lymphocytes # (Auto) 1.2 0.4-5.4 10 ^3/uL Monocytes # (Auto) 0.9 0-1.3 10 ^3/uL Eosinophils # (Auto) 0.4 0-0.8 10 ^3/uL Basophils # (Auto) 0 0-0.2 10 ^3/uL Nucleated Red Blood Cells 0.1 % Sodium Level 139 136-145 mmol/L Potassium Level 3.0 L 3.5-5.1 mmol/L Chloride Level 107 98-107 mmol/L Carbon Dioxide Level 25 20-31 mmol/L Anion Gap 7 5-15 Blood Urea Nitrogen 8 L 9-23 mg/dL Creatinine 0.77 0.700-1.30 mg/dL Glomerular Filtration Rate Calc 114 >90 mL/min BUN/Creatinine Ratio 10.4 10.0-20.0 Serum Glucose 88 74-106 mg/dL Calcium Level 8.9 8.7-10.4 mg/dL Total Bilirubin 0.3 0.2-1.0 mg/dL Aspartate Amino Transferase (AST) 16 13-40 U/L Alanine Aminotransferase (ALT) 12 7-40 U/L Alkaline Phosphatase 100 46-116 U/L Total Protein 9.1 H 5.7-8.2 g/dL Albumin 3.4 3.2-4.8 g/dL Lipase 25 12-53 U/L Assessment/Plan Assessment/Plan # R/o peritonitis # colostomy stoma infection/campbell stomal infection vs abscess vs Bowel obstrucion # Sepsis likely due to above -CT showed edema in the soft tissues extend through the ostomy and appear extending beyond the skin. Findings suggest herniation of possible bowel vascular structures and mesenteric fat can not exclude infection. Several bubbles of air soft tissues noted -ordered pancultures -currently giving Zyvox and Zosyn -consulted surgeon -pain management as needed # tobacco abuse disorder # alcohol dependence and abuse # methamphetamine abuse disorder -counseled regarding cessation for more than 17 minutes -consider nicotine patch # Hypokalemia - Repleting - Monitor lab Protonix Lovenox NPO Goals of care discussed with the patient for more than 29 minutes: Full code status Case discussed with Dr. Cordero, patient and nurse Plan discussed with: Patient My Orders Orders - DARRIN QUESADA RESIDENT Procedure Category Date Status Time Admit ADMIT 12/16/24 Transmitted 01:12 Allergies TRENT 12/16/24 In Process 01:12 Code Status CODE 12/16/24 Transmitted 01:12 Sodium Chloride Lock PHA 12/16/24 In Process (Saline Lock Ns) 06:00 Sodium Chloride 0.9% PHA 12/16/24 In Process 01:15 Ondansetron Hcl PHA 12/16/24 In Process (Zofran) 01:15 Enoxaparin Sodium PHA 12/16/24 In Process (Lovenox) 10:00 Complete Blood Count LAB 12/16/24 Logged 04:00 Comprehensive LAB 12/17/24 Verified Metabolic Panel 04:00 Npo (Nothing By DIET 12/16/24 Transmitted Mouth) Diet Breakfast Condition: Fair TRENT 12/16/24 In Process 01:12 Acetaminophen Tablet PHA 12/16/24 In Process (Tylenol Tablet) 01:15 Morphine Sulfate PHA 12/16/24 In Process Injection 01:15 Urinalysis LAB 12/16/24 Logged 01:12 Drug Screen LAB 12/16/24 Logged 01:12 Chest Xray 1 View XY 12/16/24 Resulted 01:12 Piperacillin-Tazob PHA 12/16/24 In Process 3.375gm (Zosyn 3.375g 02:30 Linezolid 600mg/300ml PHA 12/16/24 In Process (Zyvox) 10:00 Stool Bacterial TRISTAN 12/16/24 Uncollected Culture 02:19 Blood Culture TRISTAN 12/16/24 Uncollected 02:19 Urine Bacterial TRISTAN 12/16/24 Uncollected Culture 02:19 Pantoprazole PHA 12/16/24 In Process (Protonix) 02:30 Date of Service: Dec 16, 2024 Billing Provider: CARIDAD CORDERO MD Common Visit Codes: [id number] INP/OBS CARE (HIGH) MICHAEL QUESADAANN MARIE RESIDENT Dec 16, 2024 05:30 CARIDAD CORDERO MD Dec 19, 2024 17:26
[2024-12-16 07:33] LABS: Hemoglobin 10.4 g/dL (13.5-17.5); Mean Corpuscular Volume 83.1 fL (80.0-100.0)
[2024-12-16 07:35] LABS: Hematocrit 32.6 % (41.0-53.0); Mean Corpuscular Hemoglobin 26.5 pg (28.0-32.0); Mean Corpuscular Hgb Conc. 31.9 g/dL (32.0-36.0); Platelet Count (auto) 503 10^3/uL (140-450); Red Blood Cells 3.93 10^6/uL (4.5-5.90); Red Cell Distribution Width 18.8 % (11.8-14.3)
[2024-12-16 07:40] LABS: Basophils % (manual) 0 (0.0-2.0); Blast Cells 0; Eosinophils % (manual) 0 (0-7); Metamyelocytes % 0; Myelocytes % 0; Promyelocytes % 0; Reactive Lymphocytes 0
[2024-12-16] MEDS: SODIUM CHLORIDE 0.9% 1,000 ML IV ONE (08:15)
[2024-12-16 08:16] LABS: Anisocytosis Slight; Band Neutrophils % (manual) 6; Lymphocytes % (manual) 3 (10.0-50.0); Monocytes % (manual) 4 (0-12)
[2024-12-16 08:17] LABS: Hypochromia Slight; Platelet Estimate Increased
[2024-12-16 08:18] LABS: Anion Gap 11 (5-15); Sodium 140 mmol/L (136-145)
[2024-12-16 08:22] LABS: Calcium 8.7 mg/dL (8.7-10.4); Carbon Dioxide 19 mmol/L (20-31); Chloride 110 mmol/L (98-107); Potassium 3.2 mmol/L (3.5-5.1)
[2024-12-16 08:24] LABS: BUN/Creatinine Ratio 7.1 (10.0-20.0); Glucose 93 mg/dL (74-106)
[2024-12-16 08:28] LABS: Blood Urea Nitrogen 5 mg/dL (9-23)
[2024-12-16] MEDS: ENOXAPARIN SOD 40 MG/0.4 ML SYRINGE SC SCH (09:51)
[2024-12-16] MEDS: MORPHINE SULFATE INJ 2 MG/ml SYRG IV ONE (09:52)
[2024-12-16] MEDS: HYDROMORPHONE HCL 1 MG/ML INJ IV PRN ×2 (10:23→15:37)
--- NOTE | 2024-12-16 10:39 | DVHINCON2 ---
Date of service: Dec 16, 2024 Family History: Patient reports no known family medical history. Allergies: Coded Allergies: Ketorolac Tromethamine (Verified Allergy, Unknown, 09/03/23) Vancomycin (Verified Allergy, Unknown, 07/07/24) Home Meds Unable to Obtain Active Prescriptions or Reported Meds Current Medications Current Medications Medications (Trade) Dose Ordered Sig/Wallace Route PRN Reason Start Time Stop Time Status Last Admin Sodium Chloride (Saline Lock Ns) 10 ml Q8HR IV 12/16/24 06:00 12/16/24 05:14 Sodium Chloride 1,000 ml @ 60 mls/hr [id number] IV 12/16/24 01:15 12/16/24 08:40 DC 12/16/24 03:20 Ondansetron HCl (Zofran) 4 mg Q4HP PRN IV NAUSEA / VOMITING 12/16/24 01:15 Enoxaparin Sodium (Lovenox) 40 mg DAILY SC 12/16/24 10:00 12/16/24 09:51 Acetaminophen (Tylenol Tablet) 650 mg Q6HP PRN PO PAIN SCALE 1-3 OR TEMP>100.4 12/16/24 01:15 Morphine Sulfate 2 mg Q4HPRN PRN IV SEVERE PAIN (7-10 PAIN SCALE) 12/16/24 01:15 12/16/24 05:15 Vancomycin HCl 0 ml @ 0 mls/hr UD IV 12/16/24 01:15 12/16/24 02:05 DC Piperacillin Sod/ Tazobactam Sod 100 ml @ 100 mls/hr Q6H IV 12/16/24 02:30 12/16/24 03:48 Linezolid 300 ml @ 150 mls/hr Q12HR IV 12/16/24 10:00 Pantoprazole Sodium (Protonix) 40 mg DAILY IV 12/16/24 02:30 12/16/24 09:51 Hydromorphone HCl (Dilaudid Innjection) 0.5 mg Q3HPRN PRN IV MODERATE PAIN (4-6 PAIN SCALE) 12/16/24 10:15 12/16/24 10:23 Vital Signs Vital Signs Date Time Temp Pulse Resp B/P (MAP) Pulse Ox O2 Delivery O2 Flow Rate FiO2 12/16/24 10:23 107 17 14/87 12/16/24 08:40 99.2 98 99.2 12/16/24 04:59 Room Air* 0 21 Labs/Diagnostic Data Labs Test 12/16/24 06:38 12/16/24 02:26 12/16/24 01:13 12/15/24 20:42 Range/Units White Blood Count 20.0 #H 4.4-10.8 10^3/uL Red Blood Count 3.93 L 4.5-5.90 10^6/uL Hemoglobin 10.4 L 13.5-17.5 g/dL Hematocrit 32.6 L 41.0-53.0 % Mean Corpuscular Volume 83.1 80.0-100.0 fL Mean Corpuscular Hemoglobin 26.5 L 28.0-32.0 pg Mean Corpuscular Hemoglobin Concent 31.9 L 32.0-36.0 g/dL Red Cell Distribution Width 18.8 H 11.8-14.3 % Platelet Count 503 H 140-450 10^3/uL Mean Platelet Volume 6.9 6.9-10.8 fL Neutrophils (%) (Auto) 37.0-80.0 % Lymphocytes (%) (Auto) 10.0-50.0 % Monocytes (%) (Auto) 0.0-12.0 % Basophils (%) (Auto) 0.0-2.0 % Neutrophils # (Auto) 1.6-8.6 10 ^3/uL Lymphocytes # (Auto) 0.4-5.4 10 ^3/uL Monocytes # (Auto) 0-1.3 10 ^3/uL Differential Total Cells Counted 100.0 100 Neutrophils % (Manual) 87 H 37.0-80.0 Band Neutrophils % (Manual) 6 Lymphocytes % (Manual) 3 L 10.0-50.0 Monocytes % (Manual) 4 0-12 Eosinophils % (Manual) 0 0-7 Basophils % (Manual) 0 0.0-2.0 Metamyelocytes % (manual) 0 Myelocytes % (Manual) 0 Promyelocytes % (Manual) 0 Blast Cells % (Manual) 0 Reactive Lymphocytes 0 Platelet Estimate Increased Hypochromasia (manual) Slight Anisocytosis (manual) Slight Influenza Type A Antigen Negative Negative Influenza Type B Antigen Negative Negative SARS-CoV-2 Antigen (Rapid) Negative NEGATIVE Erythrocyte Sedimentation Rate 102 H 0-20 mm/hr Prothrombin Time 12.2 H 9.3-11.8 sec Prothrombin Time INR 1.17 H 0.9-1.15 Activated Partial Thromboplast Time 28.0 24.5-34.5 SEC Sodium Level 140 136-145 mmol/L Potassium Level 3.2 L 3.5-5.1 mmol/L Chloride Level 110 H 98-107 mmol/L Carbon Dioxide Level 19 L 20-31 mmol/L Anion Gap 11 5-15 Blood Urea Nitrogen 5 L 9-23 mg/dL Creatinine 0.70 0.700-1.30 mg/dL Glomerular Filtration Rate Calc 117 >90 mL/min BUN/Creatinine Ratio 7.1 L 10.0-20.0 Serum Glucose 93 74-106 mg/dL Hemoglobin A1c 5.1 <5.7 % A1C Lactic Acid Level 0.6 0.4-2.0 mmol/L Calcium Level 8.7 8.7-10.4 mg/dL Magnesium Level 1.6 1.6-2.6 mg/dL Ammonia < 10 L 11-32 umol/L C-Reactive Protein High Sensitivity 6.39 H <1.0 mg/dL B-Type Natriuretic Peptide 8.68 0-100 pg/mL Eosinophils (%) (Auto) 3.6 0.0-7.0 % Eosinophils # (Auto) 0.4 0-0.8 10 ^3/uL Basophils # (Auto) 0 0-0.2 10 ^3/uL Nucleated Red Blood Cells 0.1 % Total Bilirubin 0.3 0.2-1.0 mg/dL Aspartate Amino Transferase (AST) 16 13-40 U/L Alanine Aminotransferase (ALT) 12 7-40 U/L Alkaline Phosphatase 100 46-116 U/L Total Protein 9.1 H 5.7-8.2 g/dL Albumin 3.4 3.2-4.8 g/dL Lipase 25 12-53 U/L Assessment [id number] LLQ COLOSTOMY NON FUNCTION WITH PROLAPSE ATTEMPT MANUAL REDUCTION REFUSING AND NON COOPERATIVE FOR BEDSIDE REDUCTION CONSIDER REDUCTION WITH IV SEDATION PER ANESTHESIA AND PT CONSENTING CONSIDER TRANSFER TO [facility] PER PT REQUEST IF REMAINS NON COMPLIANT Plan discussed with: Patient GABRIELA HERNANDEZ MD Dec 16, 2024 10:39
[2024-12-16] MEDS ORDERED: CEFEPIME 1GM/ 50ML 50 ML IV SCH (14:00)
--- NOTE | 2024-12-16 14:34 | DVHINCON2 ---
DATE OF CONSULTATION: 12/16/2024 HISTORY OF PRESENT ILLNESS: This patient is 44 years old with past medical history of hidradenitis suppurativa of the perineum, underwent a diverting colostomy at [facility] and this happened last year. He has been having problems with this off and on and now coming in with abdominal pain with a nonfunctional colostomy. PAST MEDICAL HISTORY: Hidradenitis suppurativa of the perineum, status post colostomy, multiple skin grafts for hidradenitis and colostomy. PHYSICAL EXAMINATION: VITAL SIGNS: Currently, he is afebrile with stable signs. GENERAL: Extremely noncooperative. NECK: Supple, nontender with no thyromegaly or lymphadenopathy. CHEST AND LUNGS: Clear. HEART: Within normal limits. ABDOMEN: Soft. He has a prolapsed left lower quadrant colostomy, which is viable. NEUROLOGIC: Not assessed. EXTREMITIES: Unremarkable. CLINICAL IMPRESSION: Malfunction left lower quadrant colostomy with possible prolapse. The plan will be to consider manual reduction of this prolapse and maintain his treatment in a conservative manner. MD MIKEY Deleon/SAVANNAH TID: [id number] RECEIPT: [id number] cc: Nam Haley
[2024-12-16] MEDS: LINEZOLID 600MG/300ML 300 ML IV SCH (14:56)
[2024-12-16] MEDS: CEFEPIME 1GM/ 50ML 50 ML IV SCH (15:30)
[2024-12-16] MEDS ORDERED: HYDROMORPHONE HCL 1 MG/ML INJ IV PRN (15:30)
[2024-12-16] MEDS: metroNIDAZOLE 500MG/100ML 100 ML IV SCH (15:36)
[2024-12-16] MEDS: SODIUM CHLORIDE 0.9% 500 ML IV ONE (16:15)
--- NOTE | 2024-12-16 16:17 | DVHPNRES ---
Progress Note Date Seen: Dec 16, 2024 Resident Creating Document: HILARIO FIELDS RESIDENT Medical Necessity Reason Pt with a Central, PICC or Fol: No Subjective Review of Systems Patient is a 44-year-old male with past medical history of hidradenitis suppurativa of the perineum with multiple debridements and skin grafts, s/p diverting colostomy, polysubstance abuse who came in due to abdominal pain. According to the patient, starting in May of 2024, his bowel started protruding out of his colostomy and he had it manually reduced twice, however, it continues to herniate outwards. Patient notes, 2 days ago he started experiencing a constant sharp, 10/10 pain associated with nausea without any exacerbating and relieving factors which is what prompted this visit to the hospital. Per patient, he got the colostomy at [facility] in 2023. Per patient he has been using a vomit bag to collect colostomy output. Patient is currently on housed and lives on the streets. Past surgical history: Colostomy, multiple debridements, skin grafting of the perineum Past Hospitalization: 09/27/2024 for similar symptoms. Social & Personal history: Patient is on house and lives on the [address]. Smokes 5 cigarettes per day for the last 20 years, uses marijuana, uses methamphetamine. Patient seen and examined at bedside. Patient is alert and oriented to time, place person and responding to all questions. General: fatigued Eyes: No Pain, No Vision change, No Conjunctivae inflammation, No Eyelid inflammation, No Other, No Redness ENT: No Ear pain, No Ear discharge, No Nose pain, No Nose discharge, No Nose congestion, No Mouth pain, No Mouth swelling, No Throat pain, No Throat swelling, No Other Cardiovascular: No Chest Pain, No Palpitations, No Orthopnea, No Paroxysmal No Dyspnea, No Edema, No Lt Headedness, No Other Respiratory: No Cough, No Dry, No Shortness of breath, No SOB with exertion, No Wheezing, No Hemoptysis, No Pleuritic Pain, No Sputum, No Other Gastrointestinal: No Nausea, No Vomiting, No Abdominal Pain, No Diarrhea, No Constipation, No Melena, No Hematochezia, No Other Genitourinary: No Dysuria, No Frequency, No Incontinence, No Hematuria, No Retention, No Other Musculoskeletal: No other, No neck pain, No shoulder pain, No arm pain, No back pain, No hand pain, No leg pain, No foot pain Skin: No Rash, No Lesions, No Jaundice, No Bruising, No Other Objective vital signs Vital Sign Date Time Temp Pulse Resp B/P (MAP) Pulse Ox O2 Delivery O2 Flow Rate FiO2 12/16/24 15:37 99 18 110/68 12/16/24 12:46 99.2 94 99.2 12/16/24 08:00 Room Air* 0 21 Total Intake and Output 12/15/24 12/15/24 12/16/24 15:00 23:00 07:00 Intake Total 360 ml Balance 360 ml medications Current Medications Medications Dose Ordered Sig/Wallace Route Start Time Stop Time Status Last Admin Dose Admin Sodium Chloride 10 ml Q8HR IV 12/16/24 06:00 12/16/24 13:13 10 ML Ondansetron HCl 4 mg Q4HP PRN IV 12/16/24 01:15 Enoxaparin Sodium 40 mg DAILY SC 12/16/24 10:00 12/16/24 09:51 40 MG Acetaminophen 650 mg Q6HP PRN PO 12/16/24 01:15 Morphine Sulfate 2 mg Q4HPRN PRN IV 12/16/24 01:15 12/16/24 12:52 2 MG Linezolid 300 ml @ 150 mls/hr Q12HR IV 12/16/24 10:00 12/16/24 14:56 150 MLS/HR Pantoprazole Sodium 40 mg DAILY IV 12/16/24 02:30 12/16/24 09:51 40 MG Metronidazole 100 ml @ 100 mls/hr Q8HR IV 12/16/24 14:00 12/16/24 15:36 100 MLS/HR Hydromorphone HCl 0.5 mg Q3HPRN PRN IV 12/16/24 15:30 12/16/24 15:37 0.5 MG Cefepime HCl 50 ml @ 12.5 mls/hr Q8H IV 12/16/24 15:30 Examination General Appearance: Cooperative. Well developed. Well nourished. NAD Head Exam: Normal inspection Neck Exam: Normal inspection. Non-tender. Normal alignment Pulmonary/Respiratory: Chest non-tender. Clear bilateral breath sounds, no crackles, no wheezing. Cardiovascular/Chest: Regular rate and rhythm. No murmurs. No JVD. Peripheral Pulses: 2+ Radial (R). 2+ Radial (L). 2+ Pedal (R). 2+ Pedal (L) Abdominal Exam: Normal bowel sounds. Soft. normal abdomen, no visible veins, Nontender. No hepatospenomegaly. No masses. Prolapsed colostomy, swollen edematous bowel noted without any ischemia or gangrene. Ankle Exam: Negative ankle edema Lower extremities: Negative lower extremity edema Neuro/Mental Status: A&O x4. Coherent. Thoughts/Psych: Normal thought pattern. Appropriate mood and affect. 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 Findings suggest herniation of possible bowel vascular structures and mesenteric fat can not exclude infection. Several bubbles of air soft tissues noted ( series 2 image 60- 63) can not exclude infection. 2 cm right renal cyst small 1 cm cyst left kidney. - CXR: Unremarkable - IV NS 1500 cc bolus, IV NS at 60 cc/hour maintenance - IV cefepime Q 8 hours, IV linezolid b.i.d. - IV metronidazole Q 8 hours - acetaminophen for mild pain, morphine for severe pain, hydromorphone for severe breakthrough pain - surgery on board Chronic hydradenitis suppurativa with hardened skin nodules over groin area Chronic stage III sacral wound ulcer - wound consult Polysubstance abuse including alcohol, methamphetamine and marijuana Noncompliant - counseled PUD prophylaxis: protonix 40mg DVT prophylaxis: Levonox 40mg Goals of care: Full code, discussed for >16 minutes on 12/16/2024 Plan discussed with patient and patient's sister Ms. Waters at bedside Plan discussed with Dr. 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
[2024-12-16] MEDS ORDERED: HYDROmorphone HCL 2 MG/ML VL/or syr IV PRN ×3 (16:45)
[2024-12-16] MEDS: ACETAMINOPHEN IV 1000 MG/100ML (10MG/ML) IV ONE (16:45)
[2024-12-16] MEDS: cefTRIAXone SOD 1,000 MG VL ONE (16:45)
[2024-12-16] MEDS: METOCLOPRAMIDE HCL 5MG/ml INJ 2ml VIAL IV ONE (16:45)
[2024-12-16] MEDS: ONDANSETRON HCL 4 MG/2 ML VIAL IV ONE (16:45)
[2024-12-16] MEDS: ACETAMINOPHEN IV 100 ML IV ONE (16:46)
--- NOTE | 2024-12-16 18:34 | DVHOP2 ---
Operative Report [id number] EXTENSIVE, COMPLICATED COLOSTOMY PROLAPSE WITH PARACOLOSTOMY HERNIA ATTEMPTED MANUAL REDUCTION UNDER IV SEDATION OF PRESUMABLY LOOP COLOSTOMY PROXIMAL SEGMENT REDUCED WITHOUT COMPLICATION DISTAL SEGMENT REDUCED PARTIALLY NOT COMPLETE SEC TO EXTENSIVE MUCOSAL EDEMA FINDINGS DISCUSSED WITH FAMILY CONTINUE CLOSE OBSERVATION AND REATTEMTP MANUAL REDUCTION OF REMAINING DISTAL SEGMENT PROLAPSE ONCE MUCOSAL EDEMA IS LESS CONSIDER E LAP BOWEL RESECTION REVISION COLOSTOMY BASED ON ONGOING EVAL GABRIELA HERNANDEZ MD Dec 16, 2024 18:34
[2024-12-16 18:36] LABS: Urine Bacteria FEW /hpf (None Seen); Urine Blood 3+ /uL (Negative); Urine Clarity Ex.Turbid (Clear); Urine Color Light-Brown (Yellow); Urine Protein, UAD 1+ (Negative); Urine Specific Gravity 1.011 (1.001-1.035); Urine Squamous Epithelial Cell None Seen /hpf (<5); Urine Urobilinogen Normal (Negative); Urine WBC 2976 /HPF (0-3); Urine WBC Clumps PRESENT /hpf (None Seen)
--- NOTE | 2024-12-16 18:43 | DVHOP ---
DATE OF SURGERY: 12/16/2024 PREOPERATIVE DIAGNOSIS: Prolapse of his left lower quadrant colostomy, it was presumably loop colostomy. It was not done here. It was done at [place]. Details of that are not clear and the plan was to attempt manual reduction. He refused to have this done at the bedside secondary to his intense pain, so he was brought to the OR and was given sedation to help me allow this reduction to happen. POSTOPERATIVE DIAGNOSIS: Prolapse of his left lower quadrant colostomy, it was presumably loop colostomy. It was not done here. It was done at [place]. Details of that are not clear and the plan was to attempt manual reduction. He refused to have this done at the bedside secondary to his intense pain, so he was brought to the OR and was given sedation to help me allow this reduction to happen. SURGEON: Robert Fonseca MD LINING FELLER: None. ANESTHESIA: IV sedation. DESCRIPTION OF PROCEDURE: The patient was prepped and draped in the usual sterile fashion in the supine position with the left lower quadrant area exposed and under sedation, a prolonged attempts were made to reduce this huge prolapse of his left colonic segment, presumably was a loop colostomy. There was a proximal opening and distal opening and with lot of efforts made, the proximal opening of the prolapse was reduced back without any complication and the distal component also was partially reduced, but because of the intense mucosal edema, it was not felt feasible and safe to continue efforts to making the reduction and the plan was to have a Castillo catheter placed to allow the opening to remain open of the distal side of the ostomy and this would allow the mucosal swelling to go down and then make another effort to reduce the distal segment and if unsuccessful, then he might need a laparotomy, possible bowel resection and revision of the colostomy and this situation was explained to the family as well and the nursing staff. The patient tolerated the procedure well and was taken back to the recovery room in stable condition. MD MIKEY Deleon/GLENNA TID: [id number] RECEIPT: [id number] cc: CARIDAD OLVERA M.D.
[2024-12-16 18:46] LABS: Opiate Scree,Urine Neg (NEGATIVE)
[2024-12-16 18:51] LABS: Amphetamine Screen, Urine Neg (NEGATIVE); Barbiturate Scree,Urine Neg (NEGATIVE); Benzodiazephine Screen, Urine Neg (NEGATIVE); Cannabinoid Screen, Urine Neg (NEGATIVE); Cocaine Screen, Urine Neg (NEGATIVE); Phencyclidine Screen, Urine Neg (NEGATIVE)
[2024-12-16 21:36] LABS: Basophils # (auto) 0 10 ^3/uL (0-0.2); Basophils % (auto) 0.1 % (0.0-2.0); Eosinophils # (auto) 0.2 10 ^3/uL (0-0.8); Eosinophils % (auto) 0.9 % (0.0-7.0); Hematocrit 30.7 % (41.0-53.0); Hemoglobin 10.2 g/dL (13.5-17.5); Lymphocytes # (auto) 0.9 10 ^3/uL (0.4-5.4); Lymphocytes % (auto) 4.2 % (10.0-50.0); Mean Corpuscular Hemoglobin 27.5 pg (28.0-32.0); Mean Corpuscular Hgb Conc. 33.3 g/dL (32.0-36.0); Mean Corpuscular Volume 82.6 fL (80.0-100.0); Monocytes # (auto) 0.7 10 ^3/uL (0-1.3); Monocytes % (auto) 3.6 % (0.0-12.0); Neutrophils # (auto) 18.8 10 ^3/uL (1.6-8.6); Neutrophils % (auto) 91.2 % (37.0-80.0); Platelet Count (auto) 468 10^3/uL (140-450); Red Blood Cells 3.72 10^6/uL (4.5-5.90); Red Cell Distribution Width 18.6 % (11.8-14.3); White Blood Cell 20.6 10^3/uL (4.4-10.8)
[2024-12-16 21:43] LABS: Chloride 107 mmol/L (98-107); Sodium 137 mmol/L (136-145)
[2024-12-16 21:44] LABS: Anion Gap 5 (5-15); Carbon Dioxide 25 mmol/L (20-31)
[2024-12-16 21:47] LABS: Calcium 8.4 mg/dL (8.7-10.4); Potassium 3.2 mmol/L (3.5-5.1)
[2024-12-16 21:49] LABS: BUN/Creatinine Ratio 7.1 (10.0-20.0); Glucose 81 mg/dL (74-106)
[2024-12-16 22:02] LABS: Blood Urea Nitrogen 5 mg/dL (9-23)
[2024-12-17] VITALS (70 sets, daily range): BP systolic 112–150; BP diastolic 63–95; PULSE 82–113; RESP 9–22; TEMP 98.1–98.9; O2SAT 97–100
[2024-12-17 04:06] LABS: Eosinophils # (auto) 0.3 10 ^3/uL (0-0.8); Hemoglobin 10.3 g/dL (13.5-17.5); Monocytes # (auto) 0.7 10 ^3/uL (0-1.3); Neutrophils # (auto) 16.7 10 ^3/uL (1.6-8.6); White Blood Cell 18.8 10^3/uL (4.4-10.8)
[2024-12-17 04:07] LABS: Basophils # (auto) 0 10 ^3/uL (0-0.2); Basophils % (auto) 0.2 % (0.0-2.0); Eosinophils % (auto) 1.6 % (0.0-7.0); Hematocrit 32.5 % (41.0-53.0); Lymphocytes % (auto) 5.2 % (10.0-50.0); Mean Corpuscular Hemoglobin 26.9 pg (28.0-32.0); Mean Corpuscular Hgb Conc. 31.6 g/dL (32.0-36.0); Mean Corpuscular Volume 85.2 fL (80.0-100.0); Monocytes % (auto) 3.9 % (0.0-12.0); Neutrophils % (auto) 89.1 % (37.0-80.0); Platelet Count (auto) 469 10^3/uL (140-450); Red Blood Cells 3.81 10^6/uL (4.5-5.90); Red Cell Distribution Width 18.8 % (11.8-14.3)
[2024-12-17 04:21] LABS: Alkaline Phosphatase 89 U/L (46-116); Anion Gap 9 (5-15); Aspartate Aminotransferase 13 U/L (13-40); Bilirubin, Total 0.7 mg/dL (0.2-1.0); Carbon Dioxide 24 mmol/L (20-31); Chloride 105 mmol/L (98-107); Glucose 77 mg/dL (74-106); Sodium 138 mmol/L (136-145); Total Protein 7.6 g/dL (5.7-8.2)
[2024-12-17 04:30] LABS: Alanine Aminotransferase < 9 U/L (7-40); Albumin 2.8 g/dL (3.2-4.8); BUN/Creatinine Ratio 8.1 (10.0-20.0); Blood Urea Nitrogen < 5 mg/dL (9-23); Calcium 8.6 mg/dL (8.7-10.4); Potassium 3.2 mmol/L (3.5-5.1)
[2024-12-17] MEDS: POTASSIUM CHL 20MEQ/100ML 100 ML IV SCH (08:19)
[2024-12-17] MEDS: MAGNESIUM SULFATE 1GM/100ML 100 ML IV SCH (10:21)
--- NOTE | 2024-12-17 11:23 | DVHPN2 ---
Progress Note Date Seen: Dec 17, 2024 Medical Necessity Reason Pt with a Central, PICC or Fol: No Objective vital signs Vital Sign Date Time Temp Pulse Resp B/P (MAP) Pulse Ox O2 Delivery O2 Flow Rate FiO2 12/17/24 10:30 96 15 114/63 (80) 100 12/17/24 08:00 98.3 98.3 12/17/24 08:00 Nasal Cannula* 2 28 Total Intake and Output 12/16/24 12/16/24 12/17/24 15:00 23:00 07:00 Intake Total 310 ml 732.5 ml Output Total 300 ml 700 ml Balance 10 ml 32.5 ml medications Current Medications Medications Dose Ordered Sig/Wallace Route Start Time Stop Time Status Last Admin Dose Admin Sodium Chloride 10 ml Q8HR IV 12/16/24 06:00 12/17/24 06:00 10 ML Ondansetron HCl 4 mg Q4HP PRN IV 12/16/24 01:15 Enoxaparin Sodium 40 mg DAILY SC 12/16/24 10:00 12/16/24 09:51 40 MG Acetaminophen 650 mg Q6HP PRN PO 12/16/24 01:15 Morphine Sulfate 2 mg Q4HPRN PRN IV 12/16/24 01:15 12/17/24 08:36 2 MG Linezolid 300 ml @ 150 mls/hr Q12HR IV 12/16/24 10:00 12/17/24 10:25 150 MLS/HR Pantoprazole Sodium 40 mg DAILY IV 12/16/24 02:30 12/17/24 10:26 40 MG Metronidazole 100 ml @ 100 mls/hr Q8HR IV 12/16/24 14:00 12/17/24 05:02 100 MLS/HR Hydromorphone HCl 0.5 mg Q3HPRN PRN IV 12/16/24 15:30 Hold 12/16/24 15:37 0.5 MG Cefepime HCl 50 ml @ 12.5 mls/hr Q8H IV 12/16/24 15:30 12/17/24 06:38 12.5 MLS/HR Potassium Chloride 100 ml @ 50 mls/hr Q2H IV 12/17/24 07:15 12/17/24 13:14 12/17/24 10:44 50 MLS/HR Potassium Chloride/Dextrose/ Sod Cl 1,000 ml @ 80 mls/hr [id number] IV 12/17/24 07:15 Magnesium Sulfate/ Dextrose 100 ml @ 100 mls/hr Q1HR IV 12/17/24 10:00 12/17/24 11:59 12/17/24 10:21 100 MLS/HR laboratory and microbiology Laboratory Tests 12/17/24 03:25 Test 12/17/24 03:25 Range/Units Serum Glucose 77 74-106 mg/dL Microbiology Date/Time Source Procedure Growth Status 12/16/24 08:45 Blood Blood Culture - Preliminary NO GROWTH AFTER 24 HOURS OF INCUBATION. Resulted Problem List/Assessment/Plan Problem List/Assessment/Plan AFEBRILE VSS ABD SOFT LESS TENDER PARTIAL MANUAL REDUCTION OF LOOP COLOSTOMY MAINTAINED DISTAL LOOP STILL EDEMATOUS MAY NOT BE AMENABLE FOR REPEAT ATTEMPT FOR MANUAL REDUCTION TODAY COLOSTOMY VIABLE NON FUNCTION CONTINUE CLOSE OBSERVATION CONSIDER MANUAL REDUCTION POSSIBLE EMERGENT SURGERY BASED ON ONGOING EVAL NURSE AT BEDSIDE PT AGREES WITH THE PLAN Plan discussed with: Patient Dietary Evaluation Review Recommendations by RD: Protein Supplementation Comments: 1) Initiate Williams @ 1 pk bid 2) If patient remains NPO for more than 7 days, consider EN/TPN to meet at least 75% of estimated needs 3) Initiate multivitamin @ 1 tab qd 4) Initiate vitamin C @ 500 mg bid 5) Initiate zinc sulfate @ 220 mg qd 6) Advance to low-fiber diet when medically feasible, pending [employer] approval. Consider oral nutrition supplements with all meals if on liquid diet 7) Encourage patient limit consumption of cruciferous vegetables, beans, onions, garlic, and other gas-producing foods until ostomy output normalizes 8) F/u with gastroenterology Expected Outcomes/Goals: 1) appetite and labs to improve 2) GI symptoms to resolve 3) diet to advance 4) f/u in 3 days GABRIELA HERNANDEZ MD Dec 17, 2024 11:23
[2024-12-17] MEDS ORDERED: CLINIMIX PER PHARMACY 0 ML IV SCH (12:30)
[2024-12-17] MEDS: D5W/SOD CHL 0.9%/KCL 40MEQ 1,000 ML IV SCH (13:00)
[2024-12-17 17:57] LABS: Magnesium 1.7 mg/dL (1.6-2.6)
[2024-12-17 17:59] LABS: Phosphorus 3.6 mg/dL (2.4-5.1)
--- NOTE | 2024-12-17 19:11 | DVHPNRES ---
Progress Note Date Seen: Dec 17, 2024 Resident Creating Document: PEGGY COELLO RESIDENT Medical Necessity Reason Pt with a Central, PICC or Fol: No Subjective Review of Systems Arnav Buitrago is a 44-year-old male patient who presents to the ED with chief complaint of constant sharp abdominal pain close to his colostomy bag which started two days before his admission. According to the patient, starting in May of 2024, his bowel started protruding out of his colostomy and he had it manually reduced twice, however, it continues to herniate outwards. Per patient, he got the colostomy at [facility] in 2023. Per patient he has been using a vomit bag to collect colostomy output. Patient is currently homeless. Denies fever, chills, palpitation, syncope, chest pain, dyspnea, nausea, vomiting, diarrhea, sick contacts, recent travel and motor or sensory deficits. Past medical history: Hidradenitis suppurativa of the perineum with multiple debridements and skin grafts, s/p diverting colostomy, polysubstance abuse Surgical history: Colostomy, multiple debridements, skin grafting of the perineum Family history: Noncontributory Social history: Patient is homeless. Current smoker (five pack-year history of smoking). Uses marijuana, uses methamphetamine. Denies alcohol and other drug abuse. Allergies: Ketoralac, tromethamine, vancomycin Home medication: Denies Patient seen and examined at bedside. He is mostly somnolent, complaining of mild pain. Objective vital signs Vital Sign Date Time Temp Pulse Resp B/P (MAP) Pulse Ox O2 Delivery O2 Flow Rate FiO2 12/17/24 16:30 97 14 126/83 (97) 100 12/17/24 16:00 98.2 98.2 12/17/24 08:00 Nasal Cannula* 2 28 Total Intake and Output 12/16/24 12/16/24 12/17/24 15:00 23:00 07:00 Intake Total 310 ml 732.5 ml Output Total 300 ml 700 ml Balance 10 ml 32.5 ml medications Current Medications Medications Dose Ordered Sig/Wallace Route Start Time Stop Time Status Last Admin Dose Admin Sodium Chloride 10 ml Q8HR IV 12/16/24 06:00 12/17/24 14:07 10 ML Ondansetron HCl 4 mg Q4HP PRN IV 12/16/24 01:15 Enoxaparin Sodium 40 mg DAILY SC 12/16/24 10:00 12/16/24 09:51 40 MG Acetaminophen 650 mg Q6HP PRN PO 12/16/24 01:15 Morphine Sulfate 2 mg Q4HPRN PRN IV 12/16/24 01:15 12/17/24 16:22 2 MG Linezolid 300 ml @ 150 mls/hr Q12HR IV 12/16/24 10:00 12/17/24 10:25 150 MLS/HR Pantoprazole Sodium 40 mg DAILY IV 12/16/24 02:30 12/17/24 10:26 40 MG Metronidazole 100 ml @ 100 mls/hr Q8HR IV 12/16/24 14:00 12/17/24 14:05 100 MLS/HR Hydromorphone HCl 0.5 mg Q3HPRN PRN IV 12/16/24 15:30 Hold 12/16/24 15:37 0.5 MG Cefepime HCl 50 ml @ 12.5 mls/hr Q8H IV 12/16/24 15:30 12/17/24 16:23 12.5 MLS/HR Potassium Chloride/Dextrose/ Sod Cl 1,000 ml @ 80 mls/hr [id number] IV 12/17/24 07:15 12/17/24 13:00 80 MLS/HR Amino Acids 0 ml @ 0 mls/hr PER PHARMACY IV 12/17/24 12:30 Amino Acids 1,000 ml @ 41 mls/hr DAILY@2200 IV 12/17/24 22:00 Diagnostic Test (Pha) 1 strip Q6HR 12/18/24 00:00 Insulin Human Regular FOLLOW SLIDING SCALE Q6HR SC 12/18/24 00:00 Dextrose 50 ml UD IV 12/18/24 00:00 Examination Patient lying in bed, in no acute distress General: Somnolent but arousable, thin, afebrile, mucosae are moist Cardiovascular: Normal S1 and S2. No murmurs, gallops or rubs Respiratory: Normal ventilation mechanics. Clear lung sounds on auscultation Abdomen: Soft, diffuse tenderness especially in colostomy area, has garcia prolapse colostomy with swollen edematous bowel noted without any ischemia or gangrene,, no organomegaly, diminished bowel sounds MSK/skin: Mobilizes 4 limbs. Skin is dry and warm chronic stage III sacral wound ulcer. Heart and skin nodules over groin area. Neurological: Oriented in 3 spheres. No motor no sensitive deficits. Pupils are isocoric and reactive laboratory and microbiology Laboratory Tests 12/17/24 03:25 Test 12/17/24 03:25 Range/Units Serum Glucose 77 74-106 mg/dL Microbiology Date/Time Source Procedure Growth Status 12/16/24 20:10 Nose MRSA Screen - Final Complete 12/16/24 17:41 Voided Urine Urine Culture - Preliminary Resulted 12/16/24 08:45 Blood Blood Culture - Preliminary NO GROWTH AFTER 24 HOURS OF INCUBATION. 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 Findings suggest herniation of possible bowel vascular structures and mesenteric fat can not exclude infection. Several bubbles of air soft tissues noted ( series 2 image 60- 63) can not exclude infection. 2 cm right renal cyst small 1 cm cyst left kidney. CXR: Unremarkable IV NS 1500 cc bolus, IV NS at 60 cc/hour maintenance IV cefepime Q 8 hours, IV linezolid b.i.d. IV metronidazole Q 8 hours Acetaminophen for mild pain, morphine for severe pain, hydromorphone for severe breakthrough pain Surgery on board: Complicated colostomy prolapse with paracolostomy hernia, could reduced successfully proximal segment, distal segment partially reduced. We will try to complete production on 12/18/2024. If fails, we will eventually evaluate surgery. Wound consult ordered Counseled on cessation of polysubstance abuse PUD prophylaxis: protonix 40mg DVT prophylaxis: Levonox 40mg Goals of care discussed with patient for over 18 minutes: Full code status Plan discussed with Dr. Unger, patient and nurses: Patient was downgraded to D OU (he is on no vasopressors). Completed partial reduction of colonic prolapse of colostomy, we will try to complete new manual reduction on 12/18/2024, we will evaluate need of surgery. [facility] did not accept transfer of patient at this time. Patient has poor prognosis Plan discussed with: Patient, Other (Nurses) My Orders My Orders Orders - PEGGY COELLO RESIDENT Procedure Category Date Status Time Cleanse Wound With TRENT 12/17/24 In Process Wound Clean 12:30 * Dietary Consult CONS 12/17/24 Transmitted 14:08 Dietary Evaluation Review Recommendations by RD: Protein Supplementation Comments: 1) Initiate Williams @ 1 pk bid 2) If patient remains NPO for more than 7 days, consider EN/TPN to meet at least 75% of estimated needs 3) Initiate multivitamin @ 1 tab qd 4) Initiate vitamin C @ 500 mg bid 5) Initiate zinc sulfate @ 220 mg qd 6) Advance to low-fiber diet when medically feasible, pending CDL SERVICE TECHNICIAN approval. Consider oral nutrition supplements with all meals if on liquid diet 7) Encourage patient limit consumption of cruciferous vegetables, beans, onions, garlic, and other gas-producing foods until ostomy output normalizes 8) F/u with gastroenterology Expected Outcomes/Goals: 1) appetite and labs to improve 2) GI symptoms to resolve 3) diet to advance 4) f/u in 3 days Date of Service: Dec 17, 2024 Billing Provider: ALEJANDRA UNGER MD Common Visit Codes: [id number] CARE 30-74 MIN PEGGY COELLO RESIDENT Dec 17, 2024 19:11 ALEJANDRA UNGER MD Dec 17, 2024 22:09
--- NOTE | 2024-12-17 19:40 | DVHPN2 ---
Progress Note Date Seen: Dec 17, 2024 Medical Necessity Reason Pt with a Central, PICC or Fol: No Objective vital signs Vital Sign Date Time Temp Pulse Resp B/P (MAP) Pulse Ox O2 Delivery O2 Flow Rate FiO2 12/17/24 19:00 100 20 133/85 (101) 99 12/17/24 16:00 98.2 98.2 12/17/24 08:00 Nasal Cannula* 2 28 Total Intake and Output 12/16/24 12/16/24 12/17/24 15:00 23:00 07:00 Intake Total 310 ml 732.5 ml Output Total 300 ml 700 ml Balance 10 ml 32.5 ml medications Current Medications Medications Dose Ordered Sig/Wallace Route Start Time Stop Time Status Last Admin Dose Admin Sodium Chloride 10 ml Q8HR IV 12/16/24 06:00 12/17/24 14:07 10 ML Ondansetron HCl 4 mg Q4HP PRN IV 12/16/24 01:15 Enoxaparin Sodium 40 mg DAILY SC 12/16/24 10:00 12/16/24 09:51 40 MG Acetaminophen 650 mg Q6HP PRN PO 12/16/24 01:15 Morphine Sulfate 2 mg Q4HPRN PRN IV 12/16/24 01:15 12/17/24 16:22 2 MG Linezolid 300 ml @ 150 mls/hr Q12HR IV 12/16/24 10:00 12/17/24 10:25 150 MLS/HR Pantoprazole Sodium 40 mg DAILY IV 12/16/24 02:30 12/17/24 10:26 40 MG Metronidazole 100 ml @ 100 mls/hr Q8HR IV 12/16/24 14:00 12/17/24 14:05 100 MLS/HR Hydromorphone HCl 0.5 mg Q3HPRN PRN IV 12/16/24 15:30 Hold 12/16/24 15:37 0.5 MG Cefepime HCl 50 ml @ 12.5 mls/hr Q8H IV 12/16/24 15:30 12/17/24 16:23 12.5 MLS/HR Potassium Chloride/Dextrose/ Sod Cl 1,000 ml @ 80 mls/hr [id number] IV 12/17/24 07:15 12/17/24 13:00 80 MLS/HR Amino Acids 0 ml @ 0 mls/hr PER PHARMACY IV 12/17/24 12:30 Amino Acids 1,000 ml @ 41 mls/hr DAILY@2200 IV 12/17/24 22:00 Diagnostic Test (Pha) 1 strip Q6HR 12/18/24 00:00 Insulin Human Regular FOLLOW SLIDING SCALE Q6HR SC 12/18/24 00:00 Dextrose 50 ml UD IV 12/18/24 00:00 laboratory and microbiology Laboratory Tests 12/17/24 03:25 Test 12/17/24 03:25 Range/Units Serum Glucose 77 74-106 mg/dL Microbiology Date/Time Source Procedure Growth Status 12/16/24 20:10 Nose MRSA Screen - Final Complete 12/16/24 17:41 Voided Urine Urine Culture - Preliminary Resulted 12/16/24 08:45 Blood Blood Culture - Preliminary NO GROWTH AFTER 24 HOURS OF INCUBATION. Resulted Problem List/Assessment/Plan Problem List/Assessment/Plan AFEBRILE VSS ABD SOFT LESS TENDER PARTIAL MANUAL REDUCTION OF LOOP COLOSTOMY MAINTAINED DISTAL LOOP STILL EDEMATOUS BUT LESS MAY NOT BE AMENABLE FOR REPEAT ATTEMPT FOR MANUAL REDUCTION TODAY COLOSTOMY VIABLE NON FUNCTION CONTINUE CLOSE OBSERVATION CONSIDER MANUAL REDUCTION POSSIBLE EMERGENT SURGERY AM NURSE AT BEDSIDE PT AGREES WITH THE PLAN Plan discussed with: Patient My Orders My Orders Orders - GABRIELA HERNANDEZ MD Procedure Category Date Status Time Clinimix Per Pharmacy PHA 12/17/24 In Process 12:30 Amino Acid Infusion PHA 12/17/24 In Process In D5w (Clinimix 4.2 22:00 Glucose Blood PHA 12/18/24 In Process (Accu-Chek Comfort 00:00 Insulin R (Human) PHA 12/18/24 In Process (Insulin R) 00:00 Dextrose 50% Syringe PHA 12/18/24 In Process 00:00 Phosphorus LAB 12/18/24 Verified 06:00 Magnesium LAB 12/18/24 Verified 06:00 Comprehensive LAB 12/18/24 Verified Metabolic Panel 06:00 Tpn Per Pharmacy TRENT 12/17/24 In Process 22:00 Dietary Evaluation Review Recommendations by RD: Protein Supplementation Comments: 1) Initiate Williams @ 1 pk bid 2) If patient remains NPO for more than 7 days, consider EN/TPN to meet at least 75% of estimated needs 3) Initiate multivitamin @ 1 tab qd 4) Initiate vitamin C @ 500 mg bid 5) Initiate zinc sulfate @ 220 mg qd 6) Advance to low-fiber diet when medically feasible, pending PARTY PLAN DEALER approval. Consider oral nutrition supplements with all meals if on liquid diet 7) Encourage patient limit consumption of cruciferous vegetables, beans, onions, garlic, and other gas-producing foods until ostomy output normalizes 8) F/u with gastroenterology Expected Outcomes/Goals: 1) appetite and labs to improve 2) GI symptoms to resolve 3) diet to advance 4) f/u in 3 days GABRIELA HERNANDEZ MD Dec 17, 2024 19:40
[2024-12-17] MEDS: HYDROmorphone HCL 2 MG/ML VL/or syr IV ONE (19:50)
[2024-12-17] MEDS: AMINO ACID INFUSION IN D5W 1,000 ML IV SCH (22:12)
--- NOTE | 2024-12-17 23:27 | DVHINCON2 ---
Date of service: Dec 17, 2024 Referring Physician Tera Browning MD Reason for Consultation Acute hypoxic respiratory failure and atelectasis. History of Present Illness A 44-year-old man with PMHx of hidradenitis suppurativa of the perineum, s/p colostomy in 2023, who presented to ED on 12/15/24 with chief complaint of worsening abdominal pain. Patient reported ongoing intermittent abdominal pain for 1 week, worsening on day of presentation w/ associated nausea, prompting the visit to ED. Patient reported he is not on any medications. He is an active smoker with positive alcohol, methamphetamine, marijuana abuse. Patient reported liquid output from colostomy bag. Denied fever, vomiting, chest pain, shortness breath or other acute complaints. Patient was admitted for further care, and pulmonary consultation is requested for evaluation and management of acute hypoxic respiratory failure and atelectasis. Review of Systems: 14-point review of systems negative unless otherwise noted above. Past Medical History: Hidradenitis suppurativa of perineum, s/p colostomy in 2023 Past Surgical History: Multiple skin grafts for hidradenitis, colostomy Medications: Reviewed. Allergies: Ketorolac, penicillins, vancomycin Family History: No family history of premature CAD. No family history of lung disorders. Social History: Homeless. Smoker - smokes less than 1 pack per day. Positive alcohol abuse. Positive methamphetamine abuse, marijuana abuse Family History: Patient reports no known family medical history. Allergies: Coded Allergies: Ketorolac Tromethamine (Verified Allergy, Unknown, 09/03/23) Vancomycin (Verified Allergy, Unknown, 07/07/24) Home Meds Unable to Obtain Active Prescriptions or Reported Meds Current Medications Current Medications Medications (Trade) Dose Ordered Sig/Wallace Route PRN Reason Start Time Stop Time Status Last Admin Potassium Chloride 100 ml @ 50 mls/hr Q2H IV 12/17/24 07:15 12/17/24 13:14 DC 12/17/24 14:03 Potassium Chloride/Dextrose/ Sod Cl 1,000 ml @ 80 mls/hr [id number] IV 12/17/24 07:15 12/17/24 13:00 Magnesium Sulfate/ Dextrose 100 ml @ 100 mls/hr Q1HR IV 12/17/24 10:00 12/17/24 11:59 DC 12/17/24 12:04 Amino Acids 0 ml @ 0 mls/hr PER PHARMACY IV 12/17/24 12:30 Amino Acids 1,000 ml @ 41 mls/hr DAILY@2200 IV 12/17/24 22:00 12/17/24 22:12 Diagnostic Test (Pha) (Accu-Chek Comfort Curve T) 1 strip Q6HR 12/18/24 00:00 Insulin Human Regular (InsuLIN R) FOLLOW SLIDING SCALE Q6HR SC 12/18/24 00:00 Dextrose 50 ml UD IV 12/18/24 00:00 Vital Signs Vital Signs Date Time Temp Pulse Resp B/P (MAP) Pulse Ox O2 Delivery O2 Flow Rate FiO2 12/17/24 23:15 93 13 123/83 (96) 99 12/17/24 20:15 98.9 98.9 12/17/24 20:00 Nasal Cannula* 2 28 Physical Exam Gen.: Patient lying in bed in no apparent distress. On supplemental oxygen. Head: Normocephalic, atraumatic. Eyes: EOMI/PERRLA. Ears: Normal hearing. Normal anatomy. Neck/trachea: Trachea midline, supple. Nose: Normal external anatomy. Mouth: Moist mucous membranes. Chest: Decreased air entry bilaterally. No wheezing or rhonchi. Cardiovascular: Positive S1, positive S2. Regular rate and rhythm. Abdomen: Positive bowel sounds in all 4 quadrants. Soft, non-tender, non- distended. : Deferred. Rectal: Deferred. Skin: Warm, dry. Intact. Extremities: 2+ radial pulses bilaterally. No lower extremity edema. Neuro: Awake, alert, oriented x3. No gross motor or sensory deficits. Cranial nerves II through XII intact. Gait not assessed. Labs/Diagnostic Data Labs Test 12/17/24 03:25 12/16/24 21:23 12/16/24 17:41 12/16/24 06:38 Range/Units White Blood Count 18.8 H 4.4-10.8 10^3/uL Red Blood Count 3.81 L 4.5-5.90 10^6/uL Hemoglobin 10.3 L 13.5-17.5 g/dL Hematocrit 32.5 L 41.0-53.0 % Mean Corpuscular Volume 85.2 80.0-100.0 fL Mean Corpuscular Hemoglobin 26.9 L 28.0-32.0 pg Mean Corpuscular Hemoglobin Concent 31.6 L 32.0-36.0 g/dL Red Cell Distribution Width 18.8 H 11.8-14.3 % Platelet Count 469 H 140-450 10^3/uL Mean Platelet Volume 6.7 L 6.9-10.8 fL Neutrophils (%) (Auto) 89.1 H 37.0-80.0 % Lymphocytes (%) (Auto) 5.2 L 10.0-50.0 % Monocytes (%) (Auto) 3.9 0.0-12.0 % Eosinophils (%) (Auto) 1.6 0.0-7.0 % Basophils (%) (Auto) 0.2 0.0-2.0 % Neutrophils # (Auto) 16.7 H 1.6-8.6 10 ^3/uL Lymphocytes # (Auto) 1.0 0.4-5.4 10 ^3/uL Monocytes # (Auto) 0.7 0-1.3 10 ^3/uL Eosinophils # (Auto) 0.3 0-0.8 10 ^3/uL Basophils # (Auto) 0 0-0.2 10 ^3/uL Nucleated Red Blood Cells 0.0 % Sodium Level 138 136-145 mmol/L Potassium Level 3.2 L 3.5-5.1 mmol/L Chloride Level 105 98-107 mmol/L Carbon Dioxide Level 24 20-31 mmol/L Anion Gap 9 5-15 Blood Urea Nitrogen < 5 L 9-23 mg/dL Creatinine 0.62 L 0.700-1.30 mg/dL Glomerular Filtration Rate Calc 122 >90 mL/min BUN/Creatinine Ratio 8.1 L 10.0-20.0 Serum Glucose 77 74-106 mg/dL Calcium Level 8.6 L 8.7-10.4 mg/dL Phosphorus Level 3.6 2.4-5.1 mg/dL Magnesium Level 1.7 1.6-2.6 mg/dL Total Bilirubin 0.7 0.2-1.0 mg/dL Aspartate Amino Transferase (AST) 13 13-40 U/L Alanine Aminotransferase (ALT) < 9 7-40 U/L Alkaline Phosphatase 89 46-116 U/L Total Protein 7.6 5.7-8.2 g/dL Albumin 2.8 L 3.2-4.8 g/dL Lactic Acid Level 0.9 0.4-2.0 mmol/L Urine Color Light-brown Yellow Urine Clarity Ex.turbid Clear Urine pH 6.0 5.0-9.0 Urine Specific [place] 1.011 1.001-1.035 Urine Protein 1+ H Negative Urine Ketones Negative Negative Urine Blood 3+ H Negative /uL Urine Nitrite Negative Negative Urine Bilirubin Negative Negative Urine Urobilinogen Normal Negative mg/dL Urine Leukocyte Esterase 3+ Negative /uL Urine RBC 99 0 - 3 /hpf Urine WBC Clumps Present None Seen /hpf Urine Microscopic WBC 2976 H 0-3 /HPF Urine Squamous Epithelial Cells None seen <5 /hpf Urine Bacteria Few H None Seen /hpf Urine Glucose 1+ H Normal mg/dL Urine Opiates Screen Neg NEGATIVE Urine Fentanyl Screen Neg NEGATIVE Urine Barbiturates Screen Neg NEGATIVE Urine Phencyclidine Screen Neg NEGATIVE Urine Amphetamines Screen Neg NEGATIVE Urine Benzodiazepines Screen Neg NEGATIVE Urine Cocaine Screen Neg NEGATIVE Urine Cannabinoids Screen Neg NEGATIVE Differential Total Cells Counted 100.0 100 Neutrophils % (Manual) 87 H 37.0-80.0 Band Neutrophils % (Manual) 6 Lymphocytes % (Manual) 3 L 10.0-50.0 Monocytes % (Manual) 4 0-12 Eosinophils % (Manual) 0 0-7 Basophils % (Manual) 0 0.0-2.0 Metamyelocytes % (manual) 0 Myelocytes % (Manual) 0 Promyelocytes % (Manual) 0 Blast Cells % (Manual) 0 Reactive Lymphocytes 0 Platelet Estimate Increased Hypochromasia (manual) Slight Anisocytosis (manual) Slight Test 12/16/24 02:26 12/16/24 01:13 12/15/24 20:42 Range/Units Influenza Type A Antigen Negative Negative Influenza Type B Antigen Negative Negative SARS-CoV-2 Antigen (Rapid) Negative NEGATIVE Erythrocyte Sedimentation Rate 102 H 0-20 mm/hr Prothrombin Time 12.2 H 9.3-11.8 sec Prothrombin Time INR 1.17 H 0.9-1.15 Activated Partial Thromboplast Time 28.0 24.5-34.5 SEC Hemoglobin A1c 5.1 <5.7 % A1C Ammonia < 10 L 11-32 umol/L C-Reactive Protein High Sensitivity 6.39 H <1.0 mg/dL B-Type Natriuretic Peptide 8.68 0-100 pg/mL Lipase 25 12-53 U/L Microbiology Date/Time Source Procedure Growth Status 12/16/24 20:10 Nose MRSA Screen - Final Complete 12/16/24 17:41 Voided Urine Urine Culture - Preliminary Resulted 12/16/24 08:45 Blood Blood Culture - Preliminary NO GROWTH AFTER 24 HOURS OF INCUBATION. Resulted Assessment Impression: Acute hypoxic respiratory failure Dependence on supplemental oxygen Abdominal pain Atelectasis Hypokalemia Nicotine dependence ETOH abuse Polysubstance abuse - methamphetamine/marijuana Plan: Supplemental oxygen 2 LPM NC Titrate to keep O2 sats above 92%. Taper O2 as tolerated. Continue antibiotics Incentive spirometry Pain control Avoid oversedation Plan for manual reduction of loop colostomy GI recs appreciated. MITZY status IV fluids with D5-NS with KCl Monitor renal function. Monitor electrolytes. Supplement as necessary. Monitor ins and outs. Smoking cessation discussed for greater than 10 minutes Counseled against substance abuse. DVT prophylaxis. Prognosis: Poor given patient's multiple co-morbidities. Rest of plan per hospitalist and other consultants. Thank you Dr. Browning for allowing me to participate in this patient's care. Further recommendations will depend on the patient's clinical course. Please do not hesitate to contact me if you have any questions or concerns. This medical document was created using an electronic medical record system with Active [employer] dictation system. Although these documentations are being carefully reviewed, there may still be some phonetic and typographical changes. The errors are purely typographical, due to imperfection on the software program, and do not reflect any compromise in the patient's medical care. Plan discussed with: Patient, Other (MYAH Myrick/Dr. Browning) IAIN JONAS MD Dec 17, 2024 23:27
[2024-12-18] VITALS (45 sets, daily range): BP systolic 99–148; BP diastolic 61–96; PULSE 79–108; RESP 8–23; TEMP 97.9–98.8; O2SAT 90–100
[2024-12-18] MEDS ORDERED: DEXTROSE (50%) 50ML SYRG IV SCH
[2024-12-18] MEDS: InsuLIN REG 1unit/0.01ml Soln (100units/ml) SC SCH
[2024-12-18] MEDS: ACCU-CHEK COMFORT CURVE STRIP VI SCH
[2024-12-18] MEDS: ACETAMINOPHEN 325 MG TAB PO PRN (00:28)
--- NOTE | 2024-12-18 04:53 | DVH ---
CHEST RADIOGRAPH Indication: PROTOCOL Technique: Single frontal view of the chest was obtained Comparison: XY CHEST XRAY 1 VIEW on DOS: 12/16/24 FINDINGS: Lines and Tubes: None Lungs: Mild interstitial prominence. No focal consolidation. Pleura: No effusion. No pneumothorax. Cardiomediastinal contours: Stable Cardiovascular silhouette. Bones: No acute osseous abnormality. IMPRESSION: 1. Mild pulmonary congestion.
[2024-12-18 05:46] LABS: Basophils # (auto) 0 10 ^3/uL (0-0.2); Basophils % (auto) 0.2 % (0.0-2.0); Eosinophils # (auto) 0.6 10 ^3/uL (0-0.8); Eosinophils % (auto) 3.7 % (0.0-7.0); Hematocrit 30.3 % (41.0-53.0); Hemoglobin 9.7 g/dL (13.5-17.5); Lymphocytes # (auto) 0.7 10 ^3/uL (0.4-5.4); Lymphocytes % (auto) 4.3 % (10.0-50.0); Mean Corpuscular Hemoglobin 28.1 pg (28.0-32.0); Mean Corpuscular Hgb Conc. 31.9 g/dL (32.0-36.0); Monocytes # (auto) 0.9 10 ^3/uL (0-1.3); Monocytes % (auto) 5.2 % (0.0-12.0); Neutrophils # (auto) 14.8 10 ^3/uL (1.6-8.6); Neutrophils % (auto) 86.6 % (37.0-80.0); Platelet Count (auto) 450 10^3/uL (140-450); Red Blood Cells 3.44 10^6/uL (4.5-5.90); Red Cell Distribution Width 19.4 % (11.8-14.3); White Blood Cell 17.1 10^3/uL (4.4-10.8)
[2024-12-18 06:09] LABS: Alkaline Phosphatase 102 U/L (46-116); Anion Gap 5 (5-15); Carbon Dioxide 24 mmol/L (20-31); Glucose 87 mg/dL (74-106); Sodium 138 mmol/L (136-145); Total Protein 7.5 g/dL (5.7-8.2)
[2024-12-18 06:10] LABS: Alanine Aminotransferase < 9 U/L (7-40); Albumin 2.9 g/dL (3.2-4.8); Aspartate Aminotransferase 12 U/L (13-40); BUN/Creatinine Ratio 7.4 (10.0-20.0); Bilirubin, Total 0.5 mg/dL (0.2-1.0); Blood Urea Nitrogen < 5 mg/dL (9-23); Calcium 8.4 mg/dL (8.7-10.4); Chloride 109 mmol/L (98-107); Phosphorus 2.7 mg/dL (2.4-5.1); Potassium 3.4 mmol/L (3.5-5.1)
--- NOTE | 2024-12-18 06:21 | DVH ---
EXAM: XR Abdomen, 1 View CLINICAL INDICATION: colostomy history. TECHNIQUE: Frontal supine view of the abdomen/pelvis. COMPARISON: None FINDINGS: GASTROINTESTINAL TRACT: Distended colon with large stool burden. BONES/JOINTS: Unremarkable. No acute fracture. OTHER FINDINGS: . IMPRESSION: Distended colon with large stool burden.
[2024-12-18 06:27] LABS: CRP High Sensitivity > 20.00 mg/dL (<1.0)
[2024-12-18] MEDS ORDERED: MIDAZOLAM HCL 2MG/2ML 2ml VIAL (1mg/ml) ONE (06:40)
[2024-12-18] MEDS ORDERED: ONDANSETRON HCL 4 MG/2 ML VIAL ONE (06:41)
[2024-12-18] MEDS ORDERED: GLYCOPYRROLATE 0.2 MG/ML 1ML VIAL ONE (06:41)
[2024-12-18] MEDS ORDERED: PROPOFOL 10 MG/ML 20 ML IV ONE (06:41)
[2024-12-18] MEDS ORDERED: KETAMINE 50mg/ML 10ml Vial 10 ML ONE (06:41)
[2024-12-18 06:58] LABS: Magnesium 1.9 mg/dL (1.6-2.6)
[2024-12-18] MEDS ORDERED: HYDROmorphone HCL 2 MG/ML VL/or syr ONE (07:16)
--- NOTE | 2024-12-18 08:56 | DVHOP2 ---
Operative Report [id number] ATTEMPTED MANUAL REDUCTION OF RECURRENT REDUCED PROXIMAL COMPONENT OF COLOSTOMY DISTAL COMPONENT VIABLE NON FUNCTIONAL REMAINS PROLAPSED SEC TO COLONIC MUCOSAL EDEMA ALLOW EDEMA TO RESOLVE AND REEVALUATE FOR POSSIBLE SURGICAL REDUCTION/REVISION DR EPPS PRESENT AND AGREES WITH THE PLAN NO COMPLICATIONS CONSIDER TRANSFER TO [facility] INDICATED GABRIELA HERNANDEZ MD Dec 18, 2024 08:56
[2024-12-18] MEDS: ONDANSETRON HCL 4 MG/2 ML VIAL IV ONE (09:15)
[2024-12-18] MEDS ORDERED: HYDROmorphone HCL 2 MG/ML VL/or syr IV PRN (09:15)
--- NOTE | 2024-12-18 09:25 | DVHOP ---
DATE OF SURGERY: 12/18/2024 PREOPERATIVE DIAGNOSIS: Recurrent prolapse of the partially reduced colostomy. POSTOPERATIVE DIAGNOSIS: Recurrent prolapse of the partially reduced colostomy. PROCEDURE: Attempted manual reduction of the colostomy prolapse. SURGEON: Robert Fonseca MD TIE MAKER: Dr. Jay Mcrae. ESTIMATED BLOOD LOSS: Less than 5 mL. DRAINS: No drains were used. DESCRIPTION OF PROCEDURE: The patient was prepped and draped in the usual sterile fashion in the supine position under sedation. Attempts were made to reduce the prolapse of the colostomy in the left lower quadrant. The recurrence was of the proximal component that was reduced back in again and the distal component was partially reduced, but remained viable all along and Dr. Mcrae came to assess that as well and recommendation was to allow the tissue edema to settle down and to resolve before attempting another reduction or possible surgery. That will be discussed with the patient and the family and a decision will be made regarding that for the possible procedure. There were no complications from the procedure. The patient was taken back to the recovery room in a stable condition. MD MIKEY Deleon/KATHLEEN/CALEB TID: [id number] RECEIPT: [id number] cc:
[2024-12-18] MEDS: D5W/SOD CHLO 0.9% 1,000 ML IV SCH (10:38)
[2024-12-18] MEDS: POTASSIUM CHL 20MEQ/100ML 100 ML IV SCH (10:41)
--- NOTE | 2024-12-18 14:06 | DVHPN2 ---
Subjective reduced in OR, however failed. discussed with surgery, plan for [facility] transfer for HLOC Changes from previous H/P or p: No Changes Eyes: No Pain, No Vision change, No Conjunctivae inflammation, No Eyelid inflammation, No Other, No Redness ENT: No Ear pain, No Ear discharge, No Nose pain, No Nose discharge, No Nose congestion, No Mouth pain, No Mouth swelling, No Throat pain, No Throat swelling, No Other Cardiovascular: No Chest Pain, No Palpitations, No Orthopnea, No Paroxysmal Noc. Dyspnea, No Edema, No Lt Headedness, No Other Respiratory: No Cough, No Dry, No Shortness of breath, No SOB with excertion, No Wheezing, No Hemoptysis, No Pleuritic Pain, No Sputum, No Other Gastrointestinal: Nausea, Abdominal Pain Genitourinary: No Dysuria, No Frequency, No Incontinence, No Hematuria, No Retention, No Other Musculoskeletal: No other, No neck pain, No shoulder pain, No arm pain, No back pain, No hand pain, No leg pain, No foot pain Skin: No Rash, No Lesions, No Jaundice, No Bruising, No Other Objective Vitals Vital Signs Date Time Temp Pulse Resp B/P (MAP) Pulse Ox O2 Delivery O2 Flow Rate FiO2 12/18/24 11:05 88 8 99 Nasal Cannula* 2 28 12/18/24 10:45 147/95 (112) 12/18/24 10:15 98.0 98.0 Intake/Output Intake and Output 12/18/24 07:00 Intake Total 3296.5 ml Output Total 3900 ml Balance -603.5 ml Intake Oral 30 ml IV Total 3266.5 ml Output Urine Total 3900 ml Medications Current Medications Medications Dose Ordered Sig/Wallace Route Start Time Stop Time Status Last Admin Dose Admin Sodium Chloride 10 ml Q8HR IV 12/16/24 06:00 12/18/24 05:34 10 ML Enoxaparin Sodium 40 mg DAILY SC 12/16/24 10:00 12/16/24 09:51 40 MG Acetaminophen 650 mg Q6HP PRN PO 12/16/24 01:15 12/18/24 00:28 650 MG Linezolid 300 ml @ 150 mls/hr Q12HR IV 12/16/24 10:00 12/18/24 10:40 150 MLS/HR Pantoprazole Sodium 40 mg DAILY IV 12/16/24 02:30 12/18/24 10:40 40 MG Metronidazole 100 ml @ 100 mls/hr Q8HR IV 12/16/24 14:00 12/18/24 13:20 100 MLS/HR Hydromorphone HCl 0.5 mg Q3HPRN PRN IV 12/16/24 15:30 Hold 12/16/24 15:37 0.5 MG Amino Acids 0 ml @ 0 mls/hr PER PHARMACY IV 12/17/24 12:30 Amino Acids 1,000 ml @ 41 mls/hr DAILY@2200 IV 12/17/24 22:00 12/17/24 22:12 41 MLS/HR Diagnostic Test (Pha) 1 strip Q6HR 12/18/24 00:00 12/18/24 12:50 1 STRIP Insulin Human Regular FOLLOW SLIDING SCALE Q6HR SC 12/18/24 00:00 Dextrose 50 ml UD IV 12/18/24 00:00 Dextrose/Sodium Chloride 1,000 ml @ 80 mls/hr [id number] IV 12/18/24 07:30 12/18/24 10:38 80 MLS/HR Cefepime HCl 50 ml @ 12.5 mls/hr Q8H IV 12/18/24 12:00 Laboratory Results Laboratory Tests 12/18/24 05:00 Chemistry Test 12/18/24 05:00 Albumin 2.9 g/dL (3.2-4.8) L Calcium Level 8.4 mg/dL (8.7-10.4) L Magnesium Level 1.9 mg/dL (1.6-2.6) Phosphorus Level 2.7 mg/dL (2.4-5.1) Total Protein 7.5 g/dL (5.7-8.2) LFT Test 12/18/24 05:00 Alanine Aminotransferase (ALT) < 9 U/L (7-40) Alkaline Phosphatase 102 U/L (46-116) Aspartate Amino Transferase (AST) 12 U/L (13-40) L Total Bilirubin 0.5 mg/dL (0.2-1.0) Urinalysis Test 12/16/24 17:41 Urine Color Light-brown (Yellow) Urine Clarity Ex.turbid (Clear) Urine pH 6.0 (5.0-9.0) Urine Specific [place] 1.011 (1.001-1.035) Urine Protein 1+ (Negative) H Urine Ketones Negative (Negative) Urine Blood 3+ /uL (Negative) H Urine Nitrite Negative (Negative) Urine Bilirubin Negative (Negative) Urine Urobilinogen Normal mg/dL (Negative) Urine Leukocyte Esterase 3+ /uL (Negative) Urine RBC 99 /hpf (0 - 3) Urine WBC Clumps Present /hpf (None Seen) Urine Microscopic WBC 2976 /HPF (0-3) H Urine Squamous Epithelial Cells None seen /hpf (<5) Urine Bacteria Few /hpf (None Seen) H Urine Glucose 1+ mg/dL (Normal) H Microbiology Microbiology Date/Time Source Procedure Growth Status 12/16/24 20:10 Nose MRSA Screen - Final Complete 12/16/24 17:41 Voided Urine Urine Culture - Preliminary Resulted 12/16/24 08:45 Blood Blood Culture - Preliminary NO GROWTH AFTER 48 HOURS OF INCUBATION. 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 Findings suggest herniation of possible bowel vascular structures and mesenteric fat can not exclude infection. Several bubbles of air soft tissues noted ( series 2 image 60- 63) can not exclude infection. 2 cm right renal cyst small 1 cm cyst left kidney. CXR: Unremarkable IV NS 1500 cc bolus, IV NS at 60 cc/hour maintenance IV cefepime Q 8 hours, IV linezolid b.i.d. IV metronidazole Q 8 hours Acetaminophen for mild pain, morphine for severe pain, hydromorphone for severe breakthrough pain Surgery on board: Complicated colostomy prolapse with paracolostomy hernia, could reduced successfully proximal segment, distal segment partially reduced. We will try to complete production on 12/18/2024. If fails, we will eventually evaluate surgery. Wound consult ordered Counseled on cessation of polysubstance abuse OR reduction failed, transfer to [facility] for HLOC Per surgery to keep in SDU dvt ppx lovenox diet condition critical prognosis poor crit care time 45 minutes Plan discussed with: Patient Date of Service: Dec 18, 2024 Billing Provider: DON CAZARES MD Common Visit Codes: [id number] CARE 30-74 MIN DON CAZARES MD Dec 18, 2024 14:06
--- NOTE | 2024-12-18 14:23 | MEDREC ---
[facility] Intervention Section I [facility] Intervention: Dose optimization(PK/PD) (FOR INTRA-ABDOMINAL INFECTION, PLEASE CONSIDER CEFEPIME 2 GM IV Q8H ) DORINA MITTAL PHARMACIST Dec 18, 2024 14:23
[2024-12-18] MEDS: CEFEPIME 1GM/ 50ML 50 ML IV SCH (14:34)
[2024-12-18] MEDS ORDERED: KETOROLAC TROMETH 30 MG/ML 1ML VIAL IV PRN (15:00)
[2024-12-18] MEDS ORDERED: ACETAMINOPHEN IV 1000 MG/100ML (10MG/ML) IV SCH (15:00)
--- NOTE | 2024-12-18 17:19 | DVHPN2 ---
Progress Note Date Seen: Dec 18, 2024 Medical Necessity Reason Pt with a Central, PICC or Fol: No Objective vital signs Vital Sign Date Time Temp Pulse Resp B/P (MAP) Pulse Ox O2 Delivery O2 Flow Rate FiO2 12/18/24 16:00 94 12/18/24 16:00 98.8 13 99 98.8 12/18/24 11:05 Nasal Cannula* 2 28 Total Intake and Output 12/17/24 12/17/24 12/18/24 15:00 23:00 07:00 Intake Total 1047.5 ml 1061.0 ml 1188.0 ml Output Total 3900 ml Balance 1047.5 ml -2839.0 ml 1188.0 ml medications Current Medications Medications Dose Ordered Sig/Wallace Route Start Time Stop Time Status Last Admin Dose Admin Sodium Chloride 10 ml Q8HR IV 12/16/24 06:00 12/18/24 14:34 10 ML Enoxaparin Sodium 40 mg DAILY SC 12/16/24 10:00 12/16/24 09:51 40 MG Acetaminophen 650 mg Q6HP PRN PO 12/16/24 01:15 12/18/24 15:45 650 MG Linezolid 300 ml @ 150 mls/hr Q12HR IV 12/16/24 10:00 12/18/24 10:40 150 MLS/HR Pantoprazole Sodium 40 mg DAILY IV 12/16/24 02:30 12/18/24 10:40 40 MG Metronidazole 100 ml @ 100 mls/hr Q8HR IV 12/16/24 14:00 12/18/24 13:20 100 MLS/HR Hydromorphone HCl 0.5 mg Q3HPRN PRN IV 12/16/24 15:30 12/16/24 15:37 0.5 MG Amino Acids 0 ml @ 0 mls/hr PER PHARMACY IV 12/17/24 12:30 Amino Acids 1,000 ml @ 41 mls/hr DAILY@2200 IV 12/17/24 22:00 12/17/24 22:12 41 MLS/HR Diagnostic Test (Pha) 1 strip Q6HR 12/18/24 00:00 12/18/24 12:50 1 STRIP Insulin Human Regular FOLLOW SLIDING SCALE Q6HR SC 12/18/24 00:00 Dextrose 50 ml UD IV 12/18/24 00:00 Dextrose/Sodium Chloride 1,000 ml @ 80 mls/hr [id number] IV 12/18/24 07:30 12/18/24 10:38 80 MLS/HR Cefepime HCl 50 ml @ 12.5 mls/hr Q8H IV 12/18/24 12:00 12/18/24 14:34 12.5 MLS/HR laboratory and microbiology Laboratory Tests 12/18/24 05:00 Test 12/18/24 05:00 Range/Units Serum Glucose 87 74-106 mg/dL Microbiology Date/Time Source Procedure Growth Status 12/16/24 20:10 Nose MRSA Screen - Final Complete 12/16/24 17:41 Voided Urine Urine Culture - Preliminary Resulted 12/16/24 08:45 Blood Blood Culture - Preliminary NO GROWTH AFTER 48 HOURS OF INCUBATION. Resulted Problem List/Assessment/Plan Problem List/Assessment/Plan AFEBRILE VSS ABD SOFT LESS TENDER PARTIAL MANUAL REDUCTION OF LOOP COLOSTOMY MAINTAINED DISTAL LOOP STILL EDEMATOUS BUT LESS MAY NOT BE AMENABLE FOR REPEAT ATTEMPT FOR MANUAL REDUCTION TODAY COLOSTOMY VIABLE NON FUNCTION CONTINUE CLOSE OBSERVATION ACCEPTED FOR TRANSFER TO [facility] DISCUSSED WITH THE ACCEPTING SURGEON NURSE AT BEDSIDE PT AGREES WITH THE PLAN Plan discussed with: Patient My Orders My Orders Orders - GABRIELA HERNANDEZ MD Procedure Category Date Status Time Chest Portable XY 12/18/24 Resulted 04:00 Kub Abdomen Single XY 12/18/24 Resulted View 07:00 Obtain Consent For: ORDERS 12/18/24 Transmitted 07:37 Obtain Consent For TRENT 12/18/24 In Process Anesthesia 07:37 Communication Order ORDERS 12/18/24 Transmitted 09:28 Comprehensive LAB 12/19/24 Verified Metabolic Panel 04:00 Magnesium LAB 12/19/24 Verified 04:00 Phosphorus LAB 12/19/24 Verified 04:00 Triglycerides LAB 12/19/24 Verified 04:00 Clinimix Per Pharmacy TRENT 12/18/24 In Process 22:00 Dietary Evaluation Review Recommendations by RD: Protein Supplementation Comments: 1) Initiate Williams @ 1 pk bid 2) If patient remains NPO for more than 7 days, consider EN/TPN to meet at least 75% of estimated needs 3) Initiate multivitamin @ 1 tab qd 4) Initiate vitamin C @ 500 mg bid 5) Initiate zinc sulfate @ 220 mg qd 6) Advance to low-fiber diet when medically feasible, pending APPELLATE COURT CLERK approval. Consider oral nutrition supplements with all meals if on liquid diet 7) Encourage patient limit consumption of cruciferous vegetables, beans, onions, garlic, and other gas-producing foods until ostomy output normalizes 8) F/u with gastroenterology Expected Outcomes/Goals: 1) appetite and labs to improve 2) GI symptoms to resolve 3) diet to advance 4) f/u in 3 days GABRILEA HERNANDEZ MD Dec 18, 2024 17:19
[2024-12-18] MEDS: HYDROMORPHONE HCL 1 MG/ML INJ IV PRN (20:16)
--- NOTE | 2024-12-18 20:47 | DVHPN2 ---
Progress Note - Dictate Date Seen: Dec 18, 2024 Medical Necessity Reason Pt with a Central, PICC or Fol: No Subjective Patient seen and examined at bedside. Remains on supplemental oxygen Overnight events reviewed. vital signs Vital Sign Date Time Temp Pulse Resp B/P (MAP) Pulse Ox O2 Delivery O2 Flow Rate FiO2 12/18/24 20:16 95 15 125/80 12/18/24 18:00 96 12/18/24 16:00 98.8 98.8 12/18/24 11:05 Nasal Cannula* 2 28 Total Intake and Output 12/17/24 12/17/24 12/18/24 15:00 23:00 07:00 Intake Total 1047.5 ml 1061.0 ml 1188.0 ml Output Total 3900 ml Balance 1047.5 ml -2839.0 ml 1188.0 ml medications Current Medications Medications Dose Ordered Sig/Wallace Route Start Time Stop Time Status Last Admin Dose Admin Sodium Chloride 10 ml Q8HR IV 12/16/24 06:00 12/18/24 14:34 10 ML Enoxaparin Sodium 40 mg DAILY SC 12/16/24 10:00 12/16/24 09:51 40 MG Acetaminophen 650 mg Q6HP PRN PO 12/16/24 01:15 12/18/24 15:45 650 MG Linezolid 300 ml @ 150 mls/hr Q12HR IV 12/16/24 10:00 12/18/24 10:40 150 MLS/HR Pantoprazole Sodium 40 mg DAILY IV 12/16/24 02:30 12/18/24 10:40 40 MG Metronidazole 100 ml @ 100 mls/hr Q8HR IV 12/16/24 14:00 12/18/24 13:20 100 MLS/HR Amino Acids 0 ml @ 0 mls/hr PER PHARMACY IV 12/17/24 12:30 Amino Acids 1,000 ml @ 41 mls/hr DAILY@2200 IV 12/17/24 22:00 12/17/24 22:12 41 MLS/HR Diagnostic Test (Pha) 1 strip Q6HR 12/18/24 00:00 12/18/24 18:34 1 STRIP Insulin Human Regular FOLLOW SLIDING SCALE Q6HR SC 12/18/24 00:00 Dextrose 50 ml UD IV 12/18/24 00:00 Dextrose/Sodium Chloride 1,000 ml @ 80 mls/hr [id number] IV 12/18/24 07:30 12/18/24 10:38 80 MLS/HR Cefepime HCl 50 ml @ 12.5 mls/hr Q8H IV 12/18/24 12:00 12/18/24 20:20 12.5 MLS/HR Hydromorphone HCl 0.5 mg Q3HPRN PRN IV 12/18/24 19:15 12/18/24 20:16 0.5 MG objective Gen.: Patient lying in bed in no apparent distress. On supplemental oxygen. Head: Normocephalic, atraumatic. Eyes: EOMI/PERRLA. Ears: Normal hearing. Normal anatomy. Neck/trachea: Trachea midline, supple. Nose: Normal external anatomy. Mouth: Moist mucous membranes. Chest: Decreased air entry bilaterally. No wheezing or rhonchi. Cardiovascular: Positive S1, positive S2. Regular rate and rhythm. Abdomen: Positive bowel sounds in all 4 quadrants. Soft, non-tender, non- distended. : Deferred. Rectal: Deferred. Skin: Warm, dry. Intact. Extremities: 2+ radial pulses bilaterally. No lower extremity edema. Neuro: Awake, alert, oriented x3. No gross motor or sensory deficits. Cranial nerves II through XII intact. Gait not assessed. laboratory and microbiology Laboratory Tests 12/18/24 05:00 Test 12/18/24 05:00 Range/Units Serum Glucose 87 74-106 mg/dL Assessment/Plan Impression: Acute hypoxic respiratory failure Dependence on supplemental oxygen Abdominal pain Atelectasis Hypokalemia Nicotine dependence ETOH abuse Polysubstance abuse - methamphetamine/marijuana Events: Remains on supplemental oxygen, 2 LPM NC Taper O2 as tolerated Pain control Avoid oversedation Surgery unable to do manual reduction of loop colostomy Plan for higher level of care to [facility] for evaluation Surgery recs appreciated. Continue antibiotics Incentive spirometry Clinimix for nutritional support Lovenox for DVT prophylaxis Labs and imaging reviewed. Rest of plan as noted below. Plan: Supplemental oxygen Titrate to keep O2 sats above 92%. Continue antibiotics Incentive spirometry Pain control Avoid oversedation IV fluids with D5-NS with KCl Monitor renal function. Monitor electrolytes. Supplement as necessary. Monitor ins and outs. Smoking cessation discussed for greater than 10 minutes Counseled against substance abuse. DVT prophylaxis. Prognosis: Poor given patient's multiple co-morbidities. Rest of plan per hospitalist and other consultants. Thank you Dr. Browning for allowing me to participate in this patient's care. Further recommendations will depend on the patient's clinical course. Please do not hesitate to contact me if you have any questions or concerns. This medical document was created using an electronic medical record system with [employer] dictation system. Although these documentations are being carefully reviewed, there may still be some phonetic and typographical changes. The errors are purely typographical, due to imperfection on the software program, and do not reflect any compromise in the patient's medical care. Dietary Evaluation Review Recommendations by RD: Protein Supplementation Comments: 1) Initiate Williams @ 1 pk bid 2) If patient remains NPO for more than 7 days, consider EN/TPN to meet at least 75% of estimated needs 3) Initiate multivitamin @ 1 tab qd 4) Initiate vitamin C @ 500 mg bid 5) Initiate zinc sulfate @ 220 mg qd 6) Advance to low-fiber diet when medically feasible, pending STAFF INTERNIST OFFICE BASED ONLY approval. Consider oral nutrition supplements with all meals if on liquid diet 7) Encourage patient limit consumption of cruciferous vegetables, beans, onions, garlic, and other gas-producing foods until ostomy output normalizes 8) F/u with gastroenterology Expected Outcomes/Goals: 1) appetite and labs to improve 2) GI symptoms to resolve 3) diet to advance 4) f/u in 3 days Plan discussed with: Patient, Other (MYAH Mg) IAIN JONAS MD Dec 18, 2024 20:47
[2024-12-19] VITALS (26 sets, daily range): BP systolic 61–123; BP diastolic 42–80; PULSE 59–95; RESP 10–23; TEMP 98–98.8; O2SAT 93–100
[2024-12-19 05:26] LABS: Basophils # (auto) 0 10 ^3/uL (0-0.2); Eosinophils # (auto) 0 10 ^3/uL (0-0.8); Monocytes # (auto) 0.6 10 ^3/uL (0-1.3)
[2024-12-19 05:31] LABS: Basophils % (auto) 0.1 % (0.0-2.0); Hematocrit 27.6 % (41.0-53.0); Hemoglobin 9.1 g/dL (13.5-17.5); Lymphocytes # (auto) 0.8 10 ^3/uL (0.4-5.4); Lymphocytes % (auto) 6.3 % (10.0-50.0); Mean Corpuscular Hemoglobin 27.1 pg (28.0-32.0); Mean Corpuscular Volume 82.1 fL (80.0-100.0); Neutrophils # (auto) 11.2 10 ^3/uL (1.6-8.6); Neutrophils % (auto) 88.6 % (37.0-80.0); Platelet Count (auto) 512 10^3/uL (140-450); Red Blood Cells 3.36 10^6/uL (4.5-5.90); Red Cell Distribution Width 18.2 % (11.8-14.3); White Blood Cell 12.7 10^3/uL (4.4-10.8)
[2024-12-19 05:37] LABS: Alkaline Phosphatase 87 U/L (46-116); Anion Gap 5 (5-15); BUN/Creatinine Ratio 11.1 (10.0-20.0); Carbon Dioxide 26 mmol/L (20-31); Chloride 106 mmol/L (98-107); Magnesium 1.8 mg/dL (1.6-2.6); Phosphorus 3.1 mg/dL (2.4-5.1); Sodium 137 mmol/L (136-145); Total Protein 7.6 g/dL (5.7-8.2); Triglycerides 58 mg/dL (< 150)
[2024-12-19 05:40] LABS: Alanine Aminotransferase < 9 U/L (7-40); Albumin 2.8 g/dL (3.2-4.8); Aspartate Aminotransferase 11 U/L (13-40); Bilirubin, Total 0.2 mg/dL (0.2-1.0); Blood Urea Nitrogen 8 mg/dL (9-23); Calcium 8.4 mg/dL (8.7-10.4); Glucose 135 mg/dL (74-106); Potassium 3.4 mmol/L (3.5-5.1)
--- NOTE | 2024-12-19 08:59 | DVHPN2 ---
Progress Note Date Seen: Dec 19, 2024 Medical Necessity Reason Pt with a Central, PICC or Fol: No Objective vital signs Vital Sign Date Time Temp Pulse Resp B/P (MAP) Pulse Ox O2 Delivery O2 Flow Rate FiO2 12/19/24 07:00 71 12 102/70 (81) 94 12/19/24 06:00 Room Air* 0 21 12/19/24 04:00 98.8 98.8 Total Intake and Output 12/18/24 12/18/24 12/19/24 15:00 23:00 07:00 Intake Total 1240.5 ml 1383.0 ml 1328.0 ml Output Total 500 ml 1300 ml Balance 1240.5 ml 883.0 ml 28.0 ml medications Current Medications Medications Dose Ordered Sig/Wallace Route Start Time Stop Time Status Last Admin Dose Admin Sodium Chloride 10 ml Q8HR IV 12/16/24 06:00 12/19/24 05:55 10 ML Enoxaparin Sodium 40 mg DAILY SC 12/16/24 10:00 12/16/24 09:51 40 MG Acetaminophen 650 mg Q6HP PRN PO 12/16/24 01:15 12/18/24 15:45 650 MG Linezolid 300 ml @ 150 mls/hr Q12HR IV 12/16/24 10:00 12/18/24 22:18 150 MLS/HR Pantoprazole Sodium 40 mg DAILY IV 12/16/24 02:30 12/18/24 10:40 40 MG Metronidazole 100 ml @ 100 mls/hr Q8HR IV 12/16/24 14:00 12/19/24 05:55 100 MLS/HR Amino Acids 0 ml @ 0 mls/hr PER PHARMACY IV 12/17/24 12:30 Amino Acids 1,000 ml @ 41 mls/hr DAILY@2200 IV 12/17/24 22:00 12/18/24 22:19 41 MLS/HR Diagnostic Test (Pha) 1 strip Q6HR 12/18/24 00:00 12/19/24 05:51 1 STRIP Insulin Human Regular FOLLOW SLIDING SCALE Q6HR SC 12/18/24 00:00 12/19/24 00:27 2 UNITS Dextrose 50 ml UD IV 12/18/24 00:00 Dextrose/Sodium Chloride 1,000 ml @ 80 mls/hr [id number] IV 12/18/24 07:30 12/19/24 02:37 80 MLS/HR Cefepime HCl 50 ml @ 12.5 mls/hr Q8H IV 12/18/24 12:00 12/19/24 04:07 12.5 MLS/HR Hydromorphone HCl 0.5 mg Q3HPRN PRN IV 12/18/24 19:15 12/19/24 02:34 0.5 MG Potassium Chloride 100 ml @ 50 mls/hr Q2H IV 12/19/24 08:45 12/19/24 12:44 UNV laboratory and microbiology Laboratory Tests 12/19/24 05:04 Test 12/19/24 05:04 Range/Units Serum Glucose 135 H 74-106 mg/dL Microbiology Date/Time Source Procedure Growth Status 12/16/24 20:10 Nose MRSA Screen - Final Complete 12/16/24 17:41 Voided Urine Urine Culture - Preliminary Klebsiella pneumoniae - ESBL Resulted 12/16/24 08:45 Blood Blood Culture - Preliminary NO GROWTH AFTER 48 HOURS OF INCUBATION. Resulted Problem List/Assessment/Plan Problem List/Assessment/Plan AFEBRILE VSS ABD SOFT LESS TENDER PARTIAL MANUAL REDUCTION OF LOOP COLOSTOMY MAINTAINED DISTAL LOOP STILL EDEMATOUS BUT LESS MAY NOT BE AMENABLE FOR REPEAT ATTEMPT FOR MANUAL REDUCTION TODAY COLOSTOMY VIABLE NON FUNCTION CONTINUE CLOSE OBSERVATION ACCEPTED FOR TRANSFER TO [facility] DISCUSSED WITH THE ACCEPTING SURGEON NURSE AT BEDSIDE PT AGREES WITH THE PLAN AWAITING TRANSFER TO [facility] Plan discussed with: Patient, Other My Orders My Orders Orders - GABRIELA HERNANDEZ MD Procedure Category Date Status Time Communication Order ORDERS 12/18/24 Transmitted 09:28 Clinimix Per Pharmacy TRENT 12/18/24 In Process 22:00 Dietary Evaluation Review Recommendations by RD: Protein Supplementation Comments: 1) Initiate Williams @ 1 pk bid 2) If patient remains NPO for more than 7 days, consider EN/TPN to meet at least 75% of estimated needs 3) Initiate multivitamin @ 1 tab qd 4) Initiate vitamin C @ 500 mg bid 5) Initiate zinc sulfate @ 220 mg qd 6) Advance to low-fiber diet when medically feasible, pending [employer]IRE[employer]CHIT[employer] approval. Consider oral nutrition supplements with all meals if on liquid diet 7) Encourage patient limit consumption of cruciferous vegetables, beans, onions, garlic, and other gas-producing foods until ostomy output normalizes 8) F/u with gastroenterology Expected Outcomes/Goals: 1) appetite and labs to improve 2) GI symptoms to resolve 3) diet to advance 4) f/u in 3 days GABRIELA HERNANDEZ MD Dec 19, 2024 08:59
[2024-12-19] MEDS: POTASSIUM CHL 20MEQ/100ML 100 ML IV SCH (09:36)
[2024-12-19] MEDS: MAGNESIUM SULFATE 1GM/100ML 100 ML IV ONE (09:37)
--- NOTE | 2024-12-19 09:59 | DVHDS2 ---
Discharge Summary Date of Admission Dec 16, 2024 at 01:12 Date of Discharge: Dec 19, 2024 Labs/Diagnostic Data: Laboratory Results Test 12/19/24 05:39 12/19/24 05:04 12/18/24 05:00 12/16/24 17:41 POC Glucose 139 mg/dl (70-106) White Blood Count 12.7 10^3/uL (4.4-10.8) Red Blood Count 3.36 10^6/uL (4.5-5.90) Hemoglobin 9.1 g/dL (13.5-17.5) Hematocrit 27.6 % (41.0-53.0) Mean Corpuscular Volume 82.1 fL (80.0-100.0) Mean Corpuscular Hemoglobin 27.1 pg (28.0-32.0) Mean Corpuscular Hemoglobin Concent 33.0 g/dL (32.0-36.0) Red Cell Distribution Width 18.2 % (11.8-14.3) Platelet Count 512 10^3/uL (140-450) Mean Platelet Volume 6.4 fL (6.9-10.8) Neutrophils (%) (Auto) 88.6 % (37.0-80.0) Lymphocytes (%) (Auto) 6.3 % (10.0-50.0) Monocytes (%) (Auto) 5.0 % (0.0-12.0) Eosinophils (%) (Auto) 0.0 % (0.0-7.0) Basophils (%) (Auto) 0.1 % (0.0-2.0) Neutrophils # (Auto) 11.2 10 ^3/uL (1.6-8.6) Lymphocytes # (Auto) 0.8 10 ^3/uL (0.4-5.4) Monocytes # (Auto) 0.6 10 ^3/uL (0-1.3) Eosinophils # (Auto) 0 10 ^3/uL (0-0.8) Basophils # (Auto) 0 10 ^3/uL (0-0.2) Nucleated Red Blood Cells 0.0 % Sodium Level 137 mmol/L (136-145) Potassium Level 3.4 mmol/L (3.5-5.1) Chloride Level 106 mmol/L (98-107) Carbon Dioxide Level 26 mmol/L (20-31) Anion Gap 5 (5-15) Blood Urea Nitrogen 8 mg/dL (9-23) Creatinine 0.72 mg/dL (0.700-1.30) Glomerular Filtration Rate Calc 116 mL/min (>90) BUN/Creatinine Ratio 11.1 (10.0-20.0) Serum Glucose 135 mg/dL (74-106) Lactic Acid Level 0.8 mmol/L (0.4-2.0) Calcium Level 8.4 mg/dL (8.7-10.4) Phosphorus Level 3.1 mg/dL (2.4-5.1) Magnesium Level 1.8 mg/dL (1.6-2.6) Total Bilirubin 0.2 mg/dL (0.2-1.0) Aspartate Amino Transferase (AST) 11 U/L (13-40) Alanine Aminotransferase (ALT) < 9 U/L (7-40) Alkaline Phosphatase 87 U/L (46-116) Total Protein 7.6 g/dL (5.7-8.2) Albumin 2.8 g/dL (3.2-4.8) Triglycerides Level 58 mg/dL (< 150) C-Reactive Protein High Sensitivity > 20.00 mg/dL (<1.0) Urine Color Light-brown (Yellow) Urine Clarity Ex.turbid (Clear) Urine pH 6.0 (5.0-9.0) Urine Specific [place] 1.011 (1.001-1.035) Urine Protein 1+ (Negative) Urine Ketones Negative (Negative) Urine Blood 3+ /uL (Negative) Urine Nitrite Negative (Negative) Urine Bilirubin Negative (Negative) Urine Urobilinogen Normal mg/dL (Negative) Urine Leukocyte Esterase 3+ /uL (Negative) Urine RBC 99 /hpf (0 - 3) Urine WBC Clumps Present /hpf (None Seen) Urine Microscopic WBC 2976 /HPF (0-3) Urine Squamous Epithelial Cells None seen /hpf (<5) Urine Bacteria Few /hpf (None Seen) Urine Glucose 1+ mg/dL (Normal) Urine Opiates Screen Neg (NEGATIVE) Urine Fentanyl Screen Neg (NEGATIVE) Urine Barbiturates Screen Neg (NEGATIVE) Urine Phencyclidine Screen Neg (NEGATIVE) Urine Amphetamines Screen Neg (NEGATIVE) Urine Benzodiazepines Screen Neg (NEGATIVE) Urine Cocaine Screen Neg (NEGATIVE) Urine Cannabinoids Screen Neg (NEGATIVE) Test 12/16/24 06:38 12/16/24 02:26 12/16/24 01:13 12/15/24 20:42 Differential Total Cells Counted 100.0 (100) Neutrophils % (Manual) 87 (37.0-80.0) Band Neutrophils % (Manual) 6 Lymphocytes % (Manual) 3 (10.0-50.0) Monocytes % (Manual) 4 (0-12) Eosinophils % (Manual) 0 (0-7) Basophils % (Manual) 0 (0.0-2.0) Metamyelocytes % (manual) 0 Myelocytes % (Manual) 0 Promyelocytes % (Manual) 0 Blast Cells % (Manual) 0 Reactive Lymphocytes 0 Platelet Estimate Increased Hypochromasia (manual) Slight Anisocytosis (manual) Slight Influenza Type A Antigen Negative (Negative) Influenza Type B Antigen Negative (Negative) SARS-CoV-2 Antigen (Rapid) Negative (NEGATIVE) Erythrocyte Sedimentation Rate 102 mm/hr (0-20) Prothrombin Time 12.2 sec (9.3-11.8) Prothrombin Time INR 1.17 (0.9-1.15) Activated Partial Thromboplast Time 28.0 SEC (24.5-34.5) Hemoglobin A1c 5.1 % A1C (<5.7) Ammonia < 10 umol/L (11-32) B-Type Natriuretic Peptide 8.68 pg/mL (0-100) Lipase 25 U/L (12-53) Other Laboratory Tests 12/19/24 05:04 Brief Hx & Hospital Course: Arnav Buitrago is a 44-year-old male patient who presents to the ED with chief complaint of constant sharp abdominal pain close to his colostomy bag which started two days before his admission. According to the patient, starting in May of 2024, his bowel started protruding out of his colostomy and he had it manually reduced twice, however, it continues to herniate outwards. Per patient, he got the colostomy at [facility] in 2023. Per patient he has been using a vomit bag to collect colostomy output. Patient is currently homeless. Denies fever, chills, palpitation, syncope, chest pain, dyspnea, nausea, vomiting, diarrhea, sick contacts, recent travel and motor or sensory deficits. He was seen by surgery, attempted manual reduction in the OR, partially maintained, distal loop still edematous, per surgery will need HLOC to [facility] where he had his procedure. Nutrition supported with clinimix. Condition at Discharge: Stable Final Diagnosis/Problems List Parastomal hernia with colonic prolapse at colostomy site w/o obstruction Questionable peritonitis UTI Sepsis due to above Chronic hydradenitis suppurativa with hardened skin nodules over groin area Chronic stage III sacral wound ulcer Polysubstance abuse including tobacco, methamphetamine and marijuana Noncompliant Discharge Disposition: Acute Care Facility 60 (critical care) Discharge Statement: Transfered to [facility] ASSESSMENT ASSESSMENT Assessment Date of Service: Dec 19, 2024 Billing Provider: DON CAZARES MD Common Visit Codes: [id number] CARE 30-74 MIN DON CZAARES MD Dec 19, 2024 09:59
[2024-12-19] MEDS ORDERED: MEROPENEM 1GM IVPB 50 ML IV SCH (11:00)
[2024-12-19] MEDS: MEROPENEM 1GM IVPB 50 ML IV SCH (13:00)
[2024-12-19] MEDS: POTASSIUM CHL 20MEQ/50ML 50 ML IV ONE (16:56)
--- NOTE | 2024-12-19 21:01 | DVHPN2 ---
Progress Note - Dictate Date Seen: Dec 19, 2024 Medical Necessity Reason Pt with a Central, PICC or Fol: No Subjective Patient seen and examined at bedside. Remains on supplemental oxygen Overnight events reviewed. vital signs Vital Sign Date Time Temp Pulse Resp B/P (MAP) Pulse Ox O2 Delivery O2 Flow Rate FiO2 12/19/24 19:00 76 23 99/68 (78) 95 12/19/24 18:00 Room Air* 0 21 12/19/24 16:00 98.3 98.3 Total Intake and Output 12/18/24 12/18/24 12/19/24 15:00 23:00 07:00 Intake Total 1240.5 ml 1383.0 ml 1328.0 ml Output Total 500 ml 1300 ml Balance 1240.5 ml 883.0 ml 28.0 ml medications Current Medications Medications Dose Ordered Sig/Wallace Route Start Time Stop Time Status Last Admin Dose Admin Sodium Chloride 10 ml Q8HR IV 12/16/24 06:00 12/19/24 14:00 10 ML Enoxaparin Sodium 40 mg DAILY SC 12/16/24 10:00 12/19/24 09:37 40 MG Acetaminophen 650 mg Q6HP PRN PO 12/16/24 01:15 12/18/24 15:45 650 MG Linezolid 300 ml @ 150 mls/hr Q12HR IV 12/16/24 10:00 12/19/24 11:28 150 MLS/HR Pantoprazole Sodium 40 mg DAILY IV 12/16/24 02:30 12/19/24 09:36 40 MG Metronidazole 100 ml @ 100 mls/hr Q8HR IV 12/16/24 14:00 12/19/24 15:00 100 MLS/HR Amino Acids 0 ml @ 0 mls/hr PER PHARMACY IV 12/17/24 12:30 Amino Acids 1,000 ml @ 41 mls/hr DAILY@2200 IV 12/17/24 22:00 12/18/24 22:19 41 MLS/HR Diagnostic Test (Pha) 1 strip Q6HR 12/18/24 00:00 12/19/24 17:47 1 STRIP Insulin Human Regular FOLLOW SLIDING SCALE Q6HR SC 12/18/24 00:00 12/19/24 00:27 2 UNITS Dextrose 50 ml UD IV 12/18/24 00:00 Dextrose/Sodium Chloride 1,000 ml @ 80 mls/hr [id number] IV 12/18/24 07:30 12/19/24 02:37 80 MLS/HR Hydromorphone HCl 0.5 mg Q3HPRN PRN IV 12/18/24 19:15 12/19/24 17:36 0.5 MG Meropenem 50 ml @ 17 mls/hr Q8H IV 12/19/24 12:00 12/19/24 20:46 17 MLS/HR objective Gen.: Patient lying in bed in no apparent distress. On supplemental oxygen. Head: Normocephalic, atraumatic. Eyes: EOMI/PERRLA. Ears: Normal hearing. Normal anatomy. Neck/trachea: Trachea midline, supple. Nose: Normal external anatomy. Mouth: Moist mucous membranes. Chest: Decreased air entry bilaterally. No wheezing or rhonchi. Cardiovascular: Positive S1, positive S2. Regular rate and rhythm. Abdomen: Positive bowel sounds in all 4 quadrants. Soft, non-tender, non- distended. : Deferred. Rectal: Deferred. Skin: Warm, dry. Intact. Extremities: 2+ radial pulses bilaterally. No lower extremity edema. Neuro: Awake, alert, oriented x3. No gross motor or sensory deficits. Cranial nerves II through XII intact. Gait not assessed. laboratory and microbiology Laboratory Tests 12/19/24 05:04 Test 12/19/24 05:04 Range/Units Serum Glucose 135 H 74-106 mg/dL Assessment/Plan Impression: Acute hypoxic respiratory failure Dependence on supplemental oxygen Abdominal pain Atelectasis Hypokalemia Nicotine dependence ETOH abuse Polysubstance abuse - methamphetamine/marijuana Events: Remains on supplemental oxygen, 2 LPM NC Taper O2 as tolerated Patient desaturates while sleeping to 88% Pain control Avoid oversedation Surgery unable to do manual reduction of loop colostomy Plan for higher level of care to [facility] for evaluation Surgery recommendations appreciated. Continue antibiotics Incentive spirometry Clinimix for nutritional support Monitor renal function. Monitor electrolytes. Supplement as necessary. K, mag supplementation Lovenox for DVT prophylaxis Labs and imaging reviewed. Rest of plan as noted below. Plan: Supplemental oxygen Titrate to keep O2 sats above 92%. Continue antibiotics Incentive spirometry Pain control Avoid oversedation Monitor renal function. Monitor electrolytes. Supplement as necessary. Monitor ins and outs. Smoking cessation discussed for greater than 10 minutes Counseled against substance abuse. DVT prophylaxis. Prognosis: Poor given patient's multiple co-morbidities. Rest of plan per hospitalist and other consultants. Thank you Dr. Browning for allowing me to participate in this patient's care. Further recommendations will depend on the patient's clinical course. Please do not hesitate to contact me if you have any questions or concerns. This medical document was created using an electronic medical record system with [employer] dictation system. Although these documentations are being carefully reviewed, there may still be some phonetic and typographical changes. The errors are purely typographical, due to imperfection on the software program, and do not reflect any compromise in the patient's medical care. Dietary Evaluation Review Recommendations by RD: Protein Supplementation Comments: 1) Initiate Williams @ 1 pk bid 2) If patient remains NPO for more than 7 days, consider EN/TPN to meet at least 75% of estimated needs 3) Initiate multivitamin @ 1 tab qd 4) Initiate vitamin C @ 500 mg bid 5) Initiate zinc sulfate @ 220 mg qd 6) Advance to low-fiber diet when medically feasible, pending G[employer] WATER METER INSTALLER approval. Consider oral nutrition supplements with all meals if on liquid diet 7) Encourage patient limit consumption of cruciferous vegetables, beans, onions, garlic, and other gas-producing foods until ostomy output normalizes 8) F/u with gastroenterology Expected Outcomes/Goals: 1) appetite and labs to improve 2) GI symptoms to resolve 3) diet to advance 4) f/u in 3 days Plan discussed with: Patient, Other (IAIN Senior MD Dec 19, 2024 21:00
[2024-12-19] MEDS: diphenhdrAMINE HCL 50 MG/1 ML VL IV ONE (23:05)
[2024-12-20] VITALS (25 sets, daily range): BP systolic 109–131; BP diastolic 68–86; PULSE 74–100; RESP 9–21; TEMP 97.5–98.9; O2SAT 92–98
[2024-12-20 05:22] LABS: Basophils # (auto) 0 10 ^3/uL (0-0.2); Basophils % (auto) 0.2 % (0.0-2.0); Eosinophils # (auto) 0.2 10 ^3/uL (0-0.8); Hemoglobin 8.7 g/dL (13.5-17.5); Neutrophils # (auto) 6.1 10 ^3/uL (1.6-8.6); Platelet Count (auto) 452 10^3/uL (140-450); White Blood Cell 7.8 10^3/uL (4.4-10.8)
[2024-12-20 05:28] LABS: Eosinophils % (auto) 2.6 % (0.0-7.0); Hematocrit 26.6 % (41.0-53.0); Lymphocytes % (auto) 12.3 % (10.0-50.0); Mean Corpuscular Hemoglobin 27.2 pg (28.0-32.0); Mean Corpuscular Hgb Conc. 32.5 g/dL (32.0-36.0); Mean Corpuscular Volume 83.6 fL (80.0-100.0); Monocytes # (auto) 0.6 10 ^3/uL (0-1.3); Monocytes % (auto) 7.1 % (0.0-12.0); Neutrophils % (auto) 77.8 % (37.0-80.0); Nucleated Red Blood Cells % 0.2 %; Red Blood Cells 3.19 10^6/uL (4.5-5.90); Red Cell Distribution Width 18.2 % (11.8-14.3)
[2024-12-20 05:39] LABS: Sodium 140 mmol/L (136-145)
[2024-12-20 05:40] LABS: Anion Gap 7 (5-15); Carbon Dioxide 25 mmol/L (20-31)
[2024-12-20 05:45] LABS: BUN/Creatinine Ratio 11.7 (10.0-20.0); GFR African American 189 mL/min; GFR Non-African American 156 mL/min; Glucose 97 mg/dL (74-106)
[2024-12-20 05:46] LABS: Magnesium 1.6 mg/dL (1.6-2.6)
[2024-12-20 06:01] LABS: Albumin 2.6 g/dL (3.2-4.8); Blood Urea Nitrogen 7 mg/dL (9-23); Calcium 7.8 mg/dL (8.7-10.4); Chloride 108 mmol/L (98-107); Phosphorus 2.2 mg/dL (2.4-5.1); Potassium 2.8 mmol/L (3.5-5.1)
[2024-12-20] MEDS: POTASSIUM CHL 20MEQ/100ML 100 ML IV SCH (06:45)
[2024-12-20] MEDS: MAGNESIUM SULFATE 1GM/100ML 100 ML IV SCH (06:52)
[2024-12-20] MEDS: POTASSIUM CHL 20MEQ/50ML 50 ML IV SCH (09:02)
--- NOTE | 2024-12-20 11:49 | MEDREC ---
[facility] ASP Intervention Section I [facility] ASP Intervention: Duplication of therapy (PLEASE CONSIDER D/C FLAGYL SINCE BOTH MEROPENEM AND FLAGYL COVER FOR ANAEROBE ORGANISMS (DUPLICATE) ) DORINA MITTAL PHARMACIST Dec 20, 2024 11:49
[2024-12-20] MEDS ORDERED: POTASSIUM PHOSPHATE 22 MEQ in SODIUM CHL 0.9% 100 ML IV ONE (13:30)
[2024-12-20] MEDS: POTASSIUM PHOSPHATE 44 MEQ in D5W 5% 250 ML IV ONE (14:24)
--- NOTE | 2024-12-20 15:06 | DVHPN2 ---
Subjective pending transfer to [facility], accepted and has attending physician otherwise pending insurance auth. Patient requires surgery which we contacted multiple other center that suggest patient to be sent back to [facility] which did the surgery in the first place Changes from previous H/P or p: No Changes Eyes: No Pain, No Vision change, No Conjunctivae inflammation, No Eyelid inflammation, No Other, No Redness ENT: No Ear pain, No Ear discharge, No Nose pain, No Nose discharge, No Nose congestion, No Mouth pain, No Mouth swelling, No Throat pain, No Throat swelling, No Other Cardiovascular: No Chest Pain, No Palpitations, No Orthopnea, No Paroxysmal Noc. Dyspnea, No Edema, No Lt Headedness, No Other Respiratory: No Cough, No Dry, No Shortness of breath, No SOB with excertion, No Wheezing, No Hemoptysis, No Pleuritic Pain, No Sputum, No Other Gastrointestinal: Nausea, Abdominal Pain Genitourinary: No Dysuria, No Frequency, No Incontinence, No Hematuria, No Retention, No Other Musculoskeletal: No other, No neck pain, No shoulder pain, No arm pain, No back pain, No hand pain, No leg pain, No foot pain Skin: No Rash, No Lesions, No Jaundice, No Bruising, No Other Objective Vitals Vital Signs Date Time Temp Pulse Resp B/P (MAP) Pulse Ox O2 Delivery O2 Flow Rate FiO2 12/20/24 14:23 85 26 131/86 12/20/24 14:00 95 Room Air* 0 21 12/20/24 12:00 98.9 98.9 Intake/Output Intake and Output 12/20/24 07:00 Intake Total 4225.5 ml Output Total 2600 ml Balance 1625.5 ml Intake Oral 0 ml IV Total 4225.5 ml Output Urine Total 2600 ml Medications Current Medications Medications Dose Ordered Sig/Wallace Route Start Time Stop Time Status Last Admin Dose Admin Sodium Chloride 10 ml Q8HR IV 12/16/24 06:00 12/20/24 14:28 10 ML Enoxaparin Sodium 40 mg DAILY SC 12/16/24 10:00 12/20/24 09:03 40 MG Acetaminophen 650 mg Q6HP PRN PO 12/16/24 01:15 12/18/24 15:45 650 MG Linezolid 300 ml @ 150 mls/hr Q12HR IV 12/16/24 10:00 12/20/24 09:00 150 MLS/HR Pantoprazole Sodium 40 mg DAILY IV 12/16/24 02:30 12/20/24 09:00 40 MG Metronidazole 100 ml @ 100 mls/hr Q8HR IV 12/16/24 14:00 12/20/24 14:35 100 MLS/HR Amino Acids 0 ml @ 0 mls/hr PER PHARMACY IV 12/17/24 12:30 Amino Acids 1,000 ml @ 41 mls/hr DAILY@2200 IV 12/17/24 22:00 12/19/24 21:56 41 MLS/HR Diagnostic Test (Pha) 1 strip Q6HR 12/18/24 00:00 12/20/24 12:27 1 STRIP Insulin Human Regular FOLLOW SLIDING SCALE Q6HR SC 12/18/24 00:00 12/19/24 00:27 2 UNITS Dextrose 50 ml UD IV 12/18/24 00:00 Dextrose/Sodium Chloride 1,000 ml @ 80 mls/hr [id number] IV 12/18/24 07:30 12/20/24 10:33 80 MLS/HR Hydromorphone HCl 0.5 mg Q3HPRN PRN IV 12/18/24 19:15 12/20/24 14:23 0.5 MG Meropenem 50 ml @ 17 mls/hr Q8H IV 12/19/24 12:00 12/20/24 12:27 17 MLS/HR Laboratory Results Laboratory Tests 12/20/24 04:40 Chemistry Test 12/20/24 04:40 Albumin 2.6 g/dL (3.2-4.8) L Calcium Level 7.8 mg/dL (8.7-10.4) L Magnesium Level 1.6 mg/dL (1.6-2.6) Phosphorus Level 2.2 mg/dL (2.4-5.1) L Urinalysis Test 12/16/24 17:41 Urine Color Light-brown (Yellow) Urine Clarity Ex.turbid (Clear) Urine pH 6.0 (5.0-9.0) Urine Specific [place] 1.011 (1.001-1.035) Urine Protein 1+ (Negative) H Urine Ketones Negative (Negative) Urine Blood 3+ /uL (Negative) H Urine Nitrite Negative (Negative) Urine Bilirubin Negative (Negative) Urine Urobilinogen Normal mg/dL (Negative) Urine Leukocyte Esterase 3+ /uL (Negative) Urine RBC 99 /hpf (0 - 3) Urine WBC Clumps Present /hpf (None Seen) Urine Microscopic WBC 2976 /HPF (0-3) H Urine Squamous Epithelial Cells None seen /hpf (<5) Urine Bacteria Few /hpf (None Seen) H Urine Glucose 1+ mg/dL (Normal) H Microbiology Microbiology Date/Time Source Procedure Growth Status 12/16/24 20:10 Nose MRSA Screen - Final Complete 12/16/24 17:41 Voided Urine Urine Culture - Final Klebsiella pneumoniae - ESBL Yeast, not Jayne albicans Complete 12/16/24 08:45 Blood Blood Culture - Preliminary NO GROWTH AFTER 72 HOURS OF INCUBATION. 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 Findings suggest herniation of possible bowel vascular structures and mesenteric fat can not exclude infection. Several bubbles of air soft tissues noted ( series 2 image 60- 63) can not exclude infection. 2 cm right renal cyst small 1 cm cyst left kidney. CXR: Unremarkable IV NS 1500 cc bolus, IV NS at 60 cc/hour maintenance IV cefepime Q 8 hours, IV linezolid b.i.d. IV metronidazole Q 8 hours Acetaminophen for mild pain, morphine for severe pain, hydromorphone for severe breakthrough pain Surgery on board Wound consult ordered Counseled on cessation of polysubstance abuse OR reduction failed, transfer to [facility] for HLOC Per surgery to keep in SDU patient NPO, diet consult, start TPN dvt ppx lovenox diet TPN condition critical prognosis poor crit care time 43 minutes Plan discussed with: Patient My Orders Orders - DON CAZARES MD Procedure Category Date Status Time Potassium Phosphate PHA 12/20/24 In Process 09:45 Comprehensive LAB 12/20/24 Logged Metabolic Panel 17:00 Magnesium LAB 12/20/24 Logged 17:00 Phosphorus LAB 12/20/24 Logged 17:00 Basic Metabolic Panel LAB 12/21/24 Verified 04:00 Complete Blood Count LAB 12/21/24 Verified 04:00 Magnesium LAB 12/21/24 Verified 04:00 Phosphorus LAB 12/21/24 Verified 04:00 Imaging Transfer ORDERS 12/20/24 Transmitted Request 13:03 Date of Service: Dec 20, 2024 Billing Provider: DON CAZARES MD Common Visit Codes: [id number] CARE 30-74 MIN DON CAZARES MD Dec 20, 2024 15:06
[2024-12-20 17:46] LABS: Alkaline Phosphatase 74 U/L (46-116); Anion Gap 6 (5-15); Carbon Dioxide 25 mmol/L (20-31); Glucose 90 mg/dL (74-106); Magnesium 1.8 mg/dL (1.6-2.6); Phosphorus 3.4 mg/dL (2.4-5.1); Sodium 139 mmol/L (136-145); Total Protein 7.4 g/dL (5.7-8.2)
[2024-12-20 18:22] LABS: Alanine Aminotransferase < 9 U/L (7-40); Albumin 2.8 g/dL (3.2-4.8); Aspartate Aminotransferase 9 U/L (13-40); BUN/Creatinine Ratio 9.1 (10.0-20.0); Bilirubin, Total 0.2 mg/dL (0.2-1.0); Blood Urea Nitrogen < 5 mg/dL (9-23); Chloride 108 mmol/L (98-107); Potassium 3.5 mmol/L (3.5-5.1)
--- NOTE | 2024-12-20 19:37 | DVHPN2 ---
Progress Note - Dictate Date Seen: Dec 20, 2024 Medical Necessity Reason Pt with a Central, PICC or Fol: No Subjective Patient seen and examined at bedside. Currently breathing on room air Overnight events reviewed. vital signs Vital Sign Date Time Temp Pulse Resp B/P (MAP) Pulse Ox O2 Delivery O2 Flow Rate FiO2 12/20/24 19:00 93 13 120/83 (95) 95 12/20/24 18:00 Room Air* 0 21 12/20/24 16:00 98.5 98.5 Total Intake and Output 12/19/24 12/19/24 12/20/24 14:59 22:59 06:59 Intake Total 1510.0 ml 1183 ml 1537 ml Output Total 700 ml 1400 ml Balance 1510.0 ml 483 ml 137 ml medications Current Medications Medications Dose Ordered Sig/Wallace Route Start Time Stop Time Status Last Admin Dose Admin Sodium Chloride 10 ml Q8HR IV 12/16/24 06:00 12/20/24 14:28 10 ML Enoxaparin Sodium 40 mg DAILY SC 12/16/24 10:00 12/20/24 09:03 40 MG Acetaminophen 650 mg Q6HP PRN PO 12/16/24 01:15 12/18/24 15:45 650 MG Linezolid 300 ml @ 150 mls/hr Q12HR IV 12/16/24 10:00 12/20/24 09:00 150 MLS/HR Pantoprazole Sodium 40 mg DAILY IV 12/16/24 02:30 12/20/24 09:00 40 MG Metronidazole 100 ml @ 100 mls/hr Q8HR IV 12/16/24 14:00 12/20/24 14:35 100 MLS/HR Amino Acids 0 ml @ 0 mls/hr PER PHARMACY IV 12/17/24 12:30 Amino Acids 1,000 ml @ 41 mls/hr DAILY@2200 IV 12/17/24 22:00 12/19/24 21:56 41 MLS/HR Diagnostic Test (Pha) 1 strip Q6HR 12/18/24 00:00 12/20/24 17:40 1 STRIP Insulin Human Regular FOLLOW SLIDING SCALE Q6HR SC 12/18/24 00:00 12/19/24 00:27 2 UNITS Dextrose 50 ml UD IV 12/18/24 00:00 Dextrose/Sodium Chloride 1,000 ml @ 80 mls/hr [id number] IV 12/18/24 07:30 12/20/24 10:33 80 MLS/HR Hydromorphone HCl 0.5 mg Q3HPRN PRN IV 12/18/24 19:15 12/20/24 18:06 0.5 MG Meropenem 50 ml @ 17 mls/hr Q8H IV 12/19/24 12:00 12/20/24 12:27 17 MLS/HR objective Gen.: Patient lying in bed in no apparent distress. On room air. Head: Normocephalic, atraumatic. Eyes: EOMI/PERRLA. Ears: Normal hearing. Normal anatomy. Neck/trachea: Trachea midline, supple. Nose: Normal external anatomy. Mouth: Moist mucous membranes. Chest: Decreased air entry bilaterally. No wheezing or rhonchi. Cardiovascular: Positive S1, positive S2. Regular rate and rhythm. Abdomen: Positive bowel sounds in all 4 quadrants. Soft, non-tender, non- distended. : Deferred. Rectal: Deferred. Skin: Warm, dry. Intact. Extremities: 2+ radial pulses bilaterally. No lower extremity edema. Neuro: Awake, alert, oriented x3. No gross motor or sensory deficits. Cranial nerves II through XII intact. Gait not assessed. laboratory and microbiology Laboratory Tests 12/20/24 17:21 12/20/24 04:40 Test 12/20/24 17:21 Range/Units Serum Glucose 90 74-106 mg/dL Assessment/Plan Impression: Acute hypoxic respiratory failure Dependence on supplemental oxygen Abdominal pain Atelectasis Hypokalemia Nicotine dependence ETOH abuse Polysubstance abuse - methamphetamine/marijuana Events: Currently on room air Supplemental oxygen PRN. Pain control Avoid oversedation Surgery unable to do manual reduction of loop colostomy Awaiting higher level of care at [facility] for evaluation Surgery recommendations appreciated. Continue antibiotics Incentive spirometry NPO. Clinimix for nutritional support Monitor renal function. Monitor electrolytes. Supplement as necessary. Potassium supplementation Surgery followup for ostomy site. Lovenox for DVT prophylaxis Labs and imaging reviewed. Rest of plan as noted below. Plan: Supplemental oxygen PRN Titrate to keep O2 sats above 92%. Continue antibiotics Incentive spirometry Pain control Avoid oversedation Monitor renal function. Monitor electrolytes. Supplement as necessary. Monitor ins and outs. Smoking cessation discussed for greater than 10 minutes Counseled against substance abuse. DVT prophylaxis. Prognosis: Poor given patient's multiple co-morbidities. Rest of plan per hospitalist and other consultants. Thank you Dr. Browning for allowing me to participate in this patient's care. Further recommendations will depend on the patient's clinical course. Please do not hesitate to contact me if you have any questions or concerns. This medical document was created using an electronic medical record system with [employer] dictation system. Although these documentations are being carefully reviewed, there may still be some phonetic and typographical changes. The errors are purely typographical, due to imperfection on the software program, and do not reflect any compromise in the patient's medical care. Dietary Evaluation Review Recommendations by RD: Protein Supplementation Comments: 1) Initiate Williams @ 1 pk bid 2) If patient remains NPO for more than 7 days, consider EN/TPN to meet at least 75% of estimated needs 3) Initiate multivitamin @ 1 tab qd 4) Initiate vitamin C @ 500 mg bid 5) Initiate zinc sulfate @ 220 mg qd 6) Advance to low-fiber diet when medically feasible, pending [employer] FILLING AND CLOSING MACHINE TENDER approval. Consider oral nutrition supplements with all meals if on liquid diet 7) Encourage patient limit consumption of cruciferous vegetables, beans, onions, garlic, and other gas-producing foods until ostomy output normalizes 8) F/u with gastroenterology Expected Outcomes/Goals: 1) appetite and labs to improve 2) GI symptoms to resolve 3) diet to advance 4) f/u in 3 days Plan discussed with: Patient, Other (MYAH Santana) IAIN JONAS MD Dec 20, 2024 19:37
[2024-12-20] MEDS ORDERED: TPN PER PHARMACY 0 ML IV SCH (19:45)
[2024-12-20 20:27] LABS: INR 1.15 (0.9-1.15); Partial Thromboplastin Time 26.5 SEC (24.5-34.5)
[2024-12-21] VITALS (28 sets, daily range): BP systolic 105–129; BP diastolic 68–88; PULSE 71–98; RESP 10–20; TEMP 97.3–98.8; O2SAT 90–97
[2024-12-21 05:28] LABS: Monocytes # (auto) 0.7 10 ^3/uL (0-1.3); Neutrophils % (auto) 74.6 % (37.0-80.0); Nucleated Red Blood Cells % 0.1 %
[2024-12-21 05:30] LABS: Basophils # (auto) 0 10 ^3/uL (0-0.2); Basophils % (auto) 0.5 % (0.0-2.0); Eosinophils # (auto) 0.4 10 ^3/uL (0-0.8); Eosinophils % (auto) 3.9 % (0.0-7.0); Hematocrit 28.7 % (41.0-53.0); Hemoglobin 9.6 g/dL (13.5-17.5); Lymphocytes # (auto) 1.2 10 ^3/uL (0.4-5.4); Lymphocytes % (auto) 13.3 % (10.0-50.0); Mean Corpuscular Hemoglobin 27.7 pg (28.0-32.0); Mean Corpuscular Hgb Conc. 33.4 g/dL (32.0-36.0); Monocytes % (auto) 7.7 % (0.0-12.0); Neutrophils # (auto) 6.7 10 ^3/uL (1.6-8.6); Platelet Count (auto) 538 10^3/uL (140-450); Red Blood Cells 3.46 10^6/uL (4.5-5.90); Red Cell Distribution Width 18.5 % (11.8-14.3)
[2024-12-21 05:40] LABS: Chloride 105 mmol/L (98-107); Sodium 137 mmol/L (136-145)
[2024-12-21 05:41] LABS: Anion Gap 6 (5-15); Carbon Dioxide 26 mmol/L (20-31)
[2024-12-21 05:46] LABS: Glucose 89 mg/dL (74-106)
[2024-12-21 05:47] LABS: Magnesium 1.8 mg/dL (1.6-2.6)
[2024-12-21 05:48] LABS: BUN/Creatinine Ratio 9.4 (10.0-20.0); Blood Urea Nitrogen < 5 mg/dL (9-23); Calcium 8.3 mg/dL (8.7-10.4); Potassium 3.1 mmol/L (3.5-5.1)
[2024-12-21] MEDS: MAGNESIUM SULFATE 1GM/100ML 100 ML IV ONE (07:00)
[2024-12-21] MEDS: POTASSIUM CHL 20MEQ/50ML 50 ML IV SCH (07:10)
[2024-12-21 14:34] LABS: Potassium 3.7 mmol/L (3.5-5.1)
--- NOTE | 2024-12-21 15:54 | DVHPN2 ---
Subjective pending transfer to [facility], accepted and has attending physician otherwise pending insurance auth. Patient requires surgery which we contacted multiple other center that suggest patient to be sent back to [facility] which did the surgery in the first place. Seen by me today during rounds, per SS team patient had auth and ALLISON will be delivered today. PICC, start TPN Changes from previous H/P or p: No Changes Eyes: No Pain, No Vision change, No Conjunctivae inflammation, No Eyelid inflammation, No Other, No Redness ENT: No Ear pain, No Ear discharge, No Nose pain, No Nose discharge, No Nose congestion, No Mouth pain, No Mouth swelling, No Throat pain, No Throat swelling, No Other Cardiovascular: No Chest Pain, No Palpitations, No Orthopnea, No Paroxysmal Noc. Dyspnea, No Edema, No Lt Headedness, No Other Respiratory: No Cough, No Dry, No Shortness of breath, No SOB with excertion, No Wheezing, No Hemoptysis, No Pleuritic Pain, No Sputum, No Other Gastrointestinal: Nausea, Abdominal Pain Genitourinary: No Dysuria, No Frequency, No Incontinence, No Hematuria, No Retention, No Other Musculoskeletal: No other, No neck pain, No shoulder pain, No arm pain, No back pain, No hand pain, No leg pain, No foot pain Skin: No Rash, No Lesions, No Jaundice, No Bruising, No Other Objective Vitals Vital Signs Date Time Temp Pulse Resp B/P (MAP) Pulse Ox O2 Delivery O2 Flow Rate FiO2 12/21/24 15:13 75 12 117/77 12/21/24 15:00 94 12/21/24 14:00 Room Air* 0 21 12/21/24 08:00 98.5 98.5 Intake/Output Intake and Output 12/21/24 07:00 Intake Total 4110.0 ml Output Total 3600 ml Balance 510.0 ml Intake Oral 0 ml IV Total 4110.0 ml Output Urine Total 3600 ml Medications Current Medications Medications Dose Ordered Sig/Wallace Route Start Time Stop Time Status Last Admin Dose Admin Sodium Chloride 10 ml Q8HR IV 12/16/24 06:00 12/21/24 14:00 10 ML Enoxaparin Sodium 40 mg DAILY SC 12/16/24 10:00 12/21/24 09:54 40 MG Acetaminophen 650 mg Q6HP PRN PO 12/16/24 01:15 12/21/24 10:02 650 MG Linezolid 300 ml @ 150 mls/hr Q12HR IV 12/16/24 10:00 12/21/24 09:53 150 MLS/HR Pantoprazole Sodium 40 mg DAILY IV 12/16/24 02:30 12/21/24 09:53 40 MG Metronidazole 100 ml @ 100 mls/hr Q8HR IV 12/16/24 14:00 12/21/24 14:43 100 MLS/HR Amino Acids 1,000 ml @ 41 mls/hr DAILY@2200 IV 12/17/24 22:00 12/21/24 21:59 12/20/24 21:34 41 MLS/HR Diagnostic Test (Pha) 1 strip Q6HR 12/18/24 00:00 12/21/24 12:00 1 STRIP Insulin Human Regular FOLLOW SLIDING SCALE Q6HR SC 12/18/24 00:00 12/19/24 00:27 2 UNITS Dextrose 50 ml UD IV 12/18/24 00:00 Dextrose/Sodium Chloride 1,000 ml @ 80 mls/hr [id number] IV 12/18/24 07:30 12/20/24 10:33 80 MLS/HR Hydromorphone HCl 0.5 mg Q3HPRN PRN IV 12/18/24 19:15 12/21/24 14:43 0.5 MG Meropenem 50 ml @ 17 mls/hr Q8H IV 12/19/24 12:00 12/21/24 11:58 17 MLS/HR Amino Acids 0 ml @ 0 mls/hr PER PHARMACY IV 12/20/24 19:45 Fat Emulsion Intravenous 100 ml/Sodium Chloride 20 meq/ Sodium Acetate 20 meq/Potassium Phosphate 40 meq/ Calcium Gluconate 2.3 meq/Magnesium Sulfate 4 meq/ Multivitamins 10 ml/Chromium/ Copper/Manganese/ Zinc 1 ml/Amino Acids/Dextrose/ Purified Water 1,641.0371 ml @ 68.074 m... [id number] IV 12/21/24 22:00 12/22/24 21:59 Cancel Fat Emulsion Intravenous 100 ml/Sodium Chloride 20 meq/ Sodium Acetate 20 meq/Potassium Phosphate 40 meq/ Calcium Gluconate 2.3 meq/Magnesium Sulfate 4 meq/ Multivitamins 10 ml/Chromium/ Copper/Manganese/ Zinc 1 ml/Amino Acids/Dextrose/ Purified Water 1,641.0371 ml @ 68.572 m... [id number] IV 12/21/24 22:00 12/22/24 21:59 Laboratory Results Laboratory Tests 12/21/24 04:40 12/21/24 14:07 Chemistry Test 12/20/24 17:21 12/21/24 04:40 12/21/24 14:07 Albumin 2.8 g/dL (3.2-4.8) L Calcium Level 8.0 mg/dL (8.7-10.4) L 8.3 mg/dL (8.7-10.4) L Magnesium Level 1.8 mg/dL (1.6-2.6) 1.8 mg/dL (1.6-2.6) 2.0 mg/dL (1.6-2.6) Phosphorus Level 3.4 mg/dL (2.4-5.1) 3.0 mg/dL (2.4-5.1) Total Protein 7.4 g/dL (5.7-8.2) Coagulation Test 12/20/24 19:57 Prothrombin Time 12.0 sec (9.3-11.8) H Prothrombin Time INR 1.15 (0.9-1.15) Activated Partial Thromboplast Time 26.5 SEC (24.5-34.5) LFT Test 12/20/24 17:21 Alanine Aminotransferase (ALT) < 9 U/L (7-40) Alkaline Phosphatase 74 U/L (46-116) Aspartate Amino Transferase (AST) 9 U/L (13-40) L Total Bilirubin 0.2 mg/dL (0.2-1.0) Urinalysis Test 12/16/24 17:41 Urine Color Light-brown (Yellow) Urine Clarity Ex.turbid (Clear) Urine pH 6.0 (5.0-9.0) Urine Specific Ralston 1.011 (1.001-1.035) Urine Protein 1+ (Negative) H Urine Ketones Negative (Negative) Urine Blood 3+ /uL (Negative) H Urine Nitrite Negative (Negative) Urine Bilirubin Negative (Negative) Urine Urobilinogen Normal mg/dL (Negative) Urine Leukocyte Esterase 3+ /uL (Negative) Urine RBC 99 /hpf (0 - 3) Urine WBC Clumps Present /hpf (None Seen) Urine Microscopic WBC 2976 /HPF (0-3) H Urine Squamous Epithelial Cells None seen /hpf (<5) Urine Bacteria Few /hpf (None Seen) H Urine Glucose 1+ mg/dL (Normal) H Microbiology Microbiology Date/Time Source Procedure Growth Status 12/16/24 20:10 Nose MRSA Screen - Final Complete 12/16/24 17:41 Voided Urine Urine Culture - Final Klebsiella pneumoniae - ESBL Yeast, not Jayne albicans Complete 12/16/24 08:45 Blood Blood Culture - Final NO GROWTH AFTER 5 DAYS OF INCUBATION. 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 Findings suggest herniation of possible bowel vascular structures and mesenteric fat can not exclude infection. Several bubbles of air soft tissues noted ( series 2 image 60- 63) can not exclude infection. 2 cm right renal cyst small 1 cm cyst left kidney. CXR: Unremarkable IV NS 1500 cc bolus, IV NS at 60 cc/hour maintenance IV cefepime Q 8 hours, IV linezolid b.i.d. IV metronidazole Q 8 hours Acetaminophen for mild pain, morphine for severe pain, hydromorphone for severe breakthrough pain Surgery on board Wound consult ordered Counseled on cessation of polysubstance abuse OR reduction failed, transfer to [facility] for HLOC Per surgery to keep in SDU patient NPO, diet consult, start TPN dvt ppx lovenox diet TPN condition critical prognosis poor crit care time 43 minutes Plan discussed with: Patient Date of Service: Dec 21, 2024 Billing Provider: DON CAZARES MD Common Visit Codes: [id number] CARE 30-74 MIN DON CAZARES MD Dec 21, 2024 15:54
[2024-12-21] MEDS ORDERED: POTASSIUM CHL 20MEQ/100ML 100 ML IV ONE (16:00)
[2024-12-21] MEDS: HYDROmorphone HCL 2 MG/ML VL/or syr IV ONE (16:08)
[2024-12-21] MEDS: POTASSIUM CHL 20MEQ/50ML 50 ML IV ONE (16:15)
[2024-12-21] MEDS: LIDOCAINE 1% (LOCAL ANESTH.) PF 5ml SDV ID ONE (19:00)
[2024-12-21] MEDS: HYDROmorphone HCL 2 MG/ML VL/or syr IV PRN (20:24)
[2024-12-21] MEDS: SODIUM CHLOR 0.9% PF (SALINE LOCK) 10ML VIAL/SYR IV SCH (21:22)
[2024-12-21] MEDS: FAT EMULSION IV NR (21:25)
[2024-12-21] MEDS: SODIUM CHLORIDE IV NR (21:25)
[2024-12-21] MEDS: [UNRECOGNIZED DRUG - OTHER] IV NR (21:25)
[2024-12-21] MEDS: SODIUM ACETATE IV NR (21:25)
[2024-12-21] MEDS ORDERED: SODIUM ACETATE IV NR (22:00)
[2024-12-21] MEDS ORDERED: SODIUM CHLORIDE IV NR (22:00)
[2024-12-21] MEDS ORDERED: FAT EMULSION IV NR (22:00)
[2024-12-21] MEDS ORDERED: [UNRECOGNIZED DRUG - OTHER] IV NR (22:00)
--- NOTE | 2024-12-21 22:38 | DVHPN2 ---
Progress Note - Dictate Date Seen: Dec 21, 2024 Medical Necessity Reason Pt with a Central, PICC or Fol: No Subjective Patient seen and examined at bedside. Currently breathing on room air Overnight events reviewed. vital signs Vital Sign Date Time Temp Pulse Resp B/P (MAP) Pulse Ox O2 Delivery O2 Flow Rate FiO2 12/21/24 21:47 13 90 Room Air* 0 21 12/21/24 21:00 78 113/78 (90) 12/21/24 20:00 97.3 97.3 Total Intake and Output 12/20/24 12/20/24 12/21/24 15:00 23:00 07:00 Intake Total 1661.5 ml 1175.5 ml 1273 ml Output Total 1400 ml 2200 ml Balance 1661.5 ml -224.5 ml -927 ml medications Current Medications Medications Dose Ordered Sig/Wallace Route Start Time Stop Time Status Last Admin Dose Admin Sodium Chloride 10 ml Q8HR IV 12/16/24 06:00 12/21/24 21:22 10 ML Enoxaparin Sodium 40 mg DAILY SC 12/16/24 10:00 12/21/24 09:54 40 MG Acetaminophen 650 mg Q6HP PRN PO 12/16/24 01:15 12/21/24 17:40 650 MG Linezolid 300 ml @ 150 mls/hr Q12HR IV 12/16/24 10:00 12/21/24 09:53 150 MLS/HR Pantoprazole Sodium 40 mg DAILY IV 12/16/24 02:30 12/21/24 09:53 40 MG Metronidazole 100 ml @ 100 mls/hr Q8HR IV 12/16/24 14:00 12/21/24 21:25 100 MLS/HR Diagnostic Test (Pha) 1 strip Q6HR 12/18/24 00:00 12/21/24 18:00 1 STRIP Insulin Human Regular FOLLOW SLIDING SCALE Q6HR SC 12/18/24 00:00 12/19/24 00:27 2 UNITS Dextrose 50 ml UD IV 12/18/24 00:00 Dextrose/Sodium Chloride 1,000 ml @ 80 mls/hr [id number] IV 12/18/24 07:30 12/21/24 21:21 80 MLS/HR Meropenem 50 ml @ 17 mls/hr Q8H IV 12/19/24 12:00 12/21/24 20:22 17 MLS/HR Amino Acids 0 ml @ 0 mls/hr PER PHARMACY IV 12/20/24 19:45 Fat Emulsion Intravenous 100 ml/Sodium Chloride 20 meq/ Sodium Acetate 20 meq/Potassium Phosphate 40 meq/ Calcium Gluconate 2.3 meq/Magnesium Sulfate 4 meq/ Multivitamins 10 ml/Chromium/ Copper/Manganese/ Zinc 1 ml/Amino Acids/Dextrose/ Purified Water 1,641.0371 ml @ 68.074 m... [id number] IV 12/21/24 22:00 12/22/24 21:59 Cancel Fat Emulsion Intravenous 100 ml/Sodium Chloride 20 meq/ Sodium Acetate 20 meq/Potassium Phosphate 40 meq/ Calcium Gluconate 2.3 meq/Magnesium Sulfate 4 meq/ Multivitamins 10 ml/Chromium/ Copper/Manganese/ Zinc 1 ml/Amino Acids/Dextrose/ Purified Water 1,641.0371 ml @ 68.572 m... [id number] IV 12/21/24 22:00 12/22/24 21:59 12/21/24 21:25 68.572 MLS/HR Sodium Chloride 10 ml QSHIFT@10,22 IV 12/21/24 22:00 Lorazepam 0.5 mg Q6HP PRN IV 12/21/24 19:30 Hydromorphone HCl 0.5 mg Q3HPRN PRN IV 12/21/24 20:15 12/21/24 20:24 0.5 MG objective Gen.: Patient lying in bed in no apparent distress. On room air. Head: Normocephalic, atraumatic. Eyes: EOMI/PERRLA. Ears: Normal hearing. Normal anatomy. Neck/trachea: Trachea midline, supple. Nose: Normal external anatomy. Mouth: Moist mucous membranes. Chest: Decreased air entry bilaterally. No wheezing or rhonchi. Cardiovascular: Positive S1, positive S2. Regular rate and rhythm. Abdomen: Positive bowel sounds in all 4 quadrants. Soft, non-tender, non- distended. : Deferred. Rectal: Deferred. Skin: Warm, dry. Intact. Extremities: 2+ radial pulses bilaterally. No lower extremity edema. Neuro: Awake, alert, oriented x3. No gross motor or sensory deficits. Cranial nerves II through XII intact. Gait not assessed. laboratory and microbiology Laboratory Tests 12/21/24 14:07 12/21/24 04:40 Test 12/21/24 04:40 Range/Units Serum Glucose 89 74-106 mg/dL Assessment/Plan Impression: Acute hypoxic respiratory failure Abdominal pain Atelectasis Hypokalemia Nicotine dependence ETOH abuse Polysubstance abuse - methamphetamine/marijuana Events: Remains on room air Supplemental oxygen PRN. Pain control Avoid oversedation Surgery unable to do manual reduction of loop colostomy Awaiting higher level of care at [facility] for evaluation Surgery recommendations appreciated. Continue antibiotics Incentive spirometry NPO. Clinimix for nutritional support Monitor renal function. Monitor electrolytes. Supplement as necessary. Potassium supplementation Surgery followup for ostomy site. Wound care Lovenox for DVT prophylaxis Labs and imaging reviewed. Rest of plan as noted below. Plan: Supplemental oxygen PRN Titrate to keep O2 sats above 92%. Continue antibiotics Incentive spirometry Pain control Avoid oversedation Monitor renal function. Monitor electrolytes. Supplement as necessary. Monitor ins and outs. Smoking cessation discussed for greater than 10 minutes Counseled against substance abuse. DVT prophylaxis. Prognosis: Poor given patient's multiple co-morbidities. Rest of plan per hospitalist and other consultants. Thank you Dr. Browning for allowing me to participate in this patient's care. Further recommendations will depend on the patient's clinical course. Please do not hesitate to contact me if you have any questions or concerns. This medical document was created using an electronic medical record system with [employer] dictation system. Although these documentations are being carefully reviewed, there may still be some phonetic and typographical changes. The errors are purely typographical, due to imperfection on the software program, and do not reflect any compromise in the patient's medical care. Dietary Evaluation Review Recommendations by RD: Protein Supplementation Comments: 1) Initiate Williams @ 1 pk bid 2) If patient remains NPO for more than 7 days, consider EN/TPN to meet at least 75% of estimated needs 3) Initiate multivitamin @ 1 tab qd 4) Initiate vitamin C @ 500 mg bid 5) Initiate zinc sulfate @ 220 mg qd 6) Advance to low-fiber diet when medically feasible, pending BEHAVIORAL INTERVENTIONIST approval. Consider oral nutrition supplements with all meals if on liquid diet 7) Encourage patient limit consumption of cruciferous vegetables, beans, onions, garlic, and other gas-producing foods until ostomy output normalizes 8) F/u with gastroenterology Expected Outcomes/Goals: 1) appetite and labs to improve 2) GI symptoms to resolve 3) diet to advance 4) f/u in 3 days Plan discussed with: Patient, Other (RN Ty) IAIN JONAS MD Dec 21, 2024 22:38
[2024-12-22] VITALS (21 sets, daily range): BP systolic 101–120; BP diastolic 65–83; PULSE 74–93; RESP 10–20; TEMP 97.6–98.9; O2SAT 92–100
[2024-12-22] MEDS: LORazepam 2MG/ML-1ML VIAL IV PRN (02:23)
[2024-12-22 05:30] LABS: Alanine Aminotransferase < 9 U/L (7-40); Alkaline Phosphatase 72 U/L (46-116); Anion Gap 7 (5-15); Aspartate Aminotransferase 11 U/L (13-40); BUN/Creatinine Ratio 11.1 (10.0-20.0); Blood Urea Nitrogen 6 mg/dL (9-23); Calcium 8.5 mg/dL (8.7-10.4); Carbon Dioxide 25 mmol/L (20-31); Chloride 105 mmol/L (98-107); Glucose 111 mg/dL (74-106); Magnesium 1.8 mg/dL (1.6-2.6); Phosphorus 2.9 mg/dL (2.4-5.1); Potassium 3.2 mmol/L (3.5-5.1); Sodium 137 mmol/L (136-145); Total Protein 7.7 g/dL (5.7-8.2)
[2024-12-22 05:34] LABS: Bilirubin, Total 0.2 mg/dL (0.2-1.0)
[2024-12-22] MEDS: MAGNESIUM SULFATE 1GM/100ML 100 ML IV ONE (06:18)
[2024-12-22] MEDS: POTASSIUM CHL 20MEQ/50ML 50 ML IV SCH (06:26)
[2024-12-22] MEDS: HYDROmorphone HCL 2 MG/ML VL/or syr IV PRN (06:46)
--- NOTE | 2024-12-22 12:42 | DVHPN2 ---
Progress Note Date Seen: Dec 21, 2024 Medical Necessity Reason Pt with a Central, PICC or Fol: No Objective vital signs Vital Sign Date Time Temp Pulse Resp B/P (MAP) Pulse Ox O2 Delivery O2 Flow Rate FiO2 12/22/24 12:00 13 98 Room Air* 0 21 12/22/24 10:22 79 115/83 12/22/24 08:00 98.3 98.3 Total Intake and Output 12/21/24 12/21/24 12/22/24 15:00 23:00 07:00 Intake Total 1056 ml 1365.144 ml 1271.004 ml Output Total 2220 ml Balance 1056 ml 1365.144 ml -948.996 ml medications Current Medications Medications Dose Ordered Sig/Wallace Route Start Time Stop Time Status Last Admin Dose Admin Sodium Chloride 10 ml Q8HR IV 12/16/24 06:00 12/22/24 06:18 10 ML Enoxaparin Sodium 40 mg DAILY SC 12/16/24 10:00 12/22/24 09:35 40 MG Acetaminophen 650 mg Q6HP PRN PO 12/16/24 01:15 12/21/24 17:40 650 MG Linezolid 300 ml @ 150 mls/hr Q12HR IV 12/16/24 10:00 12/22/24 09:35 150 MLS/HR Pantoprazole Sodium 40 mg DAILY IV 12/16/24 02:30 12/22/24 09:34 40 MG Metronidazole 100 ml @ 100 mls/hr Q8HR IV 12/16/24 14:00 12/22/24 06:17 100 MLS/HR Diagnostic Test (Pha) 1 strip Q6HR 12/18/24 00:00 12/22/24 11:10 1 STRIP Insulin Human Regular FOLLOW SLIDING SCALE Q6HR SC 12/18/24 00:00 12/19/24 00:27 2 UNITS Dextrose 50 ml UD IV 12/18/24 00:00 Dextrose/Sodium Chloride 1,000 ml @ 80 mls/hr [id number] IV 12/18/24 07:30 12/21/24 21:21 80 MLS/HR Meropenem 50 ml @ 17 mls/hr Q8H IV 12/19/24 12:00 12/22/24 03:13 17 MLS/HR Amino Acids 0 ml @ 0 mls/hr PER PHARMACY IV 12/20/24 19:45 Fat Emulsion Intravenous 100 ml/Sodium Chloride 20 meq/ Sodium Acetate 20 meq/Potassium Phosphate 40 meq/ Calcium Gluconate 2.3 meq/Magnesium Sulfate 4 meq/ Multivitamins 10 ml/Chromium/ Copper/Manganese/ Zinc 1 ml/Amino Acids/Dextrose/ Purified Water 1,641.0371 ml @ 68.074 m... Q24H7M IV 12/21/24 22:00 12/22/24 21:59 Cancel Fat Emulsion Intravenous 100 ml/Sodium Chloride 20 meq/ Sodium Acetate 20 meq/Potassium Phosphate 40 meq/ Calcium Gluconate 2.3 meq/Magnesium Sulfate 4 meq/ Multivitamins 10 ml/Chromium/ Copper/Manganese/ Zinc 1 ml/Amino Acids/Dextrose/ Purified Water 1,641.0371 ml @ 68.572 m... [id number] IV 12/21/24 22:00 12/22/24 21:59 12/21/24 21:25 68.572 MLS/HR Sodium Chloride 10 ml QSHIFT@10,22 IV 12/21/24 22:00 12/22/24 09:33 10 ML Lorazepam 0.5 mg Q6HP PRN IV 12/21/24 19:30 12/22/24 02:23 0.5 MG Hydromorphone HCl 1 mg Q3HPRN PRN IV 12/22/24 06:15 12/22/24 09:52 1 MG Fat Emulsion Intravenous 150 ml/Sodium Chloride 20 meq/ Sodium Acetate 20 meq/Potassium Chloride 20 meq/ Potassium Phosphate 40 meq/ Calcium Gluconate 2.3 meq/Magnesium Sulfate 4 meq/ Multivitamins 10 ml/Chromium/ Copper/Manganese/ Zinc 1 ml/Amino Acids/Dextrose/ Purified Water 1,301.0371 ml @ 54 mls/hr Q24H6M IV 12/22/24 22:00 12/23/24 21:59 laboratory and microbiology Laboratory Tests 12/22/24 04:38 12/21/24 04:40 Test 12/22/24 04:38 Range/Units Serum Glucose 111 H 74-106 mg/dL Microbiology Date/Time Source Procedure Growth Status 12/16/24 20:10 Nose MRSA Screen - Final Complete 12/16/24 17:41 Voided Urine Urine Culture - Final Klebsiella pneumoniae - ESBL Yeast, not Jayne albicans Complete 12/16/24 08:45 Blood Blood Culture - Final NO GROWTH AFTER 5 DAYS OF INCUBATION. Complete Problem List/Assessment/Plan Problem List/Assessment/Plan AFEBRILE VSS ABD SOFT LESS TENDER PARTIAL MANUAL REDUCTION OF LOOP COLOSTOMY MAINTAINED DISTAL LOOP STILL EDEMATOUS BUT LESS MAY NOT BE AMENABLE FOR REPEAT ATTEMPT FOR MANUAL REDUCTION TODAY COLOSTOMY VIABLE NON FUNCTION CONTINUE CLOSE OBSERVATION ACCEPTED FOR TRANSFER TO [facility] DISCUSSED WITH THE ACCEPTING SURGEON NURSE AT BEDSIDE PT AGREES WITH THE PLAN AWAITING TRANSFER TO [facility] Plan discussed with: Patient My Orders My Orders Orders - GABRIELA HERNANDEZ MD Procedure Category Date Status Time Amino Acid PHA 12/21/24 In Process Infusion... W/Fat 22:00 Tpn Per Pharmacy [facility]ENT 12/21/24 In Process 22:00 Nursing Protocol Picc TRENT 12/21/24 In Process 18:59 Change Dressing Prn TRENT 12/21/24 In Process 18:59 PICC BD 12/21/24 Transmitted 18:59 Sodium Chloride Lock PHA 12/21/24 In Process (Saline Lock Ns) 22:00 Do Not Use Picc For [facility] 12/21/24 In Process Blood Cult 18:59 May Draw Blood From [facility] 12/21/24 In Process Picc 18:59 Ok To Use Picc [facility] 12/21/24 In Process 18:59 Change Picc Dressing [facility] 12/21/24 In Process Q7 Days 18:59 Us Guided Vascular US 12/21/24 Taken Access 18:59 Lorazepam 2mg/Ml Inj PHA 12/21/24 In Process (Ativan Inj) 19:30 Communication Order ORDERS 12/22/24 Transmitted 03:08 Hydromorphone PHA 12/22/24 In Process Injection (Dilaudid 06:15 Amino Acid PHA 12/22/24 In Process Infusion... W/Fat 22:00 Comprehensive LAB 12/23/24 Verified Metabolic Panel 04:00 Phosphorus LAB 12/23/24 Verified 04:00 Magnesium LAB 12/23/24 Verified 04:00 Triglycerides LAB 12/23/24 Verified 04:00 Tpn Per Pharmacy [facility] 12/22/24 In Process 22:00 Dietary Evaluation Review Recommendations by RD: Protein Supplementation Comments: 1) Initiate Williams @ 1 pk bid 2) If patient remains NPO for more than 7 days, consider EN/TPN to meet at least 75% of estimated needs 3) Initiate multivitamin @ 1 tab qd 4) Initiate vitamin C @ 500 mg bid 5) Initiate zinc sulfate @ 220 mg qd 6) Advance to low-fiber diet when medically feasible, pending SOILS ANALYST approval. Consider oral nutrition supplements with all meals if on liquid diet 7) Encourage patient limit consumption of cruciferous vegetables, beans, onions, garlic, and other gas-producing foods until ostomy output normalizes 8) F/u with gastroenterology Expected Outcomes/Goals: 1) appetite and labs to improve 2) GI symptoms to resolve 3) diet to advance 4) f/u in 3 days GABRIELA HERNANDEZ MD Dec 22, 2024 12:42
--- NOTE | 2024-12-22 12:45 | DVHPN2 ---
Progress Note Date Seen: Dec 22, 2024 Medical Necessity Reason Pt with a Central, PICC or Fol: No Objective vital signs Vital Sign Date Time Temp Pulse Resp B/P (MAP) Pulse Ox O2 Delivery O2 Flow Rate FiO2 12/22/24 12:00 13 98 Room Air* 0 21 12/22/24 10:22 79 115/83 12/22/24 08:00 98.3 98.3 Total Intake and Output 12/21/24 12/21/24 12/22/24 15:00 23:00 07:00 Intake Total 1056 ml 1365.144 ml 1271.004 ml Output Total 2220 ml Balance 1056 ml 1365.144 ml -948.996 ml medications Current Medications Medications Dose Ordered Sig/Wallace Route Start Time Stop Time Status Last Admin Dose Admin Sodium Chloride 10 ml Q8HR IV 12/16/24 06:00 12/22/24 06:18 10 ML Enoxaparin Sodium 40 mg DAILY SC 12/16/24 10:00 12/22/24 09:35 40 MG Acetaminophen 650 mg Q6HP PRN PO 12/16/24 01:15 12/21/24 17:40 650 MG Linezolid 300 ml @ 150 mls/hr Q12HR IV 12/16/24 10:00 12/22/24 09:35 150 MLS/HR Pantoprazole Sodium 40 mg DAILY IV 12/16/24 02:30 12/22/24 09:34 40 MG Metronidazole 100 ml @ 100 mls/hr Q8HR IV 12/16/24 14:00 12/22/24 06:17 100 MLS/HR Diagnostic Test (Pha) 1 strip Q6HR 12/18/24 00:00 12/22/24 11:10 1 STRIP Insulin Human Regular FOLLOW SLIDING SCALE Q6HR SC 12/18/24 00:00 12/19/24 00:27 2 UNITS Dextrose 50 ml UD IV 12/18/24 00:00 Dextrose/Sodium Chloride 1,000 ml @ 80 mls/hr [id number] IV 12/18/24 07:30 12/21/24 21:21 80 MLS/HR Meropenem 50 ml @ 17 mls/hr Q8H IV 12/19/24 12:00 12/22/24 03:13 17 MLS/HR Amino Acids 0 ml @ 0 mls/hr PER PHARMACY IV 12/20/24 19:45 Fat Emulsion Intravenous 100 ml/Sodium Chloride 20 meq/ Sodium Acetate 20 meq/Potassium Phosphate 40 meq/ Calcium Gluconate 2.3 meq/Magnesium Sulfate 4 meq/ Multivitamins 10 ml/Chromium/ Copper/Manganese/ Zinc 1 ml/Amino Acids/Dextrose/ Purified Water 1,641.0371 ml @ 68.074 m... Q24H7M IV 12/21/24 22:00 12/22/24 21:59 Cancel Fat Emulsion Intravenous 100 ml/Sodium Chloride 20 meq/ Sodium Acetate 20 meq/Potassium Phosphate 40 meq/ Calcium Gluconate 2.3 meq/Magnesium Sulfate 4 meq/ Multivitamins 10 ml/Chromium/ Copper/Manganese/ Zinc 1 ml/Amino Acids/Dextrose/ Purified Water 1,641.0371 ml @ 68.572 m... [id number] IV 12/21/24 22:00 12/22/24 21:59 12/21/24 21:25 68.572 MLS/HR Sodium Chloride 10 ml QSHIFT@10,22 IV 12/21/24 22:00 12/22/24 09:33 10 ML Lorazepam 0.5 mg Q6HP PRN IV 12/21/24 19:30 12/22/24 02:23 0.5 MG Hydromorphone HCl 1 mg Q3HPRN PRN IV 12/22/24 06:15 12/22/24 09:52 1 MG Fat Emulsion Intravenous 150 ml/Sodium Chloride 20 meq/ Sodium Acetate 20 meq/Potassium Chloride 20 meq/ Potassium Phosphate 40 meq/ Calcium Gluconate 2.3 meq/Magnesium Sulfate 4 meq/ Multivitamins 10 ml/Chromium/ Copper/Manganese/ Zinc 1 ml/Amino Acids/Dextrose/ Purified Water 1,301.0371 ml @ 54 mls/hr Q24H6M IV 12/22/24 22:00 12/23/24 21:59 laboratory and microbiology Laboratory Tests 12/22/24 04:38 12/21/24 04:40 Test 12/22/24 04:38 Range/Units Serum Glucose 111 H 74-106 mg/dL Microbiology Date/Time Source Procedure Growth Status 12/16/24 20:10 Nose MRSA Screen - Final Complete 12/16/24 17:41 Voided Urine Urine Culture - Final Klebsiella pneumoniae - ESBL Yeast, not Jayne albicans Complete 12/16/24 08:45 Blood Blood Culture - Final NO GROWTH AFTER 5 DAYS OF INCUBATION. Complete Problem List/Assessment/Plan Problem List/Assessment/Plan AFEBRILE VSS ABD SOFT LESS TENDER PARTIAL MANUAL REDUCTION OF LOOP COLOSTOMY MAINTAINED DISTAL LOOP STILL EDEMATOUS BUT LESS MAY NOT BE AMENABLE FOR REPEAT ATTEMPT FOR MANUAL REDUCTION TODAY COLOSTOMY VIABLE NON FUNCTION CONTINUE CLOSE OBSERVATION AWAITING TRANSFER TO [facility] AT [facility] AND RESIDENTS AT BEDSIDE AT BEDSIDE PT AGREES WITH THE PLAN ALLOW ICE CHIPS Plan discussed with: Patient My Orders My Orders Orders - GABRIELA HERNANDEZ MD Procedure Category Date Status Time Amino Acid PHA 12/21/24 In Process Infusion... W/Fat 22:00 Tpn Per Pharmacy TRENT 12/21/24 In Process 22:00 Nursing Protocol Picc TRENT 12/21/24 In Process 18:59 Change Dressing Prn TRENT 12/21/24 In Process 18:59 PICC BD 12/21/24 Transmitted 18:59 Sodium Chloride Lock PHA 12/21/24 In Process (Saline Lock Ns) 22:00 Do Not Use Picc For TRENT 12/21/24 In Process Blood Cult 18:59 May Draw Blood From [facility] 12/21/24 In Process Picc 18:59 Ok To Use Picc TRENT 12/21/24 In Process 18:59 Change Picc Dressing TRENT 12/21/24 In Process Q7 Days 18:59 Us Guided Vascular US 12/21/24 Taken Access 18:59 Lorazepam 2mg/Ml Inj PHA 12/21/24 In Process (Ativan Inj) 19:30 Communication Order ORDERS 12/22/24 Transmitted 03:08 Hydromorphone PHA 12/22/24 In Process Injection (Dilaudid 06:15 Amino Acid PHA 12/22/24 In Process Infusion... W/Fat 22:00 Comprehensive LAB 12/23/24 Verified Metabolic Panel 04:00 Phosphorus LAB 12/23/24 Verified 04:00 Magnesium LAB 12/23/24 Verified 04:00 Triglycerides LAB 12/23/24 Verified 04:00 Tpn Per Pharmacy TRENT 12/22/24 In Process 22:00 Dietary Evaluation Review Recommendations by RD: Protein Supplementation Comments: 1) Initiate Williams @ 1 pk bid 2) If patient remains NPO for more than 7 days, consider EN/TPN to meet at least 75% of estimated needs 3) Initiate multivitamin @ 1 tab qd 4) Initiate vitamin C @ 500 mg bid 5) Initiate zinc sulfate @ 220 mg qd 6) Advance to low-fiber diet when medically feasible, pending MANAGER FURNITURE approval. Consider oral nutrition supplements with all meals if on liquid diet 7) Encourage patient limit consumption of cruciferous vegetables, beans, onions, garlic, and other gas-producing foods until ostomy output normalizes 8) F/u with gastroenterology Expected Outcomes/Goals: 1) appetite and labs to improve 2) GI symptoms to resolve 3) diet to advance 4) f/u in 3 days GABRIELA HERNANDEZ MD Dec 22, 2024 12:45
--- NOTE | 2024-12-22 14:23 | MEDREC ---
[facility] ASP Intervention Section I [facility] ASP Intervention: Deescalate AB based on CS (The Final Urine culture showed Klebsiella pneumoniae - ESBL + Yeast, not Jayne albicans. Please consider discontinuing Flagyl and adding an antifungal if clinically appropriate) DONNY KHAN Dec 22, 2024 14:23
--- NOTE | 2024-12-22 16:20 | DVHPN2 ---
Subjective pending transfer to [facility], accepted and has attending physician otherwise pending insurance auth. Patient requires surgery which we contacted multiple other center that suggest patient to be sent back to [facility] which did the surgery in the first place. Seen by me today during rounds, swelling improved, seen by surgery, c/w TPN and pain management. pending [facility] transfer Changes from previous H/P or p: No Changes Eyes: No Pain, No Vision change, No Conjunctivae inflammation, No Eyelid inflammation, No Other, No Redness ENT: No Ear pain, No Ear discharge, No Nose pain, No Nose discharge, No Nose congestion, No Mouth pain, No Mouth swelling, No Throat pain, No Throat swelling, No Other Cardiovascular: No Chest Pain, No Palpitations, No Orthopnea, No Paroxysmal Noc. Dyspnea, No Edema, No Lt Headedness, No Other Respiratory: No Cough, No Dry, No Shortness of breath, No SOB with excertion, No Wheezing, No Hemoptysis, No Pleuritic Pain, No Sputum, No Other Gastrointestinal: Nausea, Abdominal Pain Genitourinary: No Dysuria, No Frequency, No Incontinence, No Hematuria, No Retention, No Other Musculoskeletal: No other, No neck pain, No shoulder pain, No arm pain, No back pain, No hand pain, No leg pain, No foot pain Skin: No Rash, No Lesions, No Jaundice, No Bruising, No Other Objective Vitals Vital Signs Date Time Temp Pulse Resp B/P (MAP) Pulse Ox O2 Delivery O2 Flow Rate FiO2 12/22/24 14:00 75 10 112/72 (85) 96 12/22/24 14:00 Room Air* 0 21 12/22/24 12:00 98.4 98.4 Intake/Output Intake and Output 12/22/24 07:00 Intake Total 3840.720 ml Output Total 2220 ml Balance 1620.720 ml Intake Oral 30 ml IV Total 3810.720 ml Output Urine Total 2220 ml Medications Current Medications Medications Dose Ordered Sig/Wallace Route Start Time Stop Time Status Last Admin Dose Admin Sodium Chloride 10 ml Q8HR IV 12/16/24 06:00 12/22/24 13:24 10 ML Enoxaparin Sodium 40 mg DAILY SC 12/16/24 10:00 12/22/24 09:35 40 MG Acetaminophen 650 mg Q6HP PRN PO 12/16/24 01:15 12/21/24 17:40 650 MG Linezolid 300 ml @ 150 mls/hr Q12HR IV 12/16/24 10:00 12/22/24 09:35 150 MLS/HR Pantoprazole Sodium 40 mg DAILY IV 12/16/24 02:30 12/22/24 09:34 40 MG Metronidazole 100 ml @ 100 mls/hr Q8HR IV 12/16/24 14:00 12/22/24 13:33 100 MLS/HR Diagnostic Test (Pha) 1 strip Q6HR 12/18/24 00:00 12/22/24 11:10 1 STRIP Insulin Human Regular FOLLOW SLIDING SCALE Q6HR SC 12/18/24 00:00 12/19/24 00:27 2 UNITS Dextrose 50 ml UD IV 12/18/24 00:00 Dextrose/Sodium Chloride 1,000 ml @ 80 mls/hr [id number] IV 12/18/24 07:30 12/22/24 13:32 80 MLS/HR Meropenem 50 ml @ 17 mls/hr Q8H IV 12/19/24 12:00 12/22/24 13:32 17 MLS/HR Amino Acids 0 ml @ 0 mls/hr PER PHARMACY IV 12/20/24 19:45 Fat Emulsion Intravenous 100 ml/Sodium Chloride 20 meq/ Sodium Acetate 20 meq/Potassium Phosphate 40 meq/ Calcium Gluconate 2.3 meq/Magnesium Sulfate 4 meq/ Multivitamins 10 ml/Chromium/ Copper/Manganese/ Zinc 1 ml/Amino Acids/Dextrose/ Purified Water 1,641.0371 ml @ 68.074 m... Q24H7M IV 12/21/24 22:00 12/22/24 21:59 Cancel Fat Emulsion Intravenous 100 ml/Sodium Chloride 20 meq/ Sodium Acetate 20 meq/Potassium Phosphate 40 meq/ Calcium Gluconate 2.3 meq/Magnesium Sulfate 4 meq/ Multivitamins 10 ml/Chromium/ Copper/Manganese/ Zinc 1 ml/Amino Acids/Dextrose/ Purified Water 1,641.0371 ml @ 68.572 m... [id number] IV 12/21/24 22:00 12/22/24 21:59 12/21/24 21:25 68.572 MLS/HR Sodium Chloride 10 ml QSHIFT@10,22 IV 12/21/24 22:00 12/22/24 09:33 10 ML Lorazepam 0.5 mg Q6HP PRN IV 12/21/24 19:30 12/22/24 02:23 0.5 MG Hydromorphone HCl 1 mg Q3HPRN PRN IV 12/22/24 06:15 12/22/24 13:00 1 MG Fat Emulsion Intravenous 150 ml/Sodium Chloride 20 meq/ Sodium Acetate 20 meq/Potassium Chloride 20 meq/ Potassium Phosphate 40 meq/ Calcium Gluconate 2.3 meq/Magnesium Sulfate 4 meq/ Multivitamins 10 ml/Chromium/ Copper/Manganese/ Zinc 1 ml/Amino Acids/Dextrose/ Purified Water 1,301.0371 ml @ 54 mls/hr Q24H6M IV 12/22/24 22:00 12/23/24 21:59 Laboratory Results Laboratory Tests 12/21/24 04:40 12/22/24 04:38 Chemistry Test 12/22/24 04:38 Albumin 3.0 g/dL (3.2-4.8) L Calcium Level 8.5 mg/dL (8.7-10.4) L Magnesium Level 1.8 mg/dL (1.6-2.6) Phosphorus Level 2.9 mg/dL (2.4-5.1) Total Protein 7.7 g/dL (5.7-8.2) LFT Test 12/22/24 04:38 Alanine Aminotransferase (ALT) < 9 U/L (7-40) Alkaline Phosphatase 72 U/L (46-116) Aspartate Amino Transferase (AST) 11 U/L (13-40) L Total Bilirubin 0.2 mg/dL (0.2-1.0) Urinalysis Test 12/16/24 17:41 Urine Color Light-brown (Yellow) Urine Clarity Ex.turbid (Clear) Urine pH 6.0 (5.0-9.0) Urine Specific [place] 1.011 (1.001-1.035) Urine Protein 1+ (Negative) H Urine Ketones Negative (Negative) Urine Blood 3+ /uL (Negative) H Urine Nitrite Negative (Negative) Urine Bilirubin Negative (Negative) Urine Urobilinogen Normal mg/dL (Negative) Urine Leukocyte Esterase 3+ /uL (Negative) Urine RBC 99 /hpf (0 - 3) Urine WBC Clumps Present /hpf (None Seen) Urine Microscopic WBC 2976 /HPF (0-3) H Urine Squamous Epithelial Cells None seen /hpf (<5) Urine Bacteria Few /hpf (None Seen) H Urine Glucose 1+ mg/dL (Normal) H Microbiology Microbiology Date/Time Source Procedure Growth Status 12/16/24 20:10 Nose MRSA Screen - Final Complete 12/16/24 17:41 Voided Urine Urine Culture - Final Klebsiella pneumoniae - ESBL Yeast, not Jayne albicans Complete 12/16/24 08:45 Blood Blood Culture - Final NO GROWTH AFTER 5 DAYS OF INCUBATION. 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 Findings suggest herniation of possible bowel vascular structures and mesenteric fat can not exclude infection. Several bubbles of air soft tissues noted ( series 2 image [id number] 63) can not exclude infection. 2 cm right renal cyst small 1 cm cyst left kidney. CXR: Unremarkable IV NS 1500 cc bolus, IV NS at 60 cc/hour maintenance IV cefepime Q 8 hours, IV linezolid b.i.d. IV metronidazole Q 8 hours Acetaminophen for mild pain, morphine for severe pain, hydromorphone for severe breakthrough pain Surgery on board Wound consult ordered Counseled on cessation of polysubstance abuse OR reduction failed, transfer to [facility] for HLOC Per surgery to keep in SDU patient NPO, diet consult, start TPN dvt ppx lovenox diet TPN condition critical prognosis poor crit care time 53 minutes Plan discussed with: Patient Date of Service: Dec 22, 2024 Billing Provider: DON CAZARES MD Common Visit Codes: [id number] CARE 30-74 MIN DON CAZARES MD Dec 22, 2024 16:20
[2024-12-22] MEDS: SODIUM CHLORIDE IV NR (21:54)
[2024-12-22] MEDS: [UNRECOGNIZED DRUG - OTHER] IV NR (21:54)
[2024-12-22] MEDS: SODIUM ACETATE IV NR (21:54)
[2024-12-22] MEDS: FAT EMULSION IV NR (21:54)
--- NOTE | 2024-12-22 23:44 | DVHPN2 ---
Progress Note - Dictate Date Seen: Dec 22, 2024 Medical Necessity Reason Pt with a Central, PICC or Fol: No Subjective Patient seen and examined at bedside. Remains on room air Overnight events reviewed. vital signs Vital Sign Date Time Temp Pulse Resp B/P (MAP) Pulse Ox O2 Delivery O2 Flow Rate FiO2 12/22/24 23:00 83 10 92 12/22/24 22:00 Room Air* 0 21 12/22/24 20:00 97.6 97.6 Total Intake and Output 12/21/24 12/21/24 12/22/24 15:00 23:00 07:00 Intake Total 1056 ml 1365.144 ml 1419.576 ml Output Total 2220 ml Balance 1056 ml 1365.144 ml -800.424 ml medications Current Medications Medications Dose Ordered Sig/Wallace Route Start Time Stop Time Status Last Admin Dose Admin Sodium Chloride 10 ml Q8HR IV 12/16/24 06:00 12/22/24 21:56 10 ML Enoxaparin Sodium 40 mg DAILY SC 12/16/24 10:00 12/22/24 09:35 40 MG Acetaminophen 650 mg Q6HP PRN PO 12/16/24 01:15 12/22/24 19:58 650 MG Linezolid 300 ml @ 150 mls/hr Q12HR IV 12/16/24 10:00 12/22/24 21:43 150 MLS/HR Pantoprazole Sodium 40 mg DAILY IV 12/16/24 02:30 12/22/24 09:34 40 MG Metronidazole 100 ml @ 100 mls/hr Q8HR IV 12/16/24 14:00 12/22/24 21:43 100 MLS/HR Diagnostic Test (Pha) 1 strip Q6HR 12/18/24 00:00 12/22/24 18:16 1 STRIP Insulin Human Regular FOLLOW SLIDING SCALE Q6HR SC 12/18/24 00:00 12/19/24 00:27 2 UNITS Dextrose 50 ml UD IV 12/18/24 00:00 Dextrose/Sodium Chloride 1,000 ml @ 80 mls/hr [id number] IV 12/18/24 07:30 12/22/24 13:32 80 MLS/HR Meropenem 50 ml @ 17 mls/hr Q8H IV 12/19/24 12:00 12/22/24 19:58 17 MLS/HR Amino Acids 0 ml @ 0 mls/hr PER PHARMACY IV 12/20/24 19:45 Fat Emulsion Intravenous 100 ml/Sodium Chloride 20 meq/ Sodium Acetate 20 meq/Potassium Phosphate 40 meq/ Calcium Gluconate 2.3 meq/Magnesium Sulfate 4 meq/ Multivitamins 10 ml/Chromium/ Copper/Manganese/ Zinc 1 ml/Amino Acids/Dextrose/ Purified Water 1,641.0371 ml @ 68.074 m... Q24H7M IV 12/21/24 22:00 12/22/24 21:59 Cancel Sodium Chloride 10 ml QSHIFT@10,22 IV 12/21/24 22:00 12/22/24 21:56 10 ML Lorazepam 0.5 mg Q6HP PRN IV 12/21/24 19:30 12/22/24 02:23 0.5 MG Hydromorphone HCl 1 mg Q3HPRN PRN IV 12/22/24 06:15 12/22/24 20:34 1 MG Fat Emulsion Intravenous 150 ml/Sodium Chloride 20 meq/ Sodium Acetate 20 meq/Potassium Chloride 20 meq/ Potassium Phosphate 40 meq/ Calcium Gluconate 2.3 meq/Magnesium Sulfate 4 meq/ Multivitamins 10 ml/Chromium/ Copper/Manganese/ Zinc 1 ml/Amino Acids/Dextrose/ Purified Water 1,301.0371 ml @ 54 mls/hr Q24H6M IV 12/22/24 22:00 12/23/24 21:59 12/22/24 21:54 54 MLS/HR objective Gen.: Patient lying in bed in no apparent distress. On room air. Head: Normocephalic, atraumatic. Eyes: EOMI/PERRLA. Ears: Normal hearing. Normal anatomy. Neck/trachea: Trachea midline, supple. Nose: Normal external anatomy. Mouth: Moist mucous membranes. Chest: Decreased air entry bilaterally. No wheezing or rhonchi. Cardiovascular: Positive S1, positive S2. Regular rate and rhythm. Abdomen: Positive bowel sounds in all 4 quadrants. Soft, non-tender, non- distended. : Deferred. Rectal: Deferred. Skin: Warm, dry. Intact. Extremities: 2+ radial pulses bilaterally. No lower extremity edema. Neuro: Awake, alert, oriented x3. No gross motor or sensory deficits. Cranial nerves II through XII intact. Gait not assessed. laboratory and microbiology Laboratory Tests 12/22/24 04:38 12/21/24 04:40 Test 12/22/24 04:38 Range/Units Serum Glucose 111 H 74-106 mg/dL Assessment/Plan Impression: Acute hypoxic respiratory failure Abdominal pain Atelectasis Hypokalemia Nicotine dependence ETOH abuse Polysubstance abuse - methamphetamine/marijuana Events: Remains on room air Supplemental oxygen PRN. Pain control Avoid oversedation Surgery unable to do manual reduction of loop colostomy Awaiting higher level of care at [facility] for evaluation Colostomy protruding. Surgery recommendations appreciated. Continue antibiotics Incentive spirometry NPO. Clinimix for nutritional support Monitor renal function. Monitor electrolytes. Supplement as necessary. Potassium supplementation Surgery followup for ostomy site. Wound care Lovenox for DVT prophylaxis Labs and imaging reviewed. Rest of plan as noted below. Plan: Supplemental oxygen PRN Titrate to keep O2 sats above 92%. Continue antibiotics Incentive spirometry Pain control Avoid oversedation Monitor renal function. Monitor electrolytes. Supplement as necessary. Monitor ins and outs. Smoking cessation discussed for greater than 10 minutes Counseled against substance abuse. DVT prophylaxis. Prognosis: Poor given patient's multiple co-morbidities. Rest of plan per hospitalist and other consultants. Thank you Dr. Browning for allowing me to participate in this patient's care. Further recommendations will depend on the patient's clinical course. Please do not hesitate to contact me if you have any questions or concerns. This medical document was created using an electronic medical record system with [employer] dictation system. Although these documentations are being carefully reviewed, there may still be some phonetic and typographical changes. The errors are purely typographical, due to imperfection on the software program, and do not reflect any compromise in the patient's medical care. Dietary Evaluation Review Recommendations by RD: Protein Supplementation Comments: 1) Initiate Williams @ 1 pk bid 2) If patient remains NPO for more than 7 days, consider EN/TPN to meet at least 75% of estimated needs 3) Initiate multivitamin @ 1 tab qd 4) Initiate vitamin C @ 500 mg bid 5) Initiate zinc sulfate @ 220 mg qd 6) Advance to low-fiber diet when medically feasible, pending [employer] approval. Consider oral nutrition supplements with all meals if on liquid diet 7) Encourage patient limit consumption of cruciferous vegetables, beans, onions, garlic, and other gas-producing foods until ostomy output normalizes 8) F/u with gastroenterology Expected Outcomes/Goals: 1) appetite and labs to improve 2) GI symptoms to resolve 3) diet to advance 4) f/u in 3 days Plan discussed with: Patient, Other (MYAH Canseco) IAIN JONAS MD Dec 22, 2024 23:44
[2024-12-23] VITALS (53 sets, daily range): BP systolic 100–127; BP diastolic 57–82; PULSE 58–95; RESP 9–24; TEMP 97.4–98.8; O2SAT 91–99
[2024-12-23 06:10] LABS: Basophils # (auto) 0.1 10 ^3/uL (0-0.2); Basophils % (auto) 0.7 % (0.0-2.0); Lymphocytes # (auto) 1.3 10 ^3/uL (0.4-5.4); Monocytes # (auto) 0.7 10 ^3/uL (0-1.3); Red Cell Distribution Width 18.4 % (11.8-14.3); White Blood Cell 8.8 10^3/uL (4.4-10.8)
[2024-12-23 06:13] LABS: Eosinophils # (auto) 0.5 10 ^3/uL (0-0.8); Eosinophils % (auto) 5.3 % (0.0-7.0); Hematocrit 27.7 % (41.0-53.0); Hemoglobin 9.3 g/dL (13.5-17.5); Lymphocytes % (auto) 14.9 % (10.0-50.0); Mean Corpuscular Hemoglobin 27.7 pg (28.0-32.0); Mean Corpuscular Hgb Conc. 33.4 g/dL (32.0-36.0); Mean Corpuscular Volume 82.7 fL (80.0-100.0); Monocytes % (auto) 7.4 % (0.0-12.0); Neutrophils # (auto) 6.3 10 ^3/uL (1.6-8.6); Neutrophils % (auto) 71.7 % (37.0-80.0); Platelet Count (auto) 481 10^3/uL (140-450); Red Blood Cells 3.35 10^6/uL (4.5-5.90)
[2024-12-23 06:35] LABS: Alkaline Phosphatase 71 U/L (46-116); Anion Gap 5 (5-15); Aspartate Aminotransferase 13 U/L (13-40); BUN/Creatinine Ratio 10.9 (10.0-20.0); Carbon Dioxide 25 mmol/L (20-31); Chloride 107 mmol/L (98-107); Glucose 100 mg/dL (74-106); Magnesium 1.9 mg/dL (1.6-2.6); Potassium 3.6 mmol/L (3.5-5.1); Sodium 137 mmol/L (136-145); Total Protein 7.8 g/dL (5.7-8.2)
[2024-12-23 06:36] LABS: Phosphorus 3.1 mg/dL (2.4-5.1)
[2024-12-23 06:57] LABS: Alanine Aminotransferase < 9 U/L (7-40); Bilirubin, Total 0.2 mg/dL (0.2-1.0); Blood Urea Nitrogen 6 mg/dL (9-23); Calcium 8.5 mg/dL (8.7-10.4)
[2024-12-23 07:40] LABS: Triglycerides 98 mg/dL (< 150)
--- NOTE | 2024-12-23 09:59 | DVHPN2 ---
Subjective Patient denies any symptoms at this time. Reviewed: Care Plan, H&P, Labs, Medications Changes from previous H/P or p: No Changes Eyes: No Pain, No Vision change, No Conjunctivae inflammation, No Eyelid inflammation, No Other, No Redness ENT: No Ear pain, No Ear discharge, No Nose pain, No Nose discharge, No Nose congestion, No Mouth pain, No Mouth swelling, No Throat pain, No Throat swelling, No Other Cardiovascular: No Chest Pain, No Palpitations, No Orthopnea, No Paroxysmal Noc. Dyspnea, No Edema, No Lt Headedness, No Other Respiratory: No Cough, No Dry, No Shortness of breath, No SOB with excertion, No Wheezing, No Hemoptysis, No Pleuritic Pain, No Sputum, No Other Gastrointestinal: Nausea, Abdominal Pain Genitourinary: No Dysuria, No Frequency, No Incontinence, No Hematuria, No Retention, No Other Musculoskeletal: No other, No neck pain, No shoulder pain, No arm pain, No back pain, No hand pain, No leg pain, No foot pain Skin: No Rash, No Lesions, No Jaundice, No Bruising, No Other Objective Vitals Vital Signs Date Time Temp Pulse Resp B/P (MAP) Pulse Ox O2 Delivery O2 Flow Rate FiO2 12/23/24 09:06 76 10 107/42 12/23/24 06:00 97 12/23/24 06:00 Room Air* 0 21 12/23/24 04:00 98.1 98.1 Intake/Output Intake and Output 12/23/24 07:00 Intake Total 4142.008 ml Output Total 4325 ml Balance -182.992 ml Intake Oral 490 ml IV Total 3652.008 ml Output Urine Total 4325 ml General Appearance: Alert, Oriented X3, No acute distress HEENT: Atraumatic, PERRLA Cardiovascular: Normal S1, Normal S2 Abdomen: Normal bowel sounds, Soft, Other (Prolapse colostomy) Rectal: Deferred Genitourinary: No Apparent Abnormalities Musculoskeletal: Normal sensory function, Normal motor function Skin: Dry, Intact Psych/Mental Status: Mental status NL, Mood NL Medications Current Medications Medications Dose Ordered Sig/Wallace Route Start Time Stop Time Status Last Admin Dose Admin Sodium Chloride 10 ml Q8HR IV 12/16/24 06:00 12/23/24 06:00 10 ML Enoxaparin Sodium 40 mg DAILY SC 12/16/24 10:00 12/23/24 09:04 40 MG Acetaminophen 650 mg Q6HP PRN PO 12/16/24 01:15 12/22/24 19:58 650 MG Pantoprazole Sodium 40 mg DAILY IV 12/16/24 02:30 12/23/24 09:06 40 MG Metronidazole 100 ml @ 100 mls/hr Q8HR IV 12/16/24 14:00 12/23/24 05:29 100 MLS/HR Diagnostic Test (Pha) 1 strip Q6HR 12/18/24 00:00 12/23/24 06:00 1 STRIP Insulin Human Regular FOLLOW SLIDING SCALE Q6HR SC 12/18/24 00:00 12/19/24 00:27 2 UNITS Dextrose 50 ml UD IV 12/18/24 00:00 Dextrose/Sodium Chloride 1,000 ml @ 80 mls/hr [id number] IV 12/18/24 07:30 12/22/24 13:32 80 MLS/HR Meropenem 50 ml @ 17 mls/hr Q8H IV 12/19/24 12:00 12/23/24 04:49 17 MLS/HR Amino Acids 0 ml @ 0 mls/hr PER PHARMACY IV 12/20/24 19:45 Fat Emulsion Intravenous 100 ml/Sodium Chloride 20 meq/ Sodium Acetate 20 meq/Potassium Phosphate 40 meq/ Calcium Gluconate 2.3 meq/Magnesium Sulfate 4 meq/ Multivitamins 10 ml/Chromium/ Copper/Manganese/ Zinc 1 ml/Amino Acids/Dextrose/ Purified Water 1,641.0371 ml @ 68.074 m... Q24H7M IV 12/21/24 22:00 12/22/24 21:59 Cancel Sodium Chloride 10 ml QSHIFT@10,22 IV 12/21/24 22:00 12/23/24 09:04 10 ML Lorazepam 0.5 mg Q6HP PRN IV 12/21/24 19:30 12/22/24 02:23 0.5 MG Hydromorphone HCl 1 mg Q3HPRN PRN IV 12/22/24 06:15 12/23/24 09:06 1 MG Fat Emulsion Intravenous 150 ml/Sodium Chloride 20 meq/ Sodium Acetate 20 meq/Potassium Chloride 20 meq/ Potassium Phosphate 40 meq/ Calcium Gluconate 2.3 meq/Magnesium Sulfate 4 meq/ Multivitamins 10 ml/Chromium/ Copper/Manganese/ Zinc 1 ml/Amino Acids/Dextrose/ Purified Water 1,301.0371 ml @ 54 mls/hr Q24H6M IV 12/22/24 22:00 12/23/24 21:59 12/22/24 21:54 54 MLS/HR Micafungin Sodium 100 mg/Sodium Chloride 100 ml @ 100 mls/hr DAILY IV 12/23/24 10:00 UNV Laboratory Results Laboratory Tests 12/23/24 05:14 Chemistry Test 12/23/24 05:14 Albumin 3.0 g/dL (3.2-4.8) L Calcium Level 8.5 mg/dL (8.7-10.4) L Magnesium Level 1.9 mg/dL (1.6-2.6) Phosphorus Level 3.1 mg/dL (2.4-5.1) Total Protein 7.8 g/dL (5.7-8.2) Lipid panel Test 12/23/24 05:14 Triglycerides Level 98 mg/dL (< 150) LFT Test 12/23/24 05:14 Alanine Aminotransferase (ALT) < 9 U/L (7-40) Alkaline Phosphatase 71 U/L (46-116) Aspartate Amino Transferase (AST) 13 U/L (13-40) Total Bilirubin 0.2 mg/dL (0.2-1.0) Urinalysis Test 12/16/24 17:41 Urine Color Light-brown (Yellow) Urine Clarity Ex.turbid (Clear) Urine pH 6.0 (5.0-9.0) Urine Specific [place] 1.011 (1.001-1.035) Urine Protein 1+ (Negative) H Urine Ketones Negative (Negative) Urine Blood 3+ /uL (Negative) H Urine Nitrite Negative (Negative) Urine Bilirubin Negative (Negative) Urine Urobilinogen Normal mg/dL (Negative) Urine Leukocyte Esterase 3+ /uL (Negative) Urine RBC 99 /hpf (0 - 3) Urine WBC Clumps Present /hpf (None Seen) Urine Microscopic WBC 2976 /HPF (0-3) H Urine Squamous Epithelial Cells None seen /hpf (<5) Urine Bacteria Few /hpf (None Seen) H Urine Glucose 1+ mg/dL (Normal) H Microbiology Microbiology Date/Time Source Procedure Growth Status 12/16/24 20:10 Nose MRSA Screen - Final Complete 12/16/24 17:41 Voided Urine Urine Culture - Final Klebsiella pneumoniae - ESBL Yeast, not Jayne albicans Complete 12/16/24 08:45 Blood Blood Culture - Final NO GROWTH AFTER 5 DAYS OF INCUBATION. Complete Labs and/or images reviewed: Labs reviewed by me, Image(s) reviewed by me Assessment/Plan Assessment/Plan Impression: -acute hypoxic respiratory failure -abdominal pain with prolapse colostomy -hidradenitis suppurativa -polysubstance abuse including alcohol, amphetamines, marijuana -complicated cystitis with ESBL and yeast -sepsis -medication noncompliance Plan: -transferred to higher level of care with surgeon at [facility]. Currently being evaluated by receiving Hospital. -pain management -NPO status -continue TPN -antianxiety medications -antibiotic therapy: Continue meropenem, stop Zyvox given cultures, start micafungin -repeat labs in a.m. -surgical consultation Critical care time spent with patient discussing and formulating plan of care: 40 minutes. This does not include time spent performing procedures. This medical document was created using an electronic medical record system with [employer] dictation system. Although this document has been carefully reviewed, there may still be some phonetic and typographical errors. These areas are purely typographical due to imperfections of the software programs, and do not reflect any compromise in the patient's medical care. Plan discussed with: Patient, Other (RN) My Orders Orders - YARELY JAMES NP Procedure Category Date Status Time Micafungin Sodium PHA 12/23/24 Logged (Mycamine) 10:00 Date of Service: Dec 23, 2024 Billing Provider: YARELY JAMES NP Common Visit Codes: [id number] CARE 30-74 MIN YARELY JAMES NP Dec 23, 2024 09:59
[2024-12-23] MEDS: MICAFUNGIN SODIUM 100 MG in SODIUM CHL 0.9% 100 ML IV SCH (11:37)
[2024-12-23] MEDS: TPN PER PHARMACY IV NR (21:46)
[2024-12-24] VITALS (16 sets, daily range): BP systolic 102–123; BP diastolic 65–80; PULSE 60–88; RESP 10–21; TEMP 97.8–98.1; O2SAT 94–99
[2024-12-24 06:07] LABS: Basophils # (auto) 0.1 10 ^3/uL (0-0.2); Hematocrit 29.2 % (41.0-53.0); Hemoglobin 9.6 g/dL (13.5-17.5); Lymphocytes # (auto) 1.4 10 ^3/uL (0.4-5.4); Neutrophils # (auto) 6.7 10 ^3/uL (1.6-8.6)
[2024-12-24 06:10] LABS: Basophils % (auto) 0.6 % (0.0-2.0); Eosinophils # (auto) 0.7 10 ^3/uL (0-0.8); Eosinophils % (auto) 7.1 % (0.0-7.0); Lymphocytes % (auto) 14.2 % (10.0-50.0); Mean Corpuscular Hemoglobin 27.3 pg (28.0-32.0); Mean Corpuscular Volume 82.8 fL (80.0-100.0); Monocytes # (auto) 0.8 10 ^3/uL (0-1.3); Monocytes % (auto) 8.1 % (0.0-12.0); Platelet Count (auto) 491 10^3/uL (140-450); Red Blood Cells 3.53 10^6/uL (4.5-5.90); Red Cell Distribution Width 18.2 % (11.8-14.3); White Blood Cell 9.6 10^3/uL (4.4-10.8)
[2024-12-24 06:21] LABS: Alkaline Phosphatase 78 U/L (46-116); Anion Gap 7 (5-15); Aspartate Aminotransferase 16 U/L (13-40); BUN/Creatinine Ratio 9.8 (10.0-20.0); Carbon Dioxide 25 mmol/L (20-31); Chloride 105 mmol/L (98-107); Glucose 103 mg/dL (74-106); Magnesium 1.7 mg/dL (1.6-2.6); Potassium 3.6 mmol/L (3.5-5.1); Sodium 137 mmol/L (136-145)
[2024-12-24 06:36] LABS: Alanine Aminotransferase < 9 U/L (7-40); Albumin 3.2 g/dL (3.2-4.8); Bilirubin, Total 0.2 mg/dL (0.2-1.0); Blood Urea Nitrogen 6 mg/dL (9-23); Calcium 8.6 mg/dL (8.7-10.4)
--- NOTE | 2024-12-24 08:41 | DVHPN2 ---
Subjective Patient denies any symptoms at this time. Reviewed: Care Plan, H&P, Labs, Medications Changes from previous H/P or p: No Changes Eyes: No Pain, No Vision change, No Conjunctivae inflammation, No Eyelid inflammation, No Other, No Redness ENT: No Ear pain, No Ear discharge, No Nose pain, No Nose discharge, No Nose congestion, No Mouth pain, No Mouth swelling, No Throat pain, No Throat swelling, No Other Cardiovascular: No Chest Pain, No Palpitations, No Orthopnea, No Paroxysmal Noc. Dyspnea, No Edema, No Lt Headedness, No Other Respiratory: No Cough, No Dry, No Shortness of breath, No SOB with excertion, No Wheezing, No Hemoptysis, No Pleuritic Pain, No Sputum, No Other Gastrointestinal: Nausea, Abdominal Pain Genitourinary: No Dysuria, No Frequency, No Incontinence, No Hematuria, No Retention, No Other Musculoskeletal: No other, No neck pain, No shoulder pain, No arm pain, No back pain, No hand pain, No leg pain, No foot pain Skin: No Rash, No Lesions, No Jaundice, No Bruising, No Other Objective Vitals Vital Signs Date Time Temp Pulse Resp B/P (MAP) Pulse Ox O2 Delivery O2 Flow Rate FiO2 12/24/24 08:16 11 96 Room Air* 0 21 12/24/24 08:00 98.1 76 115/72 (86) 98.1 Intake/Output Intake and Output 12/24/24 07:00 Intake Total 3553 ml Output Total 2925 ml Balance 628 ml Intake Oral 130 ml IV Total 3423 ml Output Urine Total 2925 ml General Appearance: Alert, Oriented X3, No acute distress HEENT: Atraumatic, PERRLA Lungs: Clear to auscultation, Normal air movement Cardiovascular: Normal S1, Normal S2 Abdomen: Normal bowel sounds, Soft, Other (Prolapse colostomy) Rectal: Deferred Genitourinary: No Apparent Abnormalities Musculoskeletal: Normal sensory function, Normal motor function Skin: Dry, Intact Psych/Mental Status: Mental status NL, Mood NL Medications Current Medications Medications Dose Ordered Sig/Wallace Route Start Time Stop Time Status Last Admin Dose Admin Sodium Chloride 10 ml Q8HR IV 12/16/24 06:00 12/24/24 05:58 10 ML Enoxaparin Sodium 40 mg DAILY SC 12/16/24 10:00 12/24/24 07:55 40 MG Acetaminophen 650 mg Q6HP PRN PO 12/16/24 01:15 12/24/24 08:13 650 MG Pantoprazole Sodium 40 mg DAILY IV 12/16/24 02:30 12/24/24 07:54 40 MG Metronidazole 100 ml @ 100 mls/hr Q8HR IV 12/16/24 14:00 12/24/24 05:56 100 MLS/HR Diagnostic Test (Pha) 1 strip Q6HR 12/18/24 00:00 12/24/24 07:55 1 STRIP Insulin Human Regular FOLLOW SLIDING SCALE Q6HR SC 12/18/24 00:00 12/19/24 00:27 2 UNITS Dextrose 50 ml UD IV 12/18/24 00:00 Dextrose/Sodium Chloride 1,000 ml @ 80 mls/hr [id number] IV 12/18/24 07:30 12/23/24 23:54 80 MLS/HR Meropenem 50 ml @ 17 mls/hr Q8H IV 12/19/24 12:00 12/24/24 03:52 17 MLS/HR Amino Acids 0 ml @ 0 mls/hr PER PHARMACY IV 12/20/24 19:45 Fat Emulsion Intravenous 100 ml/Sodium Chloride 20 meq/ Sodium Acetate 20 meq/Potassium Phosphate 40 meq/ Calcium Gluconate 2.3 meq/Magnesium Sulfate 4 meq/ Multivitamins 10 ml/Chromium/ Copper/Manganese/ Zinc 1 ml/Amino Acids/Dextrose/ Purified Water 1,641.0371 ml @ 68.074 m... Q24H7M IV 12/21/24 22:00 12/22/24 21:59 Cancel Sodium Chloride 10 ml QSHIFT@10,22 IV 12/21/24 22:00 12/24/24 07:54 10 ML Lorazepam 0.5 mg Q6HP PRN IV 12/21/24 19:30 12/22/24 02:23 0.5 MG Hydromorphone HCl 1 mg Q3HPRN PRN IV 12/22/24 06:15 12/24/24 05:57 1 MG Micafungin Sodium 100 mg/Sodium Chloride 100 ml @ 100 mls/hr DAILY IV 12/23/24 10:00 12/23/24 11:37 100 MLS/HR Fat Emulsion Intravenous 200 ml/Sodium Acetate 20 meq/Sodium Phosphate 20 meq/ Potassium Chloride 20 meq/ Potassium Acetate 40 meq/Calcium Gluconate 2.3 meq/ Magnesium Sulfate 8 meq/ Multivitamins 10 ml/Chromium/ Copper/Manganese/ Zinc 1 ml/Amino Acids/Dextrose 1,562.9462 ml @ 65 mls/hr Q24H3M IV 12/23/24 22:00 12/24/24 21:59 12/23/24 21:46 65 MLS/HR Laboratory Results Laboratory Tests 12/24/24 05:31 Chemistry Test 12/24/24 05:31 Albumin 3.2 g/dL (3.2-4.8) Calcium Level 8.6 mg/dL (8.7-10.4) L Magnesium Level 1.7 mg/dL (1.6-2.6) Phosphorus Level 3.0 mg/dL (2.4-5.1) Total Protein 8.0 g/dL (5.7-8.2) LFT Test 12/24/24 05:31 Alanine Aminotransferase (ALT) < 9 U/L (7-40) Alkaline Phosphatase 78 U/L (46-116) Aspartate Amino Transferase (AST) 16 U/L (13-40) Total Bilirubin 0.2 mg/dL (0.2-1.0) Urinalysis Test 12/16/24 17:41 Urine Color Light-brown (Yellow) Urine Clarity Ex.turbid (Clear) Urine pH 6.0 (5.0-9.0) Urine Specific [place] 1.011 (1.001-1.035) Urine Protein 1+ (Negative) H Urine Ketones Negative (Negative) Urine Blood 3+ /uL (Negative) H Urine Nitrite Negative (Negative) Urine Bilirubin Negative (Negative) Urine Urobilinogen Normal mg/dL (Negative) Urine Leukocyte Esterase 3+ /uL (Negative) Urine RBC 99 /hpf (0 - 3) Urine WBC Clumps Present /hpf (None Seen) Urine Microscopic WBC 2976 /HPF (0-3) H Urine Squamous Epithelial Cells None seen /hpf (<5) Urine Bacteria Few /hpf (None Seen) H Urine Glucose 1+ mg/dL (Normal) H Microbiology Microbiology Date/Time Source Procedure Growth Status 12/16/24 20:10 Nose MRSA Screen - Final Complete 12/16/24 17:41 Voided Urine Urine Culture - Final Klebsiella pneumoniae - ESBL Yeast, not Jayne albicans Complete 12/16/24 08:45 Blood Blood Culture - Final NO GROWTH AFTER 5 DAYS OF INCUBATION. Complete Labs and/or images reviewed: Labs reviewed by me, Image(s) reviewed by me Assessment/Plan Assessment/Plan Impression: -acute hypoxic respiratory failure -abdominal pain with prolapse colostomy -hidradenitis suppurativa -polysubstance abuse including alcohol, amphetamines, marijuana -complicated cystitis with ESBL and yeast -sepsis -medication noncompliance Plan: -transferred to higher level of care with surgeon at [facility]. Currently being evaluated by receiving Hospital. Changes in assessment and plan. Labs reviewed. -pain management -NPO status -continue TPN -antianxiety medications -antibiotic therapy: Continue meropenem, micafungin -repeat labs in a.m. -surgical consultation Total time spent with patient discussing and formulating plan of care: 35 minutes. This medical document was created using an electronic medical record system with [employer] dictation system. Although this document has been carefully reviewed, there may still be some phonetic and typographical errors. These areas are purely typographical due to imperfections of the software programs, and do not reflect any compromise in the patient's medical care. Plan discussed with: Patient, Other (RN) My Orders Orders - YARELY JAMES NP Procedure Category Date Status Time Micafungin Sodium PHA 12/23/24 In Process (Mycamine) 10:00 Date of Service: Dec 24, 2024 Billing Provider: YARELY JAMES NP Common Visit Codes: [id number] INP/OBS CARE(HIGH) YARELY JAMES NP Dec 24, 2024 08:41
--- NOTE | 2024-12-24 13:06 | DVHPN2 ---
Progress Note - Dictate Date Seen: Dec 23, 2024 Medical Necessity Reason Pt with a Central, PICC or Fol: No vital signs Vital Sign Date Time Temp Pulse Resp B/P (MAP) Pulse Ox O2 Delivery O2 Flow Rate FiO2 12/24/24 12:00 97.9 72 11 106/66 (79) 97 97.9 12/24/24 11:38 Room Air* 0 21 Total Intake and Output 12/23/24 12/23/24 12/24/24 14:59 22:59 06:59 Intake Total 1086 ml 1211 ml 1310 ml Output Total 1675 ml 1250 ml Balance 1086 ml -464 ml 60 ml medications Current Medications Medications Dose Ordered Sig/Wallace Route Start Time Stop Time Status Last Admin Dose Admin Sodium Chloride 10 ml Q8HR IV 12/16/24 06:00 12/24/24 11:43 10 ML Enoxaparin Sodium 40 mg DAILY SC 12/16/24 10:00 12/24/24 07:55 40 MG Acetaminophen 650 mg Q6HP PRN PO 12/16/24 01:15 12/24/24 08:13 650 MG Pantoprazole Sodium 40 mg DAILY IV 12/16/24 02:30 12/24/24 07:54 40 MG Metronidazole 100 ml @ 100 mls/hr Q8HR IV 12/16/24 14:00 12/24/24 11:43 100 MLS/HR Diagnostic Test (Pha) 1 strip Q6HR 12/18/24 00:00 12/24/24 07:55 1 STRIP Insulin Human Regular FOLLOW SLIDING SCALE Q6HR SC 12/18/24 00:00 12/19/24 00:27 2 UNITS Dextrose 50 ml UD IV 12/18/24 00:00 Dextrose/Sodium Chloride 1,000 ml @ 80 mls/hr [id number] IV 12/18/24 07:30 12/24/24 21:59 12/24/24 11:48 80 MLS/HR Meropenem 50 ml @ 17 mls/hr Q8H IV 12/19/24 12:00 12/24/24 11:42 17 MLS/HR Amino Acids 0 ml @ 0 mls/hr PER PHARMACY IV 12/20/24 19:45 Fat Emulsion Intravenous 100 ml/Sodium Chloride 20 meq/ Sodium Acetate 20 meq/Potassium Phosphate 40 meq/ Calcium Gluconate 2.3 meq/Magnesium Sulfate 4 meq/ Multivitamins 10 ml/Chromium/ Copper/Manganese/ Zinc 1 ml/Amino Acids/Dextrose/ Purified Water 1,641.0371 ml @ 68.074 m... Q24H7M IV 12/21/24 22:00 12/22/24 21:59 Cancel Sodium Chloride 10 ml QSHIFT@10,22 IV 12/21/24 22:00 12/24/24 07:54 10 ML Lorazepam 0.5 mg Q6HP PRN IV 12/21/24 19:30 12/22/24 02:23 0.5 MG Hydromorphone HCl 1 mg Q3HPRN PRN IV 12/22/24 06:15 12/24/24 11:59 1 MG Micafungin Sodium 100 mg/Sodium Chloride 100 ml @ 100 mls/hr DAILY IV 12/23/24 10:00 12/24/24 09:53 100 MLS/HR Fat Emulsion Intravenous 200 ml/Sodium Acetate 20 meq/Sodium Phosphate 20 meq/ Potassium Chloride 20 meq/ Potassium Acetate 40 meq/Calcium Gluconate 2.3 meq/ Magnesium Sulfate 8 meq/ Multivitamins 10 ml/Chromium/ Copper/Manganese/ Zinc 1 ml/Amino Acids/Dextrose 1,562.9462 ml @ 65 mls/hr Q24H3M IV 12/23/24 22:00 12/24/24 21:59 12/23/24 21:46 65 MLS/HR Fat Emulsion Intravenous 200 ml/Sodium Acetate 20 meq/Sodium Phosphate 20 meq/ Potassium Chloride 20 meq/ Potassium Acetate 50 meq/Calcium Gluconate 2.3 meq/ Magnesium Sulfate 16 meq/ Multivitamins 10 ml/Chromium/ Copper/Manganese/ Zinc 1 ml/Amino Acids/Dextrose 1,719.9462 ml @ 71 mls/hr [id number] IV 12/24/24 22:00 12/25/24 21:59 Dextrose/Sodium Chloride 1,000 ml @ 60 mls/hr [id number] IV 12/24/24 22:00 laboratory and microbiology Laboratory Tests 12/24/24 05:31 Test 12/24/24 05:31 Range/Units Serum Glucose 103 74-106 mg/dL Assessment/Plan Impression: Acute hypoxic respiratory failure Abdominal pain Atelectasis Hypokalemia Nicotine dependence ETOH abuse Polysubstance abuse - methamphetamine/marijuana Events: Remains on room air no distress Colostomy protruding. Surgery recommendations appreciated. will req transfer for revision/repair Plan: Supplemental oxygen PRN Titrate to keep O2 sats above 92%. Continue antibiotics Incentive spirometry Pain control Avoid oversedation Monitor renal function. Monitor electrolytes. Supplement as necessary. Monitor ins and outs. DVT prophylaxis. Prognosis: Poor given patient's multiple co-morbidities. Rest of plan per hospitalist and other consultants. crit care time 35 min Dietary Evaluation Review Recommendations by RD: Protein Supplementation Comments: 1) Initiate Williams @ 1 pk bid 2) If patient remains NPO for more than 7 days, consider EN/TPN to meet at least 75% of estimated needs 3) Initiate multivitamin @ 1 tab qd 4) Initiate vitamin C @ 500 mg bid 5) Initiate zinc sulfate @ 220 mg qd 6) Advance to low-fiber diet when medically feasible, pending [employer] approval. Consider oral nutrition supplements with all meals if on liquid diet 7) Encourage patient limit consumption of cruciferous vegetables, beans, onions, garlic, and other gas-producing foods until ostomy output normalizes 8) F/u with gastroenterology Expected Outcomes/Goals: 1) appetite and labs to improve 2) GI symptoms to resolve 3) diet to advance 4) f/u in 3 days Plan discussed with: Patient, Other (rn) SUSAN SEVILLA MD Dec 24, 2024 13:06
--- NOTE | 2024-12-24 13:07 | DVHPN2 ---
Progress Note - Dictate Date Seen: Dec 24, 2024 Medical Necessity Reason Pt with a Central, PICC or Fol: No vital signs Vital Sign Date Time Temp Pulse Resp B/P (MAP) Pulse Ox O2 Delivery O2 Flow Rate FiO2 12/24/24 12:00 97.9 72 11 106/66 (79) 97 97.9 12/24/24 11:38 Room Air* 0 21 Total Intake and Output 12/23/24 12/23/24 12/24/24 14:59 22:59 06:59 Intake Total 1086 ml 1211 ml 1310 ml Output Total 1675 ml 1250 ml Balance 1086 ml -464 ml 60 ml medications Current Medications Medications Dose Ordered Sig/Wallace Route Start Time Stop Time Status Last Admin Dose Admin Sodium Chloride 10 ml Q8HR IV 12/16/24 06:00 12/24/24 11:43 10 ML Enoxaparin Sodium 40 mg DAILY SC 12/16/24 10:00 12/24/24 07:55 40 MG Acetaminophen 650 mg Q6HP PRN PO 12/16/24 01:15 12/24/24 08:13 650 MG Pantoprazole Sodium 40 mg DAILY IV 12/16/24 02:30 12/24/24 07:54 40 MG Metronidazole 100 ml @ 100 mls/hr Q8HR IV 12/16/24 14:00 12/24/24 11:43 100 MLS/HR Diagnostic Test (Pha) 1 strip Q6HR 12/18/24 00:00 12/24/24 07:55 1 STRIP Insulin Human Regular FOLLOW SLIDING SCALE Q6HR SC 12/18/24 00:00 12/19/24 00:27 2 UNITS Dextrose 50 ml UD IV 12/18/24 00:00 Dextrose/Sodium Chloride 1,000 ml @ 80 mls/hr [id number] IV 12/18/24 07:30 12/24/24 21:59 12/24/24 11:48 80 MLS/HR Meropenem 50 ml @ 17 mls/hr Q8H IV 12/19/24 12:00 12/24/24 11:42 17 MLS/HR Amino Acids 0 ml @ 0 mls/hr PER PHARMACY IV 12/20/24 19:45 Fat Emulsion Intravenous 100 ml/Sodium Chloride 20 meq/ Sodium Acetate 20 meq/Potassium Phosphate 40 meq/ Calcium Gluconate 2.3 meq/Magnesium Sulfate 4 meq/ Multivitamins 10 ml/Chromium/ Copper/Manganese/ Zinc 1 ml/Amino Acids/Dextrose/ Purified Water 1,641.0371 ml @ 68.074 m... Q24H7M IV 12/21/24 22:00 12/22/24 21:59 Cancel Sodium Chloride 10 ml QSHIFT@10,22 IV 12/21/24 22:00 12/24/24 07:54 10 ML Lorazepam 0.5 mg Q6HP PRN IV 12/21/24 19:30 12/22/24 02:23 0.5 MG Hydromorphone HCl 1 mg Q3HPRN PRN IV 12/22/24 06:15 12/24/24 11:59 1 MG Micafungin Sodium 100 mg/Sodium Chloride 100 ml @ 100 mls/hr DAILY IV 12/23/24 10:00 12/24/24 09:53 100 MLS/HR Fat Emulsion Intravenous 200 ml/Sodium Acetate 20 meq/Sodium Phosphate 20 meq/ Potassium Chloride 20 meq/ Potassium Acetate 40 meq/Calcium Gluconate 2.3 meq/ Magnesium Sulfate 8 meq/ Multivitamins 10 ml/Chromium/ Copper/Manganese/ Zinc 1 ml/Amino Acids/Dextrose 1,562.9462 ml @ 65 mls/hr Q24H3M IV 12/23/24 22:00 12/24/24 21:59 12/23/24 21:46 65 MLS/HR Fat Emulsion Intravenous 200 ml/Sodium Acetate 20 meq/Sodium Phosphate 20 meq/ Potassium Chloride 20 meq/ Potassium Acetate 50 meq/Calcium Gluconate 2.3 meq/ Magnesium Sulfate 16 meq/ Multivitamins 10 ml/Chromium/ Copper/Manganese/ Zinc 1 ml/Amino Acids/Dextrose 1,719.9462 ml @ 71 mls/hr [id number] IV 12/24/24 22:00 12/25/24 21:59 Dextrose/Sodium Chloride 1,000 ml @ 60 mls/hr [id number] IV 12/24/24 22:00 laboratory and microbiology Laboratory Tests 12/24/24 05:31 Test 12/24/24 05:31 Range/Units Serum Glucose 103 74-106 mg/dL Assessment/Plan Impression: Acute hypoxic respiratory failure Abdominal pain Atelectasis Hypokalemia Nicotine dependence ETOH abuse Polysubstance abuse - methamphetamine/marijuana Events: Remains on room air no distress Colostomy protruding. Surgery recommendations appreciated. will req transfer for revision/repair Plan: Supplemental oxygen PRN Titrate to keep O2 sats above 92%. Continue antibiotics Incentive spirometry Pain control Avoid oversedation Monitor renal function. Monitor electrolytes. Supplement as necessary. Monitor ins and outs. DVT prophylaxis. Prognosis: Poor given patient's multiple co-morbidities. Rest of plan per hospitalist and other consultants. crit care time 35 min Dietary Evaluation Review Recommendations by RD: Protein Supplementation Comments: 1) Initiate Williams @ 1 pk bid 2) If patient remains NPO for more than 7 days, consider EN/TPN to meet at least 75% of estimated needs 3) Initiate multivitamin @ 1 tab qd 4) Initiate vitamin C @ 500 mg bid 5) Initiate zinc sulfate @ 220 mg qd 6) Advance to low-fiber diet when medically feasible, pending [employer]AL [employer]GIENIST approval. Consider oral nutrition supplements with all meals if on liquid diet 7) Encourage patient limit consumption of cruciferous vegetables, beans, onions, garlic, and other gas-producing foods until ostomy output normalizes 8) F/u with gastroenterology Expected Outcomes/Goals: 1) appetite and labs to improve 2) GI symptoms to resolve 3) diet to advance 4) f/u in 3 days Plan discussed with: Other (rn) SUSAN SEVILLA MD Dec 24, 2024 13:07
[2024-12-24] MEDS: HYDROmorphone HCL 2 MG/ML VL/or syr IV PRN (15:06)
--- NOTE | 2024-12-24 21:19 | DVHPN2 ---
Progress Note Date Seen: Dec 24, 2024 Medical Necessity Reason Pt with a Central, PICC or Fol: No Objective vital signs Vital Sign Date Time Temp Pulse Resp B/P (MAP) Pulse Ox O2 Delivery O2 Flow Rate FiO2 12/24/24 21:00 98.1 71 20 119/73 (88) 95 98.1 12/24/24 15:58 Room Air* 0 21 Total Intake and Output 12/23/24 12/23/24 12/24/24 15:00 23:00 07:00 Intake Total 1229 ml 1159 ml 1360 ml Output Total 1675 ml 1250 ml Balance 1229 ml -516 ml 110 ml medications Current Medications Medications Dose Ordered Sig/Wallace Route Start Time Stop Time Status Last Admin Dose Admin Sodium Chloride 10 ml Q8HR IV 12/16/24 06:00 12/24/24 11:43 10 ML Enoxaparin Sodium 40 mg DAILY SC 12/16/24 10:00 12/24/24 07:55 40 MG Acetaminophen 650 mg Q6HP PRN PO 12/16/24 01:15 12/24/24 08:13 650 MG Pantoprazole Sodium 40 mg DAILY IV 12/16/24 02:30 12/24/24 07:54 40 MG Metronidazole 100 ml @ 100 mls/hr Q8HR IV 12/16/24 14:00 12/24/24 11:43 100 MLS/HR Diagnostic Test (Pha) 1 strip Q6HR 12/18/24 00:00 12/24/24 18:45 1 STRIP Insulin Human Regular FOLLOW SLIDING SCALE Q6HR SC 12/18/24 00:00 12/19/24 00:27 2 UNITS Dextrose 50 ml UD IV 12/18/24 00:00 Meropenem 50 ml @ 17 mls/hr Q8H IV 12/19/24 12:00 12/24/24 20:33 17 MLS/HR Amino Acids 0 ml @ 0 mls/hr PER PHARMACY IV 12/20/24 19:45 Fat Emulsion Intravenous 100 ml/Sodium Chloride 20 meq/ Sodium Acetate 20 meq/Potassium Phosphate 40 meq/ Calcium Gluconate 2.3 meq/Magnesium Sulfate 4 meq/ Multivitamins 10 ml/Chromium/ Copper/Manganese/ Zinc 1 ml/Amino Acids/Dextrose/ Purified Water 1,641.0371 ml @ 68.074 m... Q24H7M IV 12/21/24 22:00 12/22/24 21:59 Cancel Sodium Chloride 10 ml QSHIFT@10,22 IV 12/21/24 22:00 12/24/24 07:54 10 ML Lorazepam 0.5 mg Q6HP PRN IV 12/21/24 19:30 12/24/24 16:53 0.5 MG Micafungin Sodium 100 mg/Sodium Chloride 100 ml @ 100 mls/hr DAILY IV 12/23/24 10:00 12/24/24 09:53 100 MLS/HR Fat Emulsion Intravenous 200 ml/Sodium Acetate 20 meq/Sodium Phosphate 20 meq/ Potassium Chloride 20 meq/ Potassium Acetate 40 meq/Calcium Gluconate 2.3 meq/ Magnesium Sulfate 8 meq/ Multivitamins 10 ml/Chromium/ Copper/Manganese/ Zinc 1 ml/Amino Acids/Dextrose 1,562.9462 ml @ 65 mls/hr Q24H3M IV 12/23/24 22:00 12/24/24 21:59 12/23/24 21:46 65 MLS/HR Fat Emulsion Intravenous 200 ml/Sodium Acetate 20 meq/Sodium Phosphate 20 meq/ Potassium Chloride 20 meq/ Potassium Acetate 50 meq/Calcium Gluconate 2.3 meq/ Magnesium Sulfate 16 meq/ Multivitamins 10 ml/Chromium/ Copper/Manganese/ Zinc 1 ml/Amino Acids/Dextrose 1,719.9462 ml @ 71 mls/hr [id number] IV 12/24/24 22:00 12/25/24 21:59 Dextrose/Sodium Chloride 1,000 ml @ 60 mls/hr [id number] IV 12/24/24 22:00 Hydromorphone HCl 1.5 mg Q3HPRN PRN IV 12/24/24 13:30 12/24/24 18:38 1.5 MG laboratory and microbiology Laboratory Tests 12/24/24 05:31 Test 12/24/24 05:31 Range/Units Serum Glucose 103 74-106 mg/dL Microbiology Date/Time Source Procedure Growth Status 12/16/24 20:10 Nose MRSA Screen - Final Complete 12/16/24 17:41 Voided Urine Urine Culture - Final Klebsiella pneumoniae - ESBL Yeast, not Jayne albicans Complete 12/16/24 08:45 Blood Blood Culture - Final NO GROWTH AFTER 5 DAYS OF INCUBATION. Complete Problem List/Assessment/Plan Problem List/Assessment/Plan AFEBRILE VSS ABD SOFT LESS TENDE DISTAL LOOP STILL EDEMATOUS BUT MUCH AND LESS MAY NOT BE AMENABLE FOR REPEAT ATTEMPT FOR MANUAL REDUCTION TODAY COLOSTOMY VIABLE NON FUNCTION CONTINUE CLOSE OBSERVATION AWAITING TRANSFER TO [facility] NURSE AT BEDSIDE PT AGREES WITH THE PLAN ALLOW ICE CHIPS Plan discussed with: Patient My Orders My Orders Orders - GABRIELA HERNANDEZ MD Procedure Category Date Status Time Amino Acid PHA 12/24/24 In Process Infusion... W/Fat 22:00 Comprehensive LAB 12/25/24 Verified Metabolic Panel 04:00 Phosphorus LAB 12/25/24 Verified 04:00 Magnesium LAB 12/25/24 Verified 04:00 Tpn Per Pharmacy TRENT 12/24/24 In Process 22:00 Dietary Evaluation Review Recommendations by RD: Protein Supplementation Comments: 1) Initiate Williams @ 1 pk bid 2) If patient remains NPO for more than 7 days, consider EN/TPN to meet at least 75% of estimated needs 3) Initiate multivitamin @ 1 tab qd 4) Initiate vitamin C @ 500 mg bid 5) Initiate zinc sulfate @ 220 mg qd 6) Advance to low-fiber diet when medically feasible, pending [employer] M[employer] approval. Consider oral nutrition supplements with all meals if on liquid diet 7) Encourage patient limit consumption of cruciferous vegetables, beans, onions, garlic, and other gas-producing foods until ostomy output normalizes 8) F/u with gastroenterology Expected Outcomes/Goals: 1) appetite and labs to improve 2) GI symptoms to resolve 3) diet to advance 4) f/u in 3 days GABRIELA HERNANDEZ MD Dec 24, 2024 21:19
[2024-12-24] MEDS: TPN PER PHARMACY IV NR (21:44)
[2024-12-24] MEDS: D5W/SOD CHLO 0.9% 1,000 ML IV SCH (21:55)
[2024-12-25] VITALS (7 sets, daily range): BP systolic 105–121; BP diastolic 67–81; PULSE 18–79; RESP 17–97; TEMP 97.6–98.5; O2SAT 93–100
[2024-12-25 06:43] LABS: Alkaline Phosphatase 79 U/L (46-116); Anion Gap 7 (5-15); BUN/Creatinine Ratio 14.8 (10.0-20.0); Blood Urea Nitrogen 9 mg/dL (9-23); Carbon Dioxide 23 mmol/L (20-31); Chloride 107 mmol/L (98-107); Glucose 94 mg/dL (74-106); Magnesium 1.8 mg/dL (1.6-2.6); Potassium 3.9 mmol/L (3.5-5.1); Sodium 137 mmol/L (136-145)
[2024-12-25 06:44] LABS: Alanine Aminotransferase < 9 U/L (7-40); Albumin 3.2 g/dL (3.2-4.8); Aspartate Aminotransferase 16 U/L (13-40); Phosphorus 3.1 mg/dL (2.4-5.1); Total Protein 8.5 g/dL (5.7-8.2)
[2024-12-25 06:49] LABS: Bilirubin, Total 0.2 mg/dL (0.2-1.0)
--- NOTE | 2024-12-25 14:13 | DVHPN2 ---
Subjective pending transfer to [facility], accepted and has attending physician otherwise pending insurance auth. Patient requires surgery which we contacted multiple other center that suggest patient to be sent back to [facility] which did the surgery in the first place. Seen by me today during rounds, per surgery might go back to manual reduction today. however still pending transfer. clinically improving Reviewed: Care Plan, H&P, Labs, Medications Changes from previous H/P or p: No Changes Eyes: No Pain, No Vision change, No Conjunctivae inflammation, No Eyelid inflammation, No Other, No Redness ENT: No Ear pain, No Ear discharge, No Nose pain, No Nose discharge, No Nose congestion, No Mouth pain, No Mouth swelling, No Throat pain, No Throat swelling, No Other Cardiovascular: No Chest Pain, No Palpitations, No Orthopnea, No Paroxysmal Noc. Dyspnea, No Edema, No Lt Headedness, No Other Respiratory: No Cough, No Dry, No Shortness of breath, No SOB with excertion, No Wheezing, No Hemoptysis, No Pleuritic Pain, No Sputum, No Other Gastrointestinal: Nausea, Abdominal Pain Genitourinary: No Dysuria, No Frequency, No Incontinence, No Hematuria, No Retention, No Other Musculoskeletal: No other, No neck pain, No shoulder pain, No arm pain, No back pain, No hand pain, No leg pain, No foot pain Skin: No Rash, No Lesions, No Jaundice, No Bruising, No Other Objective Vitals Vital Signs Date Time Temp Pulse Resp B/P (MAP) Pulse Ox O2 Delivery O2 Flow Rate FiO2 12/25/24 12:51 97.7 74 18 117/76 (90) 94 97.7 12/25/24 08:00 Room Air* 0 21 Intake/Output Intake and Output 12/25/24 07:00 Intake Total 2387.9462 ml Output Total 1900 ml Balance 487.9462 ml IV Total 2387.9462 ml Output Urine Total 1900 ml General Appearance: Alert, Oriented X3, No acute distress HEENT: Atraumatic, PERRLA Lungs: Clear to auscultation, Normal air movement Cardiovascular: Normal S1, Normal S2 Abdomen: Normal bowel sounds, Soft, Other (Prolapse colostomy) Rectal: Deferred Genitourinary: No Apparent Abnormalities Musculoskeletal: Normal sensory function, Normal motor function Skin: Dry, Intact Psych/Mental Status: Mental status NL, Mood NL Medications Current Medications Medications Dose Ordered Sig/Wallace Route Start Time Stop Time Status Last Admin Dose Admin Sodium Chloride 10 ml Q8HR IV 12/16/24 06:00 12/25/24 05:16 10 ML Enoxaparin Sodium 40 mg DAILY SC 12/16/24 10:00 12/25/24 10:05 40 MG Acetaminophen 650 mg Q6HP PRN PO 12/16/24 01:15 12/24/24 08:13 650 MG Pantoprazole Sodium 40 mg DAILY IV 12/16/24 02:30 12/25/24 09:26 40 MG Diagnostic Test (Pha) 1 strip Q6HR 12/18/24 00:00 12/25/24 12:00 1 STRIP Insulin Human Regular FOLLOW SLIDING SCALE Q6HR SC 12/18/24 00:00 12/19/24 00:27 2 UNITS Dextrose 50 ml UD IV 12/18/24 00:00 Meropenem 50 ml @ 17 mls/hr Q8H IV 12/19/24 12:00 12/25/24 12:41 17 MLS/HR Amino Acids 0 ml @ 0 mls/hr PER PHARMACY IV 12/20/24 19:45 Fat Emulsion Intravenous 100 ml/Sodium Chloride 20 meq/ Sodium Acetate 20 meq/Potassium Phosphate 40 meq/ Calcium Gluconate 2.3 meq/Magnesium Sulfate 4 meq/ Multivitamins 10 ml/Chromium/ Copper/Manganese/ Zinc 1 ml/Amino Acids/Dextrose/ Purified Water 1,641.0371 ml @ 68.074 m... Q24H7M IV 12/21/24 22:00 12/22/24 21:59 Cancel Sodium Chloride 10 ml QSHIFT@10,22 IV 12/21/24 22:00 12/25/24 09:29 10 ML Lorazepam 0.5 mg Q6HP PRN IV 12/21/24 19:30 12/25/24 11:48 0.5 MG Micafungin Sodium 100 mg/Sodium Chloride 100 ml @ 100 mls/hr DAILY IV 12/23/24 10:00 12/24/24 09:53 100 MLS/HR Fat Emulsion Intravenous 200 ml/Sodium Acetate 20 meq/Sodium Phosphate 20 meq/ Potassium Chloride 20 meq/ Potassium Acetate 50 meq/Calcium Gluconate 2.3 meq/ Magnesium Sulfate 16 meq/ Multivitamins 10 ml/Chromium/ Copper/Manganese/ Zinc 1 ml/Amino Acids/Dextrose 1,719.9462 ml @ 71 mls/hr [id number] IV 12/24/24 22:00 12/25/24 21:59 12/24/24 21:44 71 MLS/HR Dextrose/Sodium Chloride 1,000 ml @ 60 mls/hr [id number] IV 12/24/24 22:00 12/24/24 21:55 60 MLS/HR Hydromorphone HCl 1.5 mg Q3HPRN PRN IV 12/24/24 13:30 12/25/24 12:42 1.5 MG Fat Emulsion Intravenous 250 ml/Sodium Acetate 30 meq/Sodium Phosphate 10 meq/ Potassium Acetate 50 meq/Magnesium Sulfate 16 meq/ Multivitamins 10 ml/Chromium/ Copper/Manganese/ Zinc 1 ml/Amino Acids/Dextrose 1,707.5 ml @ 71 mls/hr Q24H3M IV 12/25/24 22:00 12/26/24 21:59 Laboratory Results Laboratory Tests 12/24/24 05:31 12/25/24 05:02 Chemistry Test 12/25/24 05:02 Albumin 3.2 g/dL (3.2-4.8) Calcium Level 9.0 mg/dL (8.7-10.4) Magnesium Level 1.8 mg/dL (1.6-2.6) Phosphorus Level 3.1 mg/dL (2.4-5.1) Total Protein 8.5 g/dL (5.7-8.2) H LFT Test 12/25/24 05:02 Alanine Aminotransferase (ALT) < 9 U/L (7-40) Alkaline Phosphatase 79 U/L (46-116) Aspartate Amino Transferase (AST) 16 U/L (13-40) Total Bilirubin 0.2 mg/dL (0.2-1.0) Urinalysis Test 12/16/24 17:41 Urine Color Light-brown (Yellow) Urine Clarity Ex.turbid (Clear) Urine pH 6.0 (5.0-9.0) Urine Specific [place] 1.011 (1.001-1.035) Urine Protein 1+ (Negative) H Urine Ketones Negative (Negative) Urine Blood 3+ /uL (Negative) H Urine Nitrite Negative (Negative) Urine Bilirubin Negative (Negative) Urine Urobilinogen Normal mg/dL (Negative) Urine Leukocyte Esterase 3+ /uL (Negative) Urine RBC 99 /hpf (0 - 3) Urine WBC Clumps Present /hpf (None Seen) Urine Microscopic WBC 2976 /HPF (0-3) H Urine Squamous Epithelial Cells None seen /hpf (<5) Urine Bacteria Few /hpf (None Seen) H Urine Glucose 1+ mg/dL (Normal) H Microbiology Microbiology Date/Time Source Procedure Growth Status 12/16/24 20:10 Nose MRSA Screen - Final Complete 12/16/24 17:41 Voided Urine Urine Culture - Final Klebsiella pneumoniae - ESBL Yeast, not Jayne albicans Complete 12/16/24 08:45 Blood Blood Culture - Final NO GROWTH AFTER 5 DAYS OF INCUBATION. 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 Findings suggest herniation of possible bowel vascular structures and mesenteric fat can not exclude infection. Several bubbles of air soft tissues noted ( series 2 image 60- 63) can not exclude infection. 2 cm right renal cyst small 1 cm cyst left kidney. CXR: Unremarkable meropenem Acetaminophen for mild pain, morphine for severe pain, hydromorphone for severe breakthrough pain Surgery on board Wound consult ordered Counseled on cessation of polysubstance abuse OR reduction failed, transfer to [facility] for HLOC patient NPO, diet consult, start TPN dvt ppx lovenox diet TPN condition critical prognosis poor Plan discussed with: Patient Date of Service: Dec 25, 2024 Billing Provider: DON CAZARES MD Common Visit Codes: [id number] INP/OBS CARE(HIGH) DON CAZARES MD Dec 25, 2024 14:13
[2024-12-25] MEDS: TPN PER PHARMACY IV NR (22:00)
--- NOTE | 2024-12-25 23:36 | DVHPN2 ---
Progress Note - Dictate Date Seen: Dec 25, 2024 Medical Necessity Reason Pt with a Central, PICC or Fol: No Subjective Patient seen and examined at bedside. Remains on room air Overnight events reviewed. vital signs Vital Sign Date Time Temp Pulse Resp B/P (MAP) Pulse Ox O2 Delivery O2 Flow Rate FiO2 12/25/24 21:00 98.1 18 97 117/81 (93) 97 98.1 12/25/24 20:00 Room Air* 0 21 Total Intake and Output 12/24/24 12/24/24 12/25/24 15:00 23:00 07:00 Intake Total 1365 ml 622.9462 ml 400 ml Output Total 1900 ml Balance 1365 ml -1277.0538 ml 400 ml medications Current Medications Medications Dose Ordered Sig/Wallace Route Start Time Stop Time Status Last Admin Dose Admin Sodium Chloride 10 ml Q8HR IV 12/16/24 06:00 12/25/24 14:34 10 ML Enoxaparin Sodium 40 mg DAILY SC 12/16/24 10:00 12/25/24 10:05 40 MG Acetaminophen 650 mg Q6HP PRN PO 12/16/24 01:15 12/24/24 08:13 650 MG Pantoprazole Sodium 40 mg DAILY IV 12/16/24 02:30 12/25/24 09:26 40 MG Diagnostic Test (Pha) 1 strip Q6HR 12/18/24 00:00 12/25/24 18:18 1 STRIP Insulin Human Regular FOLLOW SLIDING SCALE Q6HR SC 12/18/24 00:00 12/19/24 00:27 2 UNITS Dextrose 50 ml UD IV 12/18/24 00:00 Meropenem 50 ml @ 17 mls/hr Q8H IV 12/19/24 12:00 12/25/24 20:58 17 MLS/HR Amino Acids 0 ml @ 0 mls/hr PER PHARMACY IV 12/20/24 19:45 Fat Emulsion Intravenous 100 ml/Sodium Chloride 20 meq/ Sodium Acetate 20 meq/Potassium Phosphate 40 meq/ Calcium Gluconate 2.3 meq/Magnesium Sulfate 4 meq/ Multivitamins 10 ml/Chromium/ Copper/Manganese/ Zinc 1 ml/Amino Acids/Dextrose/ Purified Water 1,641.0371 ml @ 68.074 m... Q24H7M IV 12/21/24 22:00 12/22/24 21:59 Cancel Sodium Chloride 10 ml QSHIFT@10,22 IV 12/21/24 22:00 12/25/24 09:29 10 ML Lorazepam 0.5 mg Q6HP PRN IV 12/21/24 19:30 12/25/24 18:22 0.5 MG Micafungin Sodium 100 mg/Sodium Chloride 100 ml @ 100 mls/hr DAILY IV 12/23/24 10:00 12/25/24 16:35 100 MLS/HR Dextrose/Sodium Chloride 1,000 ml @ 60 mls/hr [id number] IV 12/24/24 22:00 12/24/24 21:55 60 MLS/HR Hydromorphone HCl 1.5 mg Q3HPRN PRN IV 12/24/24 13:30 12/25/24 20:10 1.5 MG Fat Emulsion Intravenous 250 ml/Sodium Acetate 30 meq/Sodium Phosphate 10 meq/ Potassium Acetate 50 meq/Magnesium Sulfate 16 meq/ Multivitamins 10 ml/Chromium/ Copper/Manganese/ Zinc 1 ml/Amino Acids/Dextrose 1,707.5 ml @ 71 mls/hr Q24H3M IV 12/25/24 22:00 12/26/24 21:59 objective Gen.: Patient lying in bed in no apparent distress. On room air. Head: Normocephalic, atraumatic. Eyes: EOMI/PERRLA. Ears: Normal hearing. Normal anatomy. Neck/trachea: Trachea midline, supple. Nose: Normal external anatomy. Mouth: Moist mucous membranes. Chest: Decreased air entry bilaterally. No wheezing or rhonchi. Cardiovascular: Positive S1, positive S2. Regular rate and rhythm. Abdomen: Positive bowel sounds in all 4 quadrants. Soft, non-tender, non- distended. : Deferred. Rectal: Deferred. Skin: Warm, dry. Intact. Extremities: 2+ radial pulses bilaterally. No lower extremity edema. Neuro: Awake, alert, oriented x3. No gross motor or sensory deficits. Cranial nerves II through XII intact. Gait not assessed. laboratory and microbiology Laboratory Tests 12/25/24 05:02 12/24/24 05:31 Test 12/25/24 05:02 Range/Units Serum Glucose 94 74-106 mg/dL Assessment/Plan Impression: Acute hypoxic respiratory failure Abdominal pain Atelectasis Hypokalemia Nicotine dependence ETOH abuse Polysubstance abuse - methamphetamine/marijuana Events: Remains on room air Supplemental oxygen PRN. Pain control Avoid oversedation Surgery unable to do manual reduction of loop colostomy Awaiting higher level of care at [facility] for evaluation Colostomy protruding. Surgery recommendations appreciated. Continue antibiotics Antifungal Incentive spirometry TPN for nutritional support Surgery followup for ostomy site. Wound care Lovenox for DVT prophylaxis Labs and imaging reviewed. Rest of plan as noted below. Plan: Supplemental oxygen PRN Titrate to keep O2 sats above 92%. Continue antibiotics Incentive spirometry Pain control Avoid oversedation Monitor renal function. Monitor electrolytes. Supplement as necessary. Monitor ins and outs. Smoking cessation discussed for greater than 10 minutes Counseled against substance abuse. DVT prophylaxis. Prognosis: Poor given patient's multiple co-morbidities. Rest of plan per hospitalist and other consultants. Thank you Dr. Browning for allowing me to participate in this patient's care. Further recommendations will depend on the patient's clinical course. Please do not hesitate to contact me if you have any questions or concerns. This medical document was created using an electronic medical record system with Marfeel dictation system. Although these documentations are being carefully reviewed, there may still be some phonetic and typographical changes. The errors are purely typographical, due to imperfection on the software program, and do not reflect any compromise in the patient's medical care. Dietary Evaluation Review Recommendations by RD: Protein Supplementation Comments: 1) Initiate Williams @ 1 pk bid 2) If patient remains NPO for more than 7 days, consider EN/TPN to meet at least 75% of estimated needs 3) Initiate multivitamin @ 1 tab qd 4) Initiate vitamin C @ 500 mg bid 5) Initiate zinc sulfate @ 220 mg qd 6) Advance to low-fiber diet when medically feasible, pending [employer]ARE [employer] approval. Consider oral nutrition supplements with all meals if on liquid diet 7) Encourage patient limit consumption of cruciferous vegetables, beans, onions, garlic, and other gas-producing foods until ostomy output normalizes 8) F/u with gastroenterology Expected Outcomes/Goals: 1) appetite and labs to improve 2) GI symptoms to resolve 3) diet to advance 4) f/u in 3 days Plan discussed with: Patient, Other (MYAH Groves) IAIN JONAS MD Dec 25, 2024 23:36
== END 2024-12-25 21:30 | disposition short-term general hospital (02) | DRG 710 ==
LOC: ER 19:56 → OVERFLOW 12-16 01:12 → WEST WING 12-16 04:34 → ICU WEST 12-16 20:00 → DOU IN ICU 12-17 20:00 → TELE-CENTR 12-24 15:51
PROVIDERS: ADMIT Student in an Organized Health Care Education/Training Program; ATTEND Student in an Organized Health Care Education/Training Program
PROC: 0DSE0ZZ Reposition Large Intestine, Open Approach (ICD-10-PCS; principal; 2024-12-16 16:45)
PROC: 0DJDXZZ Inspection of Lower Intestinal Tract, External Approach (ICD-10-PCS; 2024-12-18)
PROC: 02HV33Z Insertion of Infusion Device into Superior Vena Cava, Percutaneous Approach (ICD-10-PCS; 2024-12-21)
PROC: B548ZZA Ultrasonography of Superior Vena Cava, Guidance (ICD-10-PCS; 2024-12-21)
DX: A41.9 Sepsis, unspecified organism (principal); J96.01 Acute respiratory failure with hypoxia; L89.153 Pressure ulcer of sacral region, stage 3; K65.9 Peritonitis, unspecified; E44.1 Mild protein-calorie malnutrition; Z99.81 Dependence on supplemental oxygen; K94.09 Other complications of colostomy; N30.90 Cystitis, unspecified without hematuria; E87.6 Hypokalemia; N28.1 Cyst of kidney, acquired; F15.10 Other stimulant abuse, uncomplicated; J98.11 Atelectasis; K43.5 Parastomal hernia without obstruction or gangrene; L73.2 Hidradenitis suppurativa; Z20.822 Contact with and (suspected) exposure to COVID-19; F10.20 Alcohol dependence, uncomplicated; F12.10 Cannabis abuse, uncomplicated; Z59.00 Homelessness unspecified; F17.210 Nicotine dependence, cigarettes, uncomplicated; Y90.9 Presence of alcohol in blood, level not specified; Z88.8 Allergy status to other drugs, medicaments and biological substances; Z79.899 Other long term (current) drug therapy; Z79.1 Long term (current) use of non-steroidal anti-inflammatories (NSAID); Z88.0 Allergy status to penicillin; Z71.6 Tobacco abuse counseling; Z91.199 Patient's noncompliance with other medical treatment and regimen due to unspecified reason; Z91.148 Patient's other noncompliance with medication regimen for other reason
CPT/HCPCS: 36415; 36569; 71045; 74018; 74177; 76937; 80048; 80053; 80069; 80307; 81001; 82140; 82962; 83036; 83605; 83690; 83735; 83880; 84100; 84132; 84478; 85007; 85025; 85027; 85610; 85652; 85730; 86141; 86850; 86900; 86901; 87040; 87081; 87086; 87088; 87186; 87426; 87804; 96365; 96367; 96375; 96376; G0378; J0131; J0696; J1956; J2185; J2248; J2250; J2405; J2470; J2543; J2704; J3480; J3490; J7042; J7060; J7131

== ENCOUNTER 2024-12-29 10:23 | Inpatient (IN) | payer MEDICAID ==
[~2024-12-29] VITALS: Ht 188 cm; Wt 67.5 kg
[2024-12-29 21:00] VITALS: BP 101/67; PULSE 90; RESP 19; TEMP 97.4; O2SAT 97
[2024-12-29 21:49] VITALS: PULSE 90; RESP 19; O2SAT 97
--- NOTE | 2024-12-29 23:07 | DVHHPRES ---
History of Present Illness Resident Creating Document: JAIDEN CRABTREE RESDIENT History of Present Illness This is a 44-year-old homeless male with past medical history of Hidradenitis suppurativa of the perineum with multiple debridements and skin grafts, s/p diverting colostomy (in April 2024 at [place]) and polysubstance abuse transfer for the [facility]. Patient was previously admitted at [facility] due to parastomal hernia with possible colonic prolapse, underwent manual reduction at [facility] but was unsuccessful, subsequently transferred to the [place] on 12/15/2024 for higher level of care which was reduced under general anesthesia. Currently, patient complained of pain and discomfort at perineum. Denies fever, nausea, vomiting, abdominal pain, or recent bladder habit changes. PMHx: Hidradenitis suppurativa of the perineum with multiple debridements and skin grafts, s/p diverting colostomy (in April 2024 at [place]) and polysubstance abuse PSHx: Colostomy, multiple debridements, skin grafting of the perineum Family history: Noncontributory Social history: Patient is homeless, current smoker with 5 pack year history, use marijuana and methamphetamine. Denies alcohol or any other drug use Home medication: Denies Allergic history: Ketorolac, Treomethamine, and vancomycin Patient seen and examined at the bedside. Patient is feeling better after surgery, complained of pain and discomfort that perineal area. Review of Systems Review of Systems General: patient denies fever, fatigue, weaknes, sweating, any recent changes in appetite and weight HEENT: No headaches, visiual changes, hearing loss, tinnitus, nasal congestion and discharge, and sore throat. Cardiovascular: Denies chest pain, palpitations, dyspnea on exertion, orthopnea, or claudication. Respiratory: No cough, and wheezing. Gastrointestinal: Reports pain and discomfort at perineal area Genitourinary: No dysuria, hematuria, discharge, frequency, urgency, nocturia, incontinence, and urinary retention. Endocrine: No heat or cold intolerance, polydipsia, polyuria, and polyphagia. Neurological: No dizziness, extremity weakness and numbness, tremors, gait disturbance, seizures, and memory impairment. Psychiatric: Denies depression, anxiety,or insomnia. Musculoskeletal: Denies neck pain, stiffness and swelling, back pain, muscle weakness, joint pain, stiffness, swelling, or limited range of motion. Skin: No rashes, itching, skin lesion, changes in hair, nail, skin texture and breast. Hematologic/Lymphatic: Denies easy bruising, bleeding tendencies, or lymph node enlargement. Allergies: Coded Allergies: Ketorolac Tromethamine (Verified Allergy, Unknown, 09/03/23) Vancomycin (Verified Allergy, Unknown, 07/07/24) Medications Current Medications Medications Dose Ordered Sig/Wallace Route Start Time Stop Time Status Last Admin Dose Admin Ondansetron HCl 4 mg Q4HP PRN IV 12/29/24 23:15 UNV Enoxaparin Sodium 40 mg DAILY SC 12/30/24 10:00 UNV Exam Exam General Appearance: Alert, Oriented X3, Cooperative, No acute distress HEENT: Atraumatic, PERRLA, EOMI, Mucous membrane moist/pink Respiratory: Clear to auscultation, Normal air movement Cardiovascular: Regular rate, Normal S1, Normal S2, No murmurs, no chest wall tenderness Abdominal: Colostomy stoma on the left side of abdomen with colostomy bag in- situ, no sign of infection including redness, edema or induration. No periosteal leakage. Extremities: No clubbing, No cyanosis, No edema, Normal pulses, No tenderness/swelling Skin: Skin tags and fibrous band at perianal area with scar of previous skin graft, scant amount of discharge with poor hygiene Neuro: Normal gait, Normal speech, Strength at 5/5 X4 ext, Normal tone, Sensation intact, Cranial nerves 3-12 NL, Reflexes 2+ Psych/Mental Status: Mental status NL, Mood NL Assessment/Plan Assessment/Plan Assessment: Parastomal hernia with possible colonic polyps, status post surgical repair Chronic hydradenitis suppurativa with hardened skin nodules over groin area Polysubstance abuse including tobacco, methamphetamine and marijuana Nonadherence to medicine Homelessness Polysubstance drug abuse, marijuana, methamphetamine Plan: Pain control Wound consult and Wound culture Empiric antibiotic, doxycycline Consult oncology social work DIET: Regular diet DVT PROPHYLAXIS: Lovenox GI PROPHYLAXIS:: Protonix CODE STATUS: Goal of care for more than 18 minutes, full code DISPOSITION: Med/surge Patient's status and plan discussed with the patient. Case discussed with Dr. Cordero. Plan discussed with: Patient, Other (RN) My Orders Orders - JAIDEN CRABTREE RESDIENT Procedure Category Date Status Time Admit ADMIT 12/29/24 Transmitted 23:01 Code Status CODE 12/29/24 Transmitted 23:01 Review Orders With [facility] 12/29/24 In Process Adm. 23:01 Npo (Nothing By DIET 12/30/24 Transmitted Mouth) Diet Breakfast Notify Md Of Changes [facility] 12/29/24 In Process From Base 23:01 Advance Directive TRENT 12/29/24 In Process 23:01 Patient Condition ORDERS 12/29/24 Transmitted 23:01 Allergies TRENT 12/29/24 In Process 23:01 Ondansetron Hcl PHA 12/29/24 Logged (Zofran) 23:15 Enoxaparin Sodium PHA 12/30/24 Logged (Lovenox) 10:00 Stat Ekg For Chest [facility] 12/29/24 In Process Pain 23:01 Notify Of Changes [facility] 12/29/24 In Process From Base 23:01 Train Attendant For [facility] 12/29/24 In Process 24 Hours 23:01 Emergency Dysrhythmia [facility] 12/29/24 In Process Protocol 23:01 Rhythm Strips Once [facility] 12/29/24 In Process Every Shift 23:01 Complete Blood Count LAB 12/29/24 Logged 23:01 Comprehensive LAB 12/29/24 Logged Metabolic Panel 23:01 Urinalysis LAB 12/29/24 Logged 23:01 PTPTT LAB 12/29/24 Logged 23:01 Comprehensive LAB 12/30/24 Verified Metabolic Panel 04:00 Complete Blood Count LAB 12/30/24 Verified 04:00 Date of Service: Dec 29, 2024 Billing Provider: CARIDAD CORDERO MD Common Visit Codes: [id number] INP/OBS CARE (HIGH) JAIDEN CRABTREE RESDIENT Dec 29, 2024 23:07 CARIDAD CORDERO MD Jan 01, 2025 10:51
[2024-12-29] MEDS ORDERED: ONDANSETRON HCL 4 MG/2 ML VIAL IV PRN (23:15)
[2024-12-29 23:54] LABS: Basophils # (auto) 0.1 10 ^3/uL (0-0.2); Eosinophils # (auto) 0.5 10 ^3/uL (0-0.8); Monocytes # (auto) 0.9 10 ^3/uL (0-1.3); Neutrophils # (auto) 5.1 10 ^3/uL (1.6-8.6); White Blood Cell 8.8 10^3/uL (4.4-10.8)
[2024-12-29 23:55] LABS: Eosinophils % (auto) 5.6 % (0.0-7.0); Hematocrit 28.6 % (41.0-53.0); Hemoglobin 9.5 g/dL (13.5-17.5); Lymphocytes # (auto) 2.2 10 ^3/uL (0.4-5.4); Lymphocytes % (auto) 25.3 % (10.0-50.0); Mean Corpuscular Hemoglobin 28.3 pg (28.0-32.0); Mean Corpuscular Hgb Conc. 33.2 g/dL (32.0-36.0); Mean Corpuscular Volume 85.2 fL (80.0-100.0); Monocytes % (auto) 9.9 % (0.0-12.0); Neutrophils % (auto) 58.2 % (37.0-80.0); Nucleated Red Blood Cells % 0.1 %; Platelet Count (auto) 453 10^3/uL (140-450); Red Blood Cells 3.36 10^6/uL (4.5-5.90); Red Cell Distribution Width 19.2 % (11.8-14.3)
[2024-12-30 00:05] LABS: Alanine Aminotransferase 37 U/L (7-40); Albumin 3.5 g/dL (3.2-4.8); Alkaline Phosphatase 113 U/L (46-116); Anion Gap 6 (5-15); Aspartate Aminotransferase 36 U/L (13-40); Bilirubin, Total < 0.2 mg/dL (0.2-1.0); Blood Urea Nitrogen 16 mg/dL (9-23); Calcium 9.2 mg/dL (8.7-10.4); Carbon Dioxide 25 mmol/L (20-31); Chloride 103 mmol/L (98-107); Glucose 109 mg/dL (74-106); Sodium 134 mmol/L (136-145); Total Protein 8.7 g/dL (5.7-8.2)
[2024-12-30 00:09] LABS: INR 1.07 (0.9-1.15); Partial Thromboplastin Time 25.4 SEC (24.5-34.5); Prothrombin Time 11.3 sec (9.3-11.8)
[2024-12-30 00:28] LABS: Urine Bacteria None Seen /hpf (None Seen)
[2024-12-30] MEDS ORDERED: IBUPROFEN 400 MG TAB PO PRN (00:45)
[2024-12-30] MEDS ORDERED: ACETAMINOPHEN 325 MG TAB PO PRN (00:45)
[2024-12-30 00:55] LABS: Urine Blood Negative /uL (Negative); Urine Clarity Clear (Clear); Urine Color Light-Yellow (Yellow); Urine Protein, UAD TRACE (Negative); Urine Specific Gravity 1.028 (1.001-1.035); Urine Squamous Epithelial Cell None Seen /hpf (<5); Urine Urobilinogen 2 mg/dL (Negative); Urine WBC 1 /HPF (0-3)
[2024-12-30 01:00] VITALS: BP 122/78; PULSE 91; RESP 19; TEMP 98.4; O2SAT 97
[2024-12-30] MEDS: DOXYCYCLINE 100MG/100ML 100 ML IV SCH (05:03)
[2024-12-30 06:11] LABS: Basophils # (auto) 0.1 10 ^3/uL (0-0.2); Basophils % (auto) 0.8 % (0.0-2.0); Eosinophils # (auto) 0.5 10 ^3/uL (0-0.8); Eosinophils % (auto) 5.3 % (0.0-7.0); Hematocrit 27.3 % (41.0-53.0); Hemoglobin 9.2 g/dL (13.5-17.5); Lymphocytes # (auto) 1.9 10 ^3/uL (0.4-5.4); Lymphocytes % (auto) 19.3 % (10.0-50.0); Mean Corpuscular Hgb Conc. 33.5 g/dL (32.0-36.0); Mean Corpuscular Volume 83.6 fL (80.0-100.0); Monocytes # (auto) 1.1 10 ^3/uL (0-1.3); Monocytes % (auto) 10.9 % (0.0-12.0); Neutrophils # (auto) 6.3 10 ^3/uL (1.6-8.6); Neutrophils % (auto) 63.7 % (37.0-80.0); Platelet Count (auto) 460 10^3/uL (140-450); Red Blood Cells 3.27 10^6/uL (4.5-5.90); Red Cell Distribution Width 18.7 % (11.8-14.3); White Blood Cell 9.8 10^3/uL (4.4-10.8)
[2024-12-30 06:33] LABS: Alanine Aminotransferase 38 U/L (7-40); Alkaline Phosphatase 112 U/L (46-116); Anion Gap 7 (5-15); BUN/Creatinine Ratio 30.2 (10.0-20.0); Blood Urea Nitrogen 19 mg/dL (9-23); Calcium 9.3 mg/dL (8.7-10.4); Carbon Dioxide 25 mmol/L (20-31); Chloride 104 mmol/L (98-107); Glucose 87 mg/dL (74-106); Potassium 4.1 mmol/L (3.5-5.1); Sodium 136 mmol/L (136-145)
[2024-12-30 06:34] LABS: Albumin 3.5 g/dL (3.2-4.8); Aspartate Aminotransferase 38 U/L (13-40); Total Protein 8.6 g/dL (5.7-8.2)
[2024-12-30 06:35] LABS: Bilirubin, Total < 0.2 mg/dL (0.2-1.0)
[2024-12-30 09:00] VITALS: BP 117/80; PULSE 107; RESP 20; TEMP 98; O2SAT 100
[2024-12-30] MEDS ORDERED: ENOXAPARIN SOD 40 MG/0.4 ML SYRINGE SC SCH (10:00)
== END 2024-12-30 09:10 | disposition left against medical advice (07) | DRG 251 ==
LOC: TELE-EAST 21:38
DX: R10.2 Pelvic and perineal pain (principal); F19.10 Other psychoactive substance abuse, uncomplicated; K43.5 Parastomal hernia without obstruction or gangrene; L73.2 Hidradenitis suppurativa; Z59.00 Homelessness unspecified; Z91.148 Patient's other noncompliance with medication regimen for other reason; Z53.29 Procedure and treatment not carried out because of patient's decision for other reasons
CPT/HCPCS: 36415; 80053; 81001; 85025; 85610; 85730; 86141; 87081; G0378

== ENCOUNTER 2024-12-31 21:05 | Emergency (ER) | payer MEDICAID | END 2024-12-31 21:58 | disposition left against medical advice (07) | LOC: ER 21:05 | DX: K63.9 Disease of intestine, unspecified (principal); Z53.21 Procedure and treatment not carried out due to patient leaving prior to being seen by health care provider ==

== ENCOUNTER 2025-01-04 04:26 | Emergency (ER) | payer MEDICAID | END 2025-01-04 05:17 | disposition left against medical advice (07) | LOC: ER 04:26 | DX: Z43.3 Encounter for attention to colostomy (principal); Z53.21 Procedure and treatment not carried out due to patient leaving prior to being seen by health care provider ==

== ENCOUNTER 2025-01-09 22:56 | Emergency (ER) | payer MEDICAID ==
[~2025-01-09] VITALS: Ht 188 cm; Wt 72.7 kg
--- NOTE | 2025-01-10 00:26 | ED.PDOC ---
GI ASSESSMENT HPI Comments 44 year old male came into ER for abdominal pain. Patient seen multiple times here at the ER for the same issues. 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 Patient was transferred to [facility] where he finally got his surgery for repair of colostomy. Patient however states his colostomy appears to have prolapsed again. complaining of pain at operative site and he wishes to be transferred to [facility] since he has no means to go there. Chief Complaint: Abdominal Pain Time Seen by MD: 00:26 Primary Care Provider: NONE Reviewed Notes: Nurses Notes Allergies: Coded Allergies: Ketorolac Tromethamine (Verified Allergy, Unknown, 09/03/23) Vancomycin (Verified Allergy, Unknown, 07/07/24) Home Meds No Active Prescriptions or Reported Meds Information Source: Patient Mode of Arrival: Ambulatory Timing: Days Duration: Intermittent Prehospital treatment: None Recent: Recent Surgery Recent Hx of: Abdominal Operations Pain Location: Epigastric Associated sign and symptoms: Abdominal Pain Past Medical History PAST MEDICAL HISTORY: Denies Surgical History: Denies all surgeries Family History Family History: Reviewed,noncontributory to illness Social History Smoker: Cigarettes Alcohol: Rarely Drugs: Marijuana, Methamphetamine Lives In: Homeless Physical Exam General Appearance: No Apparent Distress, Normal HEENT: Normal ENT Inspection, Pharynx Normal, TMs Normal Neck: Full Range of Motion, Non-Tender, Normal, Normal Inspection Respiratory: Chest Non-Tender, Lungs Clear, No Accessory Muscle Use, No Respiratory Distress, Normal Breath Sounds Cardiovascular: No Edema, No JVD, No Murmur, No Gallop, Normal Peripheral Pulses, Regular Rate/Rhythm Breast Exam: Deferred Gastrointestinal: Other (colostomy bag intact in [facility] with chronic unchanged bowel prolapse and normal stool output) Genitalia: Deferred Pelvic: Deferred Rectal: Deferred Extremities: No calf tenderness, Normal capillary refill, Normal inspection, Normal range of motion, Non-tender, No pedal edema Musculoskeletal : Apperance: Normal Neurologic: Alert, meter installer and remover II-XII nml as Tested, No Motor Deficits, Normal Affect, Normal Mood, No Sensory Deficits Cerebellar Function: Normal Reflexes: Normal Skin: Dry, Normal Color, Warm Lymphatic: No Adenopathy Was a procedure done? Was a procedure done?: No GI differential Dx Differential Diagnosis: Bowel Obstruction, Constipation, Inflammatory BD, Dehydration, Other X-Ray, Labs, Meds, VS Vital Signs Date Time Temp Pulse Resp B/P (MAP) Pulse Ox O2 Delivery O2 Flow Rate FiO2 01/10/25 12:02 98.3 77 15 124/83 (97) 97 98.3 01/10/25 11:15 98.5 83 15 133/90 (104) 96 98.5 01/10/25 08:40 89 21 96 Room Air* 0 21 01/10/25 08:00 98.3 82 14 144/93 (110) 99 98.3 01/10/25 06:30 98.9 83 14 135/84 (101) 97 98.9 01/10/25 05:30 100 32 96 Room Air* 0 21 01/10/25 05:27 98.9 100 32 135/94 (108) 96 98.9 01/09/25 23:00 98.8 114 20 135/97 (110) 98 98.8 Lab Test 01/10/25 01:44 Range/Units White Blood Count 12.0 H 4.4-10.8 10^3/uL Red Blood Count 3.36 L 4.5-5.90 10^6/uL Hemoglobin 9.5 L 13.5-17.5 g/dL Hematocrit 28.5 L 41.0-53.0 % Mean Corpuscular Volume 84.6 80.0-100.0 fL Mean Corpuscular Hemoglobin 28.2 28.0-32.0 pg Mean Corpuscular Hemoglobin Concent 33.4 32.0-36.0 g/dL Red Cell Distribution Width 18.3 H 11.8-14.3 % Platelet Count 538 H 140-450 10^3/uL Mean Platelet Volume 6.6 L 6.9-10.8 fL Neutrophils (%) (Auto) 74.7 37.0-80.0 % Lymphocytes (%) (Auto) 9.9 L 10.0-50.0 % Monocytes (%) (Auto) 7.1 0.0-12.0 % Eosinophils (%) (Auto) 7.7 H 0.0-7.0 % Basophils (%) (Auto) 0.6 0.0-2.0 % Neutrophils # (Auto) 9.0 H 1.6-8.6 10 ^3/uL Lymphocytes # (Auto) 1.2 0.4-5.4 10 ^3/uL Monocytes # (Auto) 0.9 0-1.3 10 ^3/uL Eosinophils # (Auto) 0.9 H 0-0.8 10 ^3/uL Basophils # (Auto) 0.1 0-0.2 10 ^3/uL Nucleated Red Blood Cells 0.0 % Prothrombin Time 11.4 9.3-11.8 sec Prothrombin Time INR 1.08 0.9-1.15 Activated Partial Thromboplast Time 26.9 24.5-34.5 SEC Sodium Level 138 136-145 mmol/L Potassium Level 3.7 3.5-5.1 mmol/L Chloride Level 109 H 98-107 mmol/L Carbon Dioxide Level 23 20-31 mmol/L Anion Gap 6 5-15 Blood Urea Nitrogen 6 L 9-23 mg/dL Creatinine 0.72 0.700-1.30 mg/dL Glomerular Filtration Rate Calc 116 >90 mL/min BUN/Creatinine Ratio 8.3 L 10.0-20.0 Serum Glucose 87 74-106 mg/dL Calcium Level 8.9 8.7-10.4 mg/dL Total Bilirubin 0.3 0.2-1.0 mg/dL Aspartate Amino Transferase (AST) 15 13-40 U/L Alanine Aminotransferase (ALT) 14 7-40 U/L Alkaline Phosphatase 114 46-116 U/L Total Protein 9.1 H 5.7-8.2 g/dL Albumin 3.7 3.2-4.8 g/dL Time of 1ST Reevaluation: 02:40 Reevaluation 1ST: Unchanged Patient Education/Counseling: Diagnosis, Treatment Family Education/Counseling: No Family Present Departure 1 Departure Time of Disposition: 17:37 (Patient with concern for new colostomy issues. [facility] is at capacity. We will admit patient here for further care pending surgical evaluation.) Impression: Primary Impression: Colostomy care Additional Impression: Colostomy prolapse Disposition: ADMITTED INPATIENT Admit to: Med Surg Condition: Guarded e-Prescriptions No Active Prescriptions or Reported Meds Discharged With: Self Comments Colostomy with Chronic Bowel Prolapse Chief Complaint: Chronic colonic prolapse into colostomy bag History of Present Illness: 44-year-old male presents with chronic colonic prolapse into his colostomy bag. The condition is unchanged from previous presentations. Patient's colostomy was originally performed at [place]. He is currently experiencing homelessness and is seeking assistance with arranging follow-up care at [place] for management of his chronic prolapse. Review of Systems: Limited review of systems due to focused evaluation. GI: Reports normal stool output through colostomy Past Surgical History: Colostomy - performed at [facility] Physical Exam: GENERAL: Well-appearing male ABDOMEN/COLOSTOMY: - Chronic prolapse of bowel into colostomy bag noted - Abdomen soft and nontender - Colostomy site appears similar to prior visits Lab Results: CBC: - Hemoglobin: 10 g/dL - Hematocrit: 29% - WBC: 12, 000/L Basic Metabolic Panel: Within normal limits Imaging and Other Relevant Results: No imaging studies performed during this visit Medical Decision Making: Summary Statement: 44-year-old male with chronic colostomy presents with stable bowel prolapse, requiring care coordination for surgical follow-up. Problem List: 1. Chronic colostomy with bowel prolapse 2. Chronic anemia 3. Homelessness Differential Diagnosis: 1. Parastomal hernia 2. Stoma prolapse 3. Bowel obstruction 4. Stomal stenosis ED Course: Patient evaluated, labs obtained showing stable chronic anemia. Plan for overnight observation and social work consultation for coordination of care. Assessment and Plan: 1. Colostomy with Chronic Bowel Prolapse: - Condition appears stable and unchanged from previous visits - Will observe overnight for safety - Social work consultation in morning to assist with arranging follow-up surgical care at [place] 2. Chronic Anemia: - Stable with H/H 08/08 - No acute intervention needed 3. Social Issues: - Social work to assist with care coordination - Will explore resources for housing assistance Billing Information: ICD-10: K94.3 - Colostomy malfunction ICD-10: Z59.0 - Homelessness ICD-10: D64.9 - Anemia, unspecified Critical Care Note Critical Care Time?: No Stability Stability form required: No Heart Score Heart Score: Heart Score Response (Comments) Value History N/A 0 EKG N/A 0 Age N/A 0 Risk Factors N/A 0 Troponin N/A 0 Total 0 I personally scribed for OSVALDO LAUGHLIN MD ([email or web address]) on 01/10/25 at 00:26. Electronically submitted by Keith Valerio ([facility]3]). OSVALDO LAUGHLIN MD Jan 10, 2025 00:26 DASHA SOTELO MD Jan 10, 2025 02:44
[2025-01-10 01:57] LABS: Basophils # (auto) 0.1 10 ^3/uL (0-0.2); Monocytes # (auto) 0.9 10 ^3/uL (0-1.3)
[2025-01-10 01:59] LABS: Basophils % (auto) 0.6 % (0.0-2.0); Eosinophils # (auto) 0.9 10 ^3/uL (0-0.8); Eosinophils % (auto) 7.7 % (0.0-7.0); Hematocrit 28.5 % (41.0-53.0); Hemoglobin 9.5 g/dL (13.5-17.5); Lymphocytes # (auto) 1.2 10 ^3/uL (0.4-5.4); Lymphocytes % (auto) 9.9 % (10.0-50.0); Mean Corpuscular Hemoglobin 28.2 pg (28.0-32.0); Mean Corpuscular Hgb Conc. 33.4 g/dL (32.0-36.0); Mean Corpuscular Volume 84.6 fL (80.0-100.0); Monocytes % (auto) 7.1 % (0.0-12.0); Neutrophils % (auto) 74.7 % (37.0-80.0); Platelet Count (auto) 538 10^3/uL (140-450); Red Blood Cells 3.36 10^6/uL (4.5-5.90); Red Cell Distribution Width 18.3 % (11.8-14.3)
[2025-01-10 02:09] LABS: Alanine Aminotransferase 14 U/L (7-40); Albumin 3.7 g/dL (3.2-4.8); Alkaline Phosphatase 114 U/L (46-116); Anion Gap 6 (5-15); Aspartate Aminotransferase 15 U/L (13-40); BUN/Creatinine Ratio 8.3 (10.0-20.0); Calcium 8.9 mg/dL (8.7-10.4); Carbon Dioxide 23 mmol/L (20-31); Glucose 87 mg/dL (74-106); Potassium 3.7 mmol/L (3.5-5.1); Sodium 138 mmol/L (136-145)
[2025-01-10 02:10] LABS: Bilirubin, Total 0.3 mg/dL (0.2-1.0)
[2025-01-10 02:13] LABS: INR 1.08 (0.9-1.15); Partial Thromboplastin Time 26.9 SEC (24.5-34.5); Prothrombin Time 11.4 sec (9.3-11.8)
[2025-01-10 02:15] LABS: Blood Urea Nitrogen 6 mg/dL (9-23); Chloride 109 mmol/L (98-107); Total Protein 9.1 g/dL (5.7-8.2)
[2025-01-10 05:30] VITALS: PULSE 100; RESP 32; O2SAT 96
[2025-01-10 08:40] VITALS: PULSE 89; RESP 21; O2SAT 96
--- NOTE | 2025-01-10 18:53 | ED.PDOC ---
Departure 1 Departure Time of Disposition: 18:52 (Patient was evaluated by social media director recommended the patient be discharged home and will follow up with [facility].) Impression: Primary Impression: Colostomy care Additional Impression: Colostomy prolapse Disposition: HOME / SELF CARE / HOMELESS Condition: Stable Additional Instructions: You were given a voucher from social work It is important to follow up at [facility]. e-Prescriptions No Active Prescriptions or Reported Meds Discharged With: Self OSVALDO LAUGHLIN MD Jan 10, 2025 18:53
[2025-01-10 19:30] VITALS: TEMP 98
[2025-01-10 20:00] VITALS: BP 132/98; PULSE 94; RESP 21; O2SAT 96
== END 2025-01-10 21:15 | disposition home or self-care (01) ==
LOC: ER 22:56
DX: K94.09 Other complications of colostomy (principal); F17.210 Nicotine dependence, cigarettes, uncomplicated; F12.90 Cannabis use, unspecified, uncomplicated; F15.90 Other stimulant use, unspecified, uncomplicated; Z59.00 Homelessness unspecified; Z88.1 Allergy status to other antibiotic agents
CPT/HCPCS: 36415; 80053; 85025; 85610; 85730

== ENCOUNTER 2025-01-25 19:56 | Emergency (ER) | payer MEDICAID | END 2025-01-25 21:05 | disposition left against medical advice (07) | LOC: ER 19:58 | DX: Z43.3 Encounter for attention to colostomy (principal); Z53.21 Procedure and treatment not carried out due to patient leaving prior to being seen by health care provider ==

== ENCOUNTER 2025-02-02 03:47 | Emergency (ER) | payer MEDICAID ==
[~2025-02-02] VITALS: Ht 188 cm; Wt 75.0 kg
[2025-02-02 04:08] VITALS: BP 153/102; PULSE 93; RESP 17; TEMP 97.5; O2SAT 97
--- NOTE | 2025-02-02 04:35 | ED.PDOC ---
GI ASSESSMENT HPI Comments 44-year-old male came to ER due to abdominal pain. Patient is seen here multiple times for issues regarding his colostomy bag. Recently seen [facility] where he has colostomy bag issues were addressed. Patient however states he has colostomy has worsened, protruding although his abdomen causing pain. Patient advised multiple times to return to [facility] however patient insistent coming back here Chief Complaint: Abdominal Pain Time Seen by MD: 04:51 Primary Care Provider: NONE Reviewed Notes: Nurses Notes Allergies: Coded Allergies: Ketorolac Tromethamine (Verified Allergy, Unknown, 09/03/23) Vancomycin (Verified Allergy, Unknown, 07/07/24) Home Meds No Active Prescriptions or Reported Meds Information Source: Patient Mode of Arrival: Ambulatory Timing: Days Duration: Intermittent Prehospital treatment: None Quality: Aching Vomitus: None Stool: Watery Severity: Moderate Recent: Recent Surgery Recent Hx of: Abdominal Surgery Associated sign and symptoms: Abdominal Pain Past Medical History PAST MEDICAL HISTORY: Denies Surgical History (Other): Colostomy Family History Family History: Reviewed,noncontributory to illness Social History Smoker: Cigarettes Alcohol: Rarely Drugs: Marijuana, Methamphetamine Lives In: Homeless Constitutional: denies: chills, diaphoresis, fatigue, fever, malaise, sweats, w eakness, others EENTM: denies: blurred vision, double vision, ear bleeding, ear discharge, ear drainage, ear pain, ear ringing, eye pain, eye redness, hearing loss, mouth pain, mouth swelling, nasal discharge, nose bleeding, nose congestion, nose pain, photophobia, tearing, throat pain, throat swelling, voice changes, others Respiratory: denies: cough, hemoptysis, orthopnea, SOB at rest, shortness of breath, SOB with excertion, stridor, wheezing, others Cardiovascular: denies: chest pain, dizzy spells, diaphoresis, Dyspnea on exertion, edema, irregular heart beat, left arm pain, lightheadedness, palpitations, PND, syncope, others Gastrointestinal: reports: abdominal pain, diarrhea; denies: abdomen distended, blood streaked bowels, constipated, dysphagia, difficulty swallowing, hematemesis, melena, nausea, poor appetite, poor fluid intake, rectal bleeding, rectal pain, vomiting, others Genitourinary: denies: burning, dysuria, flank pain, frequency, hematuria, incontinence, penile discharge, penile sore, pain, testicle pain, testicle swelling, urgency, others Neurological: denies: dizziness, fainting, headache, left sided numbness, left sided weakness, numbness, paresthesia, pre-existing deficit, right sided numbness, right sided weakness, seizure, speech problems, tingling, tremors, weakness, others Musculoskeletal: denies: back pain, gout, joint pain, joint swelling, muscle pain, muscle stiffness, neck pain, others Integumetry: denies: bruises, change in color, change in hair/nails, dryness, laceration, lesions, lumps, rash, wounds, others Allergic/Immunocompromised: denies: Difficulty Healing, Frequent Infections, Hives, Itching, others Hematologic/Lymphatic: denies: anemia, blood clots, easy bleeding, easy bruising, swollen glands, others Endocrine: denies: excessive hunger, excessive sweating, excessive thirst, excessive urination, flushing, intolerance to cold, intolerance to heat, unexplained weight gain, unexplained weight loss, others Psychiatric: denies: anxiety, bipolar disorder, depression, hopeless, panic disorder, schizophrenia, sleepless, suicidal, others Physical Exam General Appearance: No Apparent Distress, Normal HEENT: Normal ENT Inspection, Pharynx Normal, TMs Normal Neck: Full Range of Motion, Non-Tender, Normal, Normal Inspection Respiratory: Chest Non-Tender, Lungs Clear, No Accessory Muscle Use, No Respiratory Distress, Normal Breath Sounds Cardiovascular: No Edema, No JVD, No Murmur, No Gallop, Normal Peripheral Pulses, Regular Rate/Rhythm Breast Exam: Deferred Gastrointestinal: No Organomegaly, Non Tender, No Pulsatile Mass, Normal Bowel Sounds, Soft, Other (Colostomy) Genitalia: Deferred Pelvic: Deferred Rectal: Deferred Extremities: No calf tenderness, Normal capillary refill, Normal inspection, Normal range of motion, Non-tender, No pedal edema Musculoskeletal : Apperance: Normal Neurologic: Alert, tax intern II-XII nml as Tested, No Motor Deficits, Normal Affect, Normal Mood, No Sensory Deficits Cerebellar Function: Normal Reflexes: Normal Skin: Dry, Normal Color, Warm Lymphatic: No Adenopathy Was a procedure done? Was a procedure done?: No GI differential Dx Differential Diagnosis: Gastritis/PUD, Gastroenteritis, Other (Failure of colostomy bag) X-Ray, Labs, Meds, VS Vital Signs Date Time Temp Pulse Resp B/P (MAP) Pulse Ox O2 Delivery O2 Flow Rate FiO2 02/02/25 04:08 97.5 93 17 153/102 (119) 97 97.5 Time of 1ST Reevaluation: 04:48 Reevaluation 1ST: Unchanged Patient Education/Counseling: Diagnosis, Treatment Family Education/Counseling: No Family Present Departure 1 Departure Time of Disposition: 05:13 Impression: Primary Impression: Colostomy prolapse Additional Impression: Complication of ostomy Disposition: 01 HOME / SELF CARE / HOMELESS Condition: Stable e-Prescriptions No Active Prescriptions or Reported Meds Discharged With: Self Critical Care Note Critical Care Time?: No Stability Stability form required: No Heart Score Heart Score: Heart Score Response (Comments) Value History N/A 0 EKG N/A 0 Age N/A 0 Risk Factors N/A 0 Troponin N/A 0 Total 0 I personally scribed for DASHA SOTELO MD ([email or web address]) on 02/02/25 at 04:35. Electronically submitted by Keith Valerio ([facility]). I personally scribed for DASHA SOTELO MD ([email or web address]) on 02/02/25 at 04:52. Electronically submitted by Keith Valerio ([facility]). DASHA SOTELO MD Feb 02, 2025 04:35
== END 2025-02-02 05:56 | disposition home or self-care (01) ==
LOC: ER 03:47
DX: R10.9 Unspecified abdominal pain (principal); K94.09 Other complications of colostomy; F17.210 Nicotine dependence, cigarettes, uncomplicated; Z88.1 Allergy status to other antibiotic agents

== ENCOUNTER 2025-02-02 11:46 | Emergency (ER) | payer MEDICAID | END 2025-02-02 12:37 | disposition left against medical advice (07) | LOC: ER 11:46 | DX: R10.9 Unspecified abdominal pain (principal); Z53.21 Procedure and treatment not carried out due to patient leaving prior to being seen by health care provider ==

== ENCOUNTER 2025-02-02 14:26 | Emergency (ER) | payer MEDICAID ==
[~2025-02-02] VITALS: Ht 188 cm; Wt 75.0 kg
[2025-02-02 15:50] VITALS: PULSE 96; RESP 16; O2SAT 97
[2025-02-02 15:56] LABS: Eosinophils # (auto) 0.4 10 ^3/uL (0-0.8); Hemoglobin 12.2 g/dL (13.5-17.5); Lymphocytes # (auto) 0.7 10 ^3/uL (0.4-5.4); Mean Corpuscular Volume 83.4 fL (80.0-100.0); White Blood Cell 17.5 10^3/uL (4.4-10.8)
[2025-02-02 15:58] LABS: Basophils # (auto) 0 10 ^3/uL (0-0.2); Basophils % (auto) 0.2 % (0.0-2.0); Eosinophils % (auto) 2.2 % (0.0-7.0); Lymphocytes % (auto) 4.3 % (10.0-50.0); Mean Corpuscular Hemoglobin 26.1 pg (28.0-32.0); Mean Corpuscular Hgb Conc. 31.3 g/dL (32.0-36.0); Monocytes # (auto) 0.8 10 ^3/uL (0-1.3); Monocytes % (auto) 4.7 % (0.0-12.0); Neutrophils # (auto) 15.5 10 ^3/uL (1.6-8.6); Neutrophils % (auto) 88.6 % (37.0-80.0); Nucleated Red Blood Cells % 0.2 %; Platelet Count (auto) 523 10^3/uL (140-450); Red Blood Cells 4.67 10^6/uL (4.5-5.90); Red Cell Distribution Width 18.3 % (11.8-14.3)
[2025-02-02 16:05] LABS: Alanine Aminotransferase 9 U/L (7-40); Albumin 3.6 g/dL (3.2-4.8); Alkaline Phosphatase 114 U/L (46-116); Anion Gap 8 (5-15); Aspartate Aminotransferase 16 U/L (13-40); BUN/Creatinine Ratio 11.5 (10.0-20.0); Bilirubin, Total 0.4 mg/dL (0.2-1.0); Blood Urea Nitrogen 7 mg/dL (9-23); Calcium 8.9 mg/dL (8.7-10.4); Carbon Dioxide 20 mmol/L (20-31); Chloride 105 mmol/L (98-107); Glucose 87 mg/dL (74-106); Potassium 3.2 mmol/L (3.5-5.1); Sodium 133 mmol/L (136-145); Total Protein 9.3 g/dL (5.7-8.2)
[2025-02-02] MEDS: HYDROmorphone HCL 2 MG/ML VL/or syr IM ONE (16:45)
[2025-02-02] MEDS: ONDANSETRON HCL 4 MG/2 ML VIAL IV ONE ×2 (17:09→22:58)
[2025-02-02] MEDS: HYDROmorphone HCL 2 MG/ML VL/or syr IV ONE ×2 (17:09→22:57)
[2025-02-02] MEDS: SODIUM CHLORIDE 0.9% 1,000 ML IV ONE (17:09)
[2025-02-02] MEDS: PIPERACILLIN-TAZOB 3.375GM 100 ML IV ONE (17:15)
[2025-02-02] MEDS: SODIUM CHLORIDE 0.9% 1,000 ML IVB ONE (17:41)
--- NOTE | 2025-02-02 17:53 | ED.PDOC ---
GI ASSESSMENT HPI Comments 44-year-old male with a history of colostomy presents here with leaking colostomy and protruding. He states he had he had a history of hidradenitis to some leakage a colostomy had to be placed. He states some of his care was received at [facility] but the last time it was protruding a surgeon attempted placement back but unable to do so he was transferred to [facility]. Most recently he was at [facility] proximally 3 weeks where a close loop surgical procedure was done on stone. He states however since last night it has been hurting and swollen and leaking. Denies any fever or chills. He states last time he did become septic patient states he is in significant pain. Chief Complaint: Abdominal Pain Time Seen by MD: 14:52 Primary Care Provider: NONE Allergies: Coded Allergies: Ketorolac Tromethamine (Verified Allergy, Unknown, 09/03/23) Vancomycin (Verified Allergy, Unknown, 07/07/24) Home Meds No Active Prescriptions or Reported Meds Mode of Arrival: Wheelchair Past Medical History PAST MEDICAL HISTORY: Denies Surgical History (Other): Placement of colostomy Family History Family History: Reviewed,noncontributory to illness Social History Smoker: Cigarettes Alcohol: Rarely Drugs: Marijuana, Methamphetamine Lives In: Homeless Gastrointestinal: reports: abdominal pain All Other Systems: Reviewed and Negative Physical Exam Exam Comments Patient covered in stool. The stomas leaking significantly with copious stool leaking from site General Appearance: Moderate Distress HEENT: Normal ENT Inspection, Pharynx Normal Neck: Full Range of Motion, Non-Tender, Normal, Normal Inspection Respiratory: Chest Non-Tender, Lungs Clear, No Accessory Muscle Use, No Respiratory Distress, Normal Breath Sounds Cardiovascular: No Murmur, Normal Peripheral Pulses, Regular Rate/Rhythm Breast Exam: Deferred Gastrointestinal: Normal Bowel Sounds, Soft, Other (Patient has colostomy to th e left mid quadrant. Initially the stoma was protruding several inches on my initial evaluation. And colostomy bag filled with copious amount of yellow liquidy stools.) Genitalia: Deferred Pelvic: Deferred Rectal: Deferred Extremities: No calf tenderness, Normal inspection, Normal range of motion, Non-tender, No pedal edema Musculoskeletal : Apperance: Normal Neurologic: Alert, No Motor Deficits, Normal Affect, Normal Mood, No Sensory Deficits Cerebellar Function: Normal Reflexes: Normal Skin: Dry, Normal Color, Warm Lymphatic: No Adenopathy Was a procedure done? Was a procedure done?: No GI differential Dx Differential Diagnosis: Other Other Differential Diagnosis Prolapsed stoma. Strangulation incarceration, small-bowel obstruction, sepsis, dehydration X-Ray, Labs, Meds, VS Vital Signs Date Time Temp Pulse Resp B/P (MAP) Pulse Ox O2 Delivery O2 Flow Rate FiO2 02/02/25 17:42 84 12 149/94 02/02/25 16:45 96 16 159/99 02/02/25 15:50 96 16 97 Room Air* 0 21 02/02/25 15:50 98.0 96 16 159/99 (119) 97 98.0 02/02/25 14:51 98.5 110 16 132/91 (105) 100 98.5 Lab Test 02/02/25 15:38 Range/Units White Blood Count 17.5 H 4.4-10.8 10^3/uL Red Blood Count 4.67 4.5-5.90 10^6/uL Hemoglobin 12.2 L 13.5-17.5 g/dL Hematocrit 39.0 L 41.0-53.0 % Mean Corpuscular Volume 83.4 80.0-100.0 fL Mean Corpuscular Hemoglobin 26.1 L 28.0-32.0 pg Mean Corpuscular Hemoglobin Concent 31.3 L 32.0-36.0 g/dL Red Cell Distribution Width 18.3 H 11.8-14.3 % Platelet Count 523 H 140-450 10^3/uL Mean Platelet Volume 6.7 L 6.9-10.8 fL Neutrophils (%) (Auto) 88.6 H 37.0-80.0 % Lymphocytes (%) (Auto) 4.3 L 10.0-50.0 % Monocytes (%) (Auto) 4.7 0.0-12.0 % Eosinophils (%) (Auto) 2.2 0.0-7.0 % Basophils (%) (Auto) 0.2 0.0-2.0 % Neutrophils # (Auto) 15.5 H 1.6-8.6 10 ^3/uL Lymphocytes # (Auto) 0.7 0.4-5.4 10 ^3/uL Monocytes # (Auto) 0.8 0-1.3 10 ^3/uL Eosinophils # (Auto) 0.4 0-0.8 10 ^3/uL Basophils # (Auto) 0 0-0.2 10 ^3/uL Nucleated Red Blood Cells 0.2 % Sodium Level 133 L 136-145 mmol/L Potassium Level 3.2 L 3.5-5.1 mmol/L Chloride Level 105 98-107 mmol/L Carbon Dioxide Level 20 20-31 mmol/L Anion Gap 8 5-15 Blood Urea Nitrogen 7 L 9-23 mg/dL Creatinine 0.61 L 0.700-1.30 mg/dL Glomerular Filtration Rate Calc 122 >90 mL/min BUN/Creatinine Ratio 11.5 10.0-20.0 Serum Glucose 87 74-106 mg/dL Calcium Level 8.9 8.7-10.4 mg/dL Total Bilirubin 0.4 0.2-1.0 mg/dL Aspartate Amino Transferase (AST) 16 13-40 U/L Alanine Aminotransferase (ALT) 9 7-40 U/L Alkaline Phosphatase 114 46-116 U/L Total Protein 9.3 H 5.7-8.2 g/dL Albumin 3.6 3.2-4.8 g/dL Current Medications Medications (Trade) Dose Ordered Sig/Wallace Route Start Time Stop Time Status Last Admin Ondansetron HCl (Zofran) 4 mg ONCE ONCE IV 02/02/25 15:15 02/02/25 15:16 DC 02/02/25 17:09 Sodium Chloride 1,000 ml @ 1,000 mls/hr Q1H ONCE IVB 02/02/25 15:15 02/02/25 16:14 DC 02/02/25 17:41 Sodium Chloride 1,000 ml @ 1,000 mls/hr Q1H ONCE IV 02/02/25 15:15 02/02/25 16:14 DC 02/02/25 17:09 Hydromorphone HCl (Dilaudid Injection) 1 mg ONCE ONCE IM 02/02/25 16:45 02/02/25 16:46 DC 02/02/25 16:45 Piperacillin Sod/ Tazobactam Sod 100 ml @ 100 mls/hr ONCE ONCE IV 02/02/25 17:00 02/02/25 17:59 DC 02/02/25 17:15 44-year-old male with a known colostomy here for pain and prolapsed stoma. Patient was covered in stool colostomy bag is filled with significant amount of yellow liquidy stool. I attempted to place the stoma back in. Although the stoma largely was able to reduce the end of the stoma is still protruding and edematous. At this time I have obtained a CT abdomen and pelvis noncontrast and is pending. Sugar has also been ordered from cafeteria has a next step will be to place sugar on the stoma site to help with inflammation. I did attempt to contact [facility] for transfer as patient has a had multiple surgeries for his colostomy there in the last year including last 1 3 weeks ago. However [facility] was found to be a capacity. I have placed him on ED obs at this time. Blood work has been done which demonstrates a leukocytosis of 17. I have therefore started him on Zosyn IV. Patient has been given IV fluids Dilaudid and Zofran in the ER. At this time patient care has been transferred to Dr. Vyas 6:00 p.m.. Time of 1ST Reevaluation: 17:30 Reevaluation 1ST: Unchanged Patient Education/Counseling: Diagnosis, Treatment Family Education/Counseling: Diagnosis, Treatment Assigned to Dr. Dr. Vyas Change of Shift?: Yes Departure 1 Departure Time of Disposition: 18:00 Impression: Primary Impression: Gastrointestinal stoma prolapse Additional Impression: Leukocytosis Qualified Codes: D72.829 - Elevated white blood cell count, unspecified Disposition: 30 STILL A PATIENT Condition: Fair e-Prescriptions No Active Prescriptions or Reported Meds Critical Care Note Critical Care Time?: No Stability Stability form required: No Heart Score Heart Score: Heart Score Response (Comments) Value History N/A 0 EKG N/A 0 Age N/A 0 Risk Factors N/A 0 Troponin N/A 0 Total 0 ANDRÉS WARREN MD Feb 02, 2025 17:53
--- NOTE | 2025-02-02 18:40 | DVH ---
Exam: CT CT AB PEL WO CON-NO ORAL OR IV History: prolapsed stoma Comparison Study: None available at time of dictation. TECHNIQUE: Multidetector CT of the abdomen was performed from lung bases to pubic symphysis. Imaging was performed without IV contrast. Axial, coronal and sagittal multiplanar reformats were obtained fr om the axial data set by the technologist. Radiation Dose Information: CT Dose: CTDI volume is 5.31 mGy. Dose-length product is 287.74 mGy*cm FINDINGS: Evaluation of solid organs is limited due to lack of intravenous contrast use. Findings: Lung Bases: Scarring or atelectasis in the right posterior costophrenic angle.. Normal heart size. N o pleural or pericardial effusion. Liver: The liver is normal in size. No focal lesions. Gallbladder and Biliary Tree: Unremarkable Spleen: Unremarkable Pancreas: The pancreas is grossly normal in appearance. Adrenal Glands: Unremarkable Kidneys: 2 small left renal cysts. 3 small right renal cysts largest measures 2.4 cm. Bladder: Grossly unremarkable for degree of distention. Bowel: The stomach is grossly normal in appearance. Small bowel and colon are normal in caliber and d istribution. Colostomy lower left anterior abdominal wall. No findings of bowel obstruction. The cindy endix is not visualized; however, no secondary findings of acute appendicitis identified. Ascites: Absent Lymphadenopathy: No mesenteric, retroperitoneal or periportal lymphadenopathy. Abdominal Wall and Mesentery: Unremarkable. Vasculature: The visualized abdominal aorta is normal in size and caliber. Evaluation of abdominal a nd pelvic vessels is limited due to lack of intravenous contrast. Pelvic Organs: Unremarkable Musculoskeletal: No aggressive focal bony lesions, acute fractures or dislocation. Soft tissues: Unremarkable IMPRESSION: 1. Colostomy in the lower left anterior abdominal wall. No findings of bowel obstruction. There may b e some prolapse tissue around the colostomy in the lower left anterior abdomen. Measures 5.7 x 2.7 cm . 2. Multiple renal cysts bilaterally 2 on the left 3 on the right. 3. No calcified gallstones Radiation optimization: All CT scans at this facility use at least one of these dose optimization te chniques: automated exposure control mA and/or kV adjustment per patient size (includes targeted exa ms where dose is matched to clinical indication) or iterative reconstruction. HS:Y
[2025-02-02 20:00] VITALS: PULSE 76; RESP 11; O2SAT 100
[2025-02-03] MEDS: fentaNYL CITRATE 100 MCG/2 ML VL IV ONE (07:55)
[2025-02-03 08:15] VITALS: PULSE 92; RESP 19; O2SAT 95
[2025-02-03] MEDS: SODIUM CHL 0.9% 100 ML IV SCH (08:34)
[2025-02-03] MEDS: POTASSIUM CHL 20MEQ/50ML 50 ML IV SCH (08:34)
--- NOTE | 2025-02-03 13:21 | DVHINCON2 ---
Date of service: Feb 03, 2025 History of Present Illness 44-year-old male with a history of gluteal hidradenitis status post diverting colostomy performed at [facility] one month ago now complaining of c olostomy prolapse. Patient denies any fevers or chills but reports mild nausea. Past Medical History Hidradenitis Past Surgical History To abdominal surgeries for his hidradenitis 1st one which sounds like a loop colostomy which was subsequently revised due to colonic prolapse to a end colostomy one month ago. However we do not have any records from [place] to confirm this and this is all from patient's information. Family History: Patient reports no known family medical history. Family History Noncontributory Social History Smokes marijuana. Rare alcohol. Uses methamphetamines Allergies: Coded Allergies: Ketorolac Tromethamine (Verified Allergy, Unknown, 09/03/23) Vancomycin (Verified Allergy, Unknown, 07/07/24) Home Meds No Active Prescriptions or Reported Meds Current Medications Current Medications Medications (Trade) Dose Ordered Sig/Wallace Route PRN Reason Start Time Stop Time Status Last Admin Potassium Chloride 50 ml @ 25 mls/hr Q2H IV 02/03/25 08:30 02/03/25 12:29 DC 02/03/25 10:16 Sodium Chloride 100 ml @ 50 mls/hr Q2H IV 02/03/25 08:30 02/03/25 12:29 DC 02/03/25 10:17 Vital Signs Vital Signs Date Time Temp Pulse Resp B/P (MAP) Pulse Ox O2 Delivery O2 Flow Rate FiO2 02/03/25 13:00 78 16 121/68 (85) 97 02/03/25 10:00 98.1 98.1 02/03/25 08:15 Room Air* 0 N/A Nasal Cannula* Physical Exam GEN: Thin male in no acute distress. Alert. HEENT: Normocephalic atraumatic. Moist mucous membranes. Anicteric sclerae. CV: RRR Respiratory: CTAB ABD: There is a left lower quadrant colostomy with colonic prolapse with viable colon without any signs of necrosis or significant colonic edema. Colostomy is productive. CT of the abdomen and pelvis: Colostomy in the left lower anterior abdominal wall without findings of bowel obstruction. There may be some prolapse tissue around the colostomy. Labs/Diagnostic Data Labs Test 02/02/25 15:38 Range/Units White Blood Count 17.5 H 4.4-10.8 10^3/uL Red Blood Count 4.67 4.5-5.90 10^6/uL Hemoglobin 12.2 L 13.5-17.5 g/dL Hematocrit 39.0 L 41.0-53.0 % Mean Corpuscular Volume 83.4 80.0-100.0 fL Mean Corpuscular Hemoglobin 26.1 L 28.0-32.0 pg Mean Corpuscular Hemoglobin Concent 31.3 L 32.0-36.0 g/dL Red Cell Distribution Width 18.3 H 11.8-14.3 % Platelet Count 523 H 140-450 10^3/uL Mean Platelet Volume 6.7 L 6.9-10.8 fL Neutrophils (%) (Auto) 88.6 H 37.0-80.0 % Lymphocytes (%) (Auto) 4.3 L 10.0-50.0 % Monocytes (%) (Auto) 4.7 0.0-12.0 % Eosinophils (%) (Auto) 2.2 0.0-7.0 % Basophils (%) (Auto) 0.2 0.0-2.0 % Neutrophils # (Auto) 15.5 H 1.6-8.6 10 ^3/uL Lymphocytes # (Auto) 0.7 0.4-5.4 10 ^3/uL Monocytes # (Auto) 0.8 0-1.3 10 ^3/uL Eosinophils # (Auto) 0.4 0-0.8 10 ^3/uL Basophils # (Auto) 0 0-0.2 10 ^3/uL Nucleated Red Blood Cells 0.2 % Sodium Level 133 L 136-145 mmol/L Potassium Level 3.2 L 3.5-5.1 mmol/L Chloride Level 105 98-107 mmol/L Carbon Dioxide Level 20 20-31 mmol/L Anion Gap 8 5-15 Blood Urea Nitrogen 7 L 9-23 mg/dL Creatinine 0.61 L 0.700-1.30 mg/dL Glomerular Filtration Rate Calc 122 >90 mL/min BUN/Creatinine Ratio 11.5 10.0-20.0 Serum Glucose 87 74-106 mg/dL Calcium Level 8.9 8.7-10.4 mg/dL Total Bilirubin 0.4 0.2-1.0 mg/dL Aspartate Amino Transferase (AST) 16 13-40 U/L Alanine Aminotransferase (ALT) 9 7-40 U/L Alkaline Phosphatase 114 46-116 U/L Total Protein 9.3 H 5.7-8.2 g/dL Albumin 3.6 3.2-4.8 g/dL Assessment 1. Left lower quadrant colostomy prolapse however without signs of strangulation or necrosis or obstruction. Plan/Recommendation 1. I recommend either transferred to [place] for revision as the best option. However patient is clinically stable without signs of obstruction or necrosis or strangulation. This can potentially be repaired on an elective basis and does not need an emergency surgical intervention at this time. Discussed with Dr. Rico in the ER. Plan discussed with: Patient VARUN TANNER MD Feb 03, 2025 13:21
[2025-02-03 15:00] VITALS: BP 121/73; PULSE 84; RESP 13; TEMP 98.7; O2SAT 97
== END 2025-02-03 15:30 | disposition home or self-care (01) ==
LOC: ER 14:26
DX: K94.19 Other complications of enterostomy (principal); K94.09 Other complications of colostomy; D72.829 Elevated white blood cell count, unspecified; F17.210 Nicotine dependence, cigarettes, uncomplicated; F12.90 Cannabis use, unspecified, uncomplicated; F15.90 Other stimulant use, unspecified, uncomplicated; Z98.890 Other specified postprocedural states; Z59.00 Homelessness unspecified; Z88.1 Allergy status to other antibiotic agents
CPT/HCPCS: 36415; 74176; 80053; 85025; 87040; 96361; 96365; 96372; 96375; 96376; 99285; J1171; J2405; J2543; J3010; J3480; J7030

== ENCOUNTER 2025-02-11 20:59 | Emergency (ER) | payer MEDICAID ==
[~2025-02-11] VITALS: Ht 180.3 cm; Wt 75.0 kg
--- NOTE | 2025-02-11 21:46 | ED.PDOC ---
History of Present Illness HPI Comments 44 y/o M, with a history of colostomy, homelessness, and frequent ED visits, is BIBA for c/o nonradiating, generalized abdominal and sternal chest pain, nausea, and lightheadedness. Patient reports sudden onset of symptoms within the past 2 hours from arrival. He reports having a colostomy revision procedure, recently, done at [facility] ([facility] 2 days ago and having brown-fluid output from it since then as well. States on last item he ate being a granola bar. Denies any shortness of breath, vomiting, fever, chills, urinary symptoms, or other associated symptoms at this time. Per EMS report, vitals were noted to have been stable and within normal limits. Chief Complaint: Abdominal Pain Time Seen by MD: 21:10 Primary Care Provider: NONE Reviewed Notes: Nurses Notes, Engineering Intern Notes, Medications, Allergies Allergies: Coded Allergies: Ketorolac Tromethamine (Verified Allergy, Unknown, 09/03/23) Vancomycin (Verified Allergy, Unknown, 07/07/24) Home Meds No Active Prescriptions or Reported Meds Information Source: Patient, Emergency Med Personnel Mode of Arrival: EMS Severity: Moderate Review of Systems: REVIEW OF SYSTEMS: No fever, no chills, or fatigue HEENT: No sore throat, no earache, no congestion, no neck pain. Cardiac: Chest pain. Lightheadedness. No palpitations. Lungs: Shortness of breath, no cough. GI: Abdominal pain. Nausea, no vomiting, no diarrhea, no constipation : No dysuria, frequency, or urgency. No hematuria. Musculoskeletal: No joint pain , no joint swelling, no extremity edema. Skin: No rash, no itching. Neuro: No headache, no dizziness, no weakness Vital Signs Vital Signs Date Time Temp Pulse Resp B/P (MAP) Pulse Ox O2 Delivery O2 Flow Rate FiO2 02/11/25 23:20 133 18 97 Room Air* 0 21 02/11/25 23:20 97.8 136/75 (95) 97.8 Physical Exam General: Awake, alert and oriented. No acute distress. Skin: Skin in warm, dry and intact. Appropriate color for ethnicity. HEENT: The head is normocephalic and atraumatic. Conjunctivae are clear without exudates or hemorrhage. Sclera is non-icteric. EOM are intact. No signs of nystagmus. Eyelids are normal in appearance without swelling or lesions. Oral mucosa is pink and moist Neck: The neck is supple with normal range of motion. No JVD. Cardiac: Heart rate and rhythm are normal. No murmurs, gallops, or rubs are auscultated. Respiratory: No signs of respiratory distress. Lung sounds are clear in all lobes bilaterally without rales, rhonchi, or wheezes. Abdominal: Colostomy in place in LLQ; Colostomy bag contains brown liquid. Generalized abdominal tenderness without rigidity. Otherwise abdomen is without distention. Bowel sounds are present and normoactive in all four quadrants. Extremities: Upper and lower extremities are atraumatic in appearance without deformity or edema. Neurological: The patient is awake, alert and oriented to person, place, and time with normal speech. Speech is clear. There is no facial asymmetry. Psychiatric: Appropriate mood and affect. Good judgement and insight. Past Medical History PAST MEDICAL HISTORY: Denies Surgical History (Other): colostomy placement Family History Family History: Reviewed,noncontributory to illness Social History Smoker: Cigarettes Alcohol: Rarely Drugs: Marijuana, Methamphetamine Lives In: Homeless Was a procedure done? Was a procedure done?: No Differential Dx Considerations may include: post-op complication, intra-abdominal abscess, gastritis, gastroenteritis, viral syndrome, bowel obstruction, among others X-Ray, Labs, Meds, VS Vital Signs Date Time Temp Pulse Resp B/P (MAP) Pulse Ox O2 Delivery O2 Flow Rate FiO2 02/11/25 23:20 133 18 97 Room Air* 0 21 02/11/25 23:20 97.8 133 18 136/75 (95) 97 97.8 02/11/25 21:28 20 98 0 02/11/25 21:06 97.9 116 20 138/94 (109) 97 97.9 Lab Test 02/11/25 22:12 Range/Units White Blood Count 21.9 H 4.4-10.8 10^3/uL Red Blood Count 4.82 4.5-5.90 10^6/uL Hemoglobin 12.4 L 13.5-17.5 g/dL Hematocrit 39.1 L 41.0-53.0 % Mean Corpuscular Volume 81.1 80.0-100.0 fL Mean Corpuscular Hemoglobin 25.7 L 28.0-32.0 pg Mean Corpuscular Hemoglobin Concent 31.7 L 32.0-36.0 g/dL Red Cell Distribution Width 17.9 H 11.8-14.3 % Platelet Count 440 140-450 10^3/uL Mean Platelet Volume 6.7 L 6.9-10.8 fL Neutrophils (%) (Auto) 86.3 H 37.0-80.0 % Lymphocytes (%) (Auto) 3.9 L 10.0-50.0 % Monocytes (%) (Auto) 4.6 0.0-12.0 % Eosinophils (%) (Auto) 5.0 0.0-7.0 % Basophils (%) (Auto) 0.2 0.0-2.0 % Neutrophils # (Auto) 18.9 H 1.6-8.6 10 ^3/uL Lymphocytes # (Auto) 0.9 0.4-5.4 10 ^3/uL Monocytes # (Auto) 1.0 0-1.3 10 ^3/uL Eosinophils # (Auto) 1.1 H 0-0.8 10 ^3/uL Basophils # (Auto) 0 0-0.2 10 ^3/uL Nucleated Red Blood Cells 0.0 % Sodium Level 139 136-145 mmol/L Potassium Level 3.2 L 3.5-5.1 mmol/L Chloride Level 103 98-107 mmol/L Carbon Dioxide Level 26 20-31 mmol/L Anion Gap 10 5-15 Blood Urea Nitrogen 15 9-23 mg/dL Creatinine 0.72 0.700-1.30 mg/dL Glomerular Filtration Rate Calc 116 >90 mL/min BUN/Creatinine Ratio 20.8 H 10.0-20.0 Serum Glucose 107 H 74-106 mg/dL Lactic Acid Level 1.5 0.4-2.0 mmol/L Calcium Level 9.6 8.7-10.4 mg/dL Magnesium Level 1.2 L 1.6-2.6 mg/dL Total Bilirubin < 0.2 L 0.2-1.0 mg/dL Aspartate Amino Transferase (AST) 16 13-40 U/L Alanine Aminotransferase (ALT) 13 7-40 U/L Alkaline Phosphatase 120 H 46-116 U/L Troponin I High Sensitivity < 3 L </=54 ng/L Total Protein 9.0 H 5.7-8.2 g/dL Albumin 3.8 3.2-4.8 g/dL Time of 1ST Reevaluation: 21:40 Reevaluation 1ST: Unchanged Patient Education/Counseling: Need For Follow Up Family Education/Counseling: No Family Present Departure 1 Departure Time of Disposition: 02:12 Impression: Primary Impression: Eloped from emergency department Additional Impression: Abdominal pain Disposition: 07 LEFT AWOL/ELOPED Condition: Guarded e-Prescriptions No Active Prescriptions or Reported Meds Comments Patient eloped from the emergency. To receiving test results antibiotics , further treatment and evaluation Extensive evaluation was performed in attempt to identify or rule out: (See differential diagnosis section) The following tests were ordered, and results were reviewed by me and discussed with patient: (See diagnostic results section) The following test were independently interpreted by me: N/A I reviewed and agreed with the following test results read by other providers: N/A I reviewed the following notes from the pt's past medical encounters: February 03, 2024 encounter for Gastrointestinal Stoma Prolapse Additional information was gathered from interviewing the following independent historians: EMS Discussion of management or test interpretation with external physician/other qualified health career development consultant: N/A Critical Care Note Critical Care Time?: No Stability Stability form required: No Heart Score Heart Score: Heart Score Response (Comments) Value History N/A 0 EKG N/A 0 Age N/A 0 Risk Factors N/A 0 Troponin N/A 0 Total 0 I personally scribed for MARTIN ART MD ([address]) on 02/11/25 at 21:46. Electronically submitted by Elkin Dimas ([email or web address]). I personally scribed for MARTIN ART MD ([address]) on 02/11/25 at 22:01. Electronically submitted by Elkin Dimas ([email or web address]). MARTIN ART MD February 11, 2025 21:46
[2025-02-11] MEDS ORDERED: IOHEXOL 300 MG/ML 100ML BOTTLE IJ ONE (22:08)
[2025-02-11 22:28] LABS: Basophils # (auto) 0 10 ^3/uL (0-0.2); Basophils % (auto) 0.2 % (0.0-2.0); Eosinophils # (auto) 1.1 10 ^3/uL (0-0.8); Hematocrit 39.1 % (41.0-53.0); Hemoglobin 12.4 g/dL (13.5-17.5); Lymphocytes # (auto) 0.9 10 ^3/uL (0.4-5.4); Lymphocytes % (auto) 3.9 % (10.0-50.0); Mean Corpuscular Hemoglobin 25.7 pg (28.0-32.0); Mean Corpuscular Hgb Conc. 31.7 g/dL (32.0-36.0); Mean Corpuscular Volume 81.1 fL (80.0-100.0); Monocytes % (auto) 4.6 % (0.0-12.0); Neutrophils # (auto) 18.9 10 ^3/uL (1.6-8.6); Neutrophils % (auto) 86.3 % (37.0-80.0); Platelet Count (auto) 440 10^3/uL (140-450); Red Blood Cells 4.82 10^6/uL (4.5-5.90); Red Cell Distribution Width 17.9 % (11.8-14.3); White Blood Cell 21.9 10^3/uL (4.4-10.8)
[2025-02-11 23:00] LABS: Alanine Aminotransferase 13 U/L (7-40); Albumin 3.8 g/dL (3.2-4.8); Alkaline Phosphatase 120 U/L (46-116); Anion Gap 10 (5-15); Aspartate Aminotransferase 16 U/L (13-40); BUN/Creatinine Ratio 20.8 (10.0-20.0); Bilirubin, Total < 0.2 mg/dL (0.2-1.0); Blood Urea Nitrogen 15 mg/dL (9-23); Calcium 9.6 mg/dL (8.7-10.4); Carbon Dioxide 26 mmol/L (20-31); Chloride 103 mmol/L (98-107); Glucose 107 mg/dL (74-106); Magnesium 1.2 mg/dL (1.6-2.6); Potassium 3.2 mmol/L (3.5-5.1); Sodium 139 mmol/L (136-145)
[2025-02-11 23:20] VITALS: BP 136/75; PULSE 133; RESP 18; TEMP 97.8; O2SAT 97
[2025-02-11] MEDS: SODIUM CHLORIDE 0.9% 1,000 ML IV ONE (23:41)
[2025-02-11] MEDS: ACETAMINOPHEN IV 1000 MG/100ML (10MG/ML) IV ONE (23:44)
[2025-02-11] MEDS: ONDANSETRON HCL 4 MG/2 ML VIAL IV ONE (23:44)
[2025-02-12] MEDS ORDERED: levoFLOXacin 500MG 100 ML IV ONE (00:15)
[2025-02-12] MEDS ORDERED: metroNIDAZOLE 500MG/100ML 100 ML IV ONE (00:15)
[2025-02-12] MEDS ORDERED: POTASSIUM CHL 20MEQ/100ML 100 ML IV ONE (01:00)
== END 2025-02-12 02:12 | disposition left against medical advice (07) ==
LOC: ER 20:59 → EDBD 20:59 → ER 02-12 02:12
DX: R10.84 Generalized abdominal pain (principal); R07.89 Other chest pain; R11.0 Nausea; F17.210 Nicotine dependence, cigarettes, uncomplicated; F12.90 Cannabis use, unspecified, uncomplicated; F15.90 Other stimulant use, unspecified, uncomplicated; Z59.00 Homelessness unspecified; Z93.3 Colostomy status; Z88.8 Allergy status to other drugs, medicaments and biological substances; Z88.1 Allergy status to other antibiotic agents
CPT/HCPCS: 36415; 80053; 83605; 83735; 84484; 85025; 96361; 96374; 96375; 99284; J2405; J3480; J7030; Q9967; J0131

== ENCOUNTER 2025-02-24 14:49 | Emergency (ER) | payer MEDICAID ==
[~2025-02-24] VITALS: Ht 188 cm; Wt 68.8 kg
[2025-02-24 15:50] VITALS: BP 139/89; PULSE 98; RESP 16; TEMP 98.9; O2SAT 98
--- NOTE | 2025-02-24 15:59 | ED.PDOC ---
History of Present Illness HPI Comments A 44 YEAR OLD MALE PRESENTS TO THE ED WITH COMPLAINT OF REQUEST FOR COLOSTOMY SUPPLIES. PATIENT STATES HE HAS A COLOSTOMY IN PLACE, BUT RAN OUT OF COLOSTOMY BAGS/SUPPLIES. PATIENT IS REQUESTING COLOSTOMY SUPPLIES HERE IN THE ED. PATIENT DENIES FEVER, CHILLS, SHORTNESS OF BREATH, CHEST PAIN, ABDOMINAL PAIN, NAUSEA, VOMITING, HEADACHE, OR OTHER COMPLAINTS. NO OTHER SYMPTOMS OR MODIFYING FACTORS AT THIS TIME. PATIENT IS ALERT, ORIENTED X 4, AND HAS STEADY GAIT. Chief Complaint: Medical Clearance Time Seen by MD: 15:14 Primary Care Provider: NONE Reviewed Notes: Nurses Notes, Medications, Allergies Allergies: Coded Allergies: Ketorolac Tromethamine (Verified Allergy, Unknown, 09/03/23) Vancomycin (Verified Allergy, Unknown, 07/07/24) Home Meds No Active Prescriptions or Reported Meds Information Source: Patient Mode of Arrival: Ambulatory Severity: Mild Timing: Days Duration: Since onset, Days Prehospital treatment: None Medication Refill: For: Other (REQUEST FOR COLOSTOMY SUPPLIES) Past Medical History PAST MEDICAL HISTORY: Denies Surgical History (Other): COLOSTOMY Family History Family History: Reviewed,noncontributory to illness Social History Smoker: Cigarettes Alcohol: Rarely Drugs: Marijuana, Methamphetamine Lives In: Homeless Constitutional: denies: chills, diaphoresis, fatigue, fever, malaise, sweats, weakness, others EENTM: denies: blurred vision, double vision, ear bleeding, ear discharge, ear drainage, ear pain, ear ringing, eye pain, eye redness, hearing loss, mouth pain, mouth swelling, nasal discharge, nose bleeding, nose congestion, nose pain, photophobia, tearing, throat pain, throat swelling, voice changes, others Respiratory: denies: cough, hemoptysis, orthopnea, SOB at rest, shortness of breath, SOB with excertion, stridor, wheezing, others Cardiovascular: denies: chest pain, dizzy spells, diaphoresis, Dyspnea on exertion, edema, irregular heart beat, left arm pain, lightheadedness, palpitations, PND, syncope, others Gastrointestinal: denies: abdomen distended, abdominal pain, blood streaked bowels, constipated, diarrhea, dysphagia, difficulty swallowing, hematemesis, melena, nausea, poor appetite, poor fluid intake, rectal bleeding, rectal pain, vomiting, others Genitourinary: denies: burning, dysuria, flank pain, frequency, hematuria, incontinence, penile discharge, penile sore, pain, testicle pain, testicle swelling, urgency, others Neurological: denies: dizziness, fainting, headache, left sided numbness, left sided weakness, numbness, paresthesia, pre-existing deficit, right sided numbness, right sided weakness, seizure, speech problems, tingling, tremors, weakness, others Musculoskeletal: denies: back pain, gout, joint pain, joint swelling, muscle pain, muscle stiffness, neck pain, others Integumetry: denies: bruises, change in color, change in hair/nails, dryness, laceration, lesions, lumps, rash, wounds, others Allergic/Immunocompromised: denies: Difficulty Healing, Frequent Infections, Hives, Itching, others Hematologic/Lymphatic: denies: anemia, blood clots, easy bleeding, easy bruising, swollen glands, others Endocrine: denies: excessive hunger, excessive sweating, excessive thirst, excessive urination, flushing, intolerance to cold, intolerance to heat, unexplained weight gain, unexplained weight loss, others Psychiatric: denies: anxiety, bipolar disorder, depression, hopeless, panic d isorder, schizophrenia, sleepless, suicidal, others All Other Systems: Reviewed and Negative Physical Exam General Appearance: No Apparent Distress, Normal HEENT: Normal ENT Inspection, PERRL/EOMI, Pharynx Normal, TMs Normal Neck: Full Range of Motion, Non-Tender, Normal, Normal Inspection Respiratory: Chest Non-Tender, Lungs Clear, No Accessory Muscle Use, No Respiratory Distress, Normal Breath Sounds Cardiovascular: No Edema, No JVD, No Murmur, No Gallop, Normal Peripheral Pulses, Regular Rate/Rhythm Breast Exam: Deferred Gastrointestinal: No Organomegaly, Non Tender, No Pulsatile Mass, Normal Bowel Sounds, Soft Genitalia: Deferred Pelvic: Deferred Rectal: Deferred Extremities: No calf tenderness, Normal capillary refill, Normal inspection, Normal range of motion, Non-tender, No pedal edema Musculoskeletal : Apperance: Normal Neurologic: Alert, distance learning unit leader II-XII nml as Tested, No Motor Deficits, Normal Affect, Normal Mood, No Sensory Deficits Cerebellar Function: Normal Reflexes: Normal Skin: Dry, Normal Color, Warm Peripheral Pulses: 2+ carotid (R), 2+ carotid (L) Lymphatic: No Adenopathy Was a procedure done? Was a procedure done?: No Differential Dx Considerations may include: COLOSTOMY CARE X-Ray, Labs, Meds, VS Vital Signs Date Time Temp Pulse Resp B/P (MAP) Pulse Ox O2 Delivery O2 Flow Rate FiO2 02/24/25 15:50 98 16 98 Room Air 02/24/25 15:50 98.9 98 16 139/89 (106) 98 98.9 02/24/25 15:14 98.9 98 16 139/89 (106) 98 98.9 X-Ray, Labs, Meds, VS Comment EXTERNAL MEDICAL RECORDS REVIEWED: [NONE] INDEPENDENT HISTORIANS: [NONE] SOCIAL DETERMINANTS OF HEALTH: [NONE] LABS ORDERED: NONE REVIEWED AND INTERPRETED RESULTS: NONE IMAGING ORDERED: NONE TREATMENTS ORDERED: PATIENT PROVIDED WITH COLOSTOMY SUPPLIES. PROCEDURES PERFORMED: NONE CRITICAL CARE TIME: NONE I HAVE DISCUSSED THE PATIENT WITH THE ATTENDING PHYSICIAN DR. MILLER AND HE AGREES WITH THE PATIENT'S PLAN OF CARE AND DISPOSITION. BASED ON HISTORY OF PRESENT ILLNESS, AND PHYSICAL EXAM, PATIENT WILL BE DISCHARGED HOME. SHARED DECISION MAKING: PATIENT INSTRUCTED TO FOLLOW UP WITH PRIMARY CARE PROVIDER IN 1-2 DAYS FOR RE-EVALUATION OF SYMPTOMS. PATIENT VERBALIZES UNDERSTANDING TO RETURN TO ED FOR NEW OR WORSENING SYMPTOMS OR IF FOLLOW UP WITH PCP CANNOT BE OBTAINED. PATIENT FEELS COMFORTABLE GOING HOME AT THIS TIME. ALL QUESTIONS ADDRESSED AT TIME OF DISCHARGE. Time of 1ST Reevaluation: 16:08 Reevaluation 1ST: Improved Patient Education/Counseling: Diagnosis, Treatment, Need For Follow Up Family Education/Counseling: Diagnosis, Treatment, Need For Follow Up Medical Screening: No EMC Exist At This Time Departure 1 Departure Time of Disposition: 16:20 Impression: Primary Impression: Colostomy care Disposition: 01 HOME / SELF CARE / HOMELESS Condition: Stable Additional Instructions: FOLLOW-UP WITH PCP IN 1 TO 2 DAYS. RETURN TO ED FOR ANY NEW OR WORSENING SYMPTOMS. e-Prescriptions No Active Prescriptions or Reported Meds Discharged With: Self Critical Care Note Critical Care Time?: No Stability Stability form required: No I personally scribed for DONNA HARDEN ([email or web address]) on 02/24/25 at 15:59. Elec tronically submitted by Gama Pascal ([email or web address]). DONNA HARDEN February 24, 2025 15:59
== END 2025-02-24 16:24 | disposition home or self-care (01) ==
LOC: ER 14:49
DX: Z43.3 Encounter for attention to colostomy (principal); F17.210 Nicotine dependence, cigarettes, uncomplicated; F12.90 Cannabis use, unspecified, uncomplicated; Z59.00 Homelessness unspecified; Z88.1 Allergy status to other antibiotic agents

== ENCOUNTER 2025-03-15 14:10 | Emergency (ER) | payer MEDICAID ==
[~2025-03-15] VITALS: Ht 188 cm; Wt 68.1 kg
--- NOTE | 2025-03-15 16:15 | ED.PDOC ---
History of Present Illness(SKN HPI Comments 44 year male presents for wound care and colostomy supplies Chief Complaint: Wound Check Time Seen by MD: 15:50 Primary Care Provider: NONE History of Present Illness: Nurses Notes, Medications, Allergies Allergies: Coded Allergies: Ketorolac Tromethamine (Verified Allergy, Unknown, 09/03/23) Vancomycin (Verified Allergy, Unknown, 07/07/24) Home Meds No Active Prescriptions or Reported Meds Information Source: Patient Mode of Arrival: Ambulatory Past Medical History PAST MEDICAL HISTORY: Denies Family History Family History: Reviewed,noncontributory to illness Social History Smoker: Cigarettes Alcohol: Rarely Drugs: Marijuana, Methamphetamine Lives In: Homeless All Other Systems: Reviewed and Negative (PER HPI) Physical Exam General Appearance: No Apparent Distress, Normal HEENT: Normal ENT Inspection, Pharynx Normal, TMs Normal Neck: Full Range of Motion, Non-Tender, Normal, Normal Inspection Respiratory: Chest Non-Tender, Lungs Clear, No Accessory Muscle Use, No Respiratory Distress, Normal Breath Sounds Cardiovascular: No Murmur, No Gallop, Regular Rate/Rhythm Breast Exam: Deferred Gastrointestinal: No Organomegaly, Non Tender, No Pulsatile Mass, Normal Bowel Sounds, Soft Genitalia: Deferred Pelvic: Deferred Rectal: Deferred Extremities: No calf tenderness, Normal capillary refill, Normal inspection, Normal range of motion, Non-tender, No pedal edema Musculoskeletal : Apperance: Normal Neurologic: Alert, No Motor Deficits, Normal Affect, Normal Mood, No Sensory Deficits Cerebellar Function: Normal Reflexes: Normal Skin: Dry, Normal Color, Warm Lymphatic: No Adenopathy Was a procedure done? Was a procedure done?: No Differential Diagnosis (INTG) Differential Diagnosis: Other X-Ray, Labs, Meds, VS Vital Signs Date Time Temp Pulse Resp B/P (MAP) Pulse Ox O2 Delivery O2 Flow Rate FiO2 03/15/25 16:28 97.8 98 18 123/92 (102) 98 97.8 03/15/25 16:28 98 18 98 Room Air 03/15/25 14:40 97.8 98 18 123/92 (102) 98 97.8 X-Ray, Labs, Meds, VS Comment Patient is stable for discharge at this time. External notes reviewed. Test results and diagnostic imaging interpreted. All diagnostic findings, discharge care, education and instructions provided Follow-up with PCP in 2 to 3 days Patient verbalized understanding and agreed to treatment plan Vital signs stable, afebrile, no acute distress noted Patient ambulatory with strong steady gait Advised to return precautions for any new or worsening symptoms, return to ER immediately for re-evaluation Patient is aware that the purpose of this visit was for an acute medical emergency requiring emergent stabilization. Chronic conditions, including malignancies have not been ruled out. Patient is instructed to follow up with PCP as directed and discharge instructions for continued care and workup. If unable to arrange follow-up, patient is to return to the emergency department for reassessment. Patient (parent or legal guardian if applicable) was given verbal and written discharge instructions and acknowledges understanding. Time of 1ST Reevaluation: 16:00 Reevaluation 1ST: Improved Patient Education/Counseling: Diagnosis, Treatment Family Education/Counseling: Diagnosis, Treatment Departure 1 Departure Time of Disposition: 16:14 Impression: Primary Impression: Colostomy care Disposition: 01 HOME / SELF CARE / HOMELESS Condition: Stable e-Prescriptions No Active Prescriptions or Reported Meds Discharged With: Self Critical Care Note Critical Care Time?: No Stability Stability form required: No Heart Score Heart Score: Heart Score Response (Comments) Value History N/A 0 EKG N/A 0 Age N/A 0 Risk Factors N/A 0 Troponin N/A 0 Total 0 KAREEM JOSEPH NP Mar 15, 2025 16:15
--- NOTE | 2025-03-15 16:22 | ED.PDOC ---
History of Present Illness HPI Comments 44 year old male presents to the ED for the c/c of a Wound Check. Pt requests changes for colostomy bag. Pt notes of no pain, abnormal discharge, or any form of abnormalities. Denies fever, SOB, chest pain, abdominal pain, nausea, vomiting, diarrhea, headache, dizziness, vision changes, or numbness/tingling of extremities. No other symptoms or modifying factors reported at this time. Patient is alert and oriented x4 and has a stable gait. Denies fevers chills night sweats unintentional weight loss Denies nausea vomiting diarrhea Denies blood in the stool Denies sick contact with similar symptoms Denies new foods/medications Denies family history of GI cancer Denies urgency, frequency, hematuria Denies vaginal discharge Chief Complaint: Wound Check Time Seen by MD: 16:14 Primary Care Provider: NONE Reviewed Notes: Nurses Notes, Medications, Allergies Allergies: Coded Allergies: Ketorolac Tromethamine (Verified Allergy, Unknown, 09/03/23) Vancomycin (Verified Allergy, Unknown, 07/07/24) Home Meds No Active Prescriptions or Reported Meds Information Source: Patient Mode of Arrival: Ambulatory Severity: Moderate Timing: Hours Duration: Since onset, Hours Prehospital treatment: None Past Medical History PAST MEDICAL HISTORY: Denies Family History Family History: Reviewed,noncontributory to illness Social History Smoker: Cigarettes Alcohol: Rarely Drugs: Marijuana, Methamphetamine Lives In: Homeless Constitutional: denies: chills, diaphoresis, fatigue, fever, malaise, sweats, weakness, others EENTM: denies: blurred vision, double vision, ear bleeding, ear discharge, ear drainage, ear pain, ear ringing, eye pain, eye redness, hearing loss, mouth pain, mouth swelling, nasal discharge, nose bleeding, nose congestion, nose pain, photophobia, tearing, throat pain, throat swelling, voice changes, others Respiratory: denies: cough, hemoptysis, orthopnea, SOB at rest, shortness of breath, SOB with excertion, stridor, wheezing, others Cardiovascular: denies: chest pain, dizzy spells, diaphoresis, Dyspnea on exertion, edema, irregular heart beat, left arm pain, lightheadedness, palpitations, PND, syncope, others Gastrointestinal: denies: abdomen distended, abdominal pain, blood streaked bowels, constipated, diarrhea, dysphagia, difficulty swallowing, hematemesis, melena, nausea, poor appetite, poor fluid intake, rectal bleeding, rectal pain, vomiting, others Genitourinary: denies: burning, dysuria, flank pain, frequency, hematuria, incontinence, penile discharge, penile sore, pain, testicle pain, testicle swelling, urgency, others Neurological: denies: dizziness, fainting, headache, left sided numbness, left sided weakness, numbness, paresthesia, pre-existing deficit, right sided numbness, right sided weakness, seizure, speech problems, tingling, tremors, weakness, others Musculoskeletal: denies: back pain, gout, joint pain, joint swelling, muscle pain, muscle stiffness, neck pain, others Integumetry: denies: bruises, change in color, change in hair/nails, dryness, laceration, lesions, lumps, rash, wounds, others Allergic/Immunocompromised: denies: Difficulty Healing, Frequent Infections, Hives, Itching, others Hematologic/Lymphatic: denies: anemia, blood clots, easy bleeding, easy bruising, swollen glands, others Endocrine: denies: excessive hunger, excessive sweating, excessive thirst, excessive urination, flushing, intolerance to cold, intolerance to heat, unexplained weight gain, unexplained weight loss, others Psychiatric: denies: anxiety, bipolar disorder, depression, hopeless, panic dis order, schizophrenia, sleepless, suicidal, others All Other Systems: Reviewed and Negative Physical Exam General Appearance: No Apparent Distress, Normal HEENT: Normal ENT Inspection, Pharynx Normal, TMs Normal Neck: Full Range of Motion, Non-Tender, Normal, Normal Inspection Respiratory: Chest Non-Tender, Lungs Clear, No Accessory Muscle Use, No Respiratory Distress, Normal Breath Sounds Cardiovascular: No Edema, No JVD, No Murmur, No Gallop, Normal Peripheral Pulses, Regular Rate/Rhythm Breast Exam: Deferred Gastrointestinal: LLQ (Colostomy bag is intact to LLQ, not leaking, no sorrounding erythema, just here for supplies), Non Tender, No Pulsatile Mass, Normal Bowel Sounds, Soft Genitalia: Deferred Pelvic: Deferred Rectal: Deferred Extremities: No calf tenderness, Normal range of motion, Non-tender, No pedal edema Musculoskeletal : Apperance: Normal Neurologic: Alert, No Motor Deficits, Normal Mood Cerebellar Function: Normal Reflexes: Normal Skin: Dry, Normal Color, Warm Lymphatic: No Adenopathy Was a procedure done? Was a procedure done?: No Differential Dx Considerations may include: colostomy supply X-Ray, Labs, Meds, VS Vital Signs Date Time Temp Pulse Resp B/P (MAP) Pulse Ox O2 Delivery O2 Flow Rate FiO2 03/15/25 16:28 97.8 98 18 123/92 (102) 98 97.8 03/15/25 16:28 98 18 98 Room Air 03/15/25 14:40 97.8 98 18 123/92 (102) 98 97.8 X-Ray, Labs, Meds, VS Comment 44 year old male presents to the ED for the c/c of a Wound Check. Patient arrives alert and oriented, ABC's intact, afebrile, vital signs stable, saturating well in room air Additional MDM Review of External, Non-ED records: External records reviewed. Discussion with independent historian (EMS, family) history obtained from the patient/parents (if applicable) at bedside Chronic conditions affecting care: None Social determinants of health affecting care: None Consideration of admission (observation or admission): I considered escalation of care to admission for this patient, however given the reassuring workup, the patient is safe for outpatient management. Discussion with the Radiology: No Tests considered but not performed: Prescription medication considered but not given: Time of 1ST Reevaluation: 14:45 Reevaluation 1ST: Unchanged Patient Education/Counseling: Diagnosis, Treatment Family Education/Counseling: No Family Present Departure 1 Departure Time of Disposition: 14:16 Impression: Primary Impression: Visit for wound care Disposition: 01 HOME / SELF CARE / HOMELESS Condition: Stable e-Prescriptions No Active Prescriptions or Reported Meds Discharged With: Self Critical Care Note Critical Care Time?: No Stability Stability form required: No Heart Score Heart Score: Heart Score Response (Comments) Value History N/A 0 EKG N/A 0 Age N/A 0 Risk Factors N/A 0 Troponin N/A 0 Total 0 I personally scribed for KAREEM JOSEPH NP ([email or web address]) on 03/15/25 at 16:22. Electronically submitted by Reilly Appiah ([email or web address]). KAREEM JOSEPH NP Mar 15, 2025 16:22
[2025-03-15 16:28] VITALS: BP 123/92; PULSE 98; RESP 18; TEMP 97.8; O2SAT 98
== END 2025-03-15 16:31 | disposition home or self-care (01) ==
LOC: ER 14:10
DX: Z43.3 Encounter for attention to colostomy (principal); F17.210 Nicotine dependence, cigarettes, uncomplicated; F10.90 Alcohol use, unspecified, uncomplicated; F12.90 Cannabis use, unspecified, uncomplicated; F19.90 Other psychoactive substance use, unspecified, uncomplicated; Z88.1 Allergy status to other antibiotic agents; Z59.00 Homelessness unspecified; Y90.9 Presence of alcohol in blood, level not specified

== ENCOUNTER 2025-03-16 05:25 | Inpatient (IN) | payer MEDICAID ==
[~2025-03-16] VITALS: Ht 188 cm; Wt 72.8 kg
--- NOTE | 2025-03-16 06:32 | ED.PDOC ---
Psychiatric HPI Comments 44 y/o M, with PMHx of substance abuse presents to the ED for CC of mental health. 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 Patient comments, that he is currently hearing voices and does not want to say anything because it will cause him harm. Patient reports, having suicidal ideations with no exact plan. Patient endorses, that feelings of anxiety, paranoia, and fearfulness to have been present for x1year however, escalated in the last hour. Patient denies homicidal ideation or visual hallucinations. No other symptoms or modifying factors present at this time. Chief Complaint: Mental Health Time Seen by MD: 06:20 Primary Care Provider: NONE Reviewed Notes: Nurses Notes, Medications, Allergies Mode of Arrival: Ambulatory Severity: Able to Care for Self Severity of Pain: None Severity of Mental Status: Moderate Severity of Symptoms: Moderate Timing: Hours Duration: Since onset Prehospital treatment: None Presents with: Suicidal Ideation Ingestion: None Circumstance: None Current substance abuse: Narcotics Stressors: Homeless History of: Substance Abuse Quality: Hallucinations Associated signs and symptoms: Hallucinations Past Medical History PAST MEDICAL HISTORY: Denies Family History Family History: Reviewed,noncontributory to illness Social History Smoker: Cigarettes Alcohol: Rarely Drugs: Marijuana, Methamphetamine Lives In: Homeless Constitutional: denies: chills, diaphoresis, fatigue, fever, malaise, sweats, weakness, others EENTM: denies: blurred vision, double vision, ear bleeding, ear discharge, ear drainage, ear pain, ear ringing, eye pain, eye redness, hearing loss, mouth pain, mouth swelling, nasal discharge, nose bleeding, nose congestion, nose pain, photophobia, tearing, throat pain, throat swelling, voice changes, others Respiratory: denies: cough, hemoptysis, orthopnea, SOB at rest, shortness of breath, SOB with excertion, stridor, wheezing, others Cardiovascular: denies: chest pain, dizzy spells, diaphoresis, Dyspnea on exertion, edema, irregular heart beat, left arm pain, lightheadedness, palpitations, PND, syncope, others Gastrointestinal: denies: abdomen distended, abdominal pain, blood streaked bowels, constipated, diarrhea, dysphagia, difficulty swallowing, hematemesis, melena, nausea, poor appetite, poor fluid intake, rectal bleeding, rectal pain, vomiting, others Genitourinary: denies: burning, dysuria, flank pain, frequency, hematuria, incontinence, penile discharge, penile sore, pain, testicle pain, testicle swelling, urgency, others Neurological: denies: dizziness, fainting, headache, left sided numbness, left sided weakness, numbness, paresthesia, pre-existing deficit, right sided numbness, right sided weakness, seizure, speech problems, tingling, tremors, weakness, others Musculoskeletal: denies: back pain, gout, joint pain, joint swelling, muscle pain, muscle stiffness, neck pain, others Integumetry: denies: bruises, change in color, change in hair/nails, dryness, laceration, lesions, lumps, rash, wounds, others Allergic/Immunocompromised: denies: Difficulty Healing, Frequent Infections, Hives, Itching, others Hematologic/Lymphatic: denies: anemia, blood clots, easy bleeding, easy bruising, swollen glands, others Endocrine: denies: excessive hunger, excessive sweating, excessive thirst, excessive urination, flushing, intolerance to cold, intolerance to heat, unexplained weight gain, unexplained weight loss, others Psychiatric: reports: schizophrenia, suicidal; denies: anxiety, bipolar disorder, depression, hopeless, panic disorder, sleepless, others All Other Systems: Reviewed and Negative Physical Exam Exam Comments Feeling suicidal General Appearance: Moderate Distress, Normal HEENT: Normal ENT Inspection, Pharynx Normal Neck: Full Range of Motion, Non-Tender, Normal, Normal Inspection Respiratory: Chest Non-Tender, Lungs Clear, No Accessory Muscle Use, No Respiratory Distress, Normal Breath Sounds Cardiovascular: No Edema, No Murmur, No Gallop, Normal Peripheral Pulses, Regular Rate/Rhythm Breast Exam: Deferred Gastrointestinal: No Organomegaly, Non Tender, No Pulsatile Mass, Normal Bowel Sounds, Soft, Other (colostomy bag in place to the left) Genitalia: Deferred Pelvic: Deferred Rectal: Deferred Extremities: No calf tenderness, Normal capillary refill, Normal inspection, Normal range of motion, Non-tender, No pedal edema Musculoskeletal : Apperance: Normal Neurologic: clinical support specialist II-XII nml as Tested, No Motor Deficits, Other (suicidal ideation, auditory hallicinations) Cerebellar Function: Normal Reflexes: Normal Skin: Dry, Normal Color, Warm Lymphatic: No Adenopathy Was a procedure done? Was a procedure done?: No Psych Differential Dx Psych. Differential Dx: Depression, Schizoprenia, Suicidal OD Differential Dx: Hallucinations, Schizophrenia, Substance Abuse X-Ray, Labs, Meds, VS Vital Signs Date Time Temp Pulse Resp B/P (MAP) Pulse Ox O2 Delivery O2 Flow Rate FiO2 03/16/25 07:56 74 14 99 Room Air* 0 21 03/16/25 07:56 98.2 74 16 143/90 (107) 99 98.2 03/16/25 05:53 97.4 73 16 136/102 (113) 98 97.4 Lab Test 03/16/25 10:58 03/16/25 06:57 Range/Units Urine Opiates Screen Neg NEGATIVE Urine Fentanyl Screen Pos NEGATIVE Urine Barbiturates Screen Neg NEGATIVE Urine Phencyclidine Screen Neg NEGATIVE Urine Amphetamines Screen Pos NEGATIVE Urine Benzodiazepines Screen Neg NEGATIVE Urine Cocaine Screen Neg NEGATIVE Urine Cannabinoids Screen Neg NEGATIVE White Blood Count 5.9 4.4-10.8 10^3/uL Red Blood Count 4.94 4.5-5.90 10^6/uL Hemoglobin 15.8 13.5-17.5 g/dL Hematocrit 46.0 41.0-53.0 % Mean Corpuscular Volume 93.1 80.0-100.0 fL Mean Corpuscular Hemoglobin 31.9 28.0-32.0 pg Mean Corpuscular Hemoglobin Concent 34.3 32.0-36.0 g/dL Red Cell Distribution Width 13.9 11.8-14.3 % Platelet Count 222 140-450 10^3/uL Mean Platelet Volume 7.6 6.9-10.8 fL Neutrophils (%) (Auto) 52.8 37.0-80.0 % Lymphocytes (%) (Auto) 33.0 10.0-50.0 % Monocytes (%) (Auto) 9.7 0.0-12.0 % Eosinophils (%) (Auto) 3.3 0.0-7.0 % Basophils (%) (Auto) 1.2 0.0-2.0 % Neutrophils # (Auto) 3.1 1.6-8.6 10 ^3/uL Lymphocytes # (Auto) 1.9 0.4-5.4 10 ^3/uL Monocytes # (Auto) 0.6 0-1.3 10 ^3/uL Eosinophils # (Auto) 0.2 0-0.8 10 ^3/uL Basophils # (Auto) 0.1 0-0.2 10 ^3/uL Nucleated Red Blood Cells 0.3 % Sodium Level 139 136-145 mmol/L Potassium Level 3.8 3.5-5.1 mmol/L Chloride Level 95 L 98-107 mmol/L Carbon Dioxide Level 36 H 20-31 mmol/L Anion Gap 8 5-15 Blood Urea Nitrogen 44 H 9-23 mg/dL Creatinine 7.12 H 0.700-1.30 mg/dL Glomerular Filtration Rate Calc 9 >90 mL/min BUN/Creatinine Ratio 6.2 L 10.0-20.0 Serum Glucose 106 74-106 mg/dL Calcium Level 9.5 8.7-10.4 mg/dL Creatine Kinase 172 H 46-171 U/L Plasma/Serum Blood Alcohol < 3.0 <10 mg/dL 44-year-old male presents here with feelings of suicidal ideation. Nursing staff approached me to see the patient immediately. He states he was hearing voices. He states for 1 year he has been dealing with this but has not came forward with this before as he does not want to get himself and more trouble with his family in trouble. It does not have a plan. At this time patient has been placed initially on ED ops. However blood work has been done for medical clearance. On the blood work patient was found to have a BUN of 44 and a creatinine of 7.12. I suspect this is likely due to his chronic methamphetamine abuse. This time however I can not medically clear the patient. I will additionally I am very concerned about patient's creatinine as he is unable to urinate here in the ER. Hospitalist team has been contacted for admission. Time of 1ST Reevaluation: 08:20 Reevaluation 1ST: Unchanged Patient Education/Counseling: Diagnosis, Treatment Family Education/Counseling: No Family Present Departure 1 Departure Time of Disposition: 06:45 Impression: Primary Impression: Suicidal ideation Additional Impressions: Drug abuse Auditory hallucination Acute kidney injury Disposition: 30 STILL A PATIENT Condition: Guarded e-Prescriptions No Active Prescriptions or Reported Meds Critical Care Note Critical Care Time?: Yes (45 min-critical care time only) Critical care comment: Time spent multiple re-evaluations with the patient patient here for suicidal ideation. Also found to have large creatinine of 7 concern for immediate deterioration of mental health and also kidneys. Stability Stability form required: No Heart Score Heart Score: Heart Score Response (Comments) Value History N/A 0 EKG N/A 0 Age N/A 0 Risk Factors N/A 0 Troponin N/A 0 Total 0 I personally scribed for ANDRÉS WARREN MD ([email or web address]) on 03/16/25 at 06:52. Electronically submitted by Akila Conn ([email or web address]). I personally scribed for ANDRÉS WARREN MD ([email or web address]) on 03/16/25 at 07:04. Electronically submitted by Akila Conn ([email or web address]). I personally scribed for ANDRÉS WARREN MD ([email or web address]) on 03/16/25 at 15:38. Electronically submitted by Akila Conn ([email or web address]). I personally scribed for ANDRÉS WARREN MD ([email or web address]) on 03/16/25 at 15:40. Electronically submitted by Akila Conn ([email or web address]). ANDRÉS WARREN MD Mar 16, 2025 06:32
[2025-03-16 07:16] LABS: Potassium 3.8 mmol/L (3.5-5.1); Sodium 139 mmol/L (136-145)
[2025-03-16 07:17] LABS: Anion Gap 8 (5-15)
[2025-03-16 07:18] LABS: Calcium 9.5 mg/dL (8.7-10.4)
[2025-03-16 07:22] LABS: BUN/Creatinine Ratio 6.2 (10.0-20.0)
[2025-03-16 07:23] LABS: Basophils # (auto) 0.1 10 ^3/uL (0-0.2); Basophils % (auto) 1.2 % (0.0-2.0); Blood Alcohol < 3.0 mg/dL (<10); Blood Urea Nitrogen 44 mg/dL (9-23); Carbon Dioxide 36 mmol/L (20-31); Chloride 95 mmol/L (98-107); Eosinophils # (auto) 0.2 10 ^3/uL (0-0.8); Eosinophils % (auto) 3.3 % (0.0-7.0); Glucose 106 mg/dL (74-106); Hemoglobin 15.8 g/dL (13.5-17.5); Lymphocytes # (auto) 1.9 10 ^3/uL (0.4-5.4); Mean Corpuscular Hemoglobin 31.9 pg (28.0-32.0); Mean Corpuscular Hgb Conc. 34.3 g/dL (32.0-36.0); Mean Corpuscular Volume 93.1 fL (80.0-100.0); Monocytes # (auto) 0.6 10 ^3/uL (0-1.3); Monocytes % (auto) 9.7 % (0.0-12.0); Neutrophils # (auto) 3.1 10 ^3/uL (1.6-8.6); Neutrophils % (auto) 52.8 % (37.0-80.0); Nucleated Red Blood Cells % 0.3 %; Platelet Count (auto) 222 10^3/uL (140-450); Red Blood Cells 4.94 10^6/uL (4.5-5.90); Red Cell Distribution Width 13.9 % (11.8-14.3); White Blood Cell 5.9 10^3/uL (4.4-10.8)
[2025-03-16 07:56] VITALS: PULSE 74; RESP 14; O2SAT 99
[2025-03-16 11:31] LABS: Cannabinoid Screen, Urine Neg (NEGATIVE)
[2025-03-16 11:38] LABS: Amphetamine Screen, Urine Pos (NEGATIVE); Barbiturate Scree,Urine Neg (NEGATIVE); Benzodiazephine Screen, Urine Neg (NEGATIVE); Cocaine Screen, Urine Neg (NEGATIVE); Opiate Scree,Urine Neg (NEGATIVE); Phencyclidine Screen, Urine Neg (NEGATIVE)
--- NOTE | 2025-03-16 14:21 | DVHINCON2 ---
Date of Service if different f: Mar 16, 2025 Consultation (DARIEN) Labs Laboratory Tests Test 03/16/25 06:57 03/16/25 10:58 White Blood Count 5.9 10^3/uL (4.4-10.8) Red Blood Count 4.94 10^6/uL (4.5-5.90) Hemoglobin 15.8 g/dL (13.5-17.5) Hematocrit 46.0 % (41.0-53.0) Mean Corpuscular Volume 93.1 fL (80.0-100.0) Mean Corpuscular Hemoglobin 31.9 pg (28.0-32.0) Mean Corpuscular Hemoglobin Concent 34.3 g/dL (32.0-36.0) Red Cell Distribution Width 13.9 % (11.8-14.3) Platelet Count 222 10^3/uL (140-450) Mean Platelet Volume 7.6 fL (6.9-10.8) Neutrophils (%) (Auto) 52.8 % (37.0-80.0) Lymphocytes (%) (Auto) 33.0 % (10.0-50.0) Monocytes (%) (Auto) 9.7 % (0.0-12.0) Eosinophils (%) (Auto) 3.3 % (0.0-7.0) Basophils (%) (Auto) 1.2 % (0.0-2.0) Neutrophils # (Auto) 3.1 10 ^3/uL (1.6-8.6) Lymphocytes # (Auto) 1.9 10 ^3/uL (0.4-5.4) Monocytes # (Auto) 0.6 10 ^3/uL (0-1.3) Eosinophils # (Auto) 0.2 10 ^3/uL (0-0.8) Basophils # (Auto) 0.1 10 ^3/uL (0-0.2) Nucleated Red Blood Cells 0.3 % Sodium Level 139 mmol/L (136-145) Potassium Level 3.8 mmol/L (3.5-5.1) Chloride Level 95 mmol/L (98-107) Carbon Dioxide Level 36 mmol/L (20-31) Anion Gap 8 (5-15) Blood Urea Nitrogen 44 mg/dL (9-23) Creatinine 7.12 mg/dL (0.700-1.30) Glomerular Filtration Rate Calc 9 mL/min (>90) BUN/Creatinine Ratio 6.2 (10.0-20.0) Serum Glucose 106 mg/dL (74-106) Calcium Level 9.5 mg/dL (8.7-10.4) Plasma/Serum Blood Alcohol < 3.0 mg/dL (<10) Urine Opiates Screen Neg (NEGATIVE) Urine Fentanyl Screen Pos (NEGATIVE) Urine Barbiturates Screen Neg (NEGATIVE) Urine Phencyclidine Screen Neg (NEGATIVE) Urine Amphetamines Screen Pos (NEGATIVE) Urine Benzodiazepines Screen Neg (NEGATIVE) Urine Cocaine Screen Neg (NEGATIVE) Urine Cannabinoids Screen Neg (NEGATIVE) Appetite: Fair Appearance: Stated age, Disheveled Psychomotor activity: WNL Behavioral: Cooperative Eye contact: Appropriate Speech: WNL Affect: Mood Congruent Mood: Anxious Thought processes: Preservative, Disorganized Thought content: Paranoid, Delusions, Hallucinations (auditory) Suicidal ideations: Absent Homicidal ideations: Absent Orientation: Person, Place, Time, Situation Memory intact: Recent Intellect: Average Abstractability: Marginal Concentration: Limited Attention: Adequate Judgement: Poor Insight: Poor Vitals Vital Signs Date Time Temp Pulse Resp B/P (MAP) Pulse Ox O2 Delivery O2 Flow Rate FiO2 03/16/25 07:56 74 14 99 Room Air* 0 21 03/16/25 07:56 98.2 143/90 (107) 98.2 Medication adjusted: Yes Diagnosis: unspecified psychosis r/o substance-induced, methamphetamine abuse, opioid use Plan : Pt reports ongoing psychosis which impairs his ability function although has substance use history He would greatly benefit from inpatient psych hosp for treatment and stabilization Recommend Zyprexa 5mg po BID Recommend voluntary transfer or he may go on a 5150 hold for GD If no available beds or pt refuses, please request re-consult History of Present Illness Reason for Consult : suicidal ideation and psychosis HPI : This is a 49-year-old male presented to the hospital with mental health complaints of suicidal ideation and psychotic symptoms. Patient is evaluated via Telepsychiatry. He reports ongoing mental health problems, feeling unstable. He reports hearing voices of people talking to him or calling his name. Voices do tell him to harm himself and other people although he denies a plan to do so presently. He reports if he does not get help, he may not wake up. He denies plans to go to kill himself but feels overwhelmed by his thoughts and feelings. He also reports feelings of being gang stalked. He believes microchiped were put into his body and frequently feels zaps on his skin. He feels people are following him wherever he goes and and trying to harm him. He does admit to using methamphetamines for the last five years. He reports prior to methamphetamine, he had thoughts of paranoia but using meth and fentanyl takes these thoughts away. He reports poor sleep and appetite. Past Psychiatric History : He reports past psych admissions, most recently, one year ago. he had a suicide attempt 5 years ago, held firearm to his head. He denies current psychotropic medications. he denies current outpatient mental health treatment team. He reports mental symptoms as only anxiety, no prior formal diagnoses. Past Medical History : He reports hx of "skin condition" and per chart review Social History : he is homeless for the last 5 years. he has 3 children but whereabouts are not known to him. He is single, unemployed. He reports meth use for 5 years. He reports fentanyl use is more recently. he denies daily use or IV drugs. he denies use of other substances. he denies any known family history. toxicology also positive for meth and fentanyl. THERESE MCINTYRE [facility] Mar 16, 2025 14:21
[2025-03-17 07:48] LABS: Alanine Aminotransferase 11 U/L (7-40); Albumin 3.3 g/dL (3.2-4.8); Alkaline Phosphatase 109 U/L (46-116); Anion Gap 8 (5-15); Aspartate Aminotransferase 23 U/L (13-40); BUN/Creatinine Ratio 10.2 (10.0-20.0); Calcium 8.9 mg/dL (8.7-10.4); Carbon Dioxide 21 mmol/L (20-31); Potassium 4.3 mmol/L (3.5-5.1); Sodium 137 mmol/L (136-145)
[2025-03-17 07:49] LABS: Bilirubin, Total 0.3 mg/dL (0.2-1.0); Creatine Kinase IFCC 165 U/L (46-171)
[2025-03-17 07:50] LABS: Blood Urea Nitrogen 6 mg/dL (9-23); Chloride 108 mmol/L (98-107); Glucose 73 mg/dL (74-106); Total Protein 8.5 g/dL (5.7-8.2)
[2025-03-17 08:15] VITALS: RESP 14; O2SAT 99
[2025-03-17] MEDS ORDERED: DOCUSATE SOD 100 MG CAP PO PRN (08:15)
[2025-03-17] MEDS ORDERED: ACETAMINOPHEN 325 MG TAB PO PRN (08:15)
[2025-03-17] MEDS ORDERED: ONDANSETRON HCL 4 MG/2 ML VIAL IV PRN (08:15)
[2025-03-17 08:26] LABS: Basophils # (auto) 0 10 ^3/uL (0-0.2); Basophils % (auto) 0.4 % (0.0-2.0); Eosinophils # (auto) 0.4 10 ^3/uL (0-0.8); Eosinophils % (auto) 3.6 % (0.0-7.0); Hematocrit 35.2 % (41.0-53.0); Hemoglobin 11.2 g/dL (13.5-17.5); Lymphocytes # (auto) 1.1 10 ^3/uL (0.4-5.4); Lymphocytes % (auto) 10.5 % (10.0-50.0); Mean Corpuscular Hemoglobin 26.1 pg (28.0-32.0); Mean Corpuscular Hgb Conc. 31.8 g/dL (32.0-36.0); Monocytes # (auto) 0.7 10 ^3/uL (0-1.3); Monocytes % (auto) 6.8 % (0.0-12.0); Neutrophils # (auto) 8.4 10 ^3/uL (1.6-8.6); Neutrophils % (auto) 78.7 % (37.0-80.0); Nucleated Red Blood Cells % 0.1 %; Platelet Count (auto) 412 10^3/uL (140-450); Red Blood Cells 4.29 10^6/uL (4.5-5.90); Red Cell Distribution Width 19.8 % (11.8-14.3); White Blood Cell 10.6 10^3/uL (4.4-10.8)
--- NOTE | 2025-03-17 08:29 | DVHHP2 ---
History of Present Illness Reason for Visit: Suicidal History of Present Illness Arnav Buitrago is a 44-year-old male with past medical history of hidradenitis suppurativa, anxiety, poly substance abuse, and multiple hospitalizations for mental health, but does not a formal diagnosis or take any medications, who came in due to feeling unsafe, paranoia, and hearing voices. He states he believes the voices are real. Denies any desire to harm self at this time. Labs completed in ER showed acute kidney injury. Patient is homeless, states he doesn't drink too much water. Also states it has been difficult for him to urinate for about 1 month. Patient will be admitted for further evaluation and IV hydration. Psych: Anxiety Dermatology: Other (hidradenitis suppurativa) Past Surgical History: Other (skin grafts, colostomy) Smoke: <1 pack per day (3-4 cigarettes/day and vape) ALCOHOL: rare Drugs: Marijuana, Other (fentanyl, methamphetamine) Lives: Homeless Domestic Violence: Neg Review of Systems Constitutional: Yes: Other (hearing voices, suicidal ideation); No: Fever, Chills, Sweats, Weakness, Malaise Eyes: No: Pain, Vision change, Conjunctivae inflammation, Eyelid inflammation, Other, Redness ENT: No: Ear pain, Ear discharge, Nose pain, Nose discharge, Nose congestion, Mouth pain, Mouth swelling, Throat pain, Throat swelling, Other Respiratory: No: Cough, Dry, Shortness of breath, SOB with excertion, Wheezing, Hemoptysis, Pleuritic Pain, Sputum, Wheezing, Other Cardiovascular: No: Chest Pain, Palpitations, Orthopnea, Paroxysmal Noc. Dyspnea, Edema, Lt Headedness, Other Gastrointestinal: No: Nausea, Vomiting, Abdominal Pain, Diarrhea, Constipation, Melena, Hematochezia, Other Genitourinary: No Dysuria, No Frequency, No Incontinence, No Hematuria, No Retention, No Other Musculoskeletal: No: other, neck pain, shoulder pain, arm pain, back pain, hand pain, leg pain, foot pain Skin: No: Rash, Lesions, Jaundice, Bruising, Other Neurological: No: Weakness, Numbness, Incoordination, Change in speech, Confusion, Seizures, Other Allergies: Coded Allergies: Ketorolac Tromethamine (Verified Allergy, Unknown, 09/03/23) Vancomycin (Verified Allergy, Unknown, 07/07/24) Exam Vital Signs Vital Signs Date Time Temp Pulse Resp B/P (MAP) Pulse Ox O2 Delivery O2 Flow Rate FiO2 03/17/25 06:50 98.2 78 20 131/82 (98) 98 98.2 03/16/25 07:56 Room Air* 0 21 General Appearance: Alert, Oriented X3, Cooperative, mild distress HEENT: Atraumatic, PERRLA Respiratory: Clear to auscultation, Normal air movement Cardiovascular: Regular rate, Normal S1, Normal S2 Abdominal: Normal bowel sounds, Soft, No tenderness, Other (Colostomy bag in place) Extremities: No clubbing, No cyanosis, No edema, Normal pulses, No tendernes s/swelling Skin: No rashes, No significant lesion (Multiple sacral/buttock wounds, ) Neuro: Normal gait, Normal speech, Strength at 5/5 X4 ext Psych/Mental Status: Mood NL, Other (hearing voices, suicidal ideation) Labs/Xrays Labs Test 03/17/25 08:01 03/17/25 07:23 03/16/25 10:58 03/16/25 06:57 Range/Units Sodium Level 137 136-145 mmol/L Potassium Level 4.3 3.5-5.1 mmol/L Chloride Level 108 #H 98-107 mmol/L Carbon Dioxide Level 21 # 20-31 mmol/L Anion Gap 8 5-15 Blood Urea Nitrogen 6 #L 9-23 mg/dL Creatinine 0.59 #L 0.700-1.30 mg/dL Glomerular Filtration Rate Calc 123 >90 mL/min BUN/Creatinine Ratio 10.2 10.0-20.0 Serum Glucose 73 L 74-106 mg/dL Calcium Level 8.9 8.7-10.4 mg/dL Total Bilirubin 0.3 0.2-1.0 mg/dL Aspartate Amino Transferase (AST) 23 13-40 U/L Alanine Aminotransferase (ALT) 11 7-40 U/L Alkaline Phosphatase 109 46-116 U/L Creatine Kinase 165 46-171 U/L Total Protein 8.5 H 5.7-8.2 g/dL Albumin 3.3 3.2-4.8 g/dL Urine Opiates Screen Neg NEGATIVE Urine Fentanyl Screen Pos NEGATIVE Urine Barbiturates Screen Neg NEGATIVE Urine Phencyclidine Screen Neg NEGATIVE Urine Amphetamines Screen Pos NEGATIVE Urine Benzodiazepines Screen Neg NEGATIVE Urine Cocaine Screen Neg NEGATIVE Urine Cannabinoids Screen Neg NEGATIVE Eosinophils (%) (Auto) 3.3 0.0-7.0 % Eosinophils # (Auto) 0.2 0-0.8 10 ^3/uL Basophils # (Auto) 0.1 0-0.2 10 ^3/uL Nucleated Red Blood Cells 0.3 % Plasma/Serum Blood Alcohol < 3.0 <10 mg/dL Assessment/Plan Assessment/Plan Assessment: Acute kidney injury, Dehydration, Suicidal ideation, Multiple sacral/buttock wounds, Poly substance abuse, Plan: Admit to Med-Surg, IV hydration, Wound care consult, Tele psych consult, Counseled on importance of quitting illicit drugs, Plan discussed with: Patient My Orders Orders - PRERNA GORMAN Procedure Category Date Status Time Complete Blood Count LAB 03/17/25 In Process 07:12 Admit ADMIT 03/17/25 Transmitted 08:15 Code Status CODE 03/17/25 Transmitted 08:15 Hydrocodone-Acet PHA 03/17/25 Transmitted 5/325mg Tab (Crossnore 08:15 Ondansetron Hcl PHA 03/17/25 Transmitted (Zofran) 08:15 Docusate Sodium PHA 03/17/25 Transmitted Capsule (Colace 08:15 Complete Blood Count LAB 03/18/25 Verified 04:00 Comprehensive LAB 03/18/25 Verified Metabolic Panel 04:00 Condition: Serious TRENT 03/17/25 Transmitted 08:15 Acetaminophen Tablet PHA 03/17/25 Transmitted (Tylenol Tablet) 08:15 NS PHA 03/17/25 Transmitted 08:15 NS PHA 03/17/25 Transmitted 08:15 Regular Diet DIET 03/17/25 Transmitted Breakfast Date of Service: Mar 17, 2025 Billing Provider: PRERNA GORMAN Common Visit Codes: 19760-[id number] INP/OBS CARE (MOD) PRERNA GORMAN Mar 17, 2025 08:29
[2025-03-17] MEDS: SODIUM CHLORIDE 0.9% 1,000 ML IV SCH (10:06)
[2025-03-17] MEDS: SODIUM CHLORIDE 0.9% 1,000 ML IV ONE (10:06)
[2025-03-17] MEDS: HYDROcodone-ACET 5/325MG TAB PO PRN (20:50)
[2025-03-17 22:29] VITALS: BP 116/68; PULSE 93; RESP 16; RESP 17; TEMP 98.3; O2SAT 96
[2025-03-18 05:00] VITALS: BP 130/91; PULSE 97; RESP 18; TEMP 98.1; O2SAT 97
[2025-03-18 05:38] LABS: Basophils # (auto) 0 10 ^3/uL (0-0.2); Eosinophils # (auto) 0.5 10 ^3/uL (0-0.8); Hemoglobin 9.9 g/dL (13.5-17.5); Monocytes # (auto) 0.8 10 ^3/uL (0-1.3)
[2025-03-18 05:40] LABS: Basophils % (auto) 0.5 % (0.0-2.0); Eosinophils % (auto) 5.3 % (0.0-7.0); Hematocrit 30.4 % (41.0-53.0); Lymphocytes # (auto) 1.4 10 ^3/uL (0.4-5.4); Lymphocytes % (auto) 15.3 % (10.0-50.0); Mean Corpuscular Hemoglobin 26.2 pg (28.0-32.0); Mean Corpuscular Hgb Conc. 32.7 g/dL (32.0-36.0); Mean Corpuscular Volume 80.1 fL (80.0-100.0); Monocytes % (auto) 8.3 % (0.0-12.0); Neutrophils # (auto) 6.6 10 ^3/uL (1.6-8.6); Neutrophils % (auto) 70.6 % (37.0-80.0); Nucleated Red Blood Cells % 0.1 %; Platelet Count (auto) 442 10^3/uL (140-450); Red Cell Distribution Width 19.9 % (11.8-14.3); White Blood Cell 9.3 10^3/uL (4.4-10.8)
[2025-03-18 05:54] LABS: Alanine Aminotransferase 10 U/L (7-40); Albumin 3.2 g/dL (3.2-4.8); Alkaline Phosphatase 102 U/L (46-116); Anion Gap 8 (5-15); Aspartate Aminotransferase 14 U/L (13-40); BUN/Creatinine Ratio 13.8 (10.0-20.0); Blood Urea Nitrogen 11 mg/dL (9-23); Calcium 9.1 mg/dL (8.7-10.4); Carbon Dioxide 26 mmol/L (20-31); Chloride 106 mmol/L (98-107); Glucose 81 mg/dL (74-106); Sodium 140 mmol/L (136-145); Total Protein 8.1 g/dL (5.7-8.2)
[2025-03-18 05:55] LABS: Bilirubin, Total 0.2 mg/dL (0.2-1.0)
[2025-03-18 08:36] VITALS: BP 131/80; PULSE 90; RESP 16; TEMP 97.9; O2SAT 97
[2025-03-18 10:37] LABS: Magnesium 1.5 mg/dL (1.6-2.6)
[2025-03-18] MEDS: OLANZapine 5 MG TAB PO ONE (11:11)
[2025-03-18 11:13] LABS: INR 1.08 (0.9-1.15); Partial Thromboplastin Time 27.3 SEC (24.5-34.5); Prothrombin Time 11.4 sec (9.3-11.8)
--- NOTE | 2025-03-18 12:12 | DVHINCON2 ---
Date of Service if different f: Mar 18, 2025 Consultation ([facility]) Consulting Physician: SUDHA FIELDS MD Progress: Better Labs Laboratory Tests Test 03/16/25 06:57 03/16/25 10:58 03/17/25 07:23 03/18/25 04:31 Plasma/Serum Blood Alcohol < 3.0 mg/dL (<10) Urine Opiates Screen Neg (NEGATIVE) Urine Fentanyl Screen Pos (NEGATIVE) Urine Barbiturates Screen Neg (NEGATIVE) Urine Phencyclidine Screen Neg (NEGATIVE) Urine Amphetamines Screen Pos (NEGATIVE) Urine Benzodiazepines Screen Neg (NEGATIVE) Urine Cocaine Screen Neg (NEGATIVE) Urine Cannabinoids Screen Neg (NEGATIVE) Creatine Kinase 165 U/L (46-171) White Blood Count 9.3 10^3/uL (4.4-10.8) Red Blood Count 3.80 10^6/uL (4.5-5.90) Hemoglobin 9.9 g/dL (13.5-17.5) Hematocrit 30.4 % (41.0-53.0) Mean Corpuscular Volume 80.1 fL (80.0-100.0) Mean Corpuscular Hemoglobin 26.2 pg (28.0-32.0) Mean Corpuscular Hemoglobin Concent 32.7 g/dL (32.0-36.0) Red Cell Distribution Width 19.9 % (11.8-14.3) Platelet Count 442 10^3/uL (140-450) Mean Platelet Volume 7.1 fL (6.9-10.8) Neutrophils (%) (Auto) 70.6 % (37.0-80.0) Lymphocytes (%) (Auto) 15.3 % (10.0-50.0) Monocytes (%) (Auto) 8.3 % (0.0-12.0) Eosinophils (%) (Auto) 5.3 % (0.0-7.0) Basophils (%) (Auto) 0.5 % (0.0-2.0) Neutrophils # (Auto) 6.6 10 ^3/uL (1.6-8.6) Lymphocytes # (Auto) 1.4 10 ^3/uL (0.4-5.4) Monocytes # (Auto) 0.8 10 ^3/uL (0-1.3) Eosinophils # (Auto) 0.5 10 ^3/uL (0-0.8) Basophils # (Auto) 0 10 ^3/uL (0-0.2) Nucleated Red Blood Cells 0.1 % Sodium Level 140 mmol/L (136-145) Potassium Level 4.0 mmol/L (3.5-5.1) Chloride Level 106 mmol/L (98-107) Carbon Dioxide Level 26 mmol/L (20-31) Anion Gap 8 (5-15) Blood Urea Nitrogen 11 mg/dL (9-23) Creatinine 0.80 mg/dL (0.700-1.30) Glomerular Filtration Rate Calc 113 mL/min (>90) BUN/Creatinine Ratio 13.8 (10.0-20.0) Serum Glucose 81 mg/dL (74-106) Hemoglobin A1c 5.1 % A1C (<5.7) Calcium Level 9.1 mg/dL (8.7-10.4) Magnesium Level 1.5 mg/dL (1.6-2.6) Total Bilirubin 0.2 mg/dL (0.2-1.0) Aspartate Amino Transf (AST/SGOT) 14 U/L (13-40) Alanine Aminotransferase (ALT/SGPT) 10 U/L (7-40) Alkaline Phosphatase 102 U/L (46-116) Total Protein 8.1 g/dL (5.7-8.2) Albumin 3.2 g/dL (3.2-4.8) Triglycerides Level 68 mg/dL (< 150) Cholesterol Level 93 mg/dL (< 200) LDL Cholesterol 55 mg/dL (< 100) HDL Cholesterol 33 mg/dL (40-59) Thyroid Stimulating Hormone (TSH) 1.44 uIU/mL (0.55-4.78) Test 03/18/25 10:45 Prothrombin Time 11.4 sec (9.3-11.8) Prothromb Time International Ratio 1.08 (0.9-1.15) Activated Partial Thromboplast Time 27.3 SEC (24.5-34.5) Appetite: Fair Side effects of medications: No Appearance: Stated age Psychomotor activity: WNL Behavioral: Cooperative Eye contact: Appropriate Speech: WNL Affect: Mood Congruent Mood: Euthymic Thought processes: Linear/Goal-directed Thought content: WNL Suicidal ideations: Absent Homicidal ideations: Absent Orientation: Person, Place, Time, Situation Memory intact: Recent Intellect: Average Abstractability: Marginal Concentration: Adequate Attention: Adequate Judgement: Limited Insight: Marginal Vitals Vital Signs Date Time Temp Pulse Resp B/P (MAP) Pulse Ox O2 Delivery O2 Flow Rate FiO2 03/18/25 10:30 Room Air* 0 21 03/18/25 08:36 97.9 90 16 131/80 (97) 97 97.9 Current medications Current Medications Medications Dose Ordered Sig/Wallace Route Start Time Stop Time Status Last Admin Dose Admin Acetaminophen/ Hydrocodone Bitart 1 tab Q4HP PRN PO 03/17/25 08:15 03/17/25 20:50 1 TAB Ondansetron HCl 4 mg Q4HP PRN IV 03/17/25 08:15 Docusate Sodium 100 mg BIDPRN PRN PO 03/17/25 08:15 Acetaminophen 650 mg Q6HP PRN PO 03/17/25 08:15 Sodium Chloride 1,000 ml @ 125 mls/hr Q8H IV 03/17/25 08:15 Olanzapine 5 mg BID PO 03/18/25 22:00 Treatment plan discussed: With staff Medication adjusted: No Labs ordered: No Psychotherapy provided: Yes Type: Voluntary Diagnosis: 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 F11.20 severe. Plan : The pt appears to no longer be psychotic and is consistently denying SI, HI and AVH. Pt appears to be at baseline as all the illicit substances seem to have worn off. Pt does not think he needs inpatient psychiatric stabilization. He declined taking zyprexa for his symptoms and they remitted on their own it seems. This seems to have been a substance-related presentation. As such, given the normal MSE and etiology of these symptoms that no longer persist, the pt seems to be a low risk for harm to self or others and appears stable enough to function normally in the community. Pt is psychiatrically cleared to continue treatment in outpatient rehab or psyhc f/u. There does not seem to be a need for inpatient psych hospitalization or a 5150. History of Present Illness Reason for Consult : Psychiatric clearance. Interval HPI : Pt was assessed by [employer] Eddie on 03/16/25 for SI and psychosis. Pt has hx of stimulant use. Hx of past psych admissions, last time admitted 5 months ago. Last SA over 1 yr ago. Subjective: Pt says he no longer feel suicidal, contracts for safety readily, denies any AVH. Pt declined the zyprexa because it makes him sleepy. Pt does not think he needs psych meds, thinks this was all drug related and he feels fine. Pt says he doesn't think he needs rehab and can stop using by himself. Pt is refractory to motivational interviewing related to drug use cessation and considering rehab of some kind to stay sober. Pt appears to be ambivalent about his substance use. Assessment/Diagnosis/Plan Reviewed: Consults, Care Plan, Labs, Medications SUDHA FIELDS MD Mar 18, 2025 12:12
--- NOTE | 2025-03-18 13:04 | DVHDSRES ---
Discharge Summary Date of Admission Resident Creating Document: JAS BONILLA RESIDENT Mar 17, 2025 at 08:15 Date of Discharge: Mar 18, 2025 Labs/Diagnostic Data: Laboratory Results Test 03/18/25 10:45 03/18/25 04:31 03/17/25 07:23 03/16/25 10:58 Prothrombin Time 11.4 sec (9.3-11.8) Prothrombin Time INR 1.08 (0.9-1.15) Activated Partial Thromboplast Time 27.3 SEC (24.5-34.5) White Blood Count 9.3 10^3/uL (4.4-10.8) Red Blood Count 3.80 10^6/uL (4.5-5.90) Hemoglobin 9.9 g/dL (13.5-17.5) Hematocrit 30.4 % (41.0-53.0) Mean Corpuscular Volume 80.1 fL (80.0-100.0) Mean Corpuscular Hemoglobin 26.2 pg (28.0-32.0) Mean Corpuscular Hemoglobin Concent 32.7 g/dL (32.0-36.0) Red Cell Distribution Width 19.9 % (11.8-14.3) Platelet Count 442 10^3/uL (140-450) Mean Platelet Volume 7.1 fL (6.9-10.8) Neutrophils (%) (Auto) 70.6 % (37.0-80.0) Lymphocytes (%) (Auto) 15.3 % (10.0-50.0) Monocytes (%) (Auto) 8.3 % (0.0-12.0) Eosinophils (%) (Auto) 5.3 % (0.0-7.0) Basophils (%) (Auto) 0.5 % (0.0-2.0) Neutrophils # (Auto) 6.6 10 ^3/uL (1.6-8.6) Lymphocytes # (Auto) 1.4 10 ^3/uL (0.4-5.4) Monocytes # (Auto) 0.8 10 ^3/uL (0-1.3) Eosinophils # (Auto) 0.5 10 ^3/uL (0-0.8) Basophils # (Auto) 0 10 ^3/uL (0-0.2) Nucleated Red Blood Cells 0.1 % Sodium Level 140 mmol/L (136-145) Potassium Level 4.0 mmol/L (3.5-5.1) Chloride Level 106 mmol/L (98-107) Carbon Dioxide Level 26 mmol/L (20-31) Anion Gap 8 (5-15) Blood Urea Nitrogen 11 mg/dL (9-23) Creatinine 0.80 mg/dL (0.700-1.30) Glomerular Filtration Rate Calc 113 mL/min (>90) BUN/Creatinine Ratio 13.8 (10.0-20.0) Serum Glucose 81 mg/dL (74-106) Hemoglobin A1c 5.1 % A1C (<5.7) Calcium Level 9.1 mg/dL (8.7-10.4) Magnesium Level 1.5 mg/dL (1.6-2.6) Total Bilirubin 0.2 mg/dL (0.2-1.0) Aspartate Amino Transferase (AST) 14 U/L (13-40) Alanine Aminotransferase (ALT) 10 U/L (7-40) Alkaline Phosphatase 102 U/L (46-116) Total Protein 8.1 g/dL (5.7-8.2) Albumin 3.2 g/dL (3.2-4.8) Triglycerides Level 68 mg/dL (< 150) Cholesterol Level 93 mg/dL (< 200) LDL Cholesterol 55 mg/dL (< 100) HDL Cholesterol 33 mg/dL (40-59) Thyroid Stimulating Hormone (TSH) 1.44 uIU/mL (0.55-4.78) Creatine Kinase 165 U/L (46-171) Urine Opiates Screen Neg (NEGATIVE) Urine Fentanyl Screen Pos (NEGATIVE) Urine Barbiturates Screen Neg (NEGATIVE) Urine Phencyclidine Screen Neg (NEGATIVE) Urine Amphetamines Screen Pos (NEGATIVE) Urine Benzodiazepines Screen Neg (NEGATIVE) Urine Cocaine Screen Neg (NEGATIVE) Urine Cannabinoids Screen Neg (NEGATIVE) Test 03/16/25 06:57 Plasma/Serum Blood Alcohol < 3.0 mg/dL (<10) Other Laboratory Tests 03/18/25 04:31 Brief Hx & Hospital Course: Arnav Buitrago is a 44-year-old male with past medical history of hidradenitis suppurativa, anxiety, poly substance abuse, and multiple hospitalizations for mental health, but does not a formal diagnosis or take any medications, who came in due to feeling unsafe, paranoia, and hearing voices. He states he believes the voices are real. Denies any desire to harm self at this time. Labs completed in ER showed acute kidney injury. Patient is homeless, states he doesn't drink too much water. Also states it has been difficult for him to urinate for about 1 month. Patient will be admitted for further evaluation and IV hydration. During the hospital course, patient was diagnosed with acute substance intoxication. Tele psych was consulted, recommended Zyprexa 5 mg p.o. b.i.d. which the patient refused. Recommended transfer for treatment and stabilization. The next day 03/18-patient reported no suicidal ideations, reports feeling fine so repeat tele psych was ordered, Dr. Cristina diagnosed the patient with substance induced psychosis and substance induced depressive disorder. The patient was appearing to be no longer psychotic and denying SI/HI and AVH. He declined taking Zyprexa for his symptoms and likely his symptoms remitted on their own. Patient was psychiatrically cleared to continue treatment in outpatient rehab or psych follow up. No inpatient psych hospitalization or 5150 was recommended. During the same time, patient is SAROJ resolved with IV fluids and CK started to trend down. Per chart review, patient had hidradenitis suppurativa and lesions in the groin and thigh. Patient refused to examined the area. 03/18-patient reported feeling fine, no acute distress, said that he will go to his friend's house, denied further workup and detailed examination, therefore he has been discharged with a strong recommendation to follow up with psychiatrist as outpatient within 7 days, follow up with PCP and discharge clinic within 7 days. Patient agreed to discharge planning. Patient was extensively counseled regarding cessation of drug use. Consults/Reason for consult Tele psych consult Condition at Discharge: Stable Final Diagnosis/Problems List Substance induced psychosis. Substance induced depressive disorder. Acute substance intoxication - Fentanyl and amphetamine Acute kidney injury likeliy vasomotor Dehydration Anemia, likely normocytic Suicidal ideation Discharge Disposition: Home Discharge Instruct/Medications Diet: See Comment Diet comment: adequate hydration Activity: Light activity Follow Up/Referral: Follow up with psychiatrist as outpatient within 7 days Follow up with PCP within 7 days Follow up with [facility] within 7 days Discharge Statement: "Patient was advised to return to the ER or call 911 if any headaches, dizziness, shortness of breath, chest pain, abdominal pain, bleeding, fevers, or worsening of medical condition. Patient was counseled about treatment plan, medications, possible side effects, patientverbalized understanding. All questions were answered to the best of my ability. This discharge took greater then 30 minutes in planning, reviewing documentation, counseling the patient, and discussing with other team members." ASSESSMENT ASSESSMENT Assessment Substance induced psychosis. Substance induced depressive disorder. Acute substance intoxication - Fentanyl and amphetamine Acute kidney injury likeliy vasomotor Dehydration Suicidal ideation Date of Service: Mar 18, 2025 Billing Provider: ALEJANDRA UNGER MD Common Visit Codes: 69287-YES/OBS DISCH DAY >30min JAS BONILLA RESIDENT Mar 18, 2025 13:04 ALEJANDRA UNGER MD Mar 19, 2025 01:52
[2025-03-18] MEDS ORDERED: OLANZapine 5 MG TAB PO SCH (22:00)
== END 2025-03-18 14:10 | disposition home or self-care (01) | DRG 422 ==
LOC: ER 05:31 → OVERFLOW 03-17 08:15 → CENTRAL 03-17 22:21
PROVIDERS: ADMIT Nurse Practitioner Family; ATTEND Nurse Practitioner Family
DX: E86.0 Dehydration (principal); N17.0 Acute kidney failure with tubular necrosis; R45.851 Suicidal ideations; D64.9 Anemia, unspecified; F20.9 Schizophrenia, unspecified; L73.2 Hidradenitis suppurativa; F41.9 Anxiety disorder, unspecified; F17.210 Nicotine dependence, cigarettes, uncomplicated; F15.10 Other stimulant abuse, uncomplicated; F11.10 Opioid abuse, uncomplicated; F19.10 Other psychoactive substance abuse, uncomplicated; Z56.0 Unemployment, unspecified; Z93.3 Colostomy status; Z91.51 Personal history of suicidal behavior; Z59.00 Homelessness unspecified; Z88.1 Allergy status to other antibiotic agents; Y92.89 Other specified places as the place of occurrence of the external cause
CPT/HCPCS: 36415; 80048; 80053; 80061; 80307; 80320; 82306; 82550; 82607; 83036; 83735; 84443; 85025; 85610; 85730; 99291; G0378

== ENCOUNTER 2025-03-24 11:44 | Emergency (ER) | payer MEDICAID ==
[~2025-03-24] VITALS: Ht 188 cm; Wt 68.8 kg
[2025-03-24 11:51] VITALS: BP 145/73; PULSE 105; RESP 16; TEMP 98.5; O2SAT 99
--- NOTE | 2025-03-24 11:58 | ED.PDOC ---
History of Present Illness HPI Comments 44M presents to the ER w/ prior MHx of Colostomy Bag and the c/c of colostomy bag needs to be changed. Pt reports on running out of colostomy bags last night and need more of our medical supplies. Denies chills, fever, N/V/D, SOB, CP. No other associated symptoms, modifiers, recent injuries or sick contacts present at this time. Chief Complaint: Abdominal Pain Time Seen by MD: 11:50 Primary Care Provider: NONE Reviewed Notes: Nurses Notes, Medications, Allergies Allergies: Coded Allergies: Ketorolac Tromethamine (Verified Allergy, Unknown, 09/03/23) Vancomycin (Verified Allergy, Unknown, 07/07/24) Home Meds No Active Prescriptions or Reported Meds Information Source: Patient Mode of Arrival: Ambulatory Severity: Moderate Timing: Hours Duration: Since onset, Hours Prehospital treatment: None Past Medical History PAST MEDICAL HISTORY: Denies Surgical History (Other): Colostomy Bag in place Family History Family History: Reviewed,noncontributory to illness, Unknown Social History Smoker: Unknown Alcohol: Unknown Drugs: Unknown Lives In: Homeless Constitutional: denies: chills, diaphoresis, fatigue, fever, malaise, sweats, weakness, others EENTM: denies: blurred vision, double vision, ear bleeding, ear discharge, ear drainage, ear pain, ear ringing, eye pain, eye redness, hearing loss, mouth pain, mouth swelling, nasal discharge, nose bleeding, nose congestion, nose pain, photophobia, tearing, throat pain, throat swelling, voice changes, others Respiratory: denies: cough, hemoptysis, orthopnea, SOB at rest, shortness of breath, SOB with excertion, stridor, wheezing, others Cardiovascular: denies: chest pain, dizzy spells, diaphoresis, Dyspnea on ex ertion, edema, irregular heart beat, left arm pain, lightheadedness, palpitations, PND, syncope, others Gastrointestinal: denies: abdomen distended, abdominal pain, blood streaked bowels, constipated, diarrhea, dysphagia, difficulty swallowing, hematemesis, melena, nausea, poor appetite, poor fluid intake, rectal bleeding, rectal pain, vomiting, others Genitourinary: denies: burning, dysuria, flank pain, frequency, hematuria, incontinence, penile discharge, penile sore, pain, testicle pain, testicle swelling, urgency, others Neurological: denies: dizziness, fainting, headache, left sided numbness, left sided weakness, numbness, paresthesia, pre-existing deficit, right sided numbness, right sided weakness, seizure, speech problems, tingling, tremors, weakness, others Musculoskeletal: denies: back pain, gout, joint pain, joint swelling, muscle pain, muscle stiffness, neck pain, others Integumetry: denies: bruises, change in color, change in hair/nails, dryness, laceration, lesions, lumps, rash, wounds, others Allergic/Immunocompromised: denies: Difficulty Healing, Frequent Infections, Hives, Itching, others Hematologic/Lymphatic: denies: anemia, blood clots, easy bleeding, easy bruising, swollen glands, others Endocrine: denies: excessive hunger, excessive sweating, excessive thirst, excessive urination, flushing, intolerance to cold, intolerance to heat, unexplained weight gain, unexplained weight loss, others Psychiatric: denies: anxiety, bipolar disorder, depression, hopeless, panic disorder, schizophrenia, sleepless, suicidal, others All Other Systems: Reviewed and Negative Physical Exam General Appearance: No Apparent Distress, Normal HEENT: Normal ENT Inspection, Pharynx Normal, TMs Normal Neck: Full Range of Motion, Non-Tender, Normal, Normal Inspection Respiratory: Chest Non-Tender, Lungs Clear, No Accessory Muscle Use, No Respiratory Distress, Normal Breath Sounds Cardiovascular: No Edema, No JVD, No Murmur, No Gallop, Normal Peripheral Pulses, Regular Rate/Rhythm Breast Exam: Deferred Gastrointestinal: No Organomegaly, Non Tender, No Pulsatile Mass, Normal Bowel Sounds, Soft Genitalia: Deferred Pelvic: Deferred Rectal: Deferred Extremities: No calf tenderness, Normal capillary refill, Normal inspection, Normal range of motion, Non-tender, No pedal edema Musculoskeletal : Apperance: Normal Neurologic: Alert, fire [employer] chief II-XII nml as Tested, No Motor Deficits, Normal Affect, Normal Mood, No Sensory Deficits Cerebellar Function: Normal Reflexes: Normal Skin: Dry, Normal Color, Warm Lymphatic: No Adenopathy Was a procedure done? Was a procedure done?: No Differential Dx Considerations may include: colostomy check. medical equipment request X-Ray, Labs, Meds, VS Vital Signs Date Time Temp Pulse Resp B/P (MAP) Pulse Ox O2 Delivery O2 Flow Rate FiO2 03/24/25 11:51 98.5 105 16 145/73 (97) 99 98.5 Time of 1ST Reevaluation: 12:20 Reevaluation 1ST: Unchanged Patient Education/Counseling: Diagnosis, Treatment, Prognosis Family Education/Counseling: No Family Present Comments pt has no symptoms. he needs medical supplies, which we provided him with and he received fresh clothing from our donation supply. pt is happy and will follow up with his PCP Departure 1 Departure Time of Disposition: 12:31 Impression: Primary Impression: Colostomy care Disposition: 01 HOME / SELF CARE / HOMELESS Condition: Good e-Prescriptions No Active Prescriptions or Reported Meds Discharged With: Self Critical Care Note Critical Care Time?: No Stability Stability form required: No I personally scribed for LILLY MYRICK MD ([email or web address]) on 03/24/25 at 11:58. Electronically submitted by Nadeem Glasgow ([email or web address]). LILLY MYRICK MD Mar 24, 2025 11:58
== END 2025-03-24 13:23 | disposition home or self-care (01) ==
LOC: ER 11:44
DX: Z43.3 Encounter for attention to colostomy (principal); R10.9 Unspecified abdominal pain; Z59.00 Homelessness unspecified; Z88.1 Allergy status to other antibiotic agents

== ENCOUNTER 2025-04-02 04:17 | Emergency (ER) | payer MEDICAID ==
[~2025-04-02] VITALS: Ht 188 cm; Wt 68.0 kg
[2025-04-02 04:32] VITALS: BP 147/99; PULSE 107; RESP 18; TEMP 99.8; O2SAT 97
== END 2025-04-02 06:28 | disposition left against medical advice (07) ==
LOC: ER 04:17
DX: Z48.00 Encounter for change or removal of nonsurgical wound dressing (principal); Z53.21 Procedure and treatment not carried out due to patient leaving prior to being seen by health care provider

== ENCOUNTER 2025-04-06 15:38 | Emergency (ER) | payer MEDICAID ==
[~2025-04-06] VITALS: Ht 188 cm; Wt 67.9 kg
[2025-04-06 15:50] VITALS: BP 147/93; PULSE 106; RESP 16; TEMP 97.8; O2SAT 97
--- NOTE | 2025-04-06 15:50 | ED.PDOC ---
History of Present Illness HPI Comments 44-year-old male presents with a chief complaint of request for colostomy supplies. Patient is well-known to this ER and is seen here frequently when he needs supplies for his colostomy. Patient states that his colostomy is working properly and just needs supplies to keep it functioning. Vital signs were st able on arrival. Patient states he has not had transportation to get down the hill to see his scheduled provider. Patient states he is attempting to establish local care to address his GI concerns. Patient requested a social service consult to aid in establishing a primary care provider in [place]. Time Seen by MD: 15:45 Primary Care Provider: NONE Reviewed Notes: Nurses Notes, Medications, Allergies Allergies: Coded Allergies: Ketorolac Tromethamine (Verified Allergy, Unknown, 09/03/23) Vancomycin (Verified Allergy, Unknown, 07/07/24) Home Meds No Active Prescriptions or Reported Meds Information Source: Patient Mode of Arrival: Ambulatory Severity: Moderate Timing: Months Duration: Since onset Prehospital treatment: None Past Medical History PAST MEDICAL HISTORY: Denies Past Medical History (Other): Patient utilizes a colostomy bag for a chronic GI concern. Surgical History: Denies all surgeries Family History Family History: Reviewed,noncontributory to illness, Unknown Social History Smoker: Cigarettes Alcohol: Denies ETOH Use Drugs: Denies Drug Use Lives In: Homeless Constitutional: denies: chills, diaphoresis, fatigue, fever, malaise, sweats, weakness, others EENTM: denies: blurred vision, double vision, ear bleeding, ear discharge, ear drainage, ear pain, ear ringing, eye pain, eye redness, hearing loss, mouth pain, mouth swelling, nasal discharge, nose bleeding, nose congestion, nose pain, photophobia, tearing, throat pain, throat swelling, voice changes, others Respiratory: denies: cough, hemoptysis, orthopnea, SOB at rest, shortness of breath, SOB with excertion, stridor, wheezing, others Cardiovascular: denies: chest pain, dizzy spells, diaphoresis, Dyspnea on exertion, edema, irregular heart beat, left arm pain, lightheadedness, palpitations, PND, syncope, others Gastrointestinal: reports: others (Patient has a right-sided colostomy); denies: abdomen distended, abdominal pain, blood streaked bowels, constipated, diarrhea, dysphagia, difficulty swallowing, hematemesis, melena, nausea, poor appetite, poor fluid intake, rectal bleeding, rectal pain, vomiting Genitourinary: denies: burning, dysuria, flank pain, frequency, hematuria, incontinence, penile discharge, penile sore, pain, testicle pain, testicle swelling, urgency, others Neurological: denies: dizziness, fainting, headache, left sided numbness, left sided weakness, numbness, paresthesia, pre-existing deficit, right sided numbness, right sided weakness, seizure, speech problems, tingling, tremors, weakness, others Musculoskeletal: denies: back pain, gout, joint pain, joint swelling, muscle pain, muscle stiffness, neck pain, others Integumetry: denies: bruises, change in color, change in hair/nails, dryness, laceration, lesions, lumps, rash, wounds, others Allergic/Immunocompromised: denies: Difficulty Healing, Frequent Infections, Hives, Itching, others Hematologic/Lymphatic: denies: anemia, blood clots, easy bleeding, easy bruising, swollen glands, others Endocrine: denies: excessive hunger, excessive sweating, excessive thirst, excessive urination, flushing, intolerance to cold, intolerance to heat, unexplained weight gain, unexplained weight loss, others Psychiatric: denies: anxiety, bipolar disorder, depression, hopeless, panic disorder, schizophrenia, sleepless, suicidal, others All Other Systems: Reviewed and Negative ( PER HPI) Physical Exam General Appearance: No Apparent Distress (Patient was in no distress at time of evaluation.), Normal HEENT: Normal ENT Inspection, Pharynx Normal, TMs Normal Neck: Full Range of Motion, Non-Tender, Normal, Normal Inspection Respiratory: Chest Non-Tender, Lungs Clear, No Accessory Muscle Use, No Respiratory Distress, Normal Breath Sounds Cardiovascular: No Edema, No JVD, No Murmur, No Gallop, Normal Peripheral Pulses, Regular Rate/Rhythm Breast Exam: Deferred Gastrointestinal: No Pulsatile Mass, Soft, Other (Patient displays a patent right-sided colostomy. No signs of infection.) Genitalia: Deferred Pelvic: Deferred Rectal: Deferred Extremities: No calf tenderness, Normal capillary refill, Normal inspection, Normal range of motion, Non-tender, No pedal edema Musculoskeletal : Apperance: Normal Neurologic: Alert, No Motor Deficits, Normal Affect, Normal Mood, No Sensory Deficits Cerebellar Function: Normal Reflexes: Normal Skin: Dry, Normal Color, Warm Lymphatic: No Adenopathy Was a procedure done? Was a procedure done?: No Differential Dx Considerations may include: Encounter for colostomy supplies and social service assistance X-Ray, Labs, Meds, VS Vital Signs Date Time Temp Pulse Resp B/P (MAP) Pulse Ox O2 Delivery O2 Flow Rate FiO2 04/06/25 15:50 97.8 106 16 147/93 (111) 97 97.8 X-Ray, Labs, Meds, VS Comment Patient was provided with colostomy supplies and social service will consult to aid in establishing a primary care provider. Time of 1ST Reevaluation: 16:07 Reevaluation 1ST: Improved Consultation: PCP, GI Patient Education/Counseling: Diagnosis, Treatment, Need For Follow Up Family Education/Counseling: Diagnosis, Treatment, No Family Present SEPSIS Sepsis Screen Recent Procedure: No On Antibiotic Therapy: No Respiratory Rate >20: No Heart Rate >90: No Temp<36 C (96.8 F) or >38.3 C: No SBP <90 or MAP <65 mmHG: No New Acute Mental Status Change: No Is the patient on CPAP, BIPAP,: No Vital Signs Date Time Temp Pulse Resp B/P (MAP) Pulse Ox O2 Delivery O2 Flow Rate FiO2 04/06/25 15:50 97.8 106 16 147/93 (111) 97 97.8 Departure 1 Departure Time of Disposition: 16:07 Impression: Primary Impression: Colostomy care Additional Impression: Need for sr. social media & mobile manager intervention Disposition: 01 HOME / SELF CARE / HOMELESS Condition: Stable Additional Instructions: Advised patient to establish primary care provider as soon as possible for improved management of his significant GI concerns. e-Prescriptions No Active Prescriptions or Reported Meds Discharged With: Self Critical Care Note Critical Care Time?: No Stability Stability form required: No Heart Score Heart Score: Heart Score Response (Comments) Value History N/A 0 EKG N/A 0 Age N/A 0 Risk Factors N/A 0 Troponin N/A 0 Total 0 I personally scribed for CANDY SINGLETARY PAC ([email or web address]) on 04/06/25 at 15:50. Electronically submitted by Luigi Rudolph ([email or web address]). CANDY SINGLETARY PAC Apr 06, 2025 15:50
== END 2025-04-06 18:50 | disposition home or self-care (01) ==
LOC: ER 15:38
DX: Z93.3 Colostomy status (principal); F17.210 Nicotine dependence, cigarettes, uncomplicated; Z88.1 Allergy status to other antibiotic agents; Z75.2 Other waiting period for investigation and treatment; Z59.00 Homelessness unspecified

== ENCOUNTER 2025-04-14 02:16 | Emergency (ER) | payer MEDICAID | END 2025-04-14 03:39 | disposition left against medical advice (07) | LOC: ER 02:16 | DX: Z90.49 Acquired absence of other specified parts of digestive tract (principal); Z53.21 Procedure and treatment not carried out due to patient leaving prior to being seen by health care provider ==

== ENCOUNTER 2025-04-15 07:34 | Emergency (ER) | payer MEDICAID ==
[~2025-04-15] VITALS: Ht 188 cm; Wt 66.7 kg
[2025-04-15 07:46] VITALS: RESP 18; O2SAT 99
--- NOTE | 2025-04-15 08:07 | ED.PDOC ---
History of Present Illness HPI Comments 44-year-old male presents to the ER with prior medical history of utilizes a colostomy bag for a chronic GI concern and a chief complaint of a wound check. That he ran out of his supplies that he has and needs more. Denies chills, fever, N/V/D, SOB, CP. No other associated symptoms, modifiers, recent injuries or sick contacts present at this time. Chief Complaint: Wound Check Time Seen by MD: 08:05 Primary Care Provider: NONE Reviewed Notes: Nurses Notes, Medications, Allergies Allergies: Coded Allergies: Ketorolac Tromethamine (Verified Allergy, Unknown, 09/03/23) Vancomycin (Verified Allergy, Unknown, 07/07/24) Home Meds No Active Prescriptions or Reported Meds Information Source: Patient Mode of Arrival: Ambulatory Severity: Moderate Timing: Came on: Gradually Duration: Since onset Prehospital treatment: None Past Medical History Past Medical History (Other): Patient utilizes a colostomy bag for a chronic GI concern Surgical History: Denies all surgeries Family History Family History: Reviewed,noncontributory to illness, Unknown Social History Smoker: Unknown Alcohol: Unknown Drugs: Unknown Lives In: Homeless Constitutional: reports: others (Resupplied); denies: chills, diaphoresis, fatigue, fever, malaise, sweats, weakness EENTM: denies: blurred vision, double vision, ear bleeding, ear discharge, ear drainage, ear pain, ear ringing, eye pain, eye redness, hearing loss, mouth pain, mouth swelling, nasal discharge, nose bleeding, nose congestion, nose pain, photophobia, tearing, throat pain, throat swelling, voice changes, others Respiratory: denies: cough, hemoptysis, orthopnea, SOB at rest, shortness of breath, SOB with excertion, stridor, wheezing, others Cardiovascular: denies: chest pain, dizzy spells, diaphoresis, Dyspnea on exertion, edema, irregular heart beat, left arm pain, lightheadedness, palpitations, PND, syncope, others Gastrointestinal: denies: abdomen distended, abdominal pain, blood streaked bowels, constipated, diarrhea, dysphagia, difficulty swallowing, hematemesis, melena, nausea, poor appetite, poor fluid intake, rectal bleeding, rectal pain, vomiting, others Genitourinary: denies: burning, dysuria, flank pain, frequency, hematuria, incontinence, penile discharge, penile sore, pain, testicle pain, testicle swelling, urgency, others Neurological: denies: dizziness, fainting, headache, left sided numbness, left sided weakness, numbness, paresthesia, pre-existing deficit, right sided numbness, right sided weakness, seizure, speech problems, tingling, tremors, weakness, others Musculoskeletal: denies: back pain, gout, joint pain, joint swelling, muscle pain, muscle stiffness, neck pain, others Integumetry: denies: bruises, change in color, change in hair/nails, dryness, laceration, lesions, lumps, rash, wounds, others Allergic/Immunocompromised: denies: Difficulty Healing, Frequent Infections, Hives, Itching, others Hematologic/Lymphatic: denies: anemia, blood clots, easy bleeding, easy bruising, swollen glands, others Endocrine: denies: excessive hunger, excessive sweating, excessive thirst, excessive urination, flushing, intolerance to cold, intolerance to heat, unexplained weight gain, unexplained weight loss, others Psychiatric: denies: anxiety, bipolar disorder, depression, hopeless, panic disorder, schizophrenia, sleepless, suicidal, others All Other Systems: Reviewed and Negative Physical Exam General Appearance: Moderate Distress, Normal HEENT: Normal ENT Inspection, Pharynx Normal, TMs Normal Neck: Full Range of Motion, Non-Tender, Normal, Normal Inspection Respiratory: Chest Non-Tender, Lungs Clear, No Accessory Muscle Use, No Respiratory Distress, Normal Breath Sounds Cardiovascular: No Edema, No JVD, No Murmur, No Gallop, Normal Peripheral Pulses, Regular Rate/Rhythm Breast Exam: Deferred Gastrointestinal: No Organomegaly, Non Tender, No Pulsatile Mass, Normal Bowel Sounds, Soft, Other (Colostomy bag) Genitalia: Deferred Pelvic: Deferred Rectal: Deferred Extremities: No calf tenderness, Normal capillary refill, Normal inspection, Normal range of motion, Non-tender, No pedal edema Musculoskeletal : Apperance: Normal Neurologic: Alert, fish checker II-XII 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 Was a procedure done?: No Differential Dx Considerations may include: Wound care X-Ray, Labs, Meds, VS Vital Signs Date Time Temp Pulse Resp B/P (MAP) Pulse Ox O2 Delivery O2 Flow Rate FiO2 04/15/25 08:15 98.3 97 17 138/96 (110) 98 98.3 04/15/25 08:15 97 16 97 Room Air 04/15/25 07:46 18 99 Room Air* 0 21 04/15/25 07:40 98.2 100 18 145/99 (114) 99 98.2 Patient alert. Came because of wound care supplies. Vitals stable. Answering questions He states that he is feeling good. No symptoms. Reviewed his previous visit. Was told to follow up with his primary care physician. Was told to come back if there is any problem. Time of 1ST Reevaluation: 08:35 Reevaluation 1ST: Improved Patient Education/Counseling: Diagnosis, Treatment, Prognosis Family Education/Counseling: No Family Present SEPSIS Sepsis Screen Date sepsis recognized/suspect: Apr 15, 2025 Time Sepsis recognized/suspect: 739 Recent Procedure: No On Antibiotic Therapy: No Respiratory Rate >20: No Heart Rate >90: Yes Temp<36 C (96.8 F) or >38.3 C: No SBP <90 or MAP <65 mmHG: No New Acute Mental Status Change: No Is the patient on CPAP, BIPAP,: No Vital Signs Date Time Temp Pulse Resp B/P (MAP) Pulse Ox O2 Delivery O2 Flow Rate FiO2 04/15/25 08:15 98.3 97 17 138/96 (110) 98 98.3 04/15/25 08:15 97 16 97 Room Air 04/15/25 07:46 18 99 Room Air* 0 21 04/15/25 07:40 98.2 100 18 145/99 (114) 99 98.2 Departure 1 Departure Time of Disposition: 08:17 Impression: Primary Impression: Colostomy care Disposition: 01 HOME / SELF CARE / HOMELESS Condition: Good e-Prescriptions No Active Prescriptions or Reported Meds Discharged With: Self Critical Care Note Critical Care Time?: No Stability Stability form required: No Heart Score Heart Score: Heart Score Response (Comments) Value History N/A 0 EKG N/A 0 Age N/A 0 Risk Factors N/A 0 Troponin N/A 0 Total 0 I personally scribed for YANDY TAPIA MD ([email or web address]) on 04/15/25 at 08:07. Electronically submitted by Nadeem Glasgow ([email or web address]). YANDY TAPIA MD Apr 15, 2025 08:07
[2025-04-15 08:15] VITALS: BP 138/96; PULSE 97; RESP 16; TEMP 98.3; O2SAT 97
== END 2025-04-15 08:35 | disposition home or self-care (01) ==
LOC: ER 07:34
DX: Z93.3 Colostomy status (principal); Z88.1 Allergy status to other antibiotic agents; Z88.8 Allergy status to other drugs, medicaments and biological substances